=== PATIENT | female | born 1955 | race Caucasian/White ===

== ENCOUNTER 2016-07-21 17:27 | Inpatient (IN) | payer MEDICARE ==
[2016-07-21] MEDS ORDERED: AZITHROMYCIN 500 MG in SODIUM CHLORIDE 0.9% 250 ML IVPB STA (17:38)
[2016-07-21] MEDS ORDERED: SODIUM CHLORIDE 0.9% 1,000 ML IV ONE (17:38)
--- NOTE | 2016-07-21 17:45 | ED ---
SOB HPI - General Chief Complaint: Shortness of Breath Stated Complaint: Diff breathing Time Seen by Provider: 07/21/16 17:28 - History of Present Illness Initial Comments: This is a 60-year-old female presents emergency department for progressively worsening shortness of breath. She states that she was diagnosed with bronchitis ox 94-5 days ago and placed on ampicillin which she has been taking. She states that she's also been taking cough medicine and steroids. She states that over the last few days she has progressively worsened and is now coughing up yellow sputum. She feels very short of breath and is wheezing. She denies any fevers or chills. No abdominal pain. She does admit to a typical feeling in her right neck. Patient has no smoking history. She called EMS because she was so short of breath. They gave her 2 breathing treatments and Solu-Medrol in route. No other complaints. - Related Data Home Medications Medication Instructions Recorded Confirmed Amoxicillin 500 mg PO Q8H 07/21/16 07/21/16 Cholecalciferol [Vitamin D3] 1,000 unit PO DAILY 07/21/16 07/21/16 Ferrous Sulfate [Feosol] 325 mg PO DAILY 07/21/16 07/21/16 Metoprolol Succinate (ER) [Toprol 12.5 mg PO HS 07/21/16 07/21/16 Xl] Multivitamins, Thera [Multivitamin] 1 tab PO DAILY 07/21/16 07/21/16 [place]-3 Fatty Acids/Fish Oil [Fish 1 cap PO DAILY 07/21/16 07/21/16 Oil 1,000 mg Softgel] Vitamin C/Biotin [Hair, Skin and 1 tab PO DAILY 07/21/16 07/21/16 Nails] methylPREDNISolone Dose Pack See Taper PO DAILY 07/21/16 07/21/16 [Medrol Dose Pack] Allergies Allergy/AdvReac Type Severity Reaction Status Date / Time ibuprofen [From Motrin] Allergy Dyspnea Verified 07/21/16 17:57 acetaminophen [From Tylenol] AdvReac Increased Verified 07/21/16 17:57 Liver Enzymes Review of Systems ROS Statement: Those systems with pertinent positive or pertinent negative responses have been documented in the HPI. ROS Other: All systems not noted in ROS Statement are negative. General Exam - General Exam Comments Initial Comments: Constitutional: Awake alert Appears comfortable Head: Normocephalic atraumatic Eyes: no conjunctival injection No scleral icterus EOMI Neck: No JVD Supple Heart: Regular rate rhythm normal S1-S2 no murmurs Lungs: Clear, bilateral inspiratory and expiratory wheezing No rales Abdomen: Soft nondistended nontender Extremities: Non edematous DP pulses intact Radial pulses intact Neuro: A&Ox3 No focal neurologic deficits Psych: Appropriate mood and affect Course Vital Signs 07/21/16 07/21/16 07/21/16 17:40 17:53 17:58 Temperature 98.4 F Pulse Rate 117 H 100 Respiratory 22 22 Rate Blood Pressure 171/77 O2 Sat by Pulse 94 L Oximetry 07/21/16 07/21/16 18:13 19:22 Temperature 98.0 F Pulse Rate 102 H 103 H Respiratory 18 Rate Blood Pressure 141/97 O2 Sat by Pulse 94 L Oximetry - Reevaluation(s) Reevaluation #1: 07/21/16 18:11 EKG showing normal sinus rhythm with a rate of 96. No ST segment changes or T- wave inversions. QTC is 444. Other intervals are normal. No ectopy. Medical Decision Making - Medical Decision Making This is a 60-year-old female presents emergency department for worsening shortness of breath, cough productive of yellow sputum. She was evaluated and appears to have a severe bronchitis. Chest x-ray did not reveal any pneumonia however due to the patient's clinical appearance I did start her on antibiotics. She did improve a little bit on oxygen and breathing treatments. Going to place her in observation overnight for breathing treatments and monitoring. Dr. Wade accepts the admission. - Lab Data Result diagrams: 07/21/16 18:15 07/21/16 18:15 Lab Results 07/21/16 07/21/16 07/21/16 Range/Units 18:15 18:15 18:15 WBC 10.2 (3.8-10.6) k/uL RBC 4.34 (3.80-5.40) m/uL Hgb 14.1 (11.4-16.0) gm/dL Hct 43.0 (34.0-46.0) % MCV 99.1 (80.0-100.0) fL MCH 32.5 (25.0-35.0) pg MCHC 32.8 (31.0-37.0) g/dL RDW 12.6 (11.5-15.5) % Plt Count 230 (150-450) k/uL Neutrophils % 71 % Lymphocytes % 20 % Monocytes % 5 % Eosinophils % 2 % Basophils % 1 % Neutrophils # 7.2 (1.3-7.7) k/uL Lymphocytes # 2.0 (1.0-4.8) k/uL Monocytes # 0.5 (0-1.0) k/uL Eosinophils # 0.2 (0-0.7) k/uL Basophils # 0.1 (0-0.2) k/uL Sodium 145 (137-145) mmol/L Potassium 3.4 L (3.5-5.1) mmol/L Chloride 106 (98-107) mmol/L Carbon Dioxide 28 (22-30) mmol/L Anion Gap 11 mmol/L BUN 22 H (7-17) mg/dL Creatinine 0.68 (0.52-1.04) mg/dL Est GFR (MDRD) Af Amer >60 (>60 ml/min/1.73 sqM) Est GFR (MDRD) Non-Af >60 (>60 ml/min/1.73 sqM) Glucose 122 H (74-99) mg/dL Plasma Lactic Acid Michael 1.5 (0.7-2.0) mmol/L Calcium 9.3 (8.4-10.2) mg/dL Magnesium 1.9 (1.6-2.3) mg/dL Total Bilirubin 0.5 (0.2-1.3) mg/dL AST 25 (14-36) U/L ALT 32 (9-52) U/L Alkaline Phosphatase 95 (38-126) U/L Total Protein 7.1 (6.3-8.2) g/dL Albumin 4.2 (3.5-5.0) g/dL Disposition Clinical Impression: Bronchitis Disposition: ADMITTED IP TO THIS HOSP Condition: Stable
[2016-07-21] MEDS ORDERED: IPRATROPIUM-ALBUTEROL 3 ML NEB INHALATION STA (17:55)
[2016-07-21 18:30] LABS: Basophils # (A) 0.1 k/uL (0-0.2); Basophils % (A) 1 %; CH 33.1; CHCM 33.5; Eosinophils # (A) 0.2 k/uL (0-0.7); Eosinophils % (A) 2 %; HDW 2.32; HGB 14.1 gm/dL (11.4-16.0); Luc # (Auto) 0.23; Luc % (Auto) 2; Lymphocytes % (A) 20 %; MCH 32.5 pg (25.0-35.0); MCHC 32.8 g/dL (31.0-37.0); MCV 99.1 fL (80.0-100.0); Monocytes # (A) 0.5 k/uL (0-1.0); Monocytes % (A) 5 %; Neutrophils # (A) 7.2 k/uL (1.3-7.7); Neutrophils % (A) 71 %; RBC 4.34 m/uL (3.80-5.40); RDW 12.6 % (11.5-15.5); WBC 10.2 k/uL (3.8-10.6); WBC (Perox) 10.93
[2016-07-21 18:40] LABS: ALT 32 U/L (9-52); AST 25 U/L (14-36); Alkaline Phosphatase 95 U/L (38-126); Anion Gap 11 mmol/L; Blood Urea Nitrogen 22 mg/dL (7-17); Calcium 9.3 mg/dL (8.4-10.2); Carbon Dioxide 28 mmol/L (22-30); Chloride 106 mmol/L (98-107); Glucose 122 mg/dL (74-99); Magnesium 1.9 mg/dL (1.6-2.3); Non-African American GFR(MDRD) >60 (>60 ml/min/1.73 sqM); Potassium 3.4 mmol/L (3.5-5.1); Sodium 145 mmol/L (137-145); Total Bilirubin 0.5 mg/dL (0.2-1.3); Total Protein 7.1 g/dL (6.3-8.2)
--- NOTE | 2016-07-21 18:41 | XR ---
EXAMINATION TYPE: XR chest 2V DATE OF EXAM: 07/21/2016 6:35 PM COMPARISON: NONE HISTORY: Dysrhythmia. Chest pain TECHNIQUE: Frontal and lateral views of the chest are obtained. FINDINGS: Heart and mediastinum are normal. Lungs are clear. Costophrenic angles are clear. There ar e no hilar masses. Bony thorax is intact. IMPRESSION: No active cardiopulmonary disease.
[2016-07-21] MEDS ORDERED: PNEUMONIA PROTOCOL UTILIZED 1 EACH MISC PO PRN (19:22)
[2016-07-21] MEDS: METOPROLOL SUCCINATE (ER) 25 MG TAB.ER.24H PO SCH (23:02)
[2016-07-21] MEDS: IPRATROPIUM-ALBUTEROL 3 ML NEB INHALATION PRN (23:09)
[2016-07-21 23:39] VITALS: BMI 31.6
[2016-07-22] MEDS ORDERED: SUMAtriptan SUCCINATE 6 MG/0.5 ML VIAL SQ STA (01:11)
[2016-07-22 01:30] LABS: Appearance,Urine Clear (Clear); Bilirubin,Urine Negative (Negative); Glucose,Urine (UA) Negative (Negative); Ketones,Urine Negative (Negative); Leukocyte Esterase,Urine Negative (Negative); Nitrite,Urine Negative (Negative); Protein,Urine Negative (Negative); Specific Gravity,Urine 1.023 (1.001-1.035); UA Billing (MACRO vs. MICRO) CHEM; Urobilinogen,Urine <2.0 mg/dL (<2.0)
[2016-07-22] MEDS: IPRATROPIUM-ALBUTEROL 3 ML NEB INHALATION PRN (07:20)
[2016-07-22] MEDS: IPRATROPIUM-ALBUTEROL 3 ML NEB INHALATION SCH ×5 (07:42→22:09)
[2016-07-22] MEDS ORDERED: IPRATROPIUM-ALBUTEROL 3 ML NEB INHALATION PRN (07:45)
--- NOTE | 2016-07-22 08:20 | XR ---
EXAMINATION TYPE: XR chest 2V DATE OF EXAM: 07/22/2016 7:15 AM COMPARISON: Prior chest x-ray July HISTORY: Pneumonia TECHNIQUE: Frontal and lateral views of the chest are obtained. FINDINGS: Prominent lung volumes may be indicative of underlying COPD. No pneumothorax or pleural ef fusion. Pulmonary vascularity and noe are stable accounting for differences in technique. Interstiti um is mildly increased. Patient is status post left mastectomy. There are overlying cardiac leads. Th e patient is rotated. Heart size may be accentuated by technique, rotation. IMPRESSION: Borderline cardiac size. Correlate to exclude pulmonary venous hypertension and intersti tial edema, volume overload in a patient with pre-existing COPD. Follow up suggested.
[2016-07-22] MEDS ORDERED: POTASSIUM CHLORIDE ER 20 MEQ TAB.ER PO STA (11:06)
--- NOTE | 2016-07-22 11:41 | HP ---
DATE OF ADMISSION: Patient is a 60-year-old who came in with complaints of shortness of breath, has been going on for about 4 to 5 days. Patient was placed on Medrol Dosepak and ampicillin without any improvement of symptoms. Patient continues to cough, greenish phlegm. Patient now diagnosed with COPD, does not have any history of asthma, patient used to smoke years ago, quit smoking years ago, patient had a secondhand smoke exposure. Patient denied any fever, chills. Patient denied any nausea or vomiting. Patient is using accessory muscles of breathing. Patient denied any significant orthopnea. Patient was complaining of orthopnea most probably because of COPD. Denied any paroxysmal nocturnal dyspnea. Patient is coughing up yellowish phlegm. Patient denied any chest pain at this point of time. Patient is in significant respiratory distress at rest on 3 L of oxygen. Does not use any oxygen at home. Never saw a mail manager and patient has some tingling feeling in the right side of the neck, although there is no pathology that was evidenced. Patient appears to have symptoms appears to have started as sore throat, now led to bronchitis. REVIEW OF SYSTEMS: CONSTITUTIONAL: No fever, no malaise, no fatigue. HEENT: No recent visual problems or hearing problems. Denied any sore throat. CARDIOVASCULAR: No chest pain, orthopnea, PND, no palpitations, no syncope. PULMONARY: As described in HPI. GASTROINTESTINAL: No diarrhea, no nausea, no vomiting, no abdominal pain. Normoactive bowel sounds. NEUROLOGICAL: No headaches, no weakness, no numbness. HEMATOLOGICAL: Denies any bleeding or petechiae. GENITOURINARY: Denies any burning micturition, frequency, or urgency. MUSCULOSKELETAL/RHEUMATOLOGICAL: Denies any joint pain, swelling, or any muscle pain. ENDOCRINE: Denies any polyuria or polydipsia. The rest of the 14 point review of systems is negative. Medications are: 1. Amoxicillin. 2. Cholecalciferol. 3. Ferrous sulfate. 4. Metoprolol. 5. Multivitamin. 6. [place] fatty acids. 7. Biotin. 8. Solu-Medrol. ALLERGIES: Allergic to IBUPROFEN and ACETAMINOPHEN. PAST MEDICAL HISTORY: Significant for DVT in the past. Patient is not on any anticoagulation, uterine cancer in the past, hepatitis C and A, breast surgery, hysterectomy. SOCIAL HISTORY: Smoking history as mentioned above. Denied any alcohol abuse, occasional use of marijuana. FAMILY HISTORY: Significant for cancer. PHYSICAL EXAMINATION: Temperature 99.1, pulse of 103 when she came in, now 99, respiratory rate of 18, blood pressure is 143/73, saturating at 93% on 3 L of O2 by nasal cannula. GENERAL EXAMINATION: Patient is alert and oriented x3. Patient is in moderate respiratory distress at rest. CARDIOVASCULAR EXAMINATION: I do not believe patient has JVD, although because of excessive use of accessory muscles of breathing, I cannot clearly appreciate the JVD. I did not appreciate any S3 or any other murmurs. Patient is tachycardic, it appears to be sinus tachycardia mostly. LUNG EXAMINATION: Diffuse expiratory wheezing bilaterally. No crackles are appreciated. remarkable. HEENT: Pupils are round and equally reacting to light. EOMI. No scleral icterus. No conjunctival pallor. Normocephalic, atraumatic. No pharyngeal erythema. No thyromegaly. ABDOMEN: Soft, nontender, nondistended, normoactive bowel sounds. No palpable organomegaly. MUSCULOSKELETAL: No joint swelling or deformity. EXTREMITIES: No cyanosis, clubbing, or pedal edema. NEUROLOGICAL: Gross neurological examination did not reveal any focal deficits. SKIN: No rashes. LABORATORY DATA: CBC and CMP are abnormal for mildly low potassium of 3.4, which will be supplemented. Chest x-ray was reviewed, it was read as possibility of interstitial lung process of pulmonary edema. I was able to see the lateral x-ray, in spite of multiple attempts, I am unable to open the PA view of the chest x-ray to review by myself. ASSESSMENT AND PLAN: 1. Acute hypercapnic respiratory failure, possibly secondary to possible chronic obstructive pulmonary disease exacerbation. Patient was started on systemic steroids, inhalational treatments for ( ) tracheobronchitis. Failed outpatient therapy with ampicillin, I will start her on levofloxacin. 2. Tachycardia secondary to hypoxemia. 3. Hypokalemia, potassium will be supplemented. 4. History of deep venous thrombosis not on any anticoagulation now. Patient will be restarted on deep venous thrombosis prophylaxis and gastrointestinal prophylaxis here. Gastrointestinal prophylaxis due to systemic steroids. 5. Marijuana use, counseling was provided regarding that. 6. Hypertension for which patient uses metoprolol, which will be continued here. Patient is already tachycardic, may be reflects tachycardia. Patient's primary care physician is Dr. Melendez.
[2016-07-22] MEDS: LEVOFLOXACIN 500 MG TAB PO SCH (12:12)
--- NOTE | 2016-07-22 12:54 | P.CNPUL ---
History of Present Illness Consult date: 07/22/16 Requesting physician: Bassam Connelly Reason for consult: dyspnea, COPD Chief complaint: Shortness of breath, cough, congestion History of present illness: This is a very pleasant 60-year-old female patient who is presently seen Dr. Melendez as her primary care physician. She had previously been seen by Dr. Richard Toscano in the past. She has a history of uterine cancer status post hysterectomy. She also has a history of left breast cancer status post mastectomy, DVT, cardiac arrhythmias, hepatitis A and C infection, congenital hip dysplasia with surgery 3. She states that she has occasionally smokes cigarettes but not on a regular basis. She is exposed to secondhand smoke secondary to her smoking. She also utilizes marijuana. She has not been seen by a senior analyst developer in the past. No previous PFT testing. She is not on home oxygen. She is not on any inhalers in the outpatient setting. She states approximately 4-5 days ago she developed increasing shortness of breath, cough and congestion. She was subsequently started on ampicillin and a Medrol Dosepak without significant improvement. She was seen yesterday in Dr. Melendez's office who eventually called EMS to transfer her here to the emergency room. She was found to be quite bronchospastic and wheezy. Her chest x-ray did not reveal any acute pulmonary process though there is evidence of COPD. She's been afebrile and no leukocytosis. She is maintaining good O2 saturations in the mid 90s on 3 L/m per nasal cannula. Lactic acid was 1.5. Influenza screen was negative. She states she is breathing easier today as compared to yesterday. Her cough is quite tight, nonproductive. No hemoptysis. Review of Systems 14 point review of system was conducted. All negative other than as mentioned in HPI. Past Medical History Past Medical History: Cancer, Deep Vein Thrombosis (DVT) Additional Past Medical History / Comment(s): breast and uterine ca, unknown irregular heart rhythm, hip displasia,. Hep A and C History of Any Multi-Drug Resistant Organisms: None Reported Past Surgical History: Breast Surgery, Hysterectomy Additional Past Surgical History / Comment(s): hip surgery x3 on left Past Anesthesia/Blood Transfusion Reactions: No Reported Reaction Past Psychological History: No Psychological Hx Reported Smoking Status: Never smoker Past Alcohol Use History: None Reported Past Drug Use History: Marijuana - Past Family History Mother Family Medical History: Cancer Medications and Allergies Home Medications Medication Instructions Recorded Confirmed Type Amoxicillin 500 mg PO Q8H 07/21/16 07/21/16 History Cholecalciferol [Vitamin D3] 1,000 unit PO DAILY 07/21/16 07/21/16 History Ferrous Sulfate [Feosol] 325 mg PO DAILY 07/21/16 07/21/16 History Metoprolol Succinate (ER) [Toprol 12.5 mg PO HS 07/21/16 07/21/16 History Xl] Multivitamins, Thera [Multivitamin] 1 tab PO DAILY 07/21/16 07/21/16 History [place]-3 Fatty Acids/Fish Oil [Fish 1 cap PO DAILY 07/21/16 07/21/16 History Oil 1,000 mg Softgel] Vitamin C/Biotin [Hair, Skin and 1 tab PO DAILY 07/21/16 07/21/16 History Nails] methylPREDNISolone Dose Pack See Taper PO DAILY 07/21/16 07/21/16 History [Medrol Dose Pack] Allergies Allergy/AdvReac Type Severity Reaction Status Date / Time ibuprofen [From Motrin] Allergy Dyspnea Verified 07/21/16 17:57 acetaminophen [From Tylenol] AdvReac Increased Verified 07/21/16 17:57 Liver Enzymes Physical Exam Vitals: Vital Signs Temp Pulse Pulse Resp BP Pulse Ox 07/22/16 11:45 92 07/22/16 11:25 90 07/22/16 07:36 88 07/22/16 07:13 90 07/22/16 07:00 98.1 F 99 18 143/73 93 L 07/21/16 23:16 88 07/21/16 23:09 88 07/21/16 23:01 98.0 F 103 H 16 136/85 92 L Intake and Output 07/21/16 07/22/16 07/22/16 22:59 06:59 14:59 Intake Total 750 Balance 750 Intake: Intake, IV Titration 250 Amount Azithromycin 500 mg In 250 Sodium Chloride 0.9% 250 ml @ 125 mls/hr IVPB ONCE STA Rx#:[id number] Oral 500 Other: Voiding Method Toilet Toilet # Voids 2 Weight 81.193 kg GENERAL EXAM: Alert, active, in no apparent distress. HEAD: Normocephalic. EYES: Normal reaction of pupils, equal size. NOSE: Clear with pink turbinates. THROAT: No erythema or exudates. NECK: No masses, no JVD. CHEST: No chest wall deformity. Evidence of left mastectomy. LUNGS: Equal air entry with bilateral wheezing, diminished throughout. CVS: S1 and S2 normal with no audible mumurs, regular rhythm. ABDOMEN: No hepatosplenomegaly, normal bowel sounds, no guarding or rigidity. SPINE: No scoliosis or deformity SKIN: No rashes CENTRAL NERVOUS SYSTEM: No focal deficits, tone is normal in all 4 extremities. Extremities: There is no peripheral edema. No clubbing, no cyanosis. Peripheral pulses are intact. Results - Laboratory Findings CBC and BMP: 07/21/16 18:15 07/21/16 18:15 - Diagnostic Findings Chest x-ray: image reviewed Assessment and Plan Plan: Impression: #1 Acute bronchitis, complicated by an acute exacerbation of suspected chronic obstructive pulmonary disease. Failed outpatient therapy. Influenza screen negative. #2 Breast cancer, status post left mastectomy. #3 History of uterine cancer, status post hysterectomy. #4 Remote history of chronic nicotine addiction with exposure to secondhand smoke. #5 Marijuana use. #6 History of hepatitis A and C infection. #7 History of congenital hip dysplasia, status post hip surgery 3. Plan: The patient was seen and evaluated by Dr. Arroyo. Her chest x-ray and labs were reviewed. We will continue with the present treatment including bronchodilators, IV Solu-Medrol, empiric antibiotics in the form of Levaquin. We'll add Tussionex for her cough. She is on heparin for DVT prophylaxis and Pepcid for GI prophylaxis. We'll continue to follow make further recommendations based on her clinical status.
[2016-07-22] MEDS: CHLORPHEN-HYDROcod 8-10mg/5ml 5 ML ORAL.SYRG PO SCH (15:13)
[2016-07-22] MEDS: traMADol 50 MG TAB PO SCH ×2 (15:13→17:16)
[2016-07-22] MEDS: guaiFENesin 600 MG TABLET.ER PO SCH ×2 (15:52→20:39)
[2016-07-22] MEDS ORDERED: methylPREDNISolone SOD SUCCI 40 MG/ML 1 ML VIAL IV SCH (16:00)
[2016-07-22] MEDS: HEPARIN SODIUM,PORCINE 5,000 UNIT/ML 1 ML VIAL SQ SCH (17:20)
[2016-07-22] MEDS: methylPREDNISolone SOD SUCCI 125 MG/2 ML VIAL IV SCH (17:21)
[2016-07-22] MEDS: BUDESONIDE 1 MG/2 ML NEBU INHALATION SCH (20:09)
[2016-07-22] MEDS: FORMOTEROL FUMARATE 20 MCG/2 ML NEBU INHALATION SCH (20:10)
[2016-07-22] MEDS: FAMOTIDINE 20 MG TAB PO SCH (20:39)
[2016-07-22] MEDS: METOPROLOL SUCCINATE (ER) 25 MG TAB.ER.24H PO SCH (20:39)
[2016-07-22] MEDS: ARTIFICIAL TEARS-HYPROMELLOSE DROPS 15 ML BTL BOTH EYES PRN (21:48)
[2016-07-22 21:50] LABS: Glucose,Whole Blood 147 mg/dL (75-99)
[2016-07-22] MEDS: INSULIN LISPRO (humaLOG) 300 UNIT/3 ML VIAL SQ SCH (21:53)
[2016-07-22 22:09] LABS: Hemoglobin A1C 5.2 % (4.2-6.1)
[2016-07-23] MEDS: CHLORPHEN-HYDROcod 8-10mg/5ml 5 ML ORAL.SYRG PO SCH ×2 (00:30→10:54)
[2016-07-23] MEDS: methylPREDNISolone SOD SUCCI 125 MG/2 ML VIAL IV SCH ×4 (00:30→18:00)
[2016-07-23] MEDS: HEPARIN SODIUM,PORCINE 5,000 UNIT/ML 1 ML VIAL SQ SCH ×3 (00:30→16:11)
[2016-07-23] MEDS: IPRATROPIUM-ALBUTEROL 3 ML NEB INHALATION SCH ×5 (04:00→20:27)
[2016-07-23] MEDS: FAMOTIDINE 20 MG TAB PO SCH ×2 (07:39→20:24)
[2016-07-23] MEDS: traMADol 50 MG TAB PO PRN ×3 (07:39→20:24)
[2016-07-23] MEDS: guaiFENesin 600 MG TABLET.ER PO SCH ×2 (07:39→20:25)
[2016-07-23 07:47] LABS: Glucose,Whole Blood 147 mg/dL (75-99)
[2016-07-23] MEDS: INSULIN LISPRO (humaLOG) 300 UNIT/3 ML VIAL SQ SCH ×5 (08:35→23:03)
[2016-07-23] MEDS: FORMOTEROL FUMARATE 20 MCG/2 ML NEBU INHALATION SCH ×2 (08:59→20:27)
[2016-07-23] MEDS: BUDESONIDE 1 MG/2 ML NEBU INHALATION SCH ×2 (08:59→20:26)
[2016-07-23] MEDS: LEVOFLOXACIN 500 MG TAB PO SCH (10:54)
[2016-07-23 11:52] LABS: Glucose,Whole Blood 198 mg/dL (75-99)
[2016-07-23] MEDS: ARTIFICIAL TEARS-HYPROMELLOSE DROPS 15 ML BTL BOTH EYES PRN (12:17)
--- NOTE | 2016-07-23 13:14 | P.PN ---
Subjective Principal diagnosis: Acute exacerbation of COPD This is a very pleasant 60-year-old female patient who is presently seen Dr. Melendez as her primary care physician. She had previously been seen by Dr. Richard Toscano in the past. She has a history of uterine cancer status post hysterectomy. She also has a history of left breast cancer status post mastectomy, DVT, cardiac arrhythmias, hepatitis A and C infection, congenital hip dysplasia with surgery 3. She states that she has occasionally smokes cigarettes but not on a regular basis. She is exposed to secondhand smoke secondary to her smoking. She also utilizes marijuana. She has not been seen by a field enumerator in the past. No previous PFT testing. She is not on home oxygen. She is not on any inhalers in the outpatient setting. She states approximately 4-5 days ago she developed increasing shortness of breath, cough and congestion. She was subsequently started on ampicillin and a Medrol Dosepak without significant improvement. She was seen yesterday in Dr. Melendez's office who eventually called EMS to transfer her here to the emergency room. She was found to be quite bronchospastic and wheezy. Her chest x-ray did not reveal any acute pulmonary process though there is evidence of COPD. She's been afebrile and no leukocytosis. She is maintaining good O2 saturations in the mid 90s on 3 L/m per nasal cannula. Lactic acid was 1.5. Influenza screen was negative. She states she is breathing easier today as compared to yesterday. Her cough is quite tight, nonproductive. No hemoptysis. Reevaluated today on 07/23/2016, slightly better, but continues to have intermittent episodes of cough and wheezing. Based on my physical examination, there is at least a 70% improvement. Less crackles arrest rhonchi and less wheezes Objective - Vital Signs Vital signs: Vital Signs Temp 97.3 F L 07/23/16 07:00 Pulse 92 07/23/16 12:55 Resp 18 07/23/16 07:00 BP 123/73 07/23/16 07:00 Pulse Ox 94 L 07/23/16 07:00 Intake & Output 07/22/16 07/23/16 07/23/16 18:59 06:59 18:59 Intake Total 600 480 Balance 600 480 Intake: Oral 600 480 Other: Voiding Method Toilet Toilet Toilet # Voids 2 1 - Exam GENERAL EXAM: Alert, active, in no apparent distress. HEAD: Normocephalic. EYES: Normal reaction of pupils, equal size. NOSE: Clear with pink turbinates. THROAT: No erythema or exudates. NECK: No masses, no JVD. CHEST: No chest wall deformity. Evidence of left mastectomy. LUNGS: Diminished breath sound bilaterally, some wheezing on forced expiratory maneuver only.. CVS: S1 and S2 normal with no audible mumurs, regular rhythm. ABDOMEN: No hepatosplenomegaly, normal bowel sounds, no guarding or rigidity. SPINE: No scoliosis or deformity SKIN: No rashes CENTRAL NERVOUS SYSTEM: No focal deficits, tone is normal in all 4 extremities. Extremities: There is no peripheral edema. No clubbing, no cyanosis. Peripheral pulses are intact. - Labs CBC & Chem 7: 07/21/16 18:15 07/21/16 18:15 Labs: Abnormal Lab Results - Last 24 Hours (Table) 07/22/16 07/23/16 07/23/16 Range/Units 21:49 07:31 11:29 POC Glucose (mg/dL) 147 H 147 H 198 H (75-99) mg/dL Assessment and Plan Plan: #1 acute exacerbation of COPD and acute purulent tracheobronchitis. #2 Breast cancer, status post left mastectomy. #3 History of uterine cancer, status post hysterectomy. #4 Remote history of chronic nicotine addiction with exposure to secondhand smoke. #5 Marijuana use. #6 History of hepatitis A and C infection. #7 History of congenital hip dysplasia, status post hip surgery 3. Recommendation: Continue present course of bronchodilators, antibiotics, steroids, continue Tussionex, and consider discharge planning in the next 24 hours. Time with Patient: Less than 30
[2016-07-23 16:22] LABS: Glucose,Whole Blood 95 mg/dL (75-99)
[2016-07-23] MEDS: METOPROLOL SUCCINATE (ER) 25 MG TAB.ER.24H PO SCH (20:24)
[2016-07-23 23:08] LABS: Glucose,Whole Blood 178 mg/dL (75-99)
[2016-07-24] MEDS: methylPREDNISolone SOD SUCCI 125 MG/2 ML VIAL IV SCH ×4 (00:31→17:22)
[2016-07-24] MEDS: CHLORPHEN-HYDROcod 8-10mg/5ml 5 ML ORAL.SYRG PO SCH ×2 (00:31→13:40)
[2016-07-24] MEDS: HEPARIN SODIUM,PORCINE 5,000 UNIT/ML 1 ML VIAL SQ SCH ×3 (00:33→15:59)
[2016-07-24] MEDS: IPRATROPIUM-ALBUTEROL 3 ML NEB INHALATION SCH ×6 (02:22→20:18)
[2016-07-24] MEDS: FORMOTEROL FUMARATE 20 MCG/2 ML NEBU INHALATION SCH ×2 (07:22→20:19)
[2016-07-24] MEDS: BUDESONIDE 1 MG/2 ML NEBU INHALATION SCH ×2 (07:22→20:18)
[2016-07-24 07:37] LABS: Basophils % (A) 0 %; CHCM 33.2; Eosinophils % (A) 0 %; HCT 36.8 % (34.0-46.0); HDW 2.17; Luc # (Auto) 0.24; Luc % (Auto) 2; Lymphocytes # (A) 1.8 k/uL (1.0-4.8); Lymphocytes % (A) 12 %; MCH 32.5 pg (25.0-35.0); MCHC 32.6 g/dL (31.0-37.0); MCV 99.8 fL (80.0-100.0); Mean Platelet Volume 7.1; Monocytes # (A) 0.9 k/uL (0-1.0); Monocytes % (A) 6 %; Neutrophils # (A) 11.3 k/uL (1.3-7.7); Neutrophils % (A) 79 %; RBC 3.69 m/uL (3.80-5.40); WBC 14.2 k/uL (3.8-10.6); WBC (Perox) 14.87
[2016-07-24 07:55] LABS: Anion Gap 9 mmol/L; Blood Urea Nitrogen 28 mg/dL (7-17); Calcium 9.5 mg/dL (8.4-10.2); Carbon Dioxide 25 mmol/L (22-30); Chloride 104 mmol/L (98-107); Glucose 119 mg/dL (74-99); Non-African American GFR(MDRD) >60 (>60 ml/min/1.73 sqM); Potassium 4.7 mmol/L (3.5-5.1); Sodium 138 mmol/L (137-145)
[2016-07-24 08:03] LABS: Glucose,Whole Blood 117 mg/dL (75-99)
[2016-07-24] MEDS: INSULIN LISPRO (humaLOG) 300 UNIT/3 ML VIAL SQ SCH ×5 (08:36→23:35)
[2016-07-24] MEDS: traMADol 50 MG TAB PO PRN (08:38)
[2016-07-24] MEDS: FAMOTIDINE 20 MG TAB PO SCH ×2 (08:42→21:32)
[2016-07-24] MEDS: guaiFENesin 600 MG TABLET.ER PO SCH ×2 (08:43→21:33)
[2016-07-24] MEDS: FERROUS SULFATE 325 MG TAB PO SCH (08:43)
[2016-07-24] MEDS: CHOLECALCIFEROL 1,000 UNIT TAB PO SCH (08:43)
[2016-07-24] MEDS: MULTIVITAMINS, THERA 1 EACH TAB PO SCH (08:43)
[2016-07-24] MEDS ORDERED: FUROSEMIDE 10 MG/ML 4 ML VIAL IV SCH (09:00)
--- NOTE | 2016-07-24 10:53 | PN ---
DATE OF SERVICE: 07/23/2016 This 60-year-old woman who was admitted with significant chronic obstructive pulmonary disease acute exacerbation as well as acute purulent tracheobronchitis has significant shortness. Even the mildest exertion is causing this shortness of breath. The chest x-ray showed evidence of pneumonia. Dr. Arroyo is also following the patient closely. PAST MEDICAL HISTORY: Reviewed. REVIEW OF SYSTEMS: CARDIOVASCULAR: No angina. LUNGS: As mentioned. GI: As mentioned. : As mentioned. NERVOUS SYSTEM: As mentioned. Medications reviewed and include: 1. DuoNeb q.i.d. and p.r.n. 2. Aspirin t.i.d. 3. Pulmicort. 4. Tussinex. 5. Pepcid. 7. Mucinex. 8. Heparin. 9. Humalog. 10. Levaquin. 11. SoluMedrol 60 IV. 12. Toprol-XL. 13. Ultram. PHYSICAL EXAMINATION: GENERAL: Alert, oriented x2. VITAL SIGNS: Pulse is 99, blood pressure 120/63, respirations 20, temperature 98.2, pulse ox 91% on 2 liters. HEENT: Conjunctivae normal. NECK: No JVD. CARDIOVASCULAR: S1 and S2 muffled. RESPIRATORY: Breath sounds are diminished at the bases. Bilateral scattered rhonchi and crackles. Coarse crackles also heard. ABDOMEN: Soft, nontender. No masses palpable. EXTREMITIES: No edema. No swelling. NERVOUS SYSTEM: Higher functions as mentioned. Moves all limbs. LYMPHATICS: No lymph nodes present in the neck or axillae. SKIN: No rashes or ulcers. LABS: At this time show CBC within normal limits. Glucose 147. ASSESSMENT: 1. Chronic obstructive pulmonary disease exacerbation, with acute purulent tracheobronchitis with slow improvement. 2. Hypokalemia. 3. Rule out fluid overload. 4. Increased random blood sugar, possibly secondary to steroids. 5. History of deep venous thrombosis. 6. History of breast cancer. 7. History of uterine cancer. 8. History of hepatitis A and C. 9. Degenerative joint disease. 10. Tachycardia, sinus, probably secondary to hypoxemia, present on admission. 11. History of THC. RECOMMENDATIONS AND DISCUSSION: In this 60-year-old woman who presented with multiple complex medical issues, we will monitor the patient closely, continue the current medications and symptomatic treatment. Otherwise, continue with steroids, continue the bronchodilators, continue with antibiotics. IV steroids. Monitor blood sugars closely. Closely follow with Dr. Arroyo. Also send sputum culture also. Further recommendations to follow. MTDD
[2016-07-24 11:49] LABS: Glucose,Whole Blood 113 mg/dL (75-99)
[2016-07-24] MEDS ORDERED: ASCORBIC ACID 500 MG TAB PO SCH (12:00)
[2016-07-24] MEDS: LEVOFLOXACIN 500 MG TAB PO SCH (13:35)
[2016-07-24] MEDS: ASCORBIC ACID 500 MG TAB PO SCH (13:40)
--- NOTE | 2016-07-24 14:44 | P.PN ---
Subjective This is a very pleasant 60-year-old female patient who is presently seen Dr. Melendez as her primary care physician. She had previously been seen by Dr. Richard Toscano in the past. She has a history of uterine cancer status post hysterectomy. She also has a history of left breast cancer status post mastectomy, DVT, cardiac arrhythmias, hepatitis A and C infection, congenital hip dysplasia with surgery 3. She states that she has occasionally smokes cigarettes but not on a regular basis. She is exposed to secondhand smoke secondary to her smoking. She also utilizes marijuana. She has not been seen by a commercial real estate appraiser in the past. No previous PFT testing. She is not on home oxygen. She is not on any inhalers in the outpatient setting. She states approximately 4-5 days ago she developed increasing shortness of breath, cough and congestion. She was subsequently started on ampicillin and a Medrol Dosepak without significant improvement. She was seen yesterday in Dr. Melendez's office who eventually called EMS to transfer her here to the emergency room. She was found to be quite bronchospastic and wheezy. Her chest x-ray did not reveal any acute pulmonary process though there is evidence of COPD. She is seen again today 07/24/2016 in follow-up. She is doing much better. She denies any worsening shortness of breath. She continues with a loose nonproductive cough. she is dyspneic on minimal exertion. He is maintaining good O2 saturations in the 90s on 2 L/m per nasal cannula. She's been afebrile. The cultures revealed no growth to date. Objective - Vital Signs Vital signs: Vital Signs Temp 97.7 F 07/24/16 07:00 Pulse 92 07/24/16 11:32 Resp 18 07/24/16 08:00 BP 119/61 07/24/16 07:00 Pulse Ox 92 L 07/24/16 07:23 Intake & Output 07/23/16 07/24/16 07/24/16 18:59 06:59 18:59 Intake Total 200 Balance 200 Intake: Oral 200 - Exam GENERAL EXAM: Alert, active, comfortable in no apparent distress. HEAD: Normocephalic. EYES: Normal reaction of pupils, equal size. NOSE: Clear with pink turbinates. THROAT: No erythema or exudates. NECK: No masses, no JVD. CHEST: No chest wall deformity. LUNGS: Equal air entry with bilateral scattered rhonchi, wheeze. Diminishedr CVS: S1 and S2 normal with no audible mumurs, regular rhythm. ABDOMEN: No hepatosplenomegaly, normal bowel sounds, no guarding or rigidity. SPINE: No scoliosis or deformity SKIN: No rashes CENTRAL NERVOUS SYSTEM: No focal deficits, tone is normal in all 4 extremities. Extremities: There is changes of chronic venous stasis. Chronic edema. No clubbing, no cyanosis. Peripheral pulses are intact. - Labs CBC & Chem 7: 07/24/16 07:01 07/24/16 07:01 Labs: Abnormal Lab Results - Last 24 Hours (Table) 07/24/16 Range/Units 11:46 POC Glucose (mg/dL) 113 H (75-99) mg/dL Assessment and Plan Plan: Impression: #1 Acute bronchitis, complicated by an acute exacerbation of suspected chronic obstructive pulmonary disease. Failed outpatient therapy. Influenza screen negative. #2 Breast cancer, status post left mastectomy. #3 History of uterine cancer, status post hysterectomy. #4 Remote history of chronic nicotine addiction with exposure to secondhand smoke. #5 Marijuana use. #6 History of hepatitis A and C infection. #7 History of congenital hip dysplasia, status post hip surgery 3. Plan: The patient was seen and evaluated by Dr. Arroyo. We will continue with the present treatment including bronchodilators, IV Solu-Medrol, empiric antibiotics in the form of Levaquin. Continue Tussionex for her cough. She is on heparin for DVT prophylaxis and Pepcid for GI prophylaxis. Not quite ready for discharge today. We'll continue to follow make further recommendations based on her clinical status.
[2016-07-24 16:45] LABS: Glucose,Whole Blood 131 mg/dL (75-99)
[2016-07-24 20:55] LABS: Glucose,Whole Blood 190 mg/dL (75-99)
[2016-07-24] MEDS: METOPROLOL SUCCINATE (ER) 25 MG TAB.ER.24H PO SCH (21:34)
--- NOTE | 2016-07-24 22:11 | PN ---
DATE OF SERVICE: 07/24/2016 This 60-year-old woman was admitted with significant chronic obstructive pulmonary disease acute exacerbation as well as acute purulent tracheobronchitis, still having significant coarse crackles. The patient also received a dose of diuretics also. Dr. Arroyo is following the patient closely, the patient on broad spectrum IV antibiotics. Past medical history reviewed. REVIEW OF SYSTEMS: CARDIOVASCULAR: As mentioned earlier. RESPIRATORY: As mentioned earlier. GI: No nausea. : No dysuria. Nervous system: No focal deficits. Current medications are reviewed and include: 1. DuoNeb q.i.d. and p.r.n. 3. Vitamin C. 4. Pulmicort. 5. Vitamin D. 6. Lasix 40 daily. 7. Heparin. 8. Levaquin. 9. Solu-Medrol. 10. Toprol XL. 11. Multivitamins. 12. Ultram. PHYSICAL EXAMINATION: The patient is alert and oriented times two. Pulse is 97, blood pressure 117/79, respirations 18, temperature 98.2. Pulse ox 92% on 2 L. HEENT: Conjunctivae normal. Oral mucosa moist. NECK: No jugular venous distention. No carotid bruit. No lymph node enlargement. CARDIOVASCULAR: S1, S2 No S3, no S4. RESPIRATORY: Breath sounds diminished at the bases. Bilateral scattered rhonchi and crackles, coarse crackles heard, slightly better than yesterday. ABDOMEN: Soft. Nontender. No mass palpable. LEGS: No edema. No swelling. CENTRAL NERVOUS SYSTEM: Higher functions as mentioned earlier. Moves all four limbs. No focal motor or sensory deficits. LYMPHATICS: No lymph nodes palpable in the neck, axillae or groin. SKIN: No ulcer, rash or bleeding. LABS: WBC 14.2, hemoglobin is 12. Accu-Cheks are noted. ASSESSMENT: 1. Chronic obstructive pulmonary disease exacerbation with acute purulent tracheobronchitis with slow improvement. 2. Hypokalemia. 3. Increased random blood sugar, possibly secondary to steroids. 4. History of deep venous thrombosis. 5. History of breast cancer. 6. History of history of uterine cancer. 7. History of hepatitis A and C. 8. Degenerative joint disease. 9. History of tachycardia possibly secondary to hypoxemia, present on admission. 10. History of THC. 11. FULL CODE. RECOMMENDATIONS AND DISCUSSION: In this 60-year-old woman who presented with multiple complex medical issues. We will monitor the patient closely. Continue the current medications. Continue symptomatic treatment. We will continue bronchodilators and empiric bronchodilators. I would also recommend continue with antibiotics. Closely follow with Dr. Arroyo. Increase ambulation. Guarded prognosis because of multiple complex medical issues. Further recommendations to follow. MTDD
[2016-07-24 22:58] LABS: Glucose,Whole Blood 129 mg/dL (75-99)
[2016-07-25] MEDS: HEPARIN SODIUM,PORCINE 5,000 UNIT/ML 1 ML VIAL SQ SCH ×3 (00:18→17:44)
[2016-07-25] MEDS: methylPREDNISolone SOD SUCCI 125 MG/2 ML VIAL IV SCH ×2 (00:18→05:48)
[2016-07-25] MEDS: CHLORPHEN-HYDROcod 8-10mg/5ml 5 ML ORAL.SYRG PO SCH ×2 (00:19→11:55)
[2016-07-25] MEDS: CHOLECALCIFEROL 1,000 UNIT TAB PO SCH (07:16)
[2016-07-25] MEDS: traMADol 50 MG TAB PO PRN ×2 (07:16→21:09)
[2016-07-25] MEDS: FAMOTIDINE 20 MG TAB PO SCH ×2 (07:16→21:09)
[2016-07-25] MEDS: guaiFENesin 600 MG TABLET.ER PO SCH ×2 (07:18→21:10)
[2016-07-25] MEDS: FERROUS SULFATE 325 MG TAB PO SCH (07:18)
[2016-07-25] MEDS: MULTIVITAMINS, THERA 1 EACH TAB PO SCH (07:18)
[2016-07-25] MEDS: BUDESONIDE 1 MG/2 ML NEBU INHALATION SCH ×2 (07:22→19:07)
[2016-07-25] MEDS: IPRATROPIUM-ALBUTEROL 3 ML NEB INHALATION SCH ×4 (07:22→19:06)
[2016-07-25] MEDS: FORMOTEROL FUMARATE 20 MCG/2 ML NEBU INHALATION SCH ×2 (07:22→19:07)
[2016-07-25 07:54] LABS: Glucose,Whole Blood 131 mg/dL (75-99)
[2016-07-25 08:01] LABS: Basophils % (A) 0 %; CH 32.9; Eosinophils % (A) 0 %; HCT 36.1 % (34.0-46.0); HDW 2.11; HGB 11.8 gm/dL (11.4-16.0); Luc # (Auto) 0.16; Luc % (Auto) 2; Lymphocytes # (A) 1.4 k/uL (1.0-4.8); Lymphocytes % (A) 16 %; MCH 32.8 pg (25.0-35.0); MCHC 32.8 g/dL (31.0-37.0); Mean Platelet Volume 6.7; Monocytes # (A) 0.4 k/uL (0-1.0); Monocytes % (A) 4 %; Neutrophils # (A) 6.6 k/uL (1.3-7.7); Neutrophils % (A) 77 %; RBC 3.61 m/uL (3.80-5.40); RDW 12.8 % (11.5-15.5); WBC 8.5 k/uL (3.8-10.6); WBC (Perox) 9.32
[2016-07-25] MEDS: INSULIN LISPRO (humaLOG) 300 UNIT/3 ML VIAL SQ SCH ×4 (08:05→21:10)
[2016-07-25 08:16] LABS: Anion Gap 7 mmol/L; Blood Urea Nitrogen 25 mg/dL (7-17); Calcium 8.9 mg/dL (8.4-10.2); Carbon Dioxide 27 mmol/L (22-30); Chloride 106 mmol/L (98-107); Glucose 121 mg/dL (74-99); Non-African American GFR(MDRD) >60 (>60 ml/min/1.73 sqM); Potassium 4.7 mmol/L (3.5-5.1); Sodium 140 mmol/L (137-145)
[2016-07-25] MEDS: LEVOFLOXACIN 500 MG TAB PO SCH (11:51)
[2016-07-25] MEDS: ASCORBIC ACID 500 MG TAB PO SCH (11:51)
[2016-07-25 11:54] LABS: Glucose,Whole Blood 115 mg/dL (75-99)
--- NOTE | 2016-07-25 12:52 | P.PN ---
Subjective This is a very pleasant 60-year-old female patient who is presently seen Dr. Melendez as her primary care physician. She had previously been seen by Dr. Richard Toscano in the past. She has a history of uterine cancer status post hysterectomy. She also has a history of left breast cancer status post mastectomy, DVT, cardiac arrhythmias, hepatitis A and C infection, congenital hip dysplasia with surgery 3. She states that she has occasionally smokes cigarettes but not on a regular basis. She is exposed to secondhand smoke secondary to her smoking. She also utilizes marijuana. She has not been seen by a commercial fisherman in the past. No previous PFT testing. She is not on home oxygen. She is not on any inhalers in the outpatient setting. She states approximately 4-5 days ago she developed increasing shortness of breath, cough and congestion. She was subsequently started on ampicillin and a Medrol Dosepak without significant improvement. She was seen yesterday in Dr. Melendez's office who eventually called EMS to transfer her here to the emergency room. She was found to be quite bronchospastic and wheezy. Her chest x-ray did not reveal any acute pulmonary process though there is evidence of COPD. She is seen again today 07/25/2016 in the regular medical floor. She is awake and alert in no acute distress. She is improving daily. She remains on bronchodilators IV Solu-Medrol and antibiotics in the form of Levaquin. Cultures reveal no growth to date. She is afebrile. She is maintaining good O2 saturations in the low 90s on 3 L/m per nasal cannula. She is increasing her activity as tolerated. No specific complaints. Objective - Vital Signs Vital signs: Vital Signs Temp 97.4 F L 07/25/16 07:00 Pulse 100 07/25/16 11:05 Resp 18 07/25/16 07:00 BP 126/73 07/25/16 07:00 Pulse Ox 97 07/25/16 07:00 Intake & Output 07/24/16 07/25/16 07/25/16 18:59 06:59 18:59 Intake Total 200 650 Balance 200 650 Intake: Oral 200 650 Other: Voiding Method Toilet Toilet Toilet # Voids 1 1 - Exam GENERAL EXAM: Alert, active, comfortable in no apparent distress. HEAD: Normocephalic. EYES: Normal reaction of pupils, equal size. NOSE: Clear with pink turbinates. THROAT: No erythema or exudates. NECK: No masses, no JVD. CHEST: No chest wall deformity. LUNGS: Equal air entry with bilateral scattered rhonchi, wheeze. Diminishedr CVS: S1 and S2 normal with no audible mumurs, regular rhythm. ABDOMEN: No hepatosplenomegaly, normal bowel sounds, no guarding or rigidity. SPINE: No scoliosis or deformity SKIN: No rashes CENTRAL NERVOUS SYSTEM: No focal deficits, tone is normal in all 4 extremities. Extremities: There is changes of chronic venous stasis. Chronic edema. No clubbing, no cyanosis. Peripheral pulses are intact. - Labs CBC & Chem 7: 07/25/16 07:35 07/25/16 07:35 Labs: Abnormal Lab Results - Last 24 Hours (Table) 07/24/16 07/24/16 07/24/16 Range/Units 16:42 20:53 22:56 RBC (3.80-5.40) m/uL BUN (7-17) mg/dL Glucose (74-99) mg/dL POC Glucose (mg/dL) 131 H 190 H 129 H (75-99) mg/dL 07/25/16 07/25/16 07/25/16 Range/Units 07:27 07:35 07:35 RBC 3.61 L (3.80-5.40) m/uL BUN 25 H (7-17) mg/dL Glucose 121 H (74-99) mg/dL POC Glucose (mg/dL) 131 H (75-99) mg/dL 07/25/16 Range/Units 11:51 RBC (3.80-5.40) m/uL BUN (7-17) mg/dL Glucose (74-99) mg/dL POC Glucose (mg/dL) 115 H (75-99) mg/dL Assessment and Plan Plan: Impression: #1 Acute bronchitis, complicated by an acute exacerbation of suspected chronic obstructive pulmonary disease. Failed outpatient therapy. Influenza screen negative. #2 Breast cancer, status post left mastectomy. #3 History of uterine cancer, status post hysterectomy. #4 Remote history of chronic nicotine addiction with exposure to secondhand smoke. #5 Marijuana use. #6 History of hepatitis A and C infection. #7 History of congenital hip dysplasia, status post hip surgery 3. Plan: The patient was seen and evaluated by Dr. Arroyo. We will continue with the present treatment including bronchodilators, IV Solu-Medrol, empiric antibiotics in the form of Levaquin. Continue Tussionex for her cough. She is on heparin for DVT prophylaxis and Pepcid for GI prophylaxis. The plan is for possible discharge in the a.m. We'll continue to follow.
[2016-07-25] MEDS: methylPREDNISolone SOD SUCCI 40 MG/ML 1 ML VIAL IV SCH (17:44)
[2016-07-25 21:16] LABS: Glucose,Whole Blood 118 mg/dL (75-99)
[2016-07-26] MEDS: methylPREDNISolone SOD SUCCI 40 MG/ML 1 ML VIAL IV SCH ×2 (00:06→08:22)
[2016-07-26] MEDS: HEPARIN SODIUM,PORCINE 5,000 UNIT/ML 1 ML VIAL SQ SCH ×3 (00:07→16:05)
[2016-07-26] MEDS: METOPROLOL SUCCINATE (ER) 25 MG TAB.ER.24H PO SCH ×2 (00:07→22:15)
[2016-07-26] MEDS: CHLORPHEN-HYDROcod 8-10mg/5ml 5 ML ORAL.SYRG PO SCH ×2 (00:15→11:46)
[2016-07-26 07:31] LABS: Basophils % (A) 0 %; CHCM 33.3; Eosinophils % (A) 0 %; HCT 34.8 % (34.0-46.0); HGB 11.4 gm/dL (11.4-16.0); Luc # (Auto) 0.14; Luc % (Auto) 2; Lymphocytes # (A) 1.4 k/uL (1.0-4.8); Lymphocytes % (A) 18 %; MCH 32.6 pg (25.0-35.0); MCHC 32.8 g/dL (31.0-37.0); MCV 99.4 fL (80.0-100.0); Mean Platelet Volume 6.8; Monocytes # (A) 0.6 k/uL (0-1.0); Monocytes % (A) 7 %; Neutrophils # (A) 5.9 k/uL (1.3-7.7); Neutrophils % (A) 73 %; RBC 3.51 m/uL (3.80-5.40); WBC 8.1 k/uL (3.8-10.6); WBC (Perox) 8.58
[2016-07-26 07:46] LABS: Anion Gap 5 mmol/L; Blood Urea Nitrogen 23 mg/dL (7-17); Calcium 8.7 mg/dL (8.4-10.2); Carbon Dioxide 28 mmol/L (22-30); Chloride 107 mmol/L (98-107); Glucose 122 mg/dL (74-99); Non-African American GFR(MDRD) >60 (>60 ml/min/1.73 sqM); Potassium 4.8 mmol/L (3.5-5.1); Sodium 140 mmol/L (137-145)
[2016-07-26 08:08] LABS: Glucose,Whole Blood 114 mg/dL (75-99)
[2016-07-26] MEDS: INSULIN LISPRO (humaLOG) 300 UNIT/3 ML VIAL SQ SCH ×4 (08:21→22:15)
[2016-07-26] MEDS: FERROUS SULFATE 325 MG TAB PO SCH (08:23)
[2016-07-26] MEDS: guaiFENesin 600 MG TABLET.ER PO SCH ×2 (08:23→22:14)
[2016-07-26] MEDS: CHOLECALCIFEROL 1,000 UNIT TAB PO SCH (08:23)
[2016-07-26] MEDS: FAMOTIDINE 20 MG TAB PO SCH ×2 (08:23→22:14)
[2016-07-26] MEDS: MULTIVITAMINS, THERA 1 EACH TAB PO SCH (08:24)
[2016-07-26] MEDS: traMADol 50 MG TAB PO PRN ×2 (08:32→22:11)
--- NOTE | 2016-07-26 08:48 | PN ---
DATE OF SERVICE: 07/25/2016 This 60-year-old woman was admitted with COPD exacerbations, acute purulent tracheobronchitis has been closely monitored. No chest pain, no palpitations. The patient is improving slightly. No fever. No cough. On exam, alert and oriented x3. Pulse 88, blood pressure 143/61, respirations 18, temperature 98.4, pulse ox 92% on 1.5 liters. HEENT: Conjunctivae normal. NECK: No jugular venous distention. CARDIOVASCULAR: S1 and S2, muffled. RESPIRATORY: Breath sounds diminished at the bases. Bilateral scattered rhonchi and crackles. Expiratory wheezing. ABDOMEN: Soft, nontender. LEGS: No edema, no swelling. NERVOUS SYSTEM: No focal deficits. LABS: CBC within normal limits. Accu-Cheks 121, 115. ASSESSMENT: 1. Chronic obstructive pulmonary disease acute exacerbation with acute purulent tracheobronchitis, slow improvement. 2. Hypokalemia. 3. Increased random blood sugar, possibly secondary to steroids. 4. History of deep venous thrombosis. 5. History of breast cancer. 6. History of uterine cancer. 7. History of hepatitis A and C. 8. Degenerative joint disease. 9. History of tachycardia possibly secondary to hypoxia present on admission. 10. History of tetrahydrocannabinol. 11. FULL CODE. RECOMMENDATIONS AND DISCUSSION: In this 60-year-old woman who presented with multiple complex medical issues, will monitor the patient closely. Continue with current medications and symptomatic treatment. Otherwise, continue with bronchodilators, continue with tapering steroids, continue with the rest of the medications. Closely monitor with Dr. Arroyo. Increase ambulation. Further recommendations to follow Prognosis guarded.
[2016-07-26] MEDS: IPRATROPIUM-ALBUTEROL 3 ML NEB INHALATION SCH ×4 (09:38→19:13)
[2016-07-26] MEDS: FORMOTEROL FUMARATE 20 MCG/2 ML NEBU INHALATION SCH ×2 (09:39→19:13)
[2016-07-26] MEDS: BUDESONIDE 1 MG/2 ML NEBU INHALATION SCH ×2 (09:39→19:13)
[2016-07-26] MEDS: BENZOCAINE/MENTHOL LOZENG 1 EACH LOZENGE MUCOUS MEM PRN ×2 (11:46→22:13)
[2016-07-26] MEDS: LEVOFLOXACIN 500 MG TAB PO SCH (11:46)
[2016-07-26] MEDS: ASCORBIC ACID 500 MG TAB PO SCH (11:46)
[2016-07-26 12:28] LABS: Glucose,Whole Blood 135 mg/dL (75-99)
--- NOTE | 2016-07-26 15:39 | P.PN ---
Subjective Principal diagnosis: Acute exacerbation of COPD This is a very pleasant 60-year-old female patient who is presently seen Dr. Melendez as her primary care physician. She had previously been seen by Dr. Richard Toscano in the past. She has a history of uterine cancer status post hysterectomy. She also has a history of left breast cancer status post mastectomy, DVT, cardiac arrhythmias, hepatitis A and C infection, congenital hip dysplasia with surgery 3. She states that she has occasionally smokes cigarettes but not on a regular basis. She is exposed to secondhand smoke secondary to her smoking. She also utilizes marijuana. She has not been seen by a key punch operator in the past. No previous PFT testing. She is not on home oxygen. She is not on any inhalers in the outpatient setting. She states approximately 4-5 days ago she developed increasing shortness of breath, cough and congestion. She was subsequently started on ampicillin and a Medrol Dosepak without significant improvement. She was seen yesterday in Dr. Melendez's office who eventually called EMS to transfer her here to the emergency room. She was found to be quite bronchospastic and wheezy. Her chest x-ray did not reveal any acute pulmonary process though there is evidence of COPD. She's been afebrile and no leukocytosis. She is maintaining good O2 saturations in the mid 90s on 3 L/m per nasal cannula. Lactic acid was 1.5. Influenza screen was negative. She states she is breathing easier today as compared to yesterday. Her cough is quite tight, nonproductive. No hemoptysis. Reevaluated today on 07/23/2016, slightly better, but continues to have intermittent episodes of cough and wheezing. Based on my physical examination, there is at least a 70% improvement. Less crackles arrest rhonchi and less wheezes Patient was reevaluated today on 07/26/2016, she is almost 90% improved, less cough and less wheezing less shortness of breath. Patient will likely be ready for discharge tomorrow morning. Objective - Vital Signs Vital signs: Vital Signs Temp 97.8 F 07/26/16 14:54 Pulse 80 07/26/16 14:54 Resp 20 07/26/16 14:54 BP 146/72 07/26/16 14:54 Pulse Ox 93 L 07/26/16 14:54 Intake & Output 07/25/16 07/26/16 07/26/16 18:59 06:59 18:59 Intake Total 400 Balance 400 Intake: Oral 400 Other: Voiding Method Toilet Toilet Toilet # Voids 4 2 2 - Exam GENERAL EXAM: Alert, active, in no apparent distress. HEAD: Normocephalic. EYES: Normal reaction of pupils, equal size. NOSE: Clear with pink turbinates. THROAT: No erythema or exudates. NECK: No masses, no JVD. CHEST: No chest wall deformity. Evidence of left mastectomy. LUNGS: Diminished breath sound bilaterally, minimal wheezing on forced expiratory maneuver only CVS: S1 and S2 normal with no audible mumurs, regular rhythm. ABDOMEN: No hepatosplenomegaly, normal bowel sounds, no guarding or rigidity. SPINE: No scoliosis or deformity SKIN: No rashes CENTRAL NERVOUS SYSTEM: No focal deficits, tone is normal in all 4 extremities. Extremities: There is no peripheral edema. No clubbing, no cyanosis. Peripheral pulses are intact. - Labs CBC & Chem 7: 07/26/16 06:59 07/26/16 06:59 Labs: Abnormal Lab Results - Last 24 Hours (Table) 07/25/16 07/26/16 07/26/16 Range/Units 21:04 06:59 06:59 RBC 3.51 L (3.80-5.40) m/uL BUN 23 H (7-17) mg/dL Glucose 122 H (74-99) mg/dL POC Glucose (mg/dL) 118 H (75-99) mg/dL 07/26/16 07/26/16 Range/Units 08:02 12:25 RBC (3.80-5.40) m/uL BUN (7-17) mg/dL Glucose (74-99) mg/dL POC Glucose (mg/dL) 114 H 135 H (75-99) mg/dL Assessment and Plan Plan: #1 acute exacerbation of COPD and acute purulent tracheobronchitis. Patient is much improved today on 07/26/2016, #2 Breast cancer, status post left mastectomy. #3 History of uterine cancer, status post hysterectomy. #4 Remote history of chronic nicotine addiction with exposure to secondhand smoke. #5 Marijuana use. #6 History of hepatitis A and C infection. #7 History of congenital hip dysplasia, status post hip surgery 3. Recommendation: Continue present course of bronchodilators, antibiotics, steroids, continue Tussionex, discharge patient home in a.m. Time with Patient: Less than 30
[2016-07-26] MEDS: predniSONE 20 MG TAB PO SCH (16:05)
[2016-07-26 17:14] LABS: Glucose,Whole Blood 105 mg/dL (75-99)
[2016-07-26 20:41] LABS: Glucose,Whole Blood 133 mg/dL (75-99)
[2016-07-27] MEDS: HEPARIN SODIUM,PORCINE 5,000 UNIT/ML 1 ML VIAL SQ SCH ×2 (00:21→08:43)
[2016-07-27] MEDS: CHLORPHEN-HYDROcod 8-10mg/5ml 5 ML ORAL.SYRG PO SCH ×2 (01:56→13:33)
[2016-07-27] MEDS: IPRATROPIUM-ALBUTEROL 3 ML NEB INHALATION SCH ×2 (07:24→12:40)
[2016-07-27] MEDS: FORMOTEROL FUMARATE 20 MCG/2 ML NEBU INHALATION SCH (07:24)
[2016-07-27] MEDS: BUDESONIDE 1 MG/2 ML NEBU INHALATION SCH (07:24)
[2016-07-27 08:13] LABS: Glucose,Whole Blood 99 mg/dL (75-99)
[2016-07-27 08:26] LABS: Basophils % (A) 0 %; CH 32.6; CHCM 32.2; Eosinophils % (A) 0 %; HDW 2.05; HGB 11.2 gm/dL (11.4-16.0); Luc # (Auto) 0.19; Luc % (Auto) 2; Lymphocytes # (A) 1.9 k/uL (1.0-4.8); Lymphocytes % (A) 23 %; MCH 30.9 pg (25.0-35.0); MCHC 30.4 g/dL (31.0-37.0); MCV 101.7 fL (80.0-100.0); Macrocytosis Slight; Mean Platelet Volume 6.8; Monocytes # (A) 0.7 k/uL (0-1.0); Monocytes % (A) 8 %; Neutrophils # (A) 5.7 k/uL (1.3-7.7); Neutrophils % (A) 67 %; RBC 3.64 m/uL (3.80-5.40); RDW 12.9 % (11.5-15.5); WBC 8.6 k/uL (3.8-10.6)
[2016-07-27 08:27] LABS: Anion Gap 9 mmol/L; Blood Urea Nitrogen 25 mg/dL (7-17); Calcium 8.6 mg/dL (8.4-10.2); Carbon Dioxide 23 mmol/L (22-30); Chloride 108 mmol/L (98-107); Glucose 115 mg/dL (74-99); Non-African American GFR(MDRD) >60 (>60 ml/min/1.73 sqM); Potassium 4.2 mmol/L (3.5-5.1); Sodium 140 mmol/L (137-145)
[2016-07-27] MEDS: INSULIN LISPRO (humaLOG) 300 UNIT/3 ML VIAL SQ SCH ×2 (08:40→13:33)
[2016-07-27] MEDS: FAMOTIDINE 20 MG TAB PO SCH (08:44)
[2016-07-27] MEDS: FERROUS SULFATE 325 MG TAB PO SCH (08:44)
[2016-07-27] MEDS: guaiFENesin 600 MG TABLET.ER PO SCH (08:44)
[2016-07-27] MEDS: predniSONE 20 MG TAB PO SCH (08:44)
[2016-07-27] MEDS: MULTIVITAMINS, THERA 1 EACH TAB PO SCH (08:44)
[2016-07-27] MEDS: BENZOCAINE/MENTHOL LOZENG 1 EACH LOZENGE MUCOUS MEM PRN (08:45)
[2016-07-27 08:46] VITALS: BP 129/65; RESP 20; TEMP 97.9
[2016-07-27] MEDS: CHOLECALCIFEROL 1,000 UNIT TAB PO SCH (08:48)
--- NOTE | 2016-07-27 09:40 | PN ---
DATE OF SERVICE: 07/26/2016 This 60-year-old woman was admitted with COPD acute exacerbation is being closely monitored. No chest pain or palpitation. Patient has less significant shortness of breath and cough. Dr. Arroyo is following the patient closely. On exam, alert and oriented x3. Pulse 80, blood pressure 146/72, respirations 20, temperature is 97.8, pulse ox 93% on room air. HEENT: Conjunctivae normal. NECK: No jugular venous distension. CARDIOVASCULAR: S1, S2, muffled. RESPIRATORY: Breath sounds diminished at the bases. Bilateral scattered rhonchi and crackles, expiratory wheezing also present. Abdomen is soft, nontender. EXTREMITIES: Legs no edema. NERVOUS SYSTEM: No focal deficits. LABS: WBC 8.1, hemoglobin is 11.4, glucose noted. ASSESSMENT: 1. Chronic obstructive pulmonary disease acute exacerbation, with acute purulent tracheobronchitis, slow improvement. 2. Hypokalemia. 3. Increased random blood sugar, possibly secondary to steroids. 4. History of deep venous thrombosis. 5. History of breast cancer. 6. History of hepatitis A and C. 7. Degenerative joint disease. 8. History of tachycardia possibly secondary to hypoxia, present on admission. 9. History of THC. 10. FULL CODE. RECOMMENDATION: Recommend to continue with current medication. Continue with the monitoring and symptomatic treatment. Otherwise, we will taper the steroids, continue with the rest of the medications. Increase ambulation. Closely follow with Dr. Arroyo. Further recommendations to follow.
[2016-07-27] MEDS: ASCORBIC ACID 500 MG TAB PO SCH (11:56)
[2016-07-27] MEDS: LEVOFLOXACIN 500 MG TAB PO SCH (11:56)
[2016-07-27 12:49] VITALS: PULSE 88
--- NOTE | 2016-07-27 14:59 | P.PN ---
Subjective This is a very pleasant 60-year-old female patient who is presently seen Dr. Melendez as her primary care physician. She had previously been seen by Dr. Richard Toscano in the past. She has a history of uterine cancer status post hysterectomy. She also has a history of left breast cancer status post mastectomy, DVT, cardiac arrhythmias, hepatitis A and C infection, congenital hip dysplasia with surgery 3. She states that she has occasionally smokes cigarettes but not on a regular basis. She is exposed to secondhand smoke secondary to her smoking. She also utilizes marijuana. She has not been seen by a cloth roll winder in the past. No previous PFT testing. She is not on home oxygen. She is not on any inhalers in the outpatient setting. She states approximately 4-5 days ago she developed increasing shortness of breath, cough and congestion. She was subsequently started on ampicillin and a Medrol Dosepak without significant improvement. She was seen yesterday in Dr. Melendez's office who eventually called EMS to transfer her here to the emergency room. She was found to be quite bronchospastic and wheezy. Her chest x-ray did not reveal any acute pulmonary process though there is evidence of COPD. She is seen again today 07/27/2016 in the regular medical floor. She is awake and alert in no acute distress. Her only concern at this time as her continued and ongoing hoarseness. She denies any worsening shortness of breath, cough or congestion. No chills or night sweats. Objective - Vital Signs Vital signs: Vital Signs Temp 97.9 F 07/27/16 07:00 Pulse 88 07/27/16 13:03 Resp 20 07/27/16 07:00 BP 129/65 07/27/16 07:00 Pulse Ox 94 L 07/27/16 07:00 Intake & Output 07/26/16 07/27/16 07/27/16 18:59 06:59 18:59 Intake Total 868 Balance 868 Intake: Oral 868 Other: Voiding Method Toilet Toilet Toilet # Voids 2 1 - Exam GENERAL EXAM: Alert, active, comfortable in no apparent distress. HEAD: Normocephalic. EYES: Normal reaction of pupils, equal size. NOSE: Clear with pink turbinates. THROAT: No erythema or exudates. NECK: No masses, no JVD. CHEST: No chest wall deformity. LUNGS: Equal air entry with bilateral scattered rhonchi, wheeze. Diminishedr CVS: S1 and S2 normal with no audible mumurs, regular rhythm. ABDOMEN: No hepatosplenomegaly, normal bowel sounds, no guarding or rigidity. SPINE: No scoliosis or deformity SKIN: No rashes CENTRAL NERVOUS SYSTEM: No focal deficits, tone is normal in all 4 extremities. Extremities: There is changes of chronic venous stasis. Chronic edema. No clubbing, no cyanosis. Peripheral pulses are intact. - Labs CBC & Chem 7: 07/27/16 07:40 07/27/16 07:40 Labs: Abnormal Lab Results - Last 24 Hours (Table) 07/26/16 07/26/16 07/27/16 Range/Units 17:06 20:39 07:40 RBC 3.64 L (3.80-5.40) m/uL Hgb 11.2 L (11.4-16.0) gm/dL MCV 101.7 H (80.0-100.0) fL MCHC 30.4 L (31.0-37.0) g/dL Chloride (98-107) mmol/L BUN (7-17) mg/dL Glucose (74-99) mg/dL POC Glucose (mg/dL) 105 H 133 H (75-99) mg/dL 07/27/16 Range/Units 07:40 RBC (3.80-5.40) m/uL Hgb (11.4-16.0) gm/dL MCV (80.0-100.0) fL MCHC (31.0-37.0) g/dL Chloride 108 H (98-107) mmol/L BUN 25 H (7-17) mg/dL Glucose 115 H (74-99) mg/dL POC Glucose (mg/dL) (75-99) mg/dL Microbiology - Last 24 Hours (Table) 07/26/16 08:30 Gram Stain - Preliminary Sputum Sputum Culture - Preliminary Yeast species Assessment and Plan Plan: Impression: #1 Acute bronchitis, complicated by an acute exacerbation of suspected chronic obstructive pulmonary disease. Failed outpatient therapy. Influenza screen negative. #2 Breast cancer, status post left mastectomy. #3 History of uterine cancer, status post hysterectomy. #4 Remote history of chronic nicotine addiction with exposure to secondhand smoke. #5 Marijuana use. #6 History of hepatitis A and C infection. #7 History of congenital hip dysplasia, status post hip surgery 3. Plan: The patient was seen and evaluated by Dr. Elizabeth. She is cleared for discharge from the pulmonary standpoint. She'll follow-up with Dr. Arroyo in our office in 1 week we'll repeat a chest x-ray then. She is also referred to ENT regarding her ongoing hoarseness. She'll complete her course of antibiotics and a prednisone taper and continue with bronchodilators. She is encouraged to call sooner if any recurrence of symptoms or other questions or concerns.
--- NOTE | 2016-07-28 10:49 | DS ---
DATE OF ADMISSION: 07/24/2016 DATE OF DISCHARGE: 07/27/2016 FINAL DIAGNOSES: 1. Chronic obstructive pulmonary disease acute exacerbation, with acute purulent tracheobronchitis improved. 2. Hypokalemia, improved. 3. Increased random blood sugar, possible secondary to steroids. 4. History of deep venous thrombosis. 5. History of breast cancer, history of hepatitis A & C. 6. History of degenerative joint disease. 7. History of tachycardia, possibly secondary to hypoxia, present on admission. 8. History of THC. 9. FULL CODE. DISCHARGE DISPOSITION: The patient will be discharged in stable condition with guarded prognosis. Discharge clear by pulmonary. HISTORY OF PRESENT ILLNESS: This 60-year-old woman with a past medical history of multiple medical problems admitted with chronic obstructive pulmonary disease acute exacerbation, and acute purulent tracheobronchitis, treated with bronchodilators, antibiotics, improved significantly. Pulmonary has cleared the patient for discharge. On exam, vital signs are stable. CARDIOVASCULAR: S1, S2 muffled. RESPIRATORY: A few scattered rhonchi. Expiratory wheezing also present. ABDOMEN: Soft. CENTRAL NERVOUS SYSTEM: No focal deficits. DISCHARGE ADVICE AND MEDICATIONS: 1. Diet is cardiac. 2. Activity limited until follow-up. 3. Follow-up with Dr. Melendez in 2 to 3 days. 4. Follow up with Dr. Arroyo in one week. 5. Symbicort 160/4.5, 1 puff b.i.d. 6. hydrocodone 5 b.i.d. p.r.n. 7. Vitamin D3 2000 daily. 8. Iron sulfate 320 mg daily. 9. Atrovent albuterol updrafts q.i.d. and p.r.n. 10. Levaquin 500 mg p.o. daily for 5 days. 11. Toprol XL 12.5 mg q.h.s. 12. Multivitamins one p.o. t.i.d. 13. [place]-3 fatty acids one daily. 14. Vitamin C 1 daily. 15. Mucinex 600 mg p.o. b.i.d. 16. Prednisone taper that is 40 mg p.o. daily for 3 days, 30 for 3 days; 20 for 3 days, 10 for 3 days. 17. Ultram 50 mg p.o. q.i.d. p.r.n. Once again, the patient will be discharged in stable condition with guarded prognosis. PILOD
== END 2016-07-27 14:15 | disposition home or self-care (01) | DRG 190 ==
LOC: EC 17:27 → 5MS5E 19:25 → OBSVTOIN 07-24 08:33
PROVIDERS: ADMIT Hospitalist; ATTEND Hospitalist
DX: J44.0 Chronic obstructive pulmonary disease with (acute) lower respiratory infection (principal); J96.02 Acute respiratory failure with hypercapnia; I10 Essential (primary) hypertension; E87.6 Hypokalemia; J20.9 Acute bronchitis, unspecified; J44.1 Chronic obstructive pulmonary disease with (acute) exacerbation; M19.90 Unspecified osteoarthritis, unspecified site; F17.210 Nicotine dependence, cigarettes, uncomplicated; F12.90 Cannabis use, unspecified, uncomplicated; Z86.718 Personal history of other venous thrombosis and embolism; Z90.12 Acquired absence of left breast and nipple; Z85.3 Personal history of malignant neoplasm of breast; Z77.22 Contact with and (suspected) exposure to environmental tobacco smoke (acute) (chronic); Z90.710 Acquired absence of both cervix and uterus; Z85.42 Personal history of malignant neoplasm of other parts of uterus; Z86.19 Personal history of other infectious and parasitic diseases; Z79.2 Long term (current) use of antibiotics; Z79.52 Long term (current) use of systemic steroids; Z79.899 Other long term (current) drug therapy
CPT/HCPCS: 36415; 71020; 80048; 80053; 81003; 83036; 83605; 83735; 83880; 85025; 87040; 87070; 87205; 87502; 93005; 94640; 94760; 96360; 96361; 96365; 96366; 96372; 96375; 96376; 99285

== ENCOUNTER → 2016-11-03 | Outpatient (CLI) | payer MEDICARE ==
[2016-11-03 15:57] LABS: Basophils % (A) 1 %; CH 33.5; CHCM 34.1; Eosinophils # (A) 0.1 k/uL (0-0.7); Eosinophils % (A) 1 %; HCT 42.1 % (34.0-46.0); HDW 2.42; HGB 14.1 gm/dL (11.4-16.0); Luc # (Auto) 0.15; Luc % (Auto) 2; Lymphocytes # (A) 2.5 k/uL (1.0-4.8); Lymphocytes % (A) 39 %; MCHC 33.5 g/dL (31.0-37.0); MCV 98.6 fL (80.0-100.0); Mean Platelet Volume 6.9; Monocytes # (A) 0.4 k/uL (0-1.0); Monocytes % (A) 6 %; Neutrophils # (A) 3.2 k/uL (1.3-7.7); Neutrophils % (A) 50 %; RBC 4.27 m/uL (3.80-5.40); RDW 12.7 % (11.5-15.5); WBC 6.5 k/uL (3.8-10.6); WBC (Perox) 6.37
[2016-11-03 16:19] LABS: ALT 30 U/L (9-52); AST 25 U/L (14-36); Alkaline Phosphatase 59 U/L (38-126); Anion Gap 6 mmol/L; Blood Urea Nitrogen 20 mg/dL (7-17); Calcium 9.5 mg/dL (8.4-10.2); Carbon Dioxide 30 mmol/L (22-30); Chloride 106 mmol/L (98-107); Glucose 88 mg/dL (74-99); Non-African American GFR(MDRD) >60 (>60 ml/min/1.73 sqM); Potassium 4.3 mmol/L (3.5-5.1); Sodium 142 mmol/L (137-145); Total Bilirubin 0.8 mg/dL (0.2-1.3); Total Protein 6.8 g/dL (6.3-8.2)
[2016-11-03 16:48] LABS: Cancer Anitgen 125 8.5 U/mL (<35.1)
== END | disposition home or self-care (01) ==
LOC: LABWHC1 15:32
PROVIDERS: ATTEND Obstetrics & Gynecology Gynecologic Oncology
DX: C54.1 Malignant neoplasm of endometrium (principal)
CPT/HCPCS: 36415; 80053; 82378; 85025; 86304

== ENCOUNTER → 2018-02-12 | Outpatient (CLI) | payer MEDICARE ==
--- NOTE | 2018-02-12 22:16 | XR ---
EXAMINATION TYPE: XR Hip Complete LT DATE OF EXAM: 02/12/2018 COMPARISON: NONE HISTORY: Pain, chronic TECHNIQUE: 2 view left hip FINDINGS: There are advanced degenerative changes at the left hip. There is expansion of the acetabul um. There is loss of the joint space. Sclerotic margins are present. There is deformity of the femora l head. IMPRESSION: Very advanced degenerative changes at the left hip with deformity of the acetabulum and f emoral head
== END | disposition home or self-care (01) ==
LOC: RADXRMAIN 13:00
PROVIDERS: ATTEND Family Medicine
DX: M16.12 Unilateral primary osteoarthritis, left hip (principal)
CPT/HCPCS: 73502

== ENCOUNTER 2018-04-22 07:44 | Observation (INO) | payer MEDICARE, OTHER ==
--- NOTE | 2018-04-22 08:10 | ED ---
General Adult HPI - General Chief complaint: Chest Pain Stated complaint: Chest Pain Time Seen by Provider: 04/22/18 07:45 Source: patient, RN notes reviewed, old records reviewed Mode of arrival: ambulatory Limitations: no limitations - History of Present Illness Initial comments: 62-year-old female presents for evaluation of left upper chest pain. Patient is currently in long-term for rehabilitation. She is undergoing rehabilitation for fractured left knee. Denies worsening lower extremity swelling. Denies dyspnea. Denies cough. Denies fever. Denies central substernal chest pain. No nausea vomiting. No diaphoresis. Pain has been constant for the past 10 hours. No associated symptoms. No history of CAD. She does have history of atrial fibrillation and is currently on metoprolol. - Related Data Home Medications Medication Instructions Recorded Confirmed Cholecalciferol [Vitamin D3] 1,000 unit PO DAILY 07/21/16 04/22/18 [place]-3 Fatty Acids/Fish Oil [Fish 1 cap PO DAILY 07/21/16 04/22/18 Oil 1,000 mg Softgel] Albuterol Nebulized [Ventolin 2.5 mg INHALATION RT-Q6H PRN 04/22/18 04/22/18 Nebulized] Apixaban [Eliquis] 5 mg PO BID 04/22/18 04/22/18 Ascorbic Acid [Vitamin C] 500 mg PO Q8H 04/22/18 04/22/18 Benzocaine/Menthol Lozeng [Cepacol 1 lozenge MUCOUS MEM Q4HR PRN 04/22/18 lozenge] Cephalexin [Keflex] 250 mg PO Q12HR 04/22/18 04/22/18 Clotrimazole Cream [Lotrimin Cream] 1 applic TOPICAL BID 04/22/18 04/22/18 Docusate [Colace] 100 mg PO BID 04/22/18 04/22/18 Fluticasone Nasal [place] [Flonase 1 spray EA NOSTRIL DAILY 04/22/18 04/22/18 Nasal [place]] Fluticasone/Vilanterol [Breo 1 puff INHALATION RT-DAILY 04/22/18 04/22/18 Ellipta 100-25 Mcg Inhaler] Glycerin/Propylene Glycol 1 drop BOTH EYES BID PRN 04/22/18 04/22/18 [Artificial Tears Drops] L. Rhamnosus GG/Inulin [Culturelle 1 cap PO BID 04/22/18 04/22/18 Probiotics Capsule] Lactulose 20 gm PO Q12H PRN 04/22/18 04/22/18 Metoprolol Tartrate [Lopressor] 25 mg PO BID 04/22/18 04/22/18 Montelukast Sodium [Singulair] 10 mg PO DAILY 04/22/18 04/22/18 diphenhydrAMINE [Benadryl] 25 mg PO TID PRN 04/22/18 04/22/18 traMADol HCl [Ultram] 100 mg PO Q6H 04/22/18 04/22/18 Allergies Allergy/AdvReac Type Severity Reaction Status Date / Time ibuprofen [From Motrin] Allergy Dyspnea Verified 04/22/18 08:00 levofloxacin [From Levaquin] Allergy Unknown Verified 04/22/18 08:00 acetaminophen [From Tylenol] AdvReac Increased Verified 04/22/18 08:00 Liver Enzymes Review of Systems ROS Statement: Those systems with pertinent positive or pertinent negative responses have been documented in the HPI. ROS Other: All systems not noted in ROS Statement are negative. Past Medical History Past Medical History: Cancer, Deep Vein Thrombosis (DVT) Additional Past Medical History / Comment(s): breast and uterine ca, unknown irregular heart rhythm, hip displasia,. Hep A and C History of Any Multi-Drug Resistant Organisms: None Reported Past Surgical History: Breast Surgery, Hysterectomy Additional Past Surgical History / Comment(s): hip surgery x3 on left, bowel obstruction surgery Past Anesthesia/Blood Transfusion Reactions: No Reported Reaction Past Psychological History: No Psychological Hx Reported Smoking Status: Never smoker Past Alcohol Use History: None Reported Past Drug Use History: Marijuana - Past Family History Mother Family Medical History: Cancer General Exam Limitations: no limitations General appearance: alert, in no apparent distress Head exam: Present: atraumatic, normocephalic Eye exam: Present: normal appearance, PERRL ENT exam: Present: normal exam Neck exam: Present: normal inspection. Absent: tenderness, meningismus Respiratory exam: Present: normal lung sounds bilaterally, chest wall tenderness (Point tenderness left anterior chest wall, associated with patient' s pain complaint). Absent: respiratory distress, wheezes Cardiovascular Exam: Present: regular rate, normal rhythm GI/Abdominal exam: Present: soft. Absent: distended, tenderness Extremities exam: Present: pedal edema, other (Edema and lymphedema left lower extremity, patient states this is unchanged from baseline. brace to the left knee) Neurological exam: Present: alert, oriented X3, CN II-XII intact. Absent: motor sensory deficit Psychiatric exam: Present: normal affect, normal mood Skin exam: Present: warm, dry, intact. Absent: cyanosis, diaphoretic Course Vital Signs 04/22/18 04/22/18 04/22/18 07:54 08:04 08:56 Temperature 98.1 F Pulse Rate 65 52 L Pulse Rate [ 50 L Foxpro Developer ] Respiratory 18 18 Rate Blood Pressure 130/98 139/62 O2 Sat by Pulse 100 98 Oximetry EKG Findings - EKG Comments: EKG Findings:: EKG: Sinus bradycardia, rate of 48, TN interval 144, QRS duration 88, QTC 378, no ST segment elevation Medical Decision Making - Medical Decision Making 61-year-old female presenting with left upper chest pain. Pain as described is somewhat atypical. Chest x-ray negative for any acute cardiopulmonary disease. Normal CBC, normal CMP, initial troponin is negative. Case discussed with the patient's primary care physician, were placed in observation for serial cardiac enzymes and cardiology consultation. - Lab Data Result diagrams: 04/22/18 08:06 04/22/18 08:06 Lab Results 04/22/18 04/22/18 04/22/18 Range/Units 08:06 08:06 08:06 WBC 5.7 (3.8-10.6) k/uL RBC 3.95 (3.80-5.40) m/uL Hgb 13.4 (11.4-16.0) gm/dL Hct 39.0 (34.0-46.0) % MCV 98.7 (80.0-100.0) fL MCH 34.0 (25.0-35.0) pg MCHC 34.4 (31.0-37.0) g/dL RDW 12.8 (11.5-15.5) % Plt Count 224 (150-450) k/uL Neutrophils % 46 % Lymphocytes % 39 % Monocytes % 8 % Eosinophils % 3 % Basophils % 1 % Neutrophils # 2.7 (1.3-7.7) k/uL Lymphocytes # 2.2 (1.0-4.8) k/uL Monocytes # 0.5 (0-1.0) k/uL Eosinophils # 0.2 (0-0.7) k/uL Basophils # 0.1 (0-0.2) k/uL PT (9.0-12.0) sec INR (<1.2) APTT (22.0-30.0) sec Sodium 140 (137-145) mmol/L Potassium 4.5 (3.5-5.1) mmol/L Chloride 106 (98-107) mmol/L Carbon Dioxide 28 (22-30) mmol/L Anion Gap 6 mmol/L BUN 21 H (7-17) mg/dL Creatinine 0.60 (0.52-1.04) mg/dL Est GFR (CKD-EPI)AfAm >90 (>60 ml/min/1.73 sqM) Est GFR (CKD-EPI)NonAf >90 (>60 ml/min/1.73 sqM) Glucose 89 (74-99) mg/dL Calcium 10.0 (8.4-10.2) mg/dL Magnesium 1.9 (1.6-2.3) mg/dL Total Bilirubin 0.8 (0.2-1.3) mg/dL AST 23 (14-36) U/L ALT 21 (9-52) U/L Alkaline Phosphatase 54 (38-126) U/L Total Creatine Kinase 21 L (30-135) U/L CK-MB (CK-2) 1.9 (0.0-2.4) ng/mL CK-MB (CK-2) Rel Index 9.0 Troponin I <0.012 (0.000-0.034) ng/mL Total Protein 6.2 L (6.3-8.2) g/dL Albumin 3.4 L (3.5-5.0) g/dL 04/22/18 Range/Units 08:06 WBC (3.8-10.6) k/uL RBC (3.80-5.40) m/uL Hgb (11.4-16.0) gm/dL Hct (34.0-46.0) % MCV (80.0-100.0) fL MCH (25.0-35.0) pg MCHC (31.0-37.0) g/dL RDW (11.5-15.5) % Plt Count (150-450) k/uL Neutrophils % % Lymphocytes % % Monocytes % % Eosinophils % % Basophils % % Neutrophils # (1.3-7.7) k/uL Lymphocytes # (1.0-4.8) k/uL Monocytes # (0-1.0) k/uL Eosinophils # (0-0.7) k/uL Basophils # (0-0.2) k/uL PT 10.3 (9.0-12.0) sec INR 1.1 (<1.2) APTT 20.9 L (22.0-30.0) sec Sodium (137-145) mmol/L Potassium (3.5-5.1) mmol/L Chloride (98-107) mmol/L Carbon Dioxide (22-30) mmol/L Anion Gap mmol/L BUN (7-17) mg/dL Creatinine (0.52-1.04) mg/dL Est GFR (CKD-EPI)AfAm (>60 ml/min/1.73 sqM) Est GFR (CKD-EPI)NonAf (>60 ml/min/1.73 sqM) Glucose (74-99) mg/dL Calcium (8.4-10.2) mg/dL Magnesium (1.6-2.3) mg/dL Total Bilirubin (0.2-1.3) mg/dL AST (14-36) U/L ALT (9-52) U/L Alkaline Phosphatase (38-126) U/L Total Creatine Kinase (30-135) U/L CK-MB (CK-2) (0.0-2.4) ng/mL CK-MB (CK-2) Rel Index Troponin I (0.000-0.034) ng/mL Total Protein (6.3-8.2) g/dL Albumin (3.5-5.0) g/dL Disposition Clinical Impression: Chest pain Disposition: ADMITTED IP TO THIS HOSP Is patient prescribed a controlled substance at d/c from ED?: No Referrals: Josh Ward MD [Primary Care Provider] - 1-2 days Time of Disposition: 10:44
--- NOTE | 2018-04-22 08:31 | XR ---
EXAMINATION TYPE: XR chest 2V DATE OF EXAM: 04/22/2018 COMPARISON: Prior chest x-ray 06/17/2017 HISTORY: Chest pain TECHNIQUE: Frontal and lateral views of the chest are obtained. FINDINGS: Technique is apical lordotic and rotated. Overlying cardiac leads. There is no focal air s pace opacity, pleural effusion, or pneumothorax seen. Prominent lung volume compatible with underlyi ng COPD. The cardiac silhouette size is within normal limits, stable accounting for differences in te chnique. The osseous structures are intact. IMPRESSION: No acute cardiopulmonary process.
[2018-04-22 08:32] LABS: Basophils # (A) 0.1 k/uL (0-0.2); Basophils % (A) 1 %; Eosinophils # (A) 0.2 k/uL (0-0.7); Eosinophils % (A) 3 %; HGB 13.4 gm/dL (11.4-16.0); Lymphocytes # (A) 2.2 k/uL (1.0-4.8); Lymphocytes % (A) 39 %; MCHC 34.4 g/dL (31.0-37.0); MCV 98.7 fL (80.0-100.0); Mean Platelet Volume 6.8; Monocytes # (A) 0.5 k/uL (0-1.0); Monocytes % (A) 8 %; Neutrophils # (A) 2.7 k/uL (1.3-7.7); Neutrophils % (A) 46 %; Platelet Count 224 k/uL (150-450); RBC 3.95 m/uL (3.80-5.40); RDW 12.8 % (11.5-15.5); WBC 5.7 k/uL (3.8-10.6)
[2018-04-22 08:48] LABS: ALT 21 U/L (9-52); AST 23 U/L (14-36); Albumin 3.4 g/dL (3.5-5.0); Alkaline Phosphatase 54 U/L (38-126); Anion Gap 6 mmol/L; Blood Urea Nitrogen 21 mg/dL (7-17); Carbon Dioxide 28 mmol/L (22-30); Chloride 106 mmol/L (98-107); Glucose 89 mg/dL (74-99); Magnesium 1.9 mg/dL (1.6-2.3); Potassium 4.5 mmol/L (3.5-5.1); Sodium 140 mmol/L (137-145); Total Bilirubin 0.8 mg/dL (0.2-1.3); Total Protein 6.2 g/dL (6.3-8.2)
[2018-04-22 08:49] LABS: INR 1.1 (<1.2); Prothrombin Time 10.3 sec (9.0-12.0)
[2018-04-22 08:53] LABS: Partial Thromboplastin Time 20.9 sec (22.0-30.0)
[2018-04-22 09:00] LABS: Creatine Kinase 21 U/L (30-135)
[2018-04-22 09:14] LABS: Creatine Kinase MB 1.9 ng/mL (0.0-2.4); Troponin I <0.012 ng/mL (0.000-0.034)
[2018-04-22] MEDS ORDERED: NALOXONE 0.4 MG/ML 1 ML VIAL IV PRN (10:37)
[2018-04-22] MEDS ORDERED: ALBUTEROL NEBULIZED 2.5 MG/3 ML INHALATION PRN (10:39)
[2018-04-22] MEDS ORDERED: LACTULOSE 20 GM/30 ML CUP PO PRN (13:22)
[2018-04-22] MEDS ORDERED: diphenhydrAMINE 25 MG CAP PO PRN (13:22)
[2018-04-22] MEDS ORDERED: BENZOCAINE/MENTHOL LOZENG 1 EACH LOZENGE MUCOUS MEM PRN (13:22)
[2018-04-22] MEDS ORDERED: ARTIFICIAL TEARS-HYPROMELLOSE DROPS 15 ML BTL BOTH EYES PRN (13:22)
[2018-04-22 15:50] LABS: Creatine Kinase 21 U/L (30-135)
[2018-04-22 16:03] LABS: Troponin I <0.012 ng/mL (0.000-0.034)
--- NOTE | 2018-04-22 16:33 | CT ---
EXAMINATION TYPE: CT angio chest DATE OF EXAM: 04/22/2018 COMPARISON: HISTORY: Elevated d-dimer. CT DLP: 228.8 mGycm CONTRAST: CT chest with contrast and 3D reconstruction with MIP imaging is performed with IV Contrast, patient injected with 100 mL of Isovue 370. Contrast-enhanced CT of the chest was performed through the course of the pulmonary arteries with sunday g and mediastinal window settings submitted. 3D reconstruction with MIP imaging was also performed. PULMONARY ARTERIES: The pulmonary arteries and their major tributaries are patent. I do not see perlita dence for sizable filling defect to suggest pulmonary embolic process. LUNGS: The lungs are clear and free of infiltrate. No evidence for atelectasis. No pulmonary nodule or mass is detected. No pleural effusion. MEDIASTINUM: Incidental right-sided thyroid nodule. Thoracic aorta is of normal caliber,however, william luation is limited given timing of the contrast bolus. If there is concern for thoracic aortic patho logy consider SATISH. Correlate clinically . The heart is not enlarged. No evidence for mediastinal ma ss. No mediastinal lymph nodes greater than 1cm. HILAR STRUCTURES: No evidence for mass. No hilar lymph nodes greater than 1 cm. UPPER ABDOMEN: No significant abnormality is seen. IMPRESSION: 1. No evidence for Pulmonary embolism at this time.
[2018-04-22] MEDS: ASCORBIC ACID 500 MG TAB PO SCH ×2 (17:12→20:47)
[2018-04-22] MEDS: traMADol 50 MG TAB PO SCH ×3 (17:12→23:38)
[2018-04-22 19:40] VITALS: RESP 16
[2018-04-22] MEDS: LACTOBACILLUS ACIDOPH & BULGAR 1 EACH PACKET PO SCH (20:46)
[2018-04-22] MEDS: METOPROLOL TARTRATE 25 MG TAB PO SCH (20:47)
[2018-04-22] MEDS: DOCUSATE 100 MG CAP PO SCH (20:47)
[2018-04-22] MEDS: CEPHALEXIN 250 MG CAP PO SCH (20:47)
[2018-04-22] MEDS: APIXABAN 5 MG TAB PO SCH (20:47)
[2018-04-22] MEDS: CLOTRIMAZOLE 1% CREAM 15 GM TUBE TOPICAL SCH (20:54)
[2018-04-22 21:35] LABS: Creatine Kinase 22 U/L (30-135)
[2018-04-22 21:47] LABS: Creatine Kinase MB 1.6 ng/mL (0.0-2.4); Troponin I <0.012 ng/mL (0.000-0.034)
[2018-04-23] MEDS: ASCORBIC ACID 500 MG TAB PO SCH ×2 (05:50→17:59)
[2018-04-23] MEDS: traMADol 50 MG TAB PO SCH ×2 (05:51→11:53)
[2018-04-23] MEDS ORDERED: SYMBICORT 80-4.5 MCG INHALER INHALATION SCH (08:00)
[2018-04-23 08:22] VITALS: BP 129/82; PULSE 56; TEMP 97.9
--- NOTE | 2018-04-23 08:25 | P.CRDCN ---
History of Present Illness Consult date: 04/23/18 Chief complaint: chest pain History of present illness: This is a pleasant 62-year-old female patient with a past medical history significant for history of recurrent DVT currently she is on oral anticoagulation with Amyqusuraj who currently residing at [facility] for rehabilitation after she fractured her left knee and she is wearing braces. The patient presented to the emergency room complaining of chest discomfort. The discomfort is a sharp kind of discomfort on the left side of the chest, without any radiation, and without any associated symptoms of shortness of breath, dizziness, heart racing or fluttering, or syncope. On physical examination, the chest discomfort is a sort of reducible. The patient is not aware of any history of coronary artery disease but she follows with a dinkey engine firer/fireman on a regular basis out of the town at [facility]. She stated that she underwent a stress test more than a year and that was unremarkable. When the patient presented to the hospital, she underwent a d-dimer which came in to be of normal but subsequently the CTA of the chest did not show any evidence of PE. The EKG showed sinus rhythm without any ischemic ST or T-wave abnormalities. The cardiac enzymes were checked and came in to be unremarkable. The patient does have history of breast cancer and uterine cancer and she underwent multiple abdominal surgery for the cancer. The last surgery was to relieve small bowel obstruction likely because of adhesions. 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 History of Any Multi-Drug Resistant Organisms: None Reported Past Surgical History: Breast Surgery, Heart Catheterization, Hysterectomy Additional Past Surgical History / Comment(s): L hip surgery x3, bowel obstruction with laparotomy, hysterecomy/ovaries/tumor removed per pt, bronchoscopies x2, Past Anesthesia/Blood Transfusion Reactions: No Reported Reaction Additional Past Anesthesia/Blood Transfusion Reaction / Comment(s): Pt has received blood without reaction. Smoking Status: Never smoker - Past Family History Mother Family Medical History: Cancer Additional Family Medical History / Comment(s): Mother at the age of 75yrs from metastatic cancer. Father Family Medical History: Myocardial Infarction (AL) Additional Family Medical History / Comment(s): Father of a AL at the age of 54yrs. Medications and Allergies Home Medications Medication Instructions Recorded Confirmed Type Cholecalciferol [Vitamin D3] 1,000 unit PO DAILY 07/21/16 04/22/18 History [place]-3 Fatty Acids/Fish Oil [Fish 1 cap PO DAILY 07/21/16 04/22/18 History Oil 1,000 mg Softgel] Albuterol Nebulized [Ventolin 2.5 mg INHALATION RT-Q6H PRN 04/22/18 04/22/18 History Nebulized] Apixaban [Eliquis] 5 mg PO BID 04/22/18 04/22/18 History Ascorbic Acid [Vitamin C] 500 mg PO Q8H 04/22/18 04/22/18 History Benzocaine/Menthol Lozeng [Cepacol 1 lozenge MUCOUS MEM Q4HR PRN 04/22/18 History lozenge] Cephalexin [Keflex] 250 mg PO Q12HR 04/22/18 04/22/18 History Clotrimazole Cream [Lotrimin Cream] 1 applic TOPICAL BID 04/22/18 04/22/18 History Docusate [Colace] 100 mg PO BID 04/22/18 04/22/18 History Fluticasone Nasal [place] [Flonase 1 spray EA NOSTRIL DAILY 04/22/18 04/22/18 History Nasal [place]] Fluticasone/Vilanterol [Breo 1 puff INHALATION RT-DAILY 04/22/18 04/22/18 History Ellipta 100-25 Mcg Inhaler] Glycerin/Propylene Glycol 1 drop BOTH EYES BID PRN 04/22/18 04/22/18 History [Artificial Tears Drops] L. Rhamnosus GG/Inulin [Culturelle 1 cap PO BID 04/22/18 04/22/18 History Probiotics Capsule] Lactulose 20 gm PO Q12H PRN 04/22/18 04/22/18 History Metoprolol Tartrate [Lopressor] 25 mg PO BID 04/22/18 04/22/18 History Montelukast Sodium [Singulair] 10 mg PO DAILY 04/22/18 04/22/18 History diphenhydrAMINE [Benadryl] 25 mg PO TID PRN 04/22/18 04/22/18 History traMADol HCl [Ultram] 100 mg PO Q6H 04/22/18 04/22/18 History Allergies Allergy/AdvReac Type Severity Reaction Status Date / Time ibuprofen [From Motrin] Allergy Dyspnea Verified 04/22/18 08:00 levofloxacin [From Levaquin] Allergy Unknown Verified 04/22/18 08:00 acetaminophen [From Tylenol] AdvReac Increased Verified 04/22/18 08:00 Liver Enzymes Physical Exam Vitals: Vital Signs Temp Pulse Pulse Resp BP BP Pulse Ox 04/23/18 03:41 16 04/23/18 03:39 98.0 F 65 16 100/63 96 04/23/18 00:00 98.0 F 64 16 117/71 97 04/22/18 20:00 16 04/22/18 19:39 98.2 F 69 16 124/67 94 L 04/22/18 15:45 97.9 F 62 18 137/74 95 04/22/18 12:00 97.5 F L 67 18 134/78 98 04/22/18 11:18 97.7 F 65 18 143/86 97 04/22/18 08:56 52 L 18 139/62 98 Intake and Output 04/22/18 04/23/18 04/23/18 22:59 06:59 14:59 Intake Total 560 Balance 560 Intake: Oral 360 Other 200 Other: Voiding Method Bedside Commode Bedside Commode # Voids 1 - Constitutional General appearance: no acute distress - Respiratory Respiratory: bilateral: CTA - Cardiovascular Rhythm: regular Heart sounds: normal: S1, S2 Results 04/22/18 08:06 04/22/18 08:06 Cardiac Enzymes 04/22/18 04/22/18 04/22/18 Range/Units 08:06 08:06 14:50 AST 23 (14-36) U/L CK-MB (CK-2) 1.9 2.0 (0.0-2.4) ng/mL Troponin I <0.012 <0.012 (0.000-0.034) ng/mL 04/22/18 Range/Units 20:53 AST (14-36) U/L CK-MB (CK-2) 1.6 (0.0-2.4) ng/mL Troponin I <0.012 (0.000-0.034) ng/mL Coagulation 04/22/18 Range/Units 08:06 PT 10.3 (9.0-12.0) sec APTT 20.9 L (22.0-30.0) sec CBC 04/22/18 Range/Units 08:06 WBC 5.7 (3.8-10.6) k/uL RBC 3.95 (3.80-5.40) m/uL Hgb 13.4 (11.4-16.0) gm/dL Hct 39.0 (34.0-46.0) % Plt Count 224 (150-450) k/uL Comprehensive Metabolic Panel 04/22/18 Range/Units 08:06 Sodium 140 (137-145) mmol/L Potassium 4.5 (3.5-5.1) mmol/L Chloride 106 (98-107) mmol/L Carbon Dioxide 28 (22-30) mmol/L BUN 21 H (7-17) mg/dL Creatinine 0.60 (0.52-1.04) mg/dL Glucose 89 (74-99) mg/dL Calcium 10.0 (8.4-10.2) mg/dL AST 23 (14-36) U/L ALT 21 (9-52) U/L Alkaline Phosphatase 54 (38-126) U/L Total Protein 6.2 L (6.3-8.2) g/dL Albumin 3.4 L (3.5-5.0) g/dL Current Medications Generic Name Dose Route Start Last Admin Trade Name Freq PRN Reason Stop Dose Admin Albuterol Sulfate 2.5 mg 04/22/18 10:39 Ventolin Nebulized INHALATION RT-Q6H PRN Wheezing Apixaban 5 mg 04/22/18 21:00 04/22/18 20:47 Eliquis PO 5 mg BID [facility] Administration Artificial Tears 1 drops 04/22/18 13:22 Artificial Tear Drops BOTH EYES BID PRN Dry Eye(s) Ascorbic Acid 500 mg 04/22/18 14:00 04/23/18 05:50 Vitamin C PO 500 mg Q8H [facility] Administration Benzocaine/Menthol 1 each 04/22/18 13:22 Cepacol Lozenge MUCOUS MEM Q4HR PRN Sore Throat Budesonide/Formoterol Fumarate 2 puff 04/23/18 08:00 Symbicort 80-4.5 Mcg Inhaler INHALATION RT-BID [facility] Cephalexin 250 mg 04/22/18 21:00 04/22/18 20:47 Keflex PO 05/11/18 21:01 250 mg Q12HR [facility] Administration Cholecalciferol 1,000 unit 04/23/18 12:00 Vitamin D3 PO 1200 [facility] Clotrimazole 1 applic 04/22/18 21:00 04/22/18 20:54 Lotrimin Cream TOPICAL Not Given BID [facility] Diphenhydramine HCl 25 mg 04/22/18 13:22 Benadryl PO TID PRN Itching Docusate Sodium 100 mg 04/22/18 21:00 04/22/18 20:47 Colace PO 100 mg BID [facility] Administration Fluticasone Propionate 1 spray 04/23/18 09:00 Flonase Nasal [place] EA NOSTRIL DAILY [facility] Lactobacillus Acidoph/[place] 1 each 04/22/18 21:00 04/22/18 20:46 Lactinex PO 1 each BID [facility] Administration Lactulose 20 gm 04/22/18 13:22 Cephulac PO Q12H PRN Constipation Metoprolol Tartrate 25 mg 04/22/18 21:00 04/22/18 20:47 Lopressor PO 25 mg BID [facility] Administration Montelukast Sodium 10 mg 04/23/18 09:00 Singulair PO DAILY [facility] Naloxone HCl 0.2 mg 04/22/18 10:37 Narcan IV Q2M PRN Opioid Reversal Tramadol HCl 100 mg 04/22/18 12:00 04/23/18 05:51 Ultram PO 100 mg Q6H [facility] Administration Intake and Output 04/22/18 04/23/18 04/23/18 22:59 06:59 14:59 Intake Total 560 Balance 560 Intake: Oral 360 Other 200 Other: Voiding Method Bedside Commode Bedside Commode # Voids 1 04/22/18 08:06 04/22/18 08:06 Assessment and Plan Assessment: Assessment #1 atypical chest discomfort #2 recurrent DVT #3 history of breast cancer and uterine cancer #4 status post abdominal surgery for polyps section Plan #1 the patient was ruled out for acute coronary syndrome #2 from the cardiovascular standpoint of view, the patient can be discharged home. #3 I recommended obtaining a stress test as an outpatient Thank you for allowing us participate in her care and we will continue following up with the patient
[2018-04-23] MEDS ORDERED: NON-FORMULARY DRUG (Omega-3 Fatty Acids/Fish Oil [Fish Oil 1,000 Mg Softgel] 1 CAP) PO SCH (09:00)
[2018-04-23] MEDS ORDERED: MONTELUKAST 10 MG TAB PO SCH (09:00)
[2018-04-23] MEDS ORDERED: FLUTICASONE 50MCG/SPRAY NASAL 16GM EA NOSTRIL SCH (09:00)
[2018-04-23] MEDS: METOPROLOL TARTRATE 25 MG TAB PO SCH (09:38)
[2018-04-23] MEDS: APIXABAN 5 MG TAB PO SCH (09:38)
[2018-04-23] MEDS: DOCUSATE 100 MG CAP PO SCH (09:38)
[2018-04-23] MEDS: CEPHALEXIN 250 MG CAP PO SCH (09:39)
[2018-04-23] MEDS: LACTOBACILLUS ACIDOPH & BULGAR 1 EACH PACKET PO SCH (09:40)
[2018-04-23] MEDS: CLOTRIMAZOLE 1% CREAM 15 GM TUBE TOPICAL SCH (09:40)
--- NOTE | 2018-04-23 10:20 | P.HPIM ---
History of Present Illness H&P Date: 04/23/18 Chief Complaint: Intermittent left chest wall pain 62-year-old female who was seen eval reexamined in observation area this patient seen eval reexamined while covering for Dr. Josh Ward, this patient has been admitted into the hospital left-sided chest wall pain intermittent in nature and going on for extended period time at extended care facility, patient has been evaluated by cardiovascular services they feel patient chest pain is intermittent and atypical, recommended a stress test to be performed outpatient basis, currently at the time of examination patient is pain-free, patient at the time of presentation into emergency department and underwent a spiral CT scan of the chest is negative for pulmonary embolism patient already has been anticoagulation for prior DVT, patient also has history of prior chronic atrial fibrillation, she isn't extended care facility for rehabilitation related to left knee injury also has chronic lymphedema with prior history of bowel obstruction surgery Review of Systems All systems: negative Past Medical History Past Medical History: Atrial Fibrillation, Cancer, Deep Vein Thrombosis (DVT), Eye Disorder, Liver Disease, Vascular Disorder Additional Past Medical History / Comment(s): Recent L knee fracture-wearing lower leg brace, bilateral lymphedema, hepatitis A and C but later told hepatitis C was gone, L breast cancer with surgery, uterine cancer with surgery- pt states cancer had spread outside uterus and has had 3 different abdominal surgeries for this, 6 months ago-bowel obstruction/"twist" with surgery, DVTs L leg, tracheobronchitis, past respiratory failure, 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 History of Any Multi-Drug Resistant Organisms: None Reported Past Surgical History: Breast Surgery, Heart Catheterization, Hysterectomy Additional Past Surgical History / Comment(s): L hip surgery x3, bowel obstruction with laparotomy, hysterecomy/ovaries/tumor removed per pt, bronchoscopies x2, Past Anesthesia/Blood Transfusion Reactions: No Reported Reaction Additional Past Anesthesia/Blood Transfusion Reaction / Comment(s): Pt has received blood without reaction. Smoking Status: Never smoker - Past Family History Mother Family Medical History: Cancer Additional Family Medical History / Comment(s): Mother at the age of 75yrs from metastatic cancer. Father Family Medical History: Myocardial Infarction (NH) Additional Family Medical History / Comment(s): Father of a NH at the age of 54yrs. Medications and Allergies Home Medications Medication Instructions Recorded Confirmed Type Cholecalciferol [Vitamin D3] 1,000 unit PO DAILY 07/21/16 04/22/18 History [place]-3 Fatty Acids/Fish Oil [Fish 1 cap PO DAILY 07/21/16 04/22/18 History Oil 1,000 mg Softgel] Albuterol Nebulized [Ventolin 2.5 mg INHALATION RT-Q6H PRN 04/22/18 04/22/18 History Nebulized] Apixaban [Eliquis] 5 mg PO BID 04/22/18 04/22/18 History Ascorbic Acid [Vitamin C] 500 mg PO Q8H 04/22/18 04/22/18 History Benzocaine/Menthol Lozeng [Cepacol 1 lozenge MUCOUS MEM Q4HR PRN 04/22/18 History lozenge] Cephalexin [Keflex] 250 mg PO Q12HR 04/22/18 04/22/18 History Clotrimazole Cream [Lotrimin Cream] 1 applic TOPICAL BID 04/22/18 04/22/18 History Docusate [Colace] 100 mg PO BID 04/22/18 04/22/18 History Fluticasone Nasal [place] [Flonase 1 spray EA NOSTRIL DAILY 04/22/18 04/22/18 History Nasal [place]] Fluticasone/Vilanterol [Breo 1 puff INHALATION RT-DAILY 04/22/18 04/22/18 History Ellipta 100-25 Mcg Inhaler] Glycerin/Propylene Glycol 1 drop BOTH EYES BID PRN 04/22/18 04/22/18 History [Artificial Tears Drops] L. Rhamnosus GG/Inulin [Culturelle 1 cap PO BID 04/22/18 04/22/18 History Probiotics Capsule] Lactulose 20 gm PO Q12H PRN 04/22/18 04/22/18 History Metoprolol Tartrate [Lopressor] 25 mg PO BID 04/22/18 04/22/18 History Montelukast Sodium [Singulair] 10 mg PO DAILY 04/22/18 04/22/18 History diphenhydrAMINE [Benadryl] 25 mg PO TID PRN 04/22/18 04/22/18 History traMADol HCl [Ultram] 100 mg PO Q6H 04/22/18 04/22/18 History Allergies Allergy/AdvReac Type Severity Reaction Status Date / Time ibuprofen [From Motrin] Allergy Dyspnea Verified 04/22/18 08:00 levofloxacin [From Levaquin] Allergy Unknown Verified 04/22/18 08:00 acetaminophen [From Tylenol] AdvReac Increased Verified 04/22/18 08:00 Liver Enzymes Physical Exam Vitals: Vital Signs Temp Pulse Pulse Resp BP BP Pulse Ox 04/23/18 08:17 97.9 F 56 L 16 129/82 100 04/23/18 03:41 16 04/23/18 03:39 98.0 F 65 16 100/63 96 04/23/18 00:00 98.0 F 64 16 117/71 97 04/22/18 20:00 16 04/22/18 19:39 98.2 F 69 16 124/67 94 L 04/22/18 15:45 97.9 F 62 18 137/74 95 04/22/18 12:00 97.5 F L 67 18 134/78 98 04/22/18 11:18 97.7 F 65 18 143/86 97 Intake and Output 04/22/18 04/23/18 04/23/18 22:59 06:59 14:59 Intake Total 560 Balance 560 Intake: Oral 360 Other 200 Other: Voiding Method Bedside Commode Bedside Commode # Voids 1 - Constitutional General appearance: average body habitus, cooperative, no acute distress - EENT Eyes: EOMI, PERRLA, normal appearance ENT: normal oropharynx Ears: bilateral: normal - Neck Neck: normal ROM Carotids: bilateral: upstroke normal, bruit absent Thyroid: bilateral: normal size - Respiratory Respiratory: bilateral: CTA - Cardiovascular Rhythm: regular Heart sounds: normal: S1, S2 - Gastrointestinal General gastrointestinal: normal bowel sounds, soft - Neurologic Neurologic: CNII-XII intact - Musculoskeletal Left leg in brace with chronic swelling Musculoskeletal: gait normal, generalized weakness, strength equal bilaterally - Psychiatric Psychiatric: A&O x's 3, appropriate affect, intact judgment & insight Results CBC & Chem 7: 04/22/18 08:06 04/22/18 08:06 Labs: Abnormal Lab Results - Last 24 Hours (Table) 04/22/18 04/22/18 04/22/18 Range/Units 14:50 14:50 20:53 D-Dimer 0.96 H (<0.60) mg/L FEU Total Creatine Kinase 21 L 22 L (30-135) U/L Chest x-ray: report reviewed, image reviewed CT scan - chest: report reviewed, image reviewed Thrombosis Risk Factor Assmnt - Choose All That Apply Any of the Below Risk Factors Present?: Yes Each Factor Represents 1 point: Obesity (BMI >25), Swollen legs (current) Other Risk Factors: Yes Each Risk Factor Represents 2 Points: Age 61-74 years, Malignancy Each Risk Factor Represents 3 Points: History of DVT/PE Other congenital or acquired thrombophilia - If yes, enter type in comment: No Thrombosis Risk Factor Assessment Total Risk Factor Score: 9 Thrombosis Risk Factor Assessment Level: High Risk Assessment and Plan Assessment: Atypical chest pain, likely musculoskeletal in region Paroxysmal atrial fibrillation History of prior left lower extremity DVT on anticoagulation Generalized anxiety disorder History of breast and uterine cancer History of hepatitis ANC in the past History of bowel obstruction History of multiple hip surgeries with secondary complications Plan: Labs reviewed medications reviewed care plan discussed with the staff and patient at length will defer stress test to expertise of cardiovascular services if they clear her patient can be discharged with follow-up with Dr. Josh Ward on same medications Time with Patient: Greater than 30
--- NOTE | 2018-04-23 10:23 | P.DS ---
Providers Date of admission: 04/22/18 10:38 Expected date of discharge: 04/23/18 Attending physician: Josh Ward Consults: 04/22/18 10:38 Consult Physician Routine Consulting Provider: Jian Rodrigues Consult Reason/Comments: Chest pain Do you want consulting provider notified?: Yes [facility] Course: 62-year-old female who was seen eval reexamined in observation area this patient seen eval reexamined while covering for Dr. Josh Ward, this patient has been admitted into the hospital left-sided chest wall pain intermittent in nature and going on for extended period time at [facility] facility, patient has been evaluated by cardiovascular services they feel patient chest pain is intermittent and atypical, recommended a stress test to be performed outpatient basis, currently at the time of examination patient is pain-free, patient at the time of presentation into emergency department and underwent a spiral CT scan of the chest is negative for pulmonary embolism patient already has been anticoagulation for prior DVT, patient also has history of prior chronic atrial fibrillation, she isn't extended care facility for rehabilitation related to left knee injury also has chronic lymphedema with prior history of bowel obstruction surgery Labs reviewed medications reviewed care plan discussed with the staff and patient at length will defer stress test to expertise of cardiovascular services if they clear her patient can be discharged with follow-up with Dr. Josh Ward on same medications Pertinent Studies: Chest x-ray on 1018 unremarkable, EKG revealed sinus bradycardia, computed tomography scan of the chest negative for pulmonary embolism no acute pulmonary processes noted, cardiovascular services consultation reviewed, labs reviewed including cardiac enzyme Patient Condition at Discharge: Stable Plan - Discharge Summary Discharge Rx Participant: No New Discharge Prescriptions: No Action Cholecalciferol [Vitamin D3] 1,000 unit PO DAILY [place]-3 Fatty Acids/Fish Oil [Fish Oil 1,000 mg Softgel] 1 cap PO DAILY Montelukast Sodium [Singulair] 10 mg PO DAILY Metoprolol Tartrate [Lopressor] 25 mg PO BID Clotrimazole Cream [Lotrimin Cream] 1 applic TOPICAL BID Cephalexin [Keflex] 250 mg PO Q12HR Lactulose 20 gm PO Q12H PRN PRN Reason: Constipation Fluticasone Nasal [place] [Flonase Nasal [place]] 1 spray EA NOSTRIL DAILY Apixaban [Eliquis] 5 mg PO BID Docusate [Colace] 100 mg PO BID L. Rhamnosus GG/Inulin [Culturelle Probiotics Capsule] 1 cap PO BID Benzocaine/Menthol Lozeng [Cepacol lozenge] 1 lozenge MUCOUS MEM Q4HR PRN PRN Reason: Sore Throat Fluticasone/Vilanterol [Breo Ellipta 100-25 Mcg Inhaler] 1 puff INHALATION RT -DAILY diphenhydrAMINE [Benadryl] 25 mg PO TID PRN PRN Reason: Itching Ascorbic Acid [Vitamin C] 500 mg PO Q8H Albuterol Nebulized [Ventolin Nebulized] 2.5 mg INHALATION RT-Q6H PRN PRN Reason: Wheezing Glycerin/Propylene Glycol [Artificial Tears Drops] 1 drop BOTH EYES BID PRN PRN Reason: Dry Eye(S) traMADol HCl [Ultram] 100 mg PO Q6H Discharge Medication List Cholecalciferol [Vitamin D3] 1,000 unit PO DAILY 07/21/16 [History] [place]-3 Fatty Acids/Fish Oil [Fish Oil 1,000 mg Softgel] 1 cap PO DAILY [History] Albuterol Nebulized [Ventolin Nebulized] 2.5 mg INHALATION RT-Q6H PRN 04/22/18 [ History] Apixaban [Eliquis] 5 mg PO BID 04/22/18 [History] Ascorbic Acid [Vitamin C] 500 mg PO Q8H 04/22/18 [History] Benzocaine/Menthol Lozeng [Cepacol lozenge] 1 lozenge MUCOUS MEM Q4HR PRN [History] Cephalexin [Keflex] 250 mg PO Q12HR 04/22/18 [History] Clotrimazole Cream [Lotrimin Cream] 1 applic TOPICAL BID 04/22/18 [History] Docusate [Colace] 100 mg PO BID 04/22/18 [History] Fluticasone Nasal [place] [Flonase Nasal [place]] 1 spray EA NOSTRIL DAILY 04/22/18 [History] Fluticasone/Vilanterol [Breo Ellipta 100-25 Mcg Inhaler] 1 puff INHALATION RT- DAILY 04/22/18 [History] Glycerin/Propylene Glycol [Artificial Tears Drops] 1 drop BOTH EYES BID PRN 10/ 19/18 [History] L. Rhamnosus GG/Inulin [Culturelle Probiotics Capsule] 1 cap PO BID 04/22/18 [ History] Lactulose 20 gm PO Q12H PRN 04/22/18 [History] Metoprolol Tartrate [Lopressor] 25 mg PO BID 04/22/18 [History] Montelukast Sodium [Singulair] 10 mg PO DAILY 04/22/18 [History] diphenhydrAMINE [Benadryl] 25 mg PO TID PRN 04/22/18 [History] traMADol HCl [Ultram] 100 mg PO Q6H 04/22/18 [History] Follow up Appointment(s)/Referral(s): Aris Nick MD [STAFF PHYSICIAN] - 3 Weeks Josh Ward MD [Primary Care Provider] - 1-2 days Patient Instructions/Handouts: Chest Pain (DC)
[2018-04-23] MEDS ORDERED: CHOLECALCIFEROL 1,000 UNIT TAB PO SCH (12:00)
--- NOTE | 2018-05-04 11:45 | CDI ---
Outpatient Documentation Clarification Form Date: 05-04-18 CDS/Skilled Nursing Professional Name: DAVID SCHULTZ Phone: If any questions, call Ramona Pruett Activities Aide at [phone] Patient Name: QUENTIN REILLY Admit Date: 04-22-18 Discharge Date: 04-23-18 - Observation ATTENTION: The [facility] Coding Staff appreciate your assistance in clarifying documentation. Please respond to the clarification below the line at the bottom and electronically sign. The [facility] Coding staff will review the response and follow-up if needed. Please note: Queries are made part of the Legal Health Record. If you have any questions, please contact the Activities Aide. Dear Dr. VALDEZ, Patient's lab value for d-dimer was .96, pt had CTA of the chest. If patient had a diagnosis of "elevated d-dimer" and this was pertinent to this episode of care, please add diagnosis below the line. MTDD
== END 2018-04-23 18:00 | disposition home or self-care (01) ==
LOC: EC 07:44 → 1SOBS 10:38
PROVIDERS: ADMIT Family Medicine; ATTEND Family Medicine
DX: R07.89 Other chest pain (principal); I48.2 Chronic atrial fibrillation; F41.1 Generalized anxiety disorder; I89.0 Lymphedema, not elsewhere classified; J30.9 Allergic rhinitis, unspecified; H04.123 Dry eye syndrome of bilateral lacrimal glands; M19.90 Unspecified osteoarthritis, unspecified site; M54.9 Dorsalgia, unspecified; R79.89 Other specified abnormal findings of blood chemistry; Z79.899 Other long term (current) drug therapy; Z79.01 Long term (current) use of anticoagulants; Z79.891 Long term (current) use of opiate analgesic; Z86.718 Personal history of other venous thrombosis and embolism; Z86.19 Personal history of other infectious and parasitic diseases; Z85.3 Personal history of malignant neoplasm of breast; Z85.42 Personal history of malignant neoplasm of other parts of uterus; Z87.09 Personal history of other diseases of the respiratory system; Z88.8 Allergy status to other drugs, medicaments and biological substances; Z88.6 Allergy status to analgesic agent; Z88.1 Allergy status to other antibiotic agents; Z80.9 Family history of malignant neoplasm, unspecified; Z82.49 Family history of ischemic heart disease and other diseases of the circulatory system; E66.9 Obesity, unspecified; Z68.32 Body mass index [BMI] 32.0-32.9, adult; Z98.890 Other specified postprocedural states
CPT/HCPCS: 99285; 36415; 93005; 85379; 80053; 82550; 82553; 83735; 84484; 85025; 85610; 85730; 71046; 71275; G0378 ×2; Q9967

== ENCOUNTER → 2018-05-05 | Outpatient (CLI) | payer MEDICARE, OTHER ==
--- NOTE | 2018-05-06 08:38 | CT ---
EXAMINATION TYPE: CT abdomen pelvis wo con DATE OF EXAM: 05/05/2018 COMPARISON: None HISTORY: Incisional hernia CT DLP: 684 mGycm Automated exposure control for dose reduction was used. TECHNIQUE: Helical acquisition of images was performed from the lung bases through the pelvis. FINDINGS: Lack of intravenous contrast limits evaluation of the solid viscera. LUNG BASES: Lingular pleural parenchymal scarring is noted. LIVER/GB: No significant abnormality is appreciated. PANCREAS: No significant abnormality is seen. SPLEEN: No significant abnormality is seen. ADRENALS: No significant abnormality is seen. KIDNEYS: Right extrarenal pelvis is incidentally seen. No nephrolithiasis or hydronephrosis. Kidneys are slightly lobulated in contour, which may relate to prior injury. There is a suspected subcentimet er right mid to upper pole renal cyst. FREE AIR: No free air is visualized ADENOPATHY: Evaluation for adenopathy is limited without intravenous contrast, however no greater th an 1 cm short axis lymph nodes are appreciated within the abdomen or pelvis. REPRODUCTIVE ORGANS: Uterus appears surgically absent however numerous varices are seen within the pe lvis particularly left paracentral. URINARY BLADDER: No significant abnormality is seen. OSSEOUS STRUCTURES: Extensive destructive changes and remodeling is seen of the left femoral acetabu lar joint and hemipelvis. Numerous lucent regions are seen with [id number] articulation of the left femoral acetabular joint and heterotopic ossification. There is a dextroscoliotic curvature of the l umbar spine. There is grade 1 anterolisthesis of L4 on L5 without pars interarticularis defects.. BOWEL/HERNIA: There is a small bowel containing periumbilical hernia with a 3.0 cm wide neck, incisi onal hernia per patient history. No dilated large or small bowel are seen proximal to this, however s mall bowel feces sign is seen throughout indicative of increased transit time. There are loops of mil dly dilated left mid abdominal small bowel measuring up to 3.3 cm. Contrast extends into the mid: An no bowel obstruction is seen. Moderate amount of retained colonic fecal material is present. Addition ally there is a right inguinal hernia containing loops of small bowel on series 3 image 64 through 66 . Scattered colonic diverticula are seen without pericolonic fat stranding. There is incomplete distention of the rectum and distal sigmoid colon limiting evaluation. IMPRESSION: 1. SMALL BOWEL CONTAINING PERIUMBILICAL/INCISIONAL HERNIA WITHOUT CURRENT EVIDENCE OF BOWEL OBSTRUCTI ON. SMALL BOWEL CONTAINING RIGHT INGUINAL HERNIA IS ALSO SEEN WITHOUT CT EVIDENCE OF INCARCERATION AT THIS TIME. SEQUELA OF SMALL BOWEL ILEUS IS SEEN. 2. ENGORGED PELVIC VENOUS VASCULATURE CAN RELATE TO PELVIC CONGESTION SYNDROME CLINICALLY. 3. OSSEOUS DEFORMITY AND REMODELING OF THE LEFT HEMIPELVIS, PARTICULARLY OF THE LEFT FEMORAL ACETABUL AR JOINT. THIS COULD RELATE TO POSTTRAUMATIC SEQUELA OR ADVANCED ARTHROPATHY.
== END | disposition home or self-care (01) ==
LOC: RADCTMAIN 15:15
PROVIDERS: ATTEND Surgery Plastic and Reconstructive Surgery
DX: K42.9 Umbilical hernia without obstruction or gangrene (principal); K43.2 Incisional hernia without obstruction or gangrene; Z88.6 Allergy status to analgesic agent; Z88.1 Allergy status to other antibiotic agents
CPT/HCPCS: 74176

== ENCOUNTER → 2018-07-13 | Outpatient (CLI) | payer MEDICARE, OTHER ==
[2018-07-13 16:51] LABS: Basophils % (A) 1 %; Eosinophils # (A) 0.3 k/uL (0-0.7); Eosinophils % (A) 4 %; HCT 41.7 % (34.0-46.0); HGB 13.4 gm/dL (11.4-16.0); Lymphocytes # (A) 3.1 k/uL (1.0-4.8); Lymphocytes % (A) 38 %; MCHC 32.1 g/dL (31.0-37.0); MCV 99.4 fL (80.0-100.0); Mean Platelet Volume 6.5; Monocytes # (A) 0.5 k/uL (0-1.0); Monocytes % (A) 6 %; Neutrophils # (A) 3.9 k/uL (1.3-7.7); Neutrophils % (A) 48 %; Platelet Count 265 k/uL (150-450); RBC 4.19 m/uL (3.80-5.40); RDW 12.7 % (11.5-15.5)
[2018-07-14 05:46] LABS: Albumin 4.1 g/dL (3.80-4.90); Albumin/Globulin Ratio 1.95 (1.20-2.10); Anion Gap 7.4 mmol/L (4.00-12.00); Calcium 9.3 mg/dL (8.7-10.3); Carbon Dioxide 28.6 mmol/L (21.6-31.8); Globulin 2.1 g/dL (1.6-3.3); Potassium 4.3 mmol/L (3.5-5.5); Total Bilirubin 0.8 mg/dL (0.2-1.2); Total Protein 6.2 g/dL (6.2-8.2)
== END ==
LOC: LABWHC1 16:16
PROVIDERS: ATTEND Obstetrics & Gynecology Gynecologic Oncology
DX: Z08 Encounter for follow-up examination after completed treatment for malignant neoplasm (principal); C54.1 Malignant neoplasm of endometrium
CPT/HCPCS: 36415; 80053; 82378; 85025; 86304

== ENCOUNTER → 2018-07-13 | Outpatient (CLI) | payer MEDICARE, OTHER ==
--- NOTE | 2018-07-14 11:54 | XR ---
EXAMINATION TYPE: XR chest 2V DATE OF EXAM: 07/13/2018 COMPARISON: Prior chest x-ray and chest CT 04/22/2018 HISTORY: Endometrial carcinoma TECHNIQUE: Frontal and lateral views of the chest are obtained. FINDINGS: Prominent lung volumes may be indicative of underlying COPD, there is flattening of the he midiaphragms. No evident airspace disease, pneumothorax, or pleural effusion. Cardiomediastinal silho uette, pulmonary vascularity and noe are within normal limits. There is a mild spinal curvature. IMPRESSION: No acute cardiopulmonary process. 4 mm lung nodule present on prior chest CT in the righ t lower lobe is not seen on today's exam.
== END ==
LOC: RADXRMAIN 16:42
PROVIDERS: ATTEND Obstetrics & Gynecology Gynecologic Oncology
DX: C54.1 Malignant neoplasm of endometrium (principal); R91.1 Solitary pulmonary nodule
CPT/HCPCS: 71046

== ENCOUNTER → 2018-07-22 | Outpatient (CLI) | payer MEDICARE, OTHER ==
--- NOTE | 2018-07-26 07:31 | MM ---
Reason for exam: history of breast cancer, mastectomy. Last mammogram was performed 2 years and 4 months ago. History: Patient is postmenopausal, has history of endometrial cancer at age 58, has history of breast cancer at age 47, and is nulliparous. Mastectomy of the left breast, 1999. Physical Findings: Nurse did not find any significant physical abnormalities on exam. MG 3D Diag Mammo W/Cad RT CC and MLO view(s) were taken of the right breast. Prior study comparison: March 25, 2016, right breast MG 3d diag mammo w/cad RT. August 17, 2012, right diagnostic mammogram w/CAD. There are scattered fibroglandular densities. No significant new finding when compared with prior studies. These results were verbally communicated with the patient and result sheet given to the patient on 07/22/18. ASSESSMENT: Benign, BI-RAD 2 RECOMMENDATION: Routine screening mammogram of the right breast in 1 year.
== END | disposition home or self-care (01) ==
LOC: RADMAMWWP 14:48
PROVIDERS: ATTEND Obstetrics & Gynecology Gynecologic Oncology
DX: R92.8 Other abnormal and inconclusive findings on diagnostic imaging of breast (principal)
CPT/HCPCS: 77065; G0279; 77061

== ENCOUNTER 2018-07-27 17:25 | Inpatient (IN) | payer MEDICARE, OTHER ==
[2018-07-27] MEDS ORDERED: methylPREDNISolone SOD SUCCI 125 MG/2 ML VIAL IV STA (17:53)
[2018-07-27] MEDS ORDERED: IPRATROPIUM-ALBUTEROL 3 ML NEB INHALATION STA ×2 (17:53→18:22)
--- NOTE | 2018-07-27 17:55 | ED ---
General Adult HPI - General Chief complaint: Shortness of Breath Stated complaint: RANDALL, RAPID HEARTBEAT, COUGH, COPD Time Seen by Provider: 07/27/18 17:42 Source: patient, family, RN notes reviewed Mode of arrival: ambulatory Limitations: no limitations - History of Present Illness Initial comments: Patient is a pleasant 62-year-old female presenting to the emergency Department with complaints of difficulty breathing. Symptoms started several days ago. Patient has cough with green sputum. Patient has had some fevers. Patient does have history of similar symptoms previously associated with COPD. - Related Data Home Medications Medication Instructions Recorded Confirmed Cholecalciferol [Vitamin D3] 1,000 unit PO DAILY 07/21/16 07/27/18 Albuterol Nebulized [Ventolin 2.5 mg INHALATION RT-Q6H PRN 04/22/18 07/27/18 Nebulized] Apixaban [Eliquis] 5 mg PO BID 04/22/18 07/27/18 Ascorbic Acid [Vitamin C] 500 mg PO Q8H 04/22/18 07/27/18 Fluticasone Nasal [place] [Flonase 1 spray EA NOSTRIL DAILY 04/22/18 07/27/18 Nasal [place]] Metoprolol Tartrate [Lopressor] 25 mg PO BID 04/22/18 07/27/18 Montelukast Sodium [Singulair] 10 mg PO DAILY 04/22/18 07/27/18 Albuterol Nebulized (Conc) 2.5 mg INHALATION RT-Q4H 07/27/18 07/27/18 [Ventolin Nebulized (Conc)] Budesonide [Pulmicort] 0.5 mg INHALATION RT-DAILY 07/27/18 07/27/18 Multivitamins, Thera [Multivitamin 1 tab PO DAILY 07/27/18 07/27/18 (formulary)] Allergies Allergy/AdvReac Type Severity Reaction Status Date / Time ibuprofen [From Motrin] Allergy Dyspnea Verified 07/27/18 20:09 levofloxacin [From Levaquin] Allergy Unknown Verified 07/27/18 20:09 acetaminophen [From Tylenol] AdvReac Increased Verified 07/27/18 20:09 Liver Enzymes Review of Systems ROS Statement: Those systems with pertinent positive or pertinent negative responses have been documented in the HPI. ROS Other: All systems not noted in ROS Statement are negative. 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 History of Any Multi-Drug Resistant Organisms: None Reported Past Surgical History: Breast Surgery, Heart Catheterization, Hysterectomy Additional Past Surgical History / Comment(s): L hip surgery x3, bowel obstruction with laparotomy, hysterecomy/ovaries/tumor removed per pt, bronchoscopies x2, Past Anesthesia/Blood Transfusion Reactions: No Reported Reaction Additional Past Anesthesia/Blood Transfusion Reaction / Comment(s): Pt has received blood without reaction. Past Psychological History: No Psychological Hx Reported Smoking Status: Never smoker - Past Family History Mother Family Medical History: Cancer Additional Family Medical History / Comment(s): Mother at the age of 75yrs from metastatic cancer. Father Family Medical History: Myocardial Infarction ([place]) Additional Family Medical History / Comment(s): Father of a [place] at the age of 54yrs. General Exam Limitations: no limitations Course Vital Signs 07/27/18 07/27/18 07/27/18 17:26 17:54 17:57 Temperature 98.7 F Pulse Rate 120 H 101 H Respiratory 24 20 18 Rate Blood Pressure 145/92 O2 Sat by Pulse 90 L Oximetry 07/27/18 07/27/18 07/27/18 18:06 18:21 18:23 Temperature Pulse Rate 110 H 105 H 102 H Respiratory 18 20 18 Rate Blood Pressure 151/103 O2 Sat by Pulse 93 L Oximetry 07/27/18 18:37 Temperature Pulse Rate 104 H Respiratory Rate Blood Pressure O2 Sat by Pulse Oximetry EKG Findings - EKG Comments: EKG Findings:: Sinus tachycardia 105. AR 128. QRS 82. QT 326. QTc 4:30. Normal axis. Right atrial enlargement. No acute ST change. Medical Decision Making - Medical Decision Making Patient reevaluated and somewhat improved. Heart rate remains somewhat high. Patient family updated on results and plan. Case was discussed in detail with Dr. Gilbert, covering for hospital call, who will admit. - Lab Data Result diagrams: 07/27/18 12:56 07/27/18 12:56 Lab Results 07/27/18 07/27/18 07/27/18 Range/Units 12:56 12:56 12:56 WBC 7.9 (3.8-10.6) k/uL RBC 3.86 (3.80-5.40) m/uL Hgb 12.8 (11.4-16.0) gm/dL Hct 37.8 (34.0-46.0) % MCV 98.0 (80.0-100.0) fL MCH 33.1 (25.0-35.0) pg MCHC 33.8 (31.0-37.0) g/dL RDW 13.0 (11.5-15.5) % Plt Count 211 (150-450) k/uL Neutrophils % 82 % Lymphocytes % 11 % Monocytes % 4 % Eosinophils % 1 % Basophils % 0 % Neutrophils # 6.5 (1.3-7.7) k/uL Lymphocytes # 0.9 L (1.0-4.8) k/uL Monocytes # 0.3 (0-1.0) k/uL Eosinophils # 0.0 (0-0.7) k/uL Basophils # 0.0 (0-0.2) k/uL PT (9.0-12.0) sec INR (<1.2) APTT (22.0-30.0) sec Sodium 138 (137-145) mmol/L Potassium 4.1 (3.5-5.1) mmol/L Chloride 106 (98-107) mmol/L Carbon Dioxide 25 (22-30) mmol/L Anion Gap 7 mmol/L BUN 16 (7-17) mg/dL Creatinine 0.64 (0.52-1.04) mg/dL Est GFR (CKD-EPI)AfAm >90 (>60 ml/min/1.73 sqM) Est GFR (CKD-EPI)NonAf >90 (>60 ml/min/1.73 sqM) Glucose 119 H (74-99) mg/dL Plasma Lactic Acid Michael (0.7-2.0) mmol/L Calcium 8.4 (8.4-10.2) mg/dL Total Bilirubin 0.7 (0.2-1.3) mg/dL AST 35 (14-36) U/L ALT 31 (9-52) U/L Alkaline Phosphatase 66 (38-126) U/L Total Creatine Kinase 43 (30-135) U/L CK-MB (CK-2) 0.9 (0.0-2.4) ng/mL CK-MB (CK-2) Rel Index 2.1 Troponin I <0.012 (0.000-0.034) ng/mL NT-Pro-B Natriuret Pep pg/mL Total Protein 6.6 (6.3-8.2) g/dL Albumin 3.7 (3.5-5.0) g/dL 07/27/18 07/27/18 07/27/18 Range/Units 12:56 12:56 12:56 WBC (3.8-10.6) k/uL RBC (3.80-5.40) m/uL Hgb (11.4-16.0) gm/dL Hct (34.0-46.0) % MCV (80.0-100.0) fL MCH (25.0-35.0) pg MCHC (31.0-37.0) g/dL RDW (11.5-15.5) % Plt Count (150-450) k/uL Neutrophils % % Lymphocytes % % Monocytes % % Eosinophils % % Basophils % % Neutrophils # (1.3-7.7) k/uL Lymphocytes # (1.0-4.8) k/uL Monocytes # (0-1.0) k/uL Eosinophils # (0-0.7) k/uL Basophils # (0-0.2) k/uL PT 10.8 (9.0-12.0) sec INR 1.0 (<1.2) APTT 23.4 (22.0-30.0) sec Sodium (137-145) mmol/L Potassium (3.5-5.1) mmol/L Chloride (98-107) mmol/L Carbon Dioxide (22-30) mmol/L Anion Gap mmol/L BUN (7-17) mg/dL Creatinine (0.52-1.04) mg/dL Est GFR (CKD-EPI)AfAm (>60 ml/min/1.73 sqM) Est GFR (CKD-EPI)NonAf (>60 ml/min/1.73 sqM) Glucose (74-99) mg/dL Plasma Lactic Acid Michael 1.1 (0.7-2.0) mmol/L Calcium (8.4-10.2) mg/dL Total Bilirubin (0.2-1.3) mg/dL AST (14-36) U/L ALT (9-52) U/L Alkaline Phosphatase (38-126) U/L Total Creatine Kinase (30-135) U/L CK-MB (CK-2) (0.0-2.4) ng/mL CK-MB (CK-2) Rel Index Troponin I (0.000-0.034) ng/mL NT-Pro-B Natriuret Pep 254 pg/mL Total Protein (6.3-8.2) g/dL Albumin (3.5-5.0) g/dL - Radiology Data Radiology results: image reviewed (Chest x-ray shows no acute process) Disposition Clinical Impression: COPD (chronic obstructive pulmonary disease) Disposition: ADMITTED IP TO THIS HOSP Is patient prescribed a controlled substance at d/c from ED?: No Referrals: Nonstaff,Physician [REFERRING] - 1-2 days Decision Time: 20:34
[2018-07-27 18:13] LABS: Basophils % (A) 0 %; Eosinophils % (A) 1 %; HCT 37.8 % (34.0-46.0); HGB 12.8 gm/dL (11.4-16.0); Lymphocytes # (A) 0.9 k/uL (1.0-4.8); Lymphocytes % (A) 11 %; MCH 33.1 pg (25.0-35.0); MCHC 33.8 g/dL (31.0-37.0); Mean Platelet Volume 7.1; Monocytes # (A) 0.3 k/uL (0-1.0); Monocytes % (A) 4 %; Neutrophils # (A) 6.5 k/uL (1.3-7.7); Neutrophils % (A) 82 %; Platelet Count 211 k/uL (150-450); RBC 3.86 m/uL (3.80-5.40); WBC 7.9 k/uL (3.8-10.6)
[2018-07-27 18:21] LABS: ALT 31 U/L (9-52); AST 35 U/L (14-36); Albumin 3.7 g/dL (3.5-5.0); Alkaline Phosphatase 66 U/L (38-126); Anion Gap 7 mmol/L; Blood Urea Nitrogen 16 mg/dL (7-17); Calcium 8.4 mg/dL (8.4-10.2); Carbon Dioxide 25 mmol/L (22-30); Chloride 106 mmol/L (98-107); Glucose 119 mg/dL (74-99); Potassium 4.1 mmol/L (3.5-5.1); Sodium 138 mmol/L (137-145); Total Bilirubin 0.7 mg/dL (0.2-1.3); Total Protein 6.6 g/dL (6.3-8.2)
[2018-07-27 18:34] LABS: Creatine Kinase 43 U/L (30-135)
[2018-07-27 18:45] LABS: Partial Thromboplastin Time 23.4 sec (22.0-30.0); Prothrombin Time 10.8 sec (9.0-12.0)
[2018-07-27 18:48] LABS: Creatine Kinase MB 0.9 ng/mL (0.0-2.4); Troponin I <0.012 ng/mL (0.000-0.034)
--- NOTE | 2018-07-27 19:09 | XR ---
EXAMINATION: XR chest 2V DATE AND TIME: 07/27/2018 7:00 PM CLINICAL INDICATION: PHH; difficulty breathing TECHNIQUE: Departmental protocol COMPARISON: 07/13/2018 FINDINGS: The lungs are clear. The pleural spaces are negative. The cardiac silhouette is not enlarged. The remainder of the mediastinal silhouette is unremarkable. The skeletal structures are negative for acute findings. Soft tissues notable for left mastectomy. IMPRESSION: NO ACUTE PROCESS.
[2018-07-27] MEDS ORDERED: IPRATROPIUM-ALBUTEROL 3 ML NEB INHALATION PRN (20:34)
[2018-07-28] MEDS: CEFDINIR 300 MG CAP PO SCH ×2 (01:11→09:08)
[2018-07-28] MEDS: methylPREDNISolone SOD SUCCI 125 MG/2 ML VIAL IV SCH ×3 (01:11→12:26)
[2018-07-28] MEDS: SODIUM CHLORIDE 0.9% 1,000 ML IV SCH ×4 (06:37→23:44)
[2018-07-28 07:54] LABS: Glucose,Whole Blood 144 mg/dL (75-99)
[2018-07-28] MEDS: IPRATROPIUM-ALBUTEROL 3 ML NEB INHALATION SCH ×4 (08:50→20:30)
[2018-07-28] MEDS: METOPROLOL TARTRATE 25 MG TAB PO SCH ×2 (11:19→21:23)
--- NOTE | 2018-07-28 11:47 | P.CNPUL ---
History of Present Illness Consult date: 07/28/18 Requesting physician: Bassam Connelly Reason for consult: dyspnea, COPD Chief complaint: Shortness of breath History of present illness: This is a very pleasant 62-year-old female patient who follows with Dr. Izquierdo as her primary care physician. 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 She presented here yesterday with complaints of increasing shortness of breath, cough and congestion. Chest x-ray shows no acute pulmonary process. She was quite bronchospastic and wheezing. She was admitted for COPD exacerbation. She is seen today on the regular medical floor. She is awake and alert in no acute distress. She does have a loose nonproductive cough. No chills or night sweats. Maintaining good O2 saturations in the 90s on 2 L/m per nasal cannula. Afebrile. Hemodynamically stable. White count 7.9. Hemoglobin 12.8. Creatinine 0.64. She has been initiated on bronchodilators, Singulair, IV Solu-Medrol. She is on empiric antibiotics in the form of Omnicef. Review of Systems Constitutional: Reports fatigue Eyes: denies blurred vision, denies decreased vision Ears: deny: decreased hearing Ears, nose, mouth and throat: Denies headache, Denies sore throat Cardiovascular: Reports dyspnea on exertion, Reports shortness of breath Respiratory: Reports cough, Reports dyspnea, Reports wheezing Gastrointestinal: Denies abdominal pain, Denies diarrhea, Denies nausea, Denies vomiting Genitourinary: Denies dysuria, Denies hematuria Musculoskeletal: Denies myalgias Integumentary: Denies pruritus, Denies rash Neurological: Denies numbness, Denies weakness Psychiatric: Reports anxiety Endocrine: Denies fatigue, Denies weight change Hematologic/Lymphatic: Reports as per HPI Allergic/Immunologic: Reports as per HPI Past Medical History Past Medical History: Atrial Fibrillation, Cancer, Deep Vein Thrombosis (DVT), Eye Disorder, Liver Disease, Vascular Disorder Additional Past Medical History / Comment(s): Recent L knee fracture-wearing lower leg brace, bilateral lymphedema, hepatitis A and C but later told hepatitis C was gone, L breast cancer with surgery, uterine cancer with surgery- pt states cancer had spread outside uterus and has had 3 different abdominal surgeries for this, 6 months ago-bowel obstruction/"twist" with surgery, DVTs L leg, tracheobronchitis, past respiratory failure, 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 History of Any Multi-Drug Resistant Organisms: None Reported Past Surgical History: Breast Surgery, Heart Catheterization, Hysterectomy Additional Past Surgical History / Comment(s): L hip surgery x3, bowel obstruction with laparotomy, hysterecomy/ovaries/tumor removed per pt, bronchoscopies x2, Past Anesthesia/Blood Transfusion Reactions: No Reported Reaction Additional Past Anesthesia/Blood Transfusion Reaction / Comment(s): Pt has received blood without reaction. Past Psychological History: No Psychological Hx Reported Additional Psychological History / Comment(s): Pt currently at [facility] for rehab and is to be discharged soon. She is getting around by wheelchair. Smoking Status: Never smoker Past Alcohol Use History: None Reported Past Drug Use History: Marijuana Additional Drug Use History / Comment(s): Pt takes CBD pills for her cancer. - Past Family History Mother Family Medical History: Cancer Additional Family Medical History / Comment(s): Mother at the age of 75yrs from metastatic cancer. Father Family Medical History: Myocardial Infarction ([place]) Additional Family Medical History / Comment(s): Father of a [place] at the age of 54yrs. Medications and Allergies Home Medications Medication Instructions Recorded Confirmed Type Cholecalciferol [Vitamin D3] 1,000 unit PO DAILY 07/21/16 07/27/18 History Albuterol Nebulized [Ventolin 2.5 mg INHALATION RT-Q6H PRN 04/22/18 07/27/18 History Nebulized] Apixaban [Eliquis] 5 mg PO BID 04/22/18 07/27/18 History Ascorbic Acid [Vitamin C] 500 mg PO Q8H 04/22/18 07/27/18 History Fluticasone Nasal [place] [Flonase 1 spray EA NOSTRIL DAILY 04/22/18 07/27/18 History Nasal [place]] Metoprolol Tartrate [Lopressor] 25 mg PO BID 04/22/18 07/27/18 History Montelukast Sodium [Singulair] 10 mg PO DAILY 04/22/18 07/27/18 History Albuterol Nebulized (Conc) 2.5 mg INHALATION RT-Q4H 07/27/18 07/27/18 History [Ventolin Nebulized (Conc)] Budesonide [Pulmicort] 0.5 mg INHALATION RT-DAILY 07/27/18 07/27/18 History Multivitamins, Thera [Multivitamin 1 tab PO DAILY 07/27/18 07/27/18 History (formulary)] Allergies Allergy/AdvReac Type Severity Reaction Status Date / Time ibuprofen [From Motrin] Allergy Dyspnea Verified 07/27/18 20:09 levofloxacin [From Levaquin] Allergy Unknown Verified 07/27/18 20:09 acetaminophen [From Tylenol] AdvReac Increased Verified 07/27/18 20:09 Liver Enzymes Physical Exam Vitals: Vital Signs Temp Pulse Pulse Resp BP BP Pulse Ox 07/28/18 09:11 96 07/28/18 08:52 88 07/28/18 07:03 98.2 F 63 16 149/78 94 L 07/28/18 00:00 97.7 F 80 24 110/75 91 L 07/27/18 20:50 100 18 108/62 92 L 07/27/18 18:37 104 H 07/27/18 18:23 102 H 18 07/27/18 18:21 105 H 20 151/103 93 L 07/27/18 18:06 110 H 18 07/27/18 17:57 101 H 18 07/27/18 17:54 20 07/27/18 17:26 98.7 F 120 H 24 145/92 90 L Intake and Output 07/27/18 07/28/18 07/28/18 22:59 06:59 14:59 Other: # Voids 2 Weight 77.111 kg - Constitutional General appearance: average body habitus, disheveled, no acute distress - EENT Eyes: EOMI, PERRLA ENT: hearing grossly normal Ears: bilateral: normal - Neck Neck: normal ROM Carotids: bilateral: upstroke normal Thyroid: bilateral: normal size - Respiratory Respiratory: bilateral: diminished, wheezing, prolonged expiration - Cardiovascular Rhythm: regular Heart sounds: normal: S1, S2 - Gastrointestinal General gastrointestinal: normal bowel sounds, umbilical hernia - Integumentary Integumentary: normal turgor - Neurologic Neurologic: CNII-XII intact - Musculoskeletal Musculoskeletal: gait normal - Psychiatric Psychiatric: A&O x's 3, appropriate affect, intact judgment & insight Results - Laboratory Findings CBC and BMP: 07/27/18 12:56 07/27/18 12:56 PT/INR, D-dimer PT 10.8 sec (9.0-12.0) 07/27/18 12:56 INR 1.0 (<1.2) 07/27/18 12:56 Abnormal lab findings: Abnormal Labs 07/27/18 07/27/18 07/28/18 12:56 12:56 07:47 Lymphocytes # 0.9 L Glucose 119 H POC Glucose (mg/dL) 144 H - Diagnostic Findings Chest x-ray: image reviewed Assessment and Plan Assessment: Impression: #1 Acute hypoxic respiratory failure secondary to an acute exacerbation of chronic obstructive pulmonary disease. #2 Remote history of chronic tobacco dependence. #3 History of breast cancer, status post left mastectomy. #4 History of uterine cancer status post hysterectomy. #5 History of marijuana use. #6 Hepatitis. 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 Plan: The patient was seen and evaluated by Dr. Arroyo. Chest x-ray and labs were reviewed. No clear evidence of pneumonia. She is on empiric antibiotics. We' ll continue IV Solu-Medrol and bronchodilators along with Singulair. We'll increase her activity as tolerated. We'll continue to follow. I, the cosigning physician, performed a history & physical examination of the patient. Lungs sounds with bilateral end expiratory wheeze. Maintaining good O2 saturations in the 90s on 2 L/m per nasal cannula. I discussed the assessment and plan of care with my nurse practitioner, Love Jara. I attest to the above note as dictated by her. Time with Patient: Greater than 30
[2018-07-28 11:57] LABS: Glucose,Whole Blood 127 mg/dL (75-99)
--- NOTE | 2018-07-28 13:11 | P.HPIM ---
History of Present Illness 62-year-old pleasant female came in with complains of shadows of breath and wheezing patient has rhonchus breath sounds. Patient does have diagnosis of COPD but doesn't admit to smoking much but was exposed to secondhand smoke. Patient had the breast cancer with left mastectomy trying cancer status post hysterectomy. Chest x-ray did not show any pneumonic process patient doesn't use any oxygen at home. Patient was started on systemic steroids inhalational treatments patient will be started on doxycycline and cephalosporins will be discontinued. Patient denied any history of asthma. Patient denied any fever chills flulike symptoms. Review of Systems REVIEW OF SYSTEMS: CONSTITUTIONAL: No fever, no malaise, no fatigue. HEENT: No recent visual problems or hearing problems. Denied any sore throat. CARDIOVASCULAR: No chest pain, orthopnea, PND, no palpitations, no syncope. PULMONARY: no hemoptysis. GASTROINTESTINAL: No diarrhea, no nausea, no vomiting, no abdominal pain. NEUROLOGICAL: No headaches, no weakness, no numbness. HEMATOLOGICAL: Denies any bleeding or petechiae. GENITOURINARY: Denies any burning micturition, frequency, or urgency. MUSCULOSKELETAL/RHEUMATOLOGICAL: Denies any joint pain, swelling, or any muscle pain. ENDOCRINE: Denies any polyuria or polydipsia. The rest of the 14-point review of systems is negative. 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 History of Any Multi-Drug Resistant Organisms: None Reported Past Surgical History: Breast Surgery, Heart Catheterization, Hysterectomy Additional Past Surgical History / Comment(s): L hip surgery x3, bowel obstruction with laparotomy, hysterecomy/ovaries/tumor removed per pt, bronchoscopies x2, Past Anesthesia/Blood Transfusion Reactions: No Reported Reaction Additional Past Anesthesia/Blood Transfusion Reaction / Comment(s): Pt has received blood without reaction. Past Psychological History: No Psychological Hx Reported Additional Psychological History / Comment(s): Pt currently at [facility] for rehab and is to be discharged soon. She is getting around by wheelchair. Smoking Status: Never smoker Past Alcohol Use History: None Reported Past Drug Use History: Marijuana Additional Drug Use History / Comment(s): Pt takes CBD pills for her cancer. - Past Family History Mother Family Medical History: Cancer Additional Family Medical History / Comment(s): Mother at the age of 75yrs from metastatic cancer. Father Family Medical History: Myocardial Infarction ([place]) Additional Family Medical History / Comment(s): Father of a [place] at the age of 54yrs. Medications and Allergies Home Medications Medication Instructions Recorded Confirmed Type Cholecalciferol [Vitamin D3] 1,000 unit PO DAILY 07/21/16 07/27/18 History Albuterol Nebulized [Ventolin 2.5 mg INHALATION RT-Q6H PRN 04/22/18 07/27/18 History Nebulized] Apixaban [Eliquis] 5 mg PO BID 04/22/18 07/27/18 History Ascorbic Acid [Vitamin C] 500 mg PO Q8H 04/22/18 07/27/18 History Fluticasone Nasal [place] [Flonase 1 spray EA NOSTRIL DAILY 04/22/18 07/27/18 History Nasal [place]] Metoprolol Tartrate [Lopressor] 25 mg PO BID 04/22/18 07/27/18 History Montelukast Sodium [Singulair] 10 mg PO DAILY 04/22/18 07/27/18 History Albuterol Nebulized (Conc) 2.5 mg INHALATION RT-Q4H 07/27/18 07/27/18 History [Ventolin Nebulized (Conc)] Budesonide [Pulmicort] 0.5 mg INHALATION RT-DAILY 07/27/18 07/27/18 History Multivitamins, Thera [Multivitamin 1 tab PO DAILY 07/27/18 07/27/18 History (formulary)] Allergies Allergy/AdvReac Type Severity Reaction Status Date / Time ibuprofen [From Motrin] Allergy Dyspnea Verified 07/27/18 20:09 levofloxacin [From Levaquin] Allergy Unknown Verified 07/27/18 20:09 acetaminophen [From Tylenol] AdvReac Increased Verified 07/27/18 20:09 Liver Enzymes Physical Exam Vitals: Vital Signs Temp Pulse Pulse Resp BP BP Pulse Ox 07/28/18 12:37 73 22 07/28/18 12:21 96 07/28/18 12:10 100 07/28/18 10:35 97.9 F 73 22 138/81 92 L 07/28/18 09:11 96 07/28/18 08:52 88 07/28/18 07:03 98.2 F 63 16 149/78 94 L 07/28/18 00:00 97.7 F 80 24 110/75 91 L 07/27/18 20:50 100 18 108/62 92 L 07/27/18 18:37 104 H 07/27/18 18:23 102 H 18 07/27/18 18:21 105 H 20 151/103 93 L 07/27/18 18:06 110 H 18 07/27/18 17:57 101 H 18 07/27/18 17:54 20 07/27/18 17:26 98.7 F 120 H 24 145/92 90 L Intake and Output 07/27/18 07/28/18 07/28/18 22:59 06:59 14:59 Other: # Voids 2 Weight 77.111 kg PHYSICAL EXAMINATION: GENERAL: The patient is alert and oriented x3, not in any acute distress. Well developed, well nourished. HEENT: Pupils are round and equally reacting to light. EOMI. No scleral icterus. No conjunctival pallor. Normocephalic, atraumatic. No pharyngeal erythema. No thyromegaly. CARDIOVASCULAR: S1 and S2 present. No murmurs, rubs, or gallops. PULMONARY: Rhonchus breath sounds expiratory wheezing on exam ABDOMEN: Soft, nontender, nondistended, normoactive bowel sounds. No palpable organomegaly. MUSCULOSKELETAL: No joint swelling or deformity. EXTREMITIES: No cyanosis, clubbing, or pedal edema. NEUROLOGICAL: Gross neurological examination did not reveal any focal deficits. SKIN: No rashes. Results CBC & Chem 7: 07/27/18 12:56 07/27/18 12:56 Labs: Abnormal Lab Results - Last 24 Hours (Table) 07/27/18 07/27/18 07/28/18 Range/Units 12:56 12:56 07:47 Lymphocytes # 0.9 L (1.0-4.8) k/uL Glucose 119 H (74-99) mg/dL POC Glucose (mg/dL) 144 H (75-99) mg/dL 07/28/18 Range/Units 11:56 Lymphocytes # (1.0-4.8) k/uL Glucose (74-99) mg/dL POC Glucose (mg/dL) 127 H (75-99) mg/dL Thrombosis Risk Factor Assmnt - Choose All That Apply Any of the Below Risk Factors Present?: Yes Each Factor Represents 1 point: Obesity (BMI >25) Other Risk Factors: Yes Each Risk Factor Represents 2 Points: Age 61-74 years Other congenital or acquired thrombophilia - If yes, enter type in comment: No Thrombosis Risk Factor Assessment Total Risk Factor Score: 3 Thrombosis Risk Factor Assessment Level: Moderate Risk Assessment and Plan Plan: -Acute hypercapnic respiratory failure secondary to COPD exacerbation: Patient will be continued on systemic steroids inhalational treatments -Tracheobronchitis -History of DVT for which patient is on Eliquis she denied any history of atrial fibrillation but it was documented in the her chart and patient also takes metoprolol which will be continued -History of breast cancer and uterine cancer in remission presently
[2018-07-28] MEDS: methylPREDNISolone SOD SUCCI 40 MG/ML 1 ML VIAL IV SCH ×2 (16:27→23:43)
[2018-07-28 17:05] LABS: Glucose,Whole Blood 156 mg/dL (75-99)
[2018-07-28 20:35] LABS: Glucose,Whole Blood 154 mg/dL (75-99)
[2018-07-28] MEDS: APIXABAN 5 MG TAB PO SCH (21:23)
[2018-07-28] MEDS: DOXYCYCLINE 100 MG CAP PO SCH (21:23)
[2018-07-28] MEDS: ASCORBIC ACID 500 MG TAB PO SCH (22:19)
[2018-07-28] MEDS: LACTULOSE 20 GM/30 ML CUP PO SCH (22:19)
[2018-07-28] MEDS: SENNOSIDES-DOCUSATE SODIUM 1 EACH TAB PO SCH (22:19)
[2018-07-29] MEDS: ASCORBIC ACID 500 MG TAB PO SCH ×3 (05:40→20:59)
[2018-07-29 07:39] LABS: Glucose,Whole Blood 122 mg/dL (75-99)
[2018-07-29] MEDS: BUDESONIDE 0.5 MG/2 ML NEBU INHALATION SCH (08:15)
[2018-07-29] MEDS: IPRATROPIUM-ALBUTEROL 3 ML NEB INHALATION SCH ×4 (08:15→21:46)
[2018-07-29] MEDS ORDERED: MONTELUKAST 10 MG TAB PO SCH (09:00)
[2018-07-29] MEDS: DOXYCYCLINE 100 MG CAP PO SCH ×2 (10:26→21:14)
[2018-07-29] MEDS: APIXABAN 5 MG TAB PO SCH ×2 (10:26→21:14)
[2018-07-29] MEDS: CHOLECALCIFEROL 1,000 UNIT TAB PO SCH (10:26)
[2018-07-29] MEDS: METOPROLOL TARTRATE 25 MG TAB PO SCH ×2 (10:26→21:13)
[2018-07-29] MEDS: FLUTICASONE 50MCG/SPRAY NASAL 16GM EA NOSTRIL SCH (10:29)
[2018-07-29] MEDS: methylPREDNISolone SOD SUCCI 40 MG/ML 1 ML VIAL IV SCH (11:14)
[2018-07-29] MEDS: LACTULOSE 20 GM/30 ML CUP PO SCH ×3 (11:15→20:27)
[2018-07-29] MEDS: SENNOSIDES-DOCUSATE SODIUM 1 EACH TAB PO SCH ×2 (11:15→21:53)
[2018-07-29 12:09] LABS: Glucose,Whole Blood 102 mg/dL (75-99)
[2018-07-29] MEDS: predniSONE 20 MG TAB PO SCH (12:32)
[2018-07-29] MEDS: MULTIVITAMINS, THERA 1 EACH TAB PO SCH (12:32)
[2018-07-29] MEDS: SODIUM CHLORIDE 0.9% 1,000 ML IV SCH ×2 (12:34→22:04)
--- NOTE | 2018-07-29 12:49 | P.PN ---
Subjective Progress Note Date: 07/29/18 Principal diagnosis: Acute exacerbation of chronic obstructive pulmonary disease. This is a very pleasant 62-year-old female patient who follows with Dr. Izquierdo as her primary care physician. 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 She presented here yesterday with complaints of increasing shortness of breath, cough and congestion. Chest x-ray shows no acute pulmonary process. She was quite bronchospastic and wheezing. She was admitted for COPD exacerbation. She is seen today on the regular medical floor. She is awake and alert in no acute distress. She does have a loose nonproductive cough. No chills or night sweats. Maintaining good O2 saturations in the 90s on 2 L/m per nasal cannula. Afebrile. Hemodynamically stable. White count 7.9. Hemoglobin 12.8. Creatinine 0.64. She has been initiated on bronchodilators, Singulair, IV Solu-Medrol. She is on empiric antibiotics in the form of Omnicef. The patient is seen today 12/27/2017 in follow-up on the regular medical floor. She is awake and alert in no acute distress. She has been refusing her IV Solu-Medrol due to increased anxiety, palpitations, restlessness. She is still somewhat bronchospastic and wheezy. She'll be converted to oral prednisone. She is still on DuoNeb inhalations, Pulmicort and Perforomist inhalations, antibiotics in the form of doxycycline. He is maintaining O2 saturations in the 90s on room air. She's been afebrile. Hemodynamically stable. Objective - Vital Signs Vital signs: Vital Signs Temp 97.1 F L 07/29/18 08:00 Pulse 80 07/29/18 12:18 Resp 20 07/29/18 08:00 BP 136/92 07/29/18 08:00 Pulse Ox 93 L 07/29/18 06:37 Intake & Output 07/28/18 07/29/18 07/29/18 18:59 06:59 18:59 Intake Total 1200 Balance 1200 Intake: Oral 1200 Other: Voiding Method Toilet Toilet # Voids 1 2 - Exam GENERAL EXAM: Alert, active, comfortable in no apparent distress. HEAD: Normocephalic. EYES: Normal reaction of pupils, equal size. NOSE: Clear with pink turbinates. THROAT: No erythema or exudates. NECK: No masses, no JVD. CHEST: No chest wall deformity. LUNGS: Equal air entry with bilateral end expiratory wheeze, diminished. CVS: S1 and S2 normal with no audible murmur, regular rhythm. ABDOMEN: No hepatosplenomegaly, normal bowel sounds, no guarding or rigidity. SPINE: No scoliosis or deformity SKIN: No rashes CENTRAL NERVOUS SYSTEM: No focal deficits, tone is normal in all 4 extremities. EXTREMITIES: There is no peripheral edema. No clubbing, no cyanosis. Peripheral pulses are intact. - Labs CBC & Chem 7: 07/27/18 12:56 07/27/18 12:56 Labs: Abnormal Lab Results - Last 24 Hours (Table) 07/28/18 07/28/18 07/29/18 Range/Units 17:01 20:34 07:33 POC Glucose (mg/dL) 156 H 154 H 122 H (75-99) mg/dL 07/29/18 Range/Units 11:49 POC Glucose (mg/dL) 102 H (75-99) mg/dL Microbiology - Last 24 Hours (Table) 07/27/18 12:56 Blood Culture - Preliminary Blood No Growth after 24 hours Assessment and Plan Assessment: Impression: #1 Acute hypoxic respiratory failure secondary to an acute exacerbation of chronic obstructive pulmonary disease. #2 Remote history of chronic tobacco dependence. #3 History of breast cancer, status post left mastectomy. #4 History of uterine cancer status post hysterectomy. #5 History of marijuana use. #6 Hepatitis. 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 Plan: The patient was seen and evaluated by Dr. Arroyo. The patient is refusing IV Solu-Medrol. She is still somewhat bronchospastic and wheezy. We'll continue with the prednisone burst and taper. Continue bronchodilators. On discharge she is offered an appointment in our office work perform full pulmonary function testing to evaluate the severity of her COPD and make recommendations regarding maintenance medications. I, the cosigning physician, performed a history & physical examination of the patient. Lungs sounds with bilateral end expiratory wheeze. Maintaining good O2 saturations in the 90s on room air. I discussed the assessment and plan of care with my nurse practitioner, Love Jara. I attest to the above note as dictated by her.
--- NOTE | 2018-07-29 16:34 | XR ---
Right RIBS with chest x-ray HISTORY: Recent trauma, pain Frontal view of the chest and 4 views of the right ribs submitted and correlated to prior chest x-ray 07/27/2017 Cardiomediastinal silhouette, pulmonary vascularity and noe are stable. No evident airspace disease, pneumothorax, or pleural effusion. No displaced rib fracture. The aorta is dense. IMPRESSION: If occult fracture is suspected clinically then bone scan may be of benefit.
[2018-07-29 17:08] LABS: Glucose,Whole Blood 102 mg/dL (75-99)
[2018-07-29 20:18] LABS: Glucose,Whole Blood 126 mg/dL (75-99)
[2018-07-29] MEDS: MELATONIN 3 MG TABLET PO SCH (22:04)
--- NOTE | 2018-07-30 00:54 | P.PN ---
Subjective Progress Note Date: 07/29/18 Interval history:62-year-old pleasant female came in with complains of shadows of breath and wheezing patient has rhonchus breath sounds. Patient does have diagnosis of COPD but doesn't admit to smoking much but was exposed to secondhand smoke. Patient had the breast cancer with left mastectomy trying cancer status post hysterectomy. Chest x-ray did not show any pneumonic process patient doesn't use any oxygen at home. Patient was started on systemic steroids inhalational treatments patient will be started on doxycycline and cephalosporins will be discontinued. Patient denied any history of asthma. Patient denied any fever chills flulike symptoms. 07/29/2018. Reports recent trauma with pain to her right rib cage. Chest x- ray ordered reporting no displaced rib fracture, no pneumothorax, or pleural effusion. Declining IV steroids, causes her insomnia. Continues on nebulized bronchodilators, doxycycline. Remains wheezy. Maintaining O2 sats in the 90s on room air. Afebrile. Objective - Vital Signs Vital signs: Vital Signs Temp 97.1 F L 07/29/18 08:00 Pulse 80 07/29/18 12:18 Resp 20 07/29/18 08:00 BP 136/92 07/29/18 08:00 Pulse Ox 93 L 07/29/18 06:37 Intake & Output 07/28/18 07/29/18 07/29/18 18:59 06:59 18:59 Intake Total 1200 Balance 1200 Intake: Oral 1200 Other: Voiding Method Toilet Toilet # Voids 1 2 - Exam GENERAL: The patient is alert and oriented x3, not in any acute distress. Well developed, well nourished. HEENT: Pupils are round and equally reacting to light. EOMI. No scleral icterus. No conjunctival pallor. Normocephalic, atraumatic. CARDIOVASCULAR: S1 and S2 present. No murmurs, rubs, or gallops. PULMONARY: Rhonchus breath sounds with bilateral expiratory wheezing ABDOMEN: Soft, nontender, nondistended, normoactive bowel sounds. No palpable organomegaly. EXTREMITIES: No cyanosis, clubbing, or pedal edema. NEUROLOGICAL: Gross neurological examination did not reveal any focal deficits. SKIN: No rashes. - Labs CBC & Chem 7: 07/27/18 12:56 01/23/19 12:56 Labs: Abnormal Lab Results - Last 24 Hours (Table) 07/28/18 07/28/18 07/29/18 Range/Units 17:01 20:34 07:33 POC Glucose (mg/dL) 156 H 154 H 122 H (75-99) mg/dL 07/29/18 Range/Units 11:49 POC Glucose (mg/dL) 102 H (75-99) mg/dL Microbiology - Last 24 Hours (Table) 07/27/18 12:56 Blood Culture - Preliminary Blood No Growth after 24 hours Assessment and Plan Assessment: -Acute hypercapnic respiratory failure secondary to COPD exacerbation -Tracheobronchitis -History of DVT Plan: Continue on current medication regime , Eliquis, monitoring and symptomatic treatment. Maintain supportive care with nebulized bronchodilators , antibiotics, steroids. Steroids converted to oral. Increase ambulation as tolerated. Discharge planning in progress for tomorrow pending improvement, as patient remains bronchospastic and wheezy today. The impression and plan of care has been dictated as directed. : I performed a history and examination of this patient, discussed the same with the dictator. I agree with the dictator's note ,documented as a scribe. Any additional findings or plans will be noted.
[2018-07-30] MEDS: ASCORBIC ACID 500 MG TAB PO SCH ×3 (05:19→22:17)
[2018-07-30 07:06] LABS: Glucose,Whole Blood 92 mg/dL (75-99)
[2018-07-30] MEDS: IPRATROPIUM-ALBUTEROL 3 ML NEB INHALATION SCH ×3 (07:58→21:38)
[2018-07-30] MEDS: BUDESONIDE 0.5 MG/2 ML NEBU INHALATION SCH (07:58)
[2018-07-30] MEDS ORDERED: predniSONE 20 MG TAB PO SCH (09:00)
[2018-07-30] MEDS: SODIUM CHLORIDE 0.9% 1,000 ML IV SCH ×2 (09:57→22:17)
[2018-07-30] MEDS: CHOLECALCIFEROL 1,000 UNIT TAB PO SCH (09:57)
[2018-07-30] MEDS: APIXABAN 5 MG TAB PO SCH ×2 (09:57→21:19)
[2018-07-30] MEDS: METOPROLOL TARTRATE 25 MG TAB PO SCH ×2 (09:58→21:19)
[2018-07-30] MEDS: predniSONE 20 MG TAB PO SCH (09:58)
[2018-07-30] MEDS: LACTULOSE 20 GM/30 ML CUP PO SCH ×4 (09:58→21:26)
[2018-07-30] MEDS: SENNOSIDES-DOCUSATE SODIUM 1 EACH TAB PO SCH ×2 (09:58→21:19)
[2018-07-30] MEDS: DOXYCYCLINE 100 MG CAP PO SCH ×2 (10:05→21:19)
[2018-07-30] MEDS: FLUTICASONE 50MCG/SPRAY NASAL 16GM EA NOSTRIL SCH (10:05)
[2018-07-30 11:58] LABS: Glucose,Whole Blood 111 mg/dL (75-99)
[2018-07-30] MEDS ORDERED: DEXAMETHASONE SOD PHOSPHATE 10 MG/ML 1 ML VIAL IV STA (12:12)
--- NOTE | 2018-07-30 13:44 | PN ---
PROGRESS NOTE This is a 62-year-old female whom I have been seeing on consultation for the last few days. The patient presented with acute exacerbation of COPD. She had relatively unremarkable chest x-ray. The patient was treated with multiple bronchodilators, she is also on Pulmicort, DuoNeb updrafts, she is also maintained on prednisone and she is also on the doxycycline. The patient continues to cough and wheeze. She is clearly not noticing much improvement. Her symptoms go back to the . The patient has been a smoker and continues to smoke until the day she came in. Chest x-ray again showed no evidence of pneumonia. The patient continues to cough and wheeze, no fever, no chills. No hemoptysis. Cough is productive with yellow phlegm. PHYSICAL EXAMINATION: Physical examination revealed a 62-year-old female in mild respiratory distress. HEENT: PERRLA, EOMI, no icterus, no neck masses, no JVD, no stridor. Neck is supple, no carotid bruits. CHEST: Diffuse rhonchi and wheezes noted bilaterally. CARDIAC EXAM: Normal S1, S2, no gallops. ABDOMEN: Soft, nontender. No megaly. No rebound. EXTREMITIES: No clubbing, edema, or cyanosis. NEUROLOGIC EXAM: No gross focal neurologic deficit. The patient is a bit anxious. PSYCHIATRIC: Normal mood, affect, and mental status examination. IMPRESSION: 1. Acute exacerbation of chronic obstructive pulmonary disease. 2. Acute tracheobronchitis. 3. Tobacco dependence syndrome. RECOMMENDATION: Continue present medications as listed, I gave her a dose of Decadron 10 mg IV push x1, I will keep her on prednisone. The patient apparently had some difficulty with the Solu-Medrol and she preferred to go to prednisone. She will remain on prednisone at 40 mg daily, 1 dose of Decadron 10 mg IV push was given, she will remain on doxycycline. The patient is clearly not ready for any discharge planning. We will continue to follow. MMODL / IJN: [id number] /
[2018-07-30] MEDS: MELATONIN 3 MG TABLET PO SCH (21:18)
[2018-07-30] MEDS: MULTIVITAMINS, THERA 1 EACH TAB PO SCH (22:17)
[2018-07-30] MEDS: PANTOPRAZOLE 40 MG TABLET PO SCH (22:17)
[2018-07-30] MEDS: LACTOBACILLUS ACIDOPH & BULGAR 1 EACH PACKET PO SCH (23:24)
[2018-07-31 02:45] LABS: Basophils % (A) 0 %; Eosinophils % (A) 0 %; HCT 35.9 % (34.0-46.0); HGB 11.3 gm/dL (11.4-16.0); Lymphocytes # (A) 1.2 k/uL (1.0-4.8); Lymphocytes % (A) 16 %; MCH 32.2 pg (25.0-35.0); MCHC 31.4 g/dL (31.0-37.0); MCV 102.7 fL (80.0-100.0); Macrocytosis Slight; Mean Platelet Volume 7.5; Monocytes # (A) 0.4 k/uL (0-1.0); Monocytes % (A) 5 %; Neutrophils # (A) 5.5 k/uL (1.3-7.7); Neutrophils % (A) 77 %; Platelet Count 205 k/uL (150-450); WBC 7.2 k/uL (3.8-10.6)
[2018-07-31 05:46] LABS: Anion Gap 4 mmol/L; Blood Urea Nitrogen 14 mg/dL (7-17); Calcium 8.4 mg/dL (8.4-10.2); Carbon Dioxide 27 mmol/L (22-30); Chloride 110 mmol/L (98-107); Glucose 113 mg/dL (74-99); Potassium 4.4 mmol/L (3.5-5.1); Sodium 141 mmol/L (137-145)
[2018-07-31] MEDS: ASCORBIC ACID 500 MG TAB PO SCH ×3 (05:54→21:56)
[2018-07-31] MEDS: SODIUM CHLORIDE 0.9% 1,000 ML IV SCH ×2 (05:54→16:35)
[2018-07-31] MEDS: IPRATROPIUM-ALBUTEROL 3 ML NEB INHALATION SCH ×4 (07:07→20:05)
[2018-07-31] MEDS: BUDESONIDE 0.5 MG/2 ML NEBU INHALATION SCH (07:07)
[2018-07-31 07:53] LABS: Glucose,Whole Blood 104 mg/dL (75-99)
[2018-07-31] MEDS: LACTOBACILLUS ACIDOPH & BULGAR 1 EACH PACKET PO SCH ×3 (08:27→21:56)
[2018-07-31] MEDS: FLUTICASONE 50MCG/SPRAY NASAL 16GM EA NOSTRIL SCH (08:27)
[2018-07-31] MEDS: DOXYCYCLINE 100 MG CAP PO SCH ×2 (08:27→21:56)
[2018-07-31] MEDS: METOPROLOL TARTRATE 25 MG TAB PO SCH ×2 (08:27→21:55)
[2018-07-31] MEDS: PANTOPRAZOLE 40 MG TABLET PO SCH ×2 (08:27→17:20)
[2018-07-31] MEDS: APIXABAN 5 MG TAB PO SCH ×2 (08:27→21:56)
[2018-07-31] MEDS: LACTULOSE 20 GM/30 ML CUP PO SCH ×4 (08:27→23:22)
[2018-07-31] MEDS: CHOLECALCIFEROL 1,000 UNIT TAB PO SCH (08:27)
[2018-07-31] MEDS: predniSONE 20 MG TAB PO SCH (08:28)
[2018-07-31] MEDS: SENNOSIDES-DOCUSATE SODIUM 1 EACH TAB PO SCH ×2 (08:28→21:56)
[2018-07-31] MEDS ORDERED: DEXAMETHASONE SOD PHOSPHATE 10 MG/ML 1 ML VIAL IV STA (09:08)
--- NOTE | 2018-07-31 11:16 | P.PN ---
Subjective 62-year-old pleasant female came in with complains of shadows of breath and wheezing patient has rhonchus breath sounds. Patient does have diagnosis of COPD but doesn't admit to smoking much but was exposed to secondhand smoke. Patient had the breast cancer with left mastectomy trying cancer status post hysterectomy. Chest x-ray did not show any pneumonic process patient doesn't use any oxygen at home. Patient was started on systemic steroids inhalational treatments patient will be started on doxycycline and cephalosporins will be discontinued. Patient denied any history of asthma. Patient denied any fever chills flulike symptoms. 07/29/2018. Reports recent trauma with pain to her right rib cage. Chest x- ray ordered reporting no displaced rib fracture, no pneumothorax, or pleural effusion. Declining IV steroids, causes her insomnia. Continues on nebulized bronchodilators, doxycycline. Remains wheezy. Maintaining O2 sats in the 90s on room air. Afebrile. 07/30/2018 She is still wheezing quite a bit rhonchus breath sounds Constitutional: Denied any fatigue denied any fever. Cardio vascular: denied any chest pain, palpitations Gastrointestinal denied any nausea vomiting Pulmonary: Still quite a bit short of breath Neurologic denied any new focal deficits All inpatient medications were reviewed and appropriate changes in these medications as dictated in the interval history and assessment and plan. Objective - Vital Signs Vital signs: Vital Signs Temp 98.4 F 07/31/18 07:00 Pulse 76 07/31/18 11:04 Resp 20 07/31/18 07:00 BP 138/90 07/31/18 07:00 Pulse Ox 96 07/31/18 07:00 Intake & Output 07/30/18 07/31/18 07/31/18 18:59 06:59 18:59 Intake Total 500 Balance 500 Intake: Oral 500 Other: Voiding Method Toilet # Voids 1 - Exam GENERAL: The patient is alert and oriented x3, not in any acute distress. Well developed, well nourished. HEENT: Pupils are round and equally reacting to light. EOMI. No scleral icterus. No conjunctival pallor. Normocephalic, atraumatic. CARDIOVASCULAR: S1 and S2 present. No murmurs, rubs, or gallops. PULMONARY: Rhonchus breath sounds with bilateral expiratory wheezing ABDOMEN: Soft, nontender, nondistended, normoactive bowel sounds. No palpable organomegaly. EXTREMITIES: No cyanosis, clubbing, or pedal edema. NEUROLOGICAL: Gross neurological examination did not reveal any focal deficits. SKIN: No rashes. - Labs CBC & Chem 7: 07/30/18 13:10 07/30/18 13:10 Labs: Abnormal Lab Results - Last 24 Hours (Table) 07/30/18 07/30/18 07/30/18 Range/Units 11:50 13:10 13:10 RBC 3.50 L (3.80-5.40) m/uL Hgb 11.3 L (11.4-16.0) gm/dL MCV 102.7 H (80.0-100.0) fL Chloride 110 H (98-107) mmol/L Glucose 113 H (74-99) mg/dL POC Glucose (mg/dL) 111 H (75-99) mg/dL 07/31/18 Range/Units 07:52 RBC (3.80-5.40) m/uL Hgb (11.4-16.0) gm/dL MCV (80.0-100.0) fL Chloride (98-107) mmol/L Glucose (74-99) mg/dL POC Glucose (mg/dL) 104 H (75-99) mg/dL Microbiology - Last 24 Hours (Table) 07/27/18 12:56 Blood Culture - Preliminary Blood No Growth after 72 hours Assessment and Plan Plan: -Acute hypercapnic respiratory failure secondary to COPD exacerbation: Patient will be continued on systemic steroids inhalational treatments -Tracheobronchitis -History of DVT for which patient is on Eliquis she denied any history of atrial fibrillation but it was documented in the her chart and patient also takes metoprolol which will be continued -History of breast cancer and uterine cancer in remission presently
--- NOTE | 2018-07-31 11:35 | P.PN ---
Subjective Progress Note Date: 07/31/18 Principal diagnosis: Acute exacerbation of COPD This is a very pleasant 62-year-old female patient who follows with Dr. Izquierdo as her primary care physician. 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 She presented here yesterday with complaints of increasing shortness of breath, cough and congestion. Chest x-ray shows no acute pulmonary process. She was quite bronchospastic and wheezing. She was admitted for COPD exacerbation. She is seen today on the regular medical floor. She is awake and alert in no acute distress. She does have a loose nonproductive cough. No chills or night sweats. Maintaining good O2 saturations in the 90s on 2 L/m per nasal cannula. Afebrile. Hemodynamically stable. White count 7.9. Hemoglobin 12.8. Creatinine 0.64. She has been initiated on bronchodilators, Singulair, IV Solu-Medrol. She is on empiric antibiotics in the form of Omnicef. Patient was reevaluated today on 07/31/2018, feeling a bit better compared to how she felt yesterday. She was given a dose of Decadron yesterday, she remains on prednisone at 40 mg daily, remains on multiple bronchodilators, however the patient continues to have coughing and wheezing and shortness of breath. Slight improvement noted in the last 24 hours. No labs noted today, but she had a relatively normal labs yesterday. Patient remains on multiple bronchodilators as listed Objective - Vital Signs Vital signs: Vital Signs Temp 98.4 F 07/31/18 07:00 Pulse 76 07/31/18 11:04 Resp 20 07/31/18 07:00 BP 138/90 07/31/18 07:00 Pulse Ox 96 07/31/18 07:00 Intake & Output 07/30/18 07/31/18 07/31/18 18:59 06:59 18:59 Intake Total 500 Balance 500 Intake: Oral 500 Other: Voiding Method Toilet # Voids 1 - Exam Physical Exam revealed 62-year-old female in no distress. Head: Atraumatic, normocephalic. HEENT:[Neck is supple.] [No neck masses.] [No thyromegaly.] [No JVD.] Chest: [Diffuse expiratory rhonchi and wheezes bilaterally, symmetrical chest expansion. No chest wall tenderness. Cardiac Exam: [Normal S1 and S2, no S3 gallop, no murmur.] Abdomen: [Soft, nontender, no megaly, no rebound, no guarding, normal bowel sounds.] Extremities: [No clubbing, no edema, no cyanosis.] Neurological Exam: [No focal neurologic deficit. Skin: No rashes. Psychiatric: Normal mood affect and mental status examination.] - Labs CBC & Chem 7: 07/30/18 13:10 07/30/18 13:10 Labs: Abnormal Lab Results - Last 24 Hours (Table) 07/30/18 07/30/18 07/30/18 Range/Units 11:50 13:10 13:10 RBC 3.50 L (3.80-5.40) m/uL Hgb 11.3 L (11.4-16.0) gm/dL MCV 102.7 H (80.0-100.0) fL Chloride 110 H (98-107) mmol/L Glucose 113 H (74-99) mg/dL POC Glucose (mg/dL) 111 H (75-99) mg/dL 07/31/18 Range/Units 07:52 RBC (3.80-5.40) m/uL Hgb (11.4-16.0) gm/dL MCV (80.0-100.0) fL Chloride (98-107) mmol/L Glucose (74-99) mg/dL POC Glucose (mg/dL) 104 H (75-99) mg/dL Microbiology - Last 24 Hours (Table) 07/27/18 12:56 Blood Culture - Preliminary Blood No Growth after 72 hours Assessment and Plan Assessment: #1 Acute hypoxic respiratory failure secondary to an acute exacerbation of chronic obstructive pulmonary disease. #2 Remote history of chronic tobacco dependence. #3 History of breast cancer, status post left mastectomy. #4 History of uterine cancer status post hysterectomy. #5 History of marijuana use. #6 Hepatitis. 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 Plan: Continue present treatment plan, patient is on proper antibiotics and steroids, I will recommend another dose of Decadron today, may even consider switching the prednisone to maintenance dose of Decadron depending on how she feels in the next 24 hours. Clearly the patient is not ready for any discharge planning, she continues to have significant amount of bronchospasm based on my physical examination today. We'll continue to follow. All meds were reviewed and discussed with the patient. Chest x-ray was reviewed again, no evidence of infiltrate. Time with Patient: Less than 30
[2018-07-31 12:00] LABS: Glucose,Whole Blood 99 mg/dL (75-99)
[2018-07-31] MEDS: MULTIVITAMINS, THERA 1 EACH TAB PO SCH (12:12)
--- NOTE | 2018-07-31 17:12 | P.PN ---
Subjective 62-year-old pleasant female came in with complains of shadows of breath and wheezing patient has rhonchus breath sounds. Patient does have diagnosis of COPD but doesn't admit to smoking much but was exposed to secondhand smoke. Patient had the breast cancer with left mastectomy trying cancer status post hysterectomy. Chest x-ray did not show any pneumonic process patient doesn't use any oxygen at home. Patient was started on systemic steroids inhalational treatments patient will be started on doxycycline and cephalosporins will be discontinued. Patient denied any history of asthma. Patient denied any fever chills flulike symptoms. 07/29/2018. Reports recent trauma with pain to her right rib cage. Chest x- ray ordered reporting no displaced rib fracture, no pneumothorax, or pleural effusion. Declining IV steroids, causes her insomnia. Continues on nebulized bronchodilators, doxycycline. Remains wheezy. Maintaining O2 sats in the 90s on room air. Afebrile. 07/30/2018 She is still wheezing quite a bit rhonchus breath sounds 07/31/2018 Patient feels bit better compared to yesterday. Still has significant shortness of breath lungs still sound bad rhonchus breath sounds diffusely Constitutional: Denied any fatigue denied any fever. Cardio vascular: denied any chest pain, palpitations Gastrointestinal denied any nausea vomiting Pulmonary: Still quite a bit short of breath Neurologic denied any new focal deficits All inpatient medications were reviewed and appropriate changes in these medications as dictated in the interval history and assessment and plan. Objective - Vital Signs Vital signs: Vital Signs Temp 98.2 F 07/31/18 14:45 Pulse 88 07/31/18 15:51 Resp 16 07/31/18 14:45 BP 134/87 07/31/18 14:45 Pulse Ox 96 07/31/18 07:00 Intake & Output 07/30/18 07/31/18 07/31/18 18:59 06:59 18:59 Intake Total 500 1000 Balance 500 1000 Intake: Oral 500 1000 Other: Voiding Method Toilet # Voids 1 2 - Exam GENERAL: The patient is alert and oriented x3, not in any acute distress. Well developed, well nourished. HEENT: Pupils are round and equally reacting to light. EOMI. No scleral icterus. No conjunctival pallor. Normocephalic, atraumatic. CARDIOVASCULAR: S1 and S2 present. No murmurs, rubs, or gallops. PULMONARY: Rhonchus breath sounds with bilateral expiratory wheezing ABDOMEN: Soft, nontender, nondistended, normoactive bowel sounds. No palpable organomegaly. EXTREMITIES: No cyanosis, clubbing, or pedal edema. NEUROLOGICAL: Gross neurological examination did not reveal any focal deficits. SKIN: No rashes. - Labs CBC & Chem 7: 07/30/18 13:10 07/30/18 13:10 Labs: Abnormal Lab Results - Last 24 Hours (Table) 07/30/18 07/30/18 07/31/18 Range/Units 13:10 13:10 07:52 RBC 3.50 L (3.80-5.40) m/uL Hgb 11.3 L (11.4-16.0) gm/dL MCV 102.7 H (80.0-100.0) fL Chloride 110 H (98-107) mmol/L Glucose 113 H (74-99) mg/dL POC Glucose (mg/dL) 104 H (75-99) mg/dL Microbiology - Last 24 Hours (Table) 07/27/18 12:56 Blood Culture - Preliminary Blood No Growth after 72 hours Assessment and Plan Plan: -Acute hypercapnic respiratory failure secondary to COPD exacerbation: Patient will be continued on systemic steroids inhalational treatments -Tracheobronchitis: patient is on doxycycline which will be continued -History of DVT for which patient is on Eliquis she denied any history of atrial fibrillation but it was documented in the her chart and patient also takes metoprolol which will be continued -History of breast cancer and uterine cancer in remission presently
[2018-07-31 17:25] LABS: Glucose,Whole Blood 180 mg/dL (75-99)
[2018-07-31 20:50] LABS: Glucose,Whole Blood 173 mg/dL (75-99)
[2018-07-31] MEDS: MELATONIN 3 MG TABLET PO SCH (21:56)
[2018-08-01] MEDS: SODIUM CHLORIDE 0.9% 1,000 ML IV SCH ×3 (00:45→21:49)
[2018-08-01 07:03] LABS: Glucose,Whole Blood 92 mg/dL (75-99)
[2018-08-01] MEDS: predniSONE 20 MG TAB PO SCH (07:46)
[2018-08-01] MEDS: ASCORBIC ACID 500 MG TAB PO SCH ×3 (07:46→21:49)
[2018-08-01] MEDS: LACTOBACILLUS ACIDOPH & BULGAR 1 EACH PACKET PO SCH ×3 (07:46→21:50)
[2018-08-01] MEDS: APIXABAN 5 MG TAB PO SCH ×2 (07:46→21:50)
[2018-08-01] MEDS: METOPROLOL TARTRATE 25 MG TAB PO SCH (07:46)
[2018-08-01] MEDS: CHOLECALCIFEROL 1,000 UNIT TAB PO SCH (07:46)
[2018-08-01] MEDS: MULTIVITAMINS, THERA 1 EACH TAB PO SCH (07:46)
[2018-08-01] MEDS: PANTOPRAZOLE 40 MG TABLET PO SCH ×2 (07:46→16:22)
[2018-08-01] MEDS: DOXYCYCLINE 100 MG CAP PO SCH ×2 (07:46→21:50)
[2018-08-01] MEDS: SENNOSIDES-DOCUSATE SODIUM 1 EACH TAB PO SCH ×2 (07:46→21:52)
[2018-08-01] MEDS: LACTULOSE 20 GM/30 ML CUP PO SCH ×3 (07:47→21:51)
[2018-08-01] MEDS: FLUTICASONE 50MCG/SPRAY NASAL 16GM EA NOSTRIL SCH (07:48)
[2018-08-01] MEDS: IPRATROPIUM-ALBUTEROL 3 ML NEB INHALATION SCH ×4 (07:51→20:43)
[2018-08-01] MEDS: BUDESONIDE 0.5 MG/2 ML NEBU INHALATION SCH (07:51)
[2018-08-01 12:21] LABS: Glucose,Whole Blood 108 mg/dL (75-99)
--- NOTE | 2018-08-01 14:35 | P.PN ---
Subjective Progress Note Date: 08/01/18 Principal diagnosis: Acute exacerbation of COPD This is a very pleasant 62-year-old female patient who follows with Dr. Izquierdo as her primary care physician. 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 She presented here yesterday with complaints of increasing shortness of breath, cough and congestion. Chest x-ray shows no acute pulmonary process. She was quite bronchospastic and wheezing. She was admitted for COPD exacerbation. She is seen today on the regular medical floor. She is awake and alert in no acute distress. She does have a loose nonproductive cough. No chills or night sweats. Maintaining good O2 saturations in the 90s on 2 L/m per nasal cannula. Afebrile. Hemodynamically stable. White count 7.9. Hemoglobin 12.8. Creatinine 0.64. She has been initiated on bronchodilators, Singulair, IV Solu-Medrol. She is on empiric antibiotics in the form of Omnicef. Patient was reevaluated today on 07/31/2018, feeling a bit better compared to how she felt yesterday. She was given a dose of Decadron yesterday, she remains on prednisone at 40 mg daily, remains on multiple bronchodilators, however the patient continues to have coughing and wheezing and shortness of breath. Slight improvement noted in the last 24 hours. No labs noted today, but she had a relatively normal labs yesterday. Patient remains on multiple bronchodilators as listed On 07/24/2018 patient seen in follow-up on medical surgical floor. Room air pulse ox today is 91-92%, patient is afebrile, hemodynamically stable, respirations are nonlabored, patient still sounds quite congested on today's exam, but apparently this is an improvement compared to yesterday's exam according to the attending physician. Patient is on oral doxycycline, nebulized bronchodilators, oral prednisone, and she was given a dose of IV Decadron yesterday. Blood culture showed no growth at the 96 hour kwasi, sputum culture was not sent. Patient still not able to clear up a lot of phlegm. When we spoke to the patient about the bronchoscopy with BAL, patient became quite agitated, and she was accusing us of trying to cause her harm, but offering her the bronchoscopy. She brought up an event from the past, states was a year ago when she allegedly was discharged prematurely hospitalized here on Levaquin even though she made it clear that she could not take Levaquin, and patient allegedly developed a severe reaction, became quite short of breath, and had to be taken by an ambulance to another hospital. As she went on she became more and more angry and agitated, and accusing us of trying to cause her harm. She also is bringing up multiple occasions at different hospitals when she was bringing up to the attention of the caregivers that Levaquin was causing her ALLERGIC reaction, and apparently she was still given Levaquin causes her to have ALLERGIC reaction, difficulty breathing. Objective - Vital Signs Vital signs: Vital Signs Temp 98.0 F 08/01/18 06:26 Pulse 88 08/01/18 11:44 Resp 22 08/01/18 06:26 BP 162/87 08/01/18 06:26 Pulse Ox 91 L 08/01/18 06:26 Intake & Output 07/31/18 08/01/18 08/01/18 18:59 06:59 18:59 Intake Total 1000 Balance 1000 Intake: Oral 1000 Other: # Voids 2 2 - Exam GENERAL EXAM: Alert, 62-year-old white female patient in 2 L per nasal cannula , with a sat of 92% comfortable in no apparent distress. HEAD: Normocephalic/atraumatic. EYES: Normal reaction of pupils, equal size. Conjunctiva pink, sclera white. NOSE: Clear with pink turbinates. THROAT: No erythema or exudates. NECK: No masses, no JVD, no thyroid enlargement, no adenopathy. CHEST: No chest wall deformity. Symmetrical expansion. LUNGS: Equal air entry with diffuse rhonchi CVS: Regular rate and rhythm, normal S1 and S2, no gallops, no murmurs, no rubs ABDOMEN: Soft, nontender. No hepatosplenomegaly, normal bowel sounds, no guarding or rigidity. EXTREMITIES: No clubbing, no edema, no cyanosis, 2+ pulses and upper and lower extremities. MUSCULOSKELETAL: Muscle strength and tone normal. SPINE: No scoliosis or deformity SKIN: No rashes CENTRAL NERVOUS SYSTEM: Alert and oriented -3. No focal deficits, tone is normal in all 4 extremities. PSYCHIATRIC: Alert and oriented -3. Appropriate affect. Intact judgment and insight. - Labs CBC & Chem 7: 07/30/18 13:10 07/30/18 13:10 Labs: Abnormal Lab Results - Last 24 Hours (Table) 07/31/18 07/31/18 08/01/18 Range/Units 17:22 20:49 12:18 POC Glucose (mg/dL) 180 H 173 H 108 H (75-99) mg/dL Microbiology - Last 24 Hours (Table) 07/27/18 12:56 Blood Culture - Preliminary Blood No Growth after 96 hours Assessment and Plan Plan: #1 Acute hypoxic respiratory failure secondary to an acute exacerbation of chronic obstructive pulmonary disease. #2 Remote history of chronic tobacco dependence. #3 History of breast cancer, status post left mastectomy. #4 History of uterine cancer status post hysterectomy. #5 History of marijuana use. #6 Hepatitis. 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 Plan We offered the patient option of bronchoscopy with BAL patient still sound quite congested on today's exam, but the patient actually became quite agitated , and upset, and was accusing us of trying to cause her harm. Patient became more and more agitated, was starting to bring up events in the past that were allegedly caused by healthcare professionals not listening to her and given her antibiotics that she is ALLERGIC to. We spoke to the attending physician, we recommend continue with current medical treatment, pending physician feels that the patient does sound better today compared to yesterday. Continue nebulized bronchodilators, antibiotics, and steroids. We will see on as-needed basis. I performed a history & physical examination of the patient and discussed their management with my nurse practitioner, Luba Hamm. I reviewed the nurse practitioner's note and agree with the documented findings and plan of care. Lung sounds are positive for diffuse rhonchi. The findings and the impression was discussed with the patient. I attest to the documentation by the nurse practitioner. Time with Patient: Less than 30
--- NOTE | 2018-08-01 16:20 | P.PN ---
Subjective Progress Note Date: 08/01/18 Interval history:62-year-old pleasant female came in with complains of shadows of breath and wheezing patient has rhonchus breath sounds. Patient does have diagnosis of COPD but doesn't admit to smoking much but was exposed to secondhand smoke. Patient had the breast cancer with left mastectomy trying cancer status post hysterectomy. Chest x-ray did not show any pneumonic process patient doesn't use any oxygen at home. Patient was started on systemic steroids inhalational treatments patient will be started on doxycycline and cephalosporins will be discontinued. Patient denied any history of asthma. Patient denied any fever chills flulike symptoms. 07/29/2018. Reports recent trauma with pain to her right rib cage. Chest x- ray ordered reporting no displaced rib fracture, no pneumothorax, or pleural effusion. Declining IV steroids, causes her insomnia. Continues on nebulized bronchodilators, doxycycline. Remains wheezy. Maintaining O2 sats in the 90s on room air. Afebrile. 07/30/2018 She is still wheezing quite a bit rhonchus breath sounds 07/31/2018 Patient feels bit better compared to yesterday. Still has significant shortness of breath lungs still sound bad rhonchus breath sounds diffusely 08/01/2018 breathing continues to improve, less wheezing, productive cough with yellow green secretions. Initially patient became agitated over mentioned bronchoscopy per pulmonary today. Continue to monitor. Patient is open to potential bronchoscopy in 48 hours if no improvement. Afebrile. Constitutional: Denied any fatigue denied any fever. Cardio vascular: denied any chest pain, palpitations Gastrointestinal denied any nausea vomiting Pulmonary: Still quite a bit short of breath Neurologic denied any new focal deficits Active Medications Albuterol/Ipratropium (Duoneb 0.5 Mg-3 Mg/3 Ml Soln) 3 ml INHALATION RT-QID [facility] Last Admin: 08/01/18 11:25 Dose: 3 ml Albuterol/Ipratropium (Duoneb 0.5 Mg-3 Mg/3 Ml Soln) 3 ml INHALATION RT-Q4H PRN PRN Reason: Shortness Of Breath Or Wheezing Apixaban (Eliquis) 5 mg PO BID [facility] Last Admin: 08/01/18 07:46 Dose: 5 mg Ascorbic Acid (Vitamin C) 500 mg PO Q8H [facility] Last Admin: 08/01/18 12:49 Dose: 500 mg Budesonide (Pulmicort) 0.5 mg INHALATION RT-DAILY [facility] Last Admin: 08/01/18 07:51 Dose: 0.5 mg Cholecalciferol (Vitamin D3) 1,000 unit PO DAILY [facility] Last Admin: 08/01/18 07:46 Dose: 1,000 unit Doxycycline Monohydrate (Vibramycin) 100 mg PO BID [facility] Last Admin: 08/01/18 07:46 Dose: 100 mg Fluticasone Propionate (Flonase Nasal [place]) 1 spray EA NOSTRIL DAILY [facility] Last Admin: 08/01/18 07:48 Dose: 1 spray Sodium Chloride (Saline 0.9%) 1,000 mls @ 100 mls/hr IV .Q10H [facility] Last Admin: 08/01/18 12:49 Dose: 100 mls/hr Lactobacillus Acidoph/Bulgaricus (Lactinex) 1 each PO TID [facility] Last Admin: 08/01/18 07:46 Dose: 1 each Lactulose (Cephulac) 20 gm PO TID [facility] Last Admin: 08/01/18 07:47 Dose: Not Given Melatonin (Melatonin) 3 mg PO HS [facility] Last Admin: 07/31/18 21:56 Dose: 3 mg Metoprolol Succinate (Toprol Xl) 25 mg PO BID [facility] Multivitamins (Theragran) 1 each PO DAILY@1200 [facility] Last Admin: 08/01/18 07:46 Dose: 1 each Pantoprazole Sodium (Protonix) 40 mg PO AC-BID [facility] Last Admin: 08/01/18 07:46 Dose: 40 mg Prednisone () 40 mg PO DAILY [facility] Last Admin: 08/01/18 07:46 Dose: 40 mg Senna/Docusate Sodium (Senokot-S) 2 each PO BID [facility] Last Admin: 08/01/18 07:46 Dose: 2 each Objective - Vital Signs Vital signs: Vital Signs Temp 98.2 F 08/01/18 14:05 Pulse 80 08/01/18 14:05 Resp 16 08/01/18 14:05 BP 120/62 08/01/18 14:05 Pulse Ox 92 L 08/01/18 14:05 Intake & Output 07/31/18 08/01/18 08/01/18 18:59 06:59 18:59 Intake Total 1000 Balance 1000 Intake: Oral 1000 Other: # Voids 2 2 3 # Bowel Movements 1 - Exam GENERAL: The patient is sitting up in bed, alert and oriented x3, no acute distress. HEENT: Pupils are round and equally reacting to light. EOMI. No scleral icterus. No conjunctival pallor. Normocephalic, atraumatic. CARDIOVASCULAR: S1 and S2 present. Regular, No murmurs, rubs, or gallops. PULMONARY: Rhonchus breath sounds with minimal bilateral expiratory wheezing ABDOMEN: Soft, nontender, nondistended, normoactive bowel sounds. No palpable organomegaly. EXTREMITIES: No cyanosis, clubbing, or pedal edema. NEUROLOGICAL: Gross neurological examination did not reveal any focal deficits. SKIN: No rashes. - Labs CBC & Chem 7: 07/30/18 13:10 07/30/18 13:10 Labs: Abnormal Lab Results - Last 24 Hours (Table) 07/31/18 07/31/18 08/01/18 Range/Units 17:22 20:49 12:18 POC Glucose (mg/dL) 180 H 173 H 108 H (75-99) mg/dL Microbiology - Last 24 Hours (Table) 07/27/18 12:56 Blood Culture - Preliminary Blood No Growth after 96 hours Assessment and Plan Assessment: -Acute hypercapnic respiratory failure secondary to COPD exacerbation -Tracheobronchitis -History of DVT Plan: Continue on current medication regime , Eliquis, monitoring and symptomatic treatment. Maintain supportive care with nebulized bronchodilators , antibiotics, steroids. Monitor overnight. Reevaluate tomorrow for potential bronchoscopy in 48 hours if no improvement. Plan a care discussed with patient who is in agreement with. The impression and plan of care has been dictated as directed. : I performed a history and examination of this patient, discussed the same with the dictator. I agree with the dictator's note ,documented as a scribe. Any additional findings or plans will be noted.
[2018-08-01 17:12] LABS: Glucose,Whole Blood 145 mg/dL (75-99)
[2018-08-01 20:50] LABS: Glucose,Whole Blood 140 mg/dL (75-99)
[2018-08-01] MEDS: MELATONIN 3 MG TABLET PO SCH (21:49)
[2018-08-01] MEDS: METOPROLOL SUCCINATE (ER) 25 MG TAB.ER.24H PO SCH (21:50)
[2018-08-02] MEDS: ASCORBIC ACID 500 MG TAB PO SCH ×3 (05:39→21:50)
[2018-08-02] MEDS: SODIUM CHLORIDE 0.9% 1,000 ML IV SCH ×2 (05:40→15:25)
[2018-08-02] MEDS: LACTOBACILLUS ACIDOPH & BULGAR 1 EACH PACKET PO SCH ×3 (07:28→21:50)
[2018-08-02] MEDS: DOXYCYCLINE 100 MG CAP PO SCH ×2 (07:28→21:50)
[2018-08-02] MEDS: SENNOSIDES-DOCUSATE SODIUM 1 EACH TAB PO SCH ×2 (07:28→21:55)
[2018-08-02] MEDS: METOPROLOL SUCCINATE (ER) 25 MG TAB.ER.24H PO SCH ×2 (07:28→21:50)
[2018-08-02] MEDS: PANTOPRAZOLE 40 MG TABLET PO SCH ×2 (07:28→17:08)
[2018-08-02] MEDS: APIXABAN 5 MG TAB PO SCH ×2 (07:29→21:50)
[2018-08-02] MEDS: predniSONE 20 MG TAB PO SCH (07:29)
[2018-08-02] MEDS: MULTIVITAMINS, THERA 1 EACH TAB PO SCH (07:29)
[2018-08-02] MEDS: FLUTICASONE 50MCG/SPRAY NASAL 16GM EA NOSTRIL SCH (07:30)
[2018-08-02] MEDS: CHOLECALCIFEROL 1,000 UNIT TAB PO SCH (07:30)
[2018-08-02] MEDS: LACTULOSE 20 GM/30 ML CUP PO SCH ×3 (07:30→21:50)
[2018-08-02 07:33] LABS: Glucose,Whole Blood 90 mg/dL (75-99)
[2018-08-02] MEDS: BUDESONIDE 0.5 MG/2 ML NEBU INHALATION SCH (08:08)
[2018-08-02] MEDS: IPRATROPIUM-ALBUTEROL 3 ML NEB INHALATION SCH ×4 (08:08→21:06)
[2018-08-02 08:45] LABS: Basophils % (A) 0 %; Eosinophils # (A) 0.1 k/uL (0-0.7); Eosinophils % (A) 1 %; HCT 35.9 % (34.0-46.0); HGB 11.9 gm/dL (11.4-16.0); Lymphocytes % (A) 41 %; MCH 33.1 pg (25.0-35.0); MCHC 33.2 g/dL (31.0-37.0); MCV 99.8 fL (80.0-100.0); Mean Platelet Volume 6.9; Monocytes # (A) 0.7 k/uL (0-1.0); Monocytes % (A) 7 %; Neutrophils # (A) 4.7 k/uL (1.3-7.7); Neutrophils % (A) 48 %; Platelet Count 272 k/uL (150-450); RDW 12.8 % (11.5-15.5); WBC 9.7 k/uL (3.8-10.6)
[2018-08-02 09:09] LABS: Calcium 8.4 mg/dL (8.4-10.2); Potassium 4.2 mmol/L (3.5-5.1)
[2018-08-02 10:07] VITALS: BMI 31.1
[2018-08-02 12:13] LABS: Glucose,Whole Blood 114 mg/dL (75-99)
--- NOTE | 2018-08-02 16:09 | P.CNPUL ---
History of Present Illness Consult date: 08/02/18 Reason for consult: dyspnea, cough Chief complaint: cough, congestion History of present illness: Patient seen and examined in consultation for cough and shortness of breath. The patient was admitted on 07/27/2018.The patient states that she is doing somewhat better during her hospital course. She was being seen by a different pulmonary group but requested transition of care. The patient was offered a bronchoscopy and felt with her history that it was too risky. The patient states that she has had issues with anesthesia in the past. She states she feels like her breathing is improving. She is able to cough up green phlegm. She denies fevers and chills. She has been hemodynamically stable. She is currently on room air. The patient is a lifelong never smoker. Although she does note that she has been exposed to secondhand smoke her entire life. She does have a history of breast cancer and ovarian cancer. The patient states on admission she did have shortness of breath with exertion and conversation. She states this is improving. The patient did have a bronchoscopy in October 2017. She did have bilateral mucus plugging. Cultures showed no growth. Review of Systems All systems: negative Past Medical History Past Medical History: Atrial Fibrillation, Cancer, Deep Vein Thrombosis (DVT), Eye Disorder, Liver Disease, Vascular Disorder Additional Past Medical History / Comment(s): Recent L knee fracture-wearing lower leg brace, bilateral lymphedema, hepatitis A and C but later told hepatitis C was gone, L breast cancer with surgery, uterine cancer with surgery- pt states cancer had spread outside uterus and has had 3 different abdominal surgeries for this, 6 months ago-bowel obstruction/"twist" with surgery, DVTs L leg, tracheobronchitis, past respiratory failure, 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 History of Any Multi-Drug Resistant Organisms: None Reported Past Surgical History: Breast Surgery, Heart Catheterization, Hysterectomy Additional Past Surgical History / Comment(s): L hip surgery x3, bowel obstruction with laparotomy, hysterecomy/ovaries/tumor removed per pt, bronchoscopies x2, Past Anesthesia/Blood Transfusion Reactions: No Reported Reaction Additional Past Anesthesia/Blood Transfusion Reaction / Comment(s): Pt has received blood without reaction. Past Psychological History: No Psychological Hx Reported Additional Psychological History / Comment(s): Pt currently at [facility] for rehab and is to be discharged soon. She is getting around by wheelchair. Smoking Status: Never smoker Past Alcohol Use History: None Reported Past Drug Use History: Marijuana Additional Drug Use History / Comment(s): Pt takes CBD pills for her cancer. - Past Family History Mother Family Medical History: Cancer Additional Family Medical History / Comment(s): Mother at the age of 75yrs from metastatic cancer. Father Family Medical History: Myocardial Infarction ([place]) Additional Family Medical History / Comment(s): Father of a [place] at the age of 54yrs. Medications and Allergies Home Medications Medication Instructions Recorded Confirmed Type Cholecalciferol [Vitamin D3] 1,000 unit PO DAILY 07/21/16 07/27/18 History Albuterol Nebulized [Ventolin 2.5 mg INHALATION RT-Q6H PRN 04/22/18 07/27/18 History Nebulized] Apixaban [Eliquis] 5 mg PO BID 04/22/18 07/27/18 History Ascorbic Acid [Vitamin C] 500 mg PO Q8H 04/22/18 07/27/18 History Fluticasone Nasal [place] [Flonase 1 spray EA NOSTRIL DAILY 04/22/18 07/27/18 History Nasal [place]] Montelukast Sodium [Singulair] 10 mg PO DAILY 04/22/18 07/27/18 History Albuterol Nebulized (Conc) 2.5 mg INHALATION RT-Q4H 07/27/18 07/27/18 History [Ventolin Nebulized (Conc)] Budesonide [Pulmicort] 0.5 mg INHALATION RT-DAILY 07/27/18 07/27/18 History Multivitamins, Thera [Multivitamin 1 tab PO DAILY 07/27/18 07/27/18 History (formulary)] Metoprolol Succinate [Toprol XL] 25 mg PO BID 08/01/18 08/01/18 History Allergies Allergy/AdvReac Type Severity Reaction Status Date / Time ibuprofen [From Motrin] Allergy Dyspnea Verified 07/27/18 20:09 levofloxacin [From Levaquin] Allergy Unknown Verified 07/27/18 20:09 acetaminophen [From Tylenol] AdvReac Increased Verified 07/27/18 20:09 Liver Enzymes Physical Exam Osteopathic Statement: *. No significant issues noted on an osteopathic structural exam other than those noted in the History and Physical/Consult. Vitals: Vital Signs Temp Pulse Pulse Resp BP Pulse Ox 08/02/18 15:05 99.0 F 97 20 121/67 92 L 08/02/18 12:30 84 08/02/18 12:15 88 08/02/18 08:08 88 08/02/18 07:25 98.5 F 59 L 16 127/73 92 L 08/01/18 23:21 98.1 F 99 18 129/77 96 08/01/18 20:55 84 08/01/18 20:45 84 08/01/18 16:35 88 08/01/18 16:25 88 Intake and Output 08/02/18 08/02/18 08/02/18 06:59 14:59 22:59 Other: # Voids 2 Weight 77.111 kg General: Patient is alert and oriented 3, no acute distress, room-air Cardiovascular: Regular rate and rhythm, S1/S2 Lungs: Coarse breath sounds bilaterally with bilateral expiratory wheezing Abdomen: soft, NT/ND, +BS Ext: trace edema Results - Laboratory Findings CBC and BMP: 08/02/18 07:56 08/02/18 07:56 PT/INR, D-dimer PT 10.8 sec (9.0-12.0) 07/27/18 12:56 INR 1.0 (<1.2) 07/27/18 12:56 Abnormal lab findings: Abnormal Labs 07/27/18 07/27/18 07/28/18 12:56 12:56 07:47 RBC Hgb MCV Lymphocytes # 0.9 L Chloride Carbon Dioxide BUN Glucose 119 H POC Glucose (mg/dL) 144 H 07/28/18 07/28/18 07/28/18 11:56 17:01 20:34 RBC Hgb MCV Lymphocytes # Chloride Carbon Dioxide BUN Glucose POC Glucose (mg/dL) 127 H 156 H 154 H 07/29/18 07/29/18 07/29/18 07:33 11:49 17:03 RBC Hgb MCV Lymphocytes # Chloride Carbon Dioxide BUN Glucose POC Glucose (mg/dL) 122 H 102 H 102 H 07/29/18 07/30/18 07/30/18 20:14 11:50 13:10 RBC Hgb MCV Lymphocytes # Chloride 110 H Carbon Dioxide BUN Glucose 113 H POC Glucose (mg/dL) 126 H 111 H 07/30/18 07/31/18 07/31/18 13:10 07:52 17:22 RBC 3.50 L Hgb 11.3 L MCV 102.7 H Lymphocytes # Chloride Carbon Dioxide BUN Glucose POC Glucose (mg/dL) 104 H 180 H 07/31/18 08/01/18 08/01/18 20:49 12:18 17:08 RBC Hgb MCV Lymphocytes # Chloride Carbon Dioxide BUN Glucose POC Glucose (mg/dL) 173 H 108 H 145 H 08/01/18 08/02/18 08/02/18 20:49 07:56 07:56 RBC 3.60 L Hgb MCV Lymphocytes # Chloride Carbon Dioxide 31 H BUN 20 H Glucose POC Glucose (mg/dL) 140 H 08/02/18 12:11 RBC Hgb MCV Lymphocytes # Chloride Carbon Dioxide BUN Glucose POC Glucose (mg/dL) 114 H - Diagnostic Findings Chest x-ray: report reviewed, image reviewed Assessment and Plan Assessment: Acute hypoxic respiratory failure secondary Acute exacerbation of chronic obstructive pulmonary disease Acute exacerbation of eosinophilic asthma, at outside hospital eos ranged from 300-500 History of bilateral mucous plugging s/p bronchoscopy 10/2017 History of chronic tobacco dependence History of breast cancer, uterine cancer status post hysterectomy Marijuana use Hypertension Hepatitis Plan O2 to maintain saturation greater than or equal to 90%, patient currently on room air Steroid taper Pulmicort and DuoNeb's - increase Pulmicort to 1mg BID Perforomist Mucomyst Antibiotics Patient may benefit from biologic for eosinophilic asthma Incentive spirometry and pulmonary hygiene Singulair Patient previously had total IgE and HP/allergy panel which were normal Repeat CXR in AM Thank you for this consultation. We will continue to follow along.
[2018-08-02 17:18] LABS: Glucose,Whole Blood 152 mg/dL (75-99)
[2018-08-02 20:52] LABS: Glucose,Whole Blood 128 mg/dL (75-99)
[2018-08-02] MEDS: ACETYLCYSTEINE 800 MG/4 ML VIAL INHALATION SCH (21:04)
[2018-08-02] MEDS: FORMOTEROL FUMARATE 20 MCG/2 ML NEBU INHALATION SCH (21:06)
--- NOTE | 2018-08-02 21:08 | P.PN ---
Subjective Progress Note Date: 08/02/18 Interval history:62-year-old pleasant female came in with complains of shadows of breath and wheezing patient has rhonchus breath sounds. Patient does have diagnosis of COPD but doesn't admit to smoking much but was exposed to secondhand smoke. Patient had the breast cancer with left mastectomy trying cancer status post hysterectomy. Chest x-ray did not show any pneumonic process patient doesn't use any oxygen at home. Patient was started on systemic steroids inhalational treatments patient will be started on doxycycline and cephalosporins will be discontinued. Patient denied any history of asthma. Patient denied any fever chills flulike symptoms. 07/29/2018. Reports recent trauma with pain to her right rib cage. Chest x- ray ordered reporting no displaced rib fracture, no pneumothorax, or pleural effusion. Declining IV steroids, causes her insomnia. Continues on nebulized bronchodilators, doxycycline. Remains wheezy. Maintaining O2 sats in the 90s on room air. Afebrile. 07/30/2018 She is still wheezing quite a bit rhonchus breath sounds 07/31/2018 Patient feels bit better compared to yesterday. Still has significant shortness of breath lungs still sound bad rhonchus breath sounds diffusely 08/01/2018 breathing continues to improve, less wheezing, productive cough with yellow green secretions. Initially patient became agitated over mentioned bronchoscopy per pulmonary today. Continue to monitor. Patient is open to potential bronchoscopy in 48 hours if no improvement. Afebrile. 08/02/2018 breathing continues to improve. Reports productive of thick green sputum. Sputum trap at bedside. Patient Declining any further treatment/ bronchoscopy from Dr. Elizabeth. Requesting new pulmonary group. Pulmonary -Dr. Cisse consulted, evaluated patient with recommendations noted and appreciated. Afebrile, maintaining O2 sats in the low 90s on room air. Ambulating with in room, tolerating exertion well. Denies chest pain, palpitations. Constitutional: Denied any fatigue denied any fever. Cardio vascular: denied any chest pain, palpitations Gastrointestinal denied any nausea vomiting Pulmonary: Slowly Improving. Neurologic denied any new focal deficits Active Medications Albuterol/Ipratropium (Duoneb 0.5 Mg-3 Mg/3 Ml Soln) 3 ml INHALATION RT-QID [facility] Last Admin: 08/01/18 11:25 Dose: 3 ml Albuterol/Ipratropium (Duoneb 0.5 Mg-3 Mg/3 Ml Soln) 3 ml INHALATION RT-Q4H PRN PRN Reason: Shortness Of Breath Or Wheezing Apixaban (Eliquis) 5 mg PO BID [facility] Last Admin: 08/01/18 07:46 Dose: 5 mg Ascorbic Acid (Vitamin C) 500 mg PO Q8H [facility] Last Admin: 08/01/18 12:49 Dose: 500 mg Budesonide (Pulmicort) 0.5 mg INHALATION RT-DAILY [facility] Last Admin: 08/01/18 07:51 Dose: 0.5 mg Cholecalciferol (Vitamin D3) 1,000 unit PO DAILY [facility] Last Admin: 08/01/18 07:46 Dose: 1,000 unit Doxycycline Monohydrate (Vibramycin) 100 mg PO BID [facility] Last Admin: 08/01/18 07:46 Dose: 100 mg Fluticasone Propionate (Flonase Nasal [place]) 1 spray EA NOSTRIL DAILY [facility] Last Admin: 08/01/18 07:48 Dose: 1 spray Sodium Chloride (Saline 0.9%) 1,000 mls @ 100 mls/hr IV .Q10H [facility] Last Admin: 08/01/18 12:49 Dose: 100 mls/hr Lactobacillus Acidoph/Bulgaricus (Lactinex) 1 each PO TID [facility] Last Admin: 08/01/18 07:46 Dose: 1 each Lactulose (Cephulac) 20 gm PO TID [facility] Last Admin: 08/01/18 07:47 Dose: Not Given Melatonin (Melatonin) 3 mg PO HS [facility] Last Admin: 07/31/18 21:56 Dose: 3 mg Metoprolol Succinate (Toprol Xl) 25 mg PO BID [facility] Multivitamins (Theragran) 1 each PO DAILY@1200 [facility] Last Admin: 08/01/18 07:46 Dose: 1 each Pantoprazole Sodium (Protonix) 40 mg PO AC-BID [facility] Last Admin: 08/01/18 07:46 Dose: 40 mg Prednisone () 40 mg PO DAILY [facility] Last Admin: 08/01/18 07:46 Dose: 40 mg Senna/Docusate Sodium (Senokot-S) 2 each PO BID [facility] Last Admin: 08/01/18 07:46 Dose: 2 each Objective - Vital Signs Vital signs: Vital Signs Temp 99.0 F 08/02/18 15:05 Pulse 86 08/02/18 17:15 Resp 20 08/02/18 15:05 BP 121/67 08/02/18 15:05 Pulse Ox 92 L 08/02/18 15:05 Intake & Output 08/02/18 08/02/18 08/03/18 06:59 18:59 06:59 Weight 77.111 kg Other: # Voids 2 3 - Exam GENERAL: The patient is walking from bathroom back to bed, alert and oriented x3 , no acute distress. HEENT: Pupils are round and equally reacting to light. EOMI. No scleral icterus. No conjunctival pallor. Normocephalic, atraumatic. Oral mucosa moist. CARDIOVASCULAR: S1 and S2 present. Regular, No murmurs, rubs, or gallops. PULMONARY: Coarse Rhonchorus breath sounds with minimal bilateral expiratory wheezing ABDOMEN: Soft, nontender, nondistended, normoactive bowel sounds. No palpable organomegaly. EXTREMITIES: No cyanosis, clubbing, trace pedal edema. NEUROLOGICAL: Gross neurological examination did not reveal any focal deficits. SKIN: No rashes. - Labs CBC & Chem 7: 08/02/18 07:56 08/02/18 07:56 Labs: Abnormal Lab Results - Last 24 Hours (Table) 08/02/18 08/02/18 08/02/18 Range/Units 07:56 07:56 12:11 RBC 3.60 L (3.80-5.40) m/uL Carbon Dioxide 31 H (22-30) mmol/L BUN 20 H (7-17) mg/dL POC Glucose (mg/dL) 114 H (75-99) mg/dL 08/02/18 08/02/18 Range/Units 17:05 20:19 RBC (3.80-5.40) m/uL Carbon Dioxide (22-30) mmol/L BUN (7-17) mg/dL POC Glucose (mg/dL) 152 H 128 H (75-99) mg/dL Microbiology - Last 24 Hours (Table) 07/27/18 12:56 Blood Culture - Final Blood No Growth after 144 hours Assessment and Plan Assessment: -Acute hypoxic ,hypercapnic respiratory failure secondary to COPD exacerbation -Tracheobronchitis -History of DVT -Appetite Plan: Continue on current medication regime , Eliquis, monitoring and symptomatic treatment. Nebulized bronchodilators, antibiotics, steroids. Evaluated by Dr. Cisse, pulmonary, recommendations appreciated. Follow-up chest x-ray in a.m. increase ambulation as tolerated. Sputum culture ordered. The impression and plan of care has been dictated as directed. : I performed a history and examination of this patient, discussed the same with the dictator. I agree with the dictator's note ,documented as a scribe. Any additional findings or plans will be noted.
[2018-08-02] MEDS: MONTELUKAST 10 MG TAB PO SCH (21:50)
[2018-08-02] MEDS: MELATONIN 3 MG TABLET PO SCH (21:50)
[2018-08-03] MEDS: SODIUM CHLORIDE 0.9% 1,000 ML IV SCH ×3 (00:11→21:45)
[2018-08-03] MEDS: ASCORBIC ACID 500 MG TAB PO SCH ×3 (06:20→21:39)
[2018-08-03] MEDS: ACETYLCYSTEINE 800 MG/4 ML VIAL INHALATION SCH ×3 (07:27→19:14)
[2018-08-03] MEDS: BUDESONIDE 1 MG/2 ML NEBU INHALATION SCH ×2 (07:27→19:13)
[2018-08-03] MEDS: IPRATROPIUM-ALBUTEROL 3 ML NEB INHALATION SCH ×4 (07:27→19:14)
[2018-08-03] MEDS: FORMOTEROL FUMARATE 20 MCG/2 ML NEBU INHALATION SCH ×2 (07:27→19:13)
[2018-08-03 07:35] LABS: Glucose,Whole Blood 87 mg/dL (75-99)
[2018-08-03] MEDS: CHOLECALCIFEROL 1,000 UNIT TAB PO SCH (07:43)
[2018-08-03] MEDS: predniSONE 20 MG TAB PO SCH (07:43)
[2018-08-03] MEDS: LACTOBACILLUS ACIDOPH & BULGAR 1 EACH PACKET PO SCH ×3 (07:43→21:40)
[2018-08-03] MEDS: DOXYCYCLINE 100 MG CAP PO SCH ×2 (07:43→21:39)
[2018-08-03] MEDS: SENNOSIDES-DOCUSATE SODIUM 1 EACH TAB PO SCH ×2 (07:43→21:43)
[2018-08-03] MEDS: METOPROLOL SUCCINATE (ER) 25 MG TAB.ER.24H PO SCH ×2 (07:43→21:38)
[2018-08-03] MEDS: FLUTICASONE 50MCG/SPRAY NASAL 16GM EA NOSTRIL SCH (07:44)
[2018-08-03] MEDS: APIXABAN 5 MG TAB PO SCH ×2 (07:44→21:39)
[2018-08-03] MEDS: MULTIVITAMINS, THERA 1 EACH TAB PO SCH (07:44)
[2018-08-03] MEDS: LACTULOSE 20 GM/30 ML CUP PO SCH ×3 (07:44→21:40)
[2018-08-03] MEDS: PANTOPRAZOLE 40 MG TABLET PO SCH ×2 (07:44→16:48)
--- NOTE | 2018-08-03 07:48 | XR ---
EXAMINATION TYPE: XR chest 2V DATE OF EXAM: 08/03/2018 COMPARISON: Prior chest x-ray 07/29/2018 HISTORY: Hypoxia, asthma TECHNIQUE: Frontal and lateral views of the chest are obtained. FINDINGS: There are prominent lung volumes which may be indicative of COPD. There is no focal air sp shanta opacity, pleural effusion, or pneumothorax seen. The cardiac silhouette size is within normal li mits. The osseous structures are intact. IMPRESSION: No acute cardiopulmonary process.
[2018-08-03 12:50] LABS: Glucose,Whole Blood 98 mg/dL (75-99)
--- NOTE | 2018-08-03 15:15 | CT ---
EXAMINATION TYPE: CT chest wo con DATE OF EXAM: 08/03/2018 COMPARISON: 04/22/2018 HISTORY: SOB, history of breast and uterine CA CT DLP: 244 mGycm, Automated exposure control for dose reduction was used. CONTRAST: Performed injected with 0 mL of Isovue 300. TECHNIQUE: Axial images were obtained at 5 mm thick sections. Reconstructed images are reviewed on [employer] Access computer in the coronal plane. FINDINGS: Thyroid is not identified. There is been a left mastectomy. No suspicious lung nodules or focal infiltrates are present. No enlarged mediastinal or hilar adenopathy is evident. There are scattered small shotty lymph node s present. The ascending aorta diameter at the level of the main pulmonary artery is 3.3 cm. The demetria n pulmonary artery diameter at the bifurcation is 2.[address] sections are obtained through the upper abdomen. Abdomen is essentially unremarkable. IMPRESSIONS: 1. No suspicious changes to suggest metastatic disease
--- NOTE | 2018-08-03 15:31 | PN ---
PROGRESS NOTE DATE OF SERVICE: 08/03/2018 She is significantly better, has been bringing up what seems to be like mucus plugs. She did have a CT scan of the chest which was personally reviewed by me which showed no evidence of any endobronchial lesions. There is irregularity of the tracheobronchial mucosa consistent with airway inflammation. She is sitting in bed. She is not in any distress. On physical examination, her respiratory rate is 20, pulse rate is 60, temperature 97.8, blood pressure 113/71, O2 saturations on room air is 96%. HEENT is unremarkable. Chest reveals expiratory wheeze. Cardiovascular system reveals an S1, S2. Abdomen is soft. There is no pedal edema. CT scan images were reviewed and are part of the initial part of my note. Labs were reviewed. IMPRESSION: 1. 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 2. Chronic obstructive pulmonary disease with exacerbation. 3. Acute hypoxic respiratory failure. 4. Mucus plugging. 5. History of breast cancer, uterine cancer, status post hysterectomy. Agree with possible discharge planning with systemic steroids at a slow taper along with antibiotics. Continue bronchodilators, aerosolized steroids. Her prognosis at this time is fair. I did discuss my thoughts with the patient's nurse practitioner from the primary care team. MMODL / IJN: [id number] /
[2018-08-03 17:38] LABS: Glucose,Whole Blood 122 mg/dL (75-99)
--- NOTE | 2018-08-03 17:46 | P.PN ---
Subjective Progress Note Date: 08/03/18 Interval history:62-year-old pleasant female came in with complains of shadows of breath and wheezing patient has rhonchus breath sounds. Patient does have diagnosis of COPD but doesn't admit to smoking much but was exposed to secondhand smoke. Patient had the breast cancer with left mastectomy trying cancer status post hysterectomy. Chest x-ray did not show any pneumonic process patient doesn't use any oxygen at home. Patient was started on systemic steroids inhalational treatments patient will be started on doxycycline and cephalosporins will be discontinued. Patient denied any history of asthma. Patient denied any fever chills flulike symptoms. 07/29/2018. Reports recent trauma with pain to her right rib cage. Chest x- ray ordered reporting no displaced rib fracture, no pneumothorax, or pleural effusion. Declining IV steroids, causes her insomnia. Continues on nebulized bronchodilators, doxycycline. Remains wheezy. Maintaining O2 sats in the 90s on room air. Afebrile. 07/30/2018 She is still wheezing quite a bit rhonchus breath sounds 07/31/2018 Patient feels bit better compared to yesterday. Still has significant shortness of breath lungs still sound bad rhonchus breath sounds diffusely 08/01/2018 breathing continues to improve, less wheezing, productive cough with yellow green secretions. Initially patient became agitated over mentioned bronchoscopy per pulmonary today. Continue to monitor. Patient is open to potential bronchoscopy in 48 hours if no improvement. Afebrile. 08/02/2018 breathing continues to improve. Reports productive of thick green sputum. Sputum trap at bedside. Patient Declining any further treatment/ bronchoscopy from Dr. Elizabeth. Requesting new pulmonary group. Pulmonary -Dr. Cisse consulted, evaluated patient with recommendations noted and appreciated. Afebrile, maintaining O2 sats in the low 90s on room air. Ambulating with in room, tolerating exertion well. Denies chest pain, palpitations. 08/03/2018 breathing significantly improved today , slept well .chest x-ray reporting possible COPD with no acute cardiopulmonary process .Evaluated today by Dr. Valdivia/Moises Rodrigues from pulmonary. Chest CT/ Virtual Bronchoscopy performed with a verbal report of no lesions. Inflammation visualized with prednisone taper recommended for discharge. No need for bronchoscopy. CT reports no suspicious lung nodules or focal infiltrates, no enlarged mediastinal or hilar adenopathy, scattered shotty lymph nodes present, ascending aorta at the level of the main pulmonary artery 3.3 cm main pulmonary artery diameter at the bifurcation 2.8. cm. maintaining O2 sats in low 90s on 2 L nasal cannula. Constitutional: Denied any fatigue denied any fever. Cardio vascular: denied any chest pain, palpitations Gastrointestinal denied any nausea vomiting Pulmonary: Improving. Less exertional shortness of breath. Neurologic denied any new focal deficits Active Medications Acetylcysteine (Mucomyst) 200 mg INHALATION RT-TID [facility] Last Admin: 08/03/18 11:36 Dose: 200 mg Albuterol/Ipratropium (Duoneb 0.5 Mg-3 Mg/3 Ml Soln) 3 ml INHALATION RT-QID [facility] Last Admin: 08/03/18 15:16 Dose: 3 ml Albuterol/Ipratropium (Duoneb 0.5 Mg-3 Mg/3 Ml Soln) 3 ml INHALATION RT-Q4H PRN PRN Reason: Shortness Of Breath Or Wheezing Apixaban (Eliquis) 5 mg PO BID [facility] Last Admin: 08/03/18 07:44 Dose: 5 mg Ascorbic Acid (Vitamin C) 500 mg PO Q8H [facility] Last Admin: 08/03/18 12:27 Dose: 500 mg Budesonide (Pulmicort) 1 mg INHALATION RT-DAILY [facility] Last Admin: 08/03/18 07:27 Dose: 1 mg Cholecalciferol (Vitamin D3) 1,000 unit PO DAILY [facility] Last Admin: 08/03/18 07:43 Dose: 1,000 unit Doxycycline Monohydrate (Vibramycin) 100 mg PO BID [facility] Last Admin: 08/03/18 07:43 Dose: 100 mg Fluticasone Propionate (Flonase Nasal [place]) 1 spray EA NOSTRIL DAILY [facility] Last Admin: 08/03/18 07:44 Dose: 1 spray Formoterol Fumarate (Perforomist) 20 mcg INHALATION RT-BID [facility] Last Admin: 08/03/18 07:27 Dose: 20 mcg Sodium Chloride (Saline 0.9%) 1,000 mls @ 100 mls/hr IV .Q10H [facility] Last Admin: 08/03/18 12:27 Dose: 100 mls/hr Lactobacillus Acidoph/Bulgaricus (Lactinex) 1 each PO TID [facility] Last Admin: 08/03/18 15:57 Dose: 1 each Lactulose (Cephulac) 20 gm PO TID [facility] Last Admin: 08/03/18 15:57 Dose: 20 gm Melatonin (Melatonin) 3 mg PO [facility] Last Admin: 08/02/18 21:50 Dose: 3 mg Metoprolol Succinate (Toprol Xl) 25 mg PO BID [facility] Last Admin: 08/03/18 07:43 Dose: 25 mg Montelukast Sodium (Singulair) 10 mg PO [facility] Last Admin: 08/02/18 21:50 Dose: 10 mg Multivitamins (Theragran) 1 each PO DAILY@1200 [facility] Last Admin: 08/03/18 07:44 Dose: 1 each Pantoprazole Sodium (Protonix) 40 mg PO AC-BID [facility] Last Admin: 08/03/18 16:48 Dose: 40 mg Prednisone () 40 mg PO DAILY [facility] Last Admin: 08/03/18 07:43 Dose: 40 mg Senna/Docusate Sodium (Senokot-S) 2 each PO BID [facility] Last Admin: 08/03/18 07:43 Dose: 2 each Objective - Vital Signs Vital signs: Vital Signs Temp 98.5 F 08/03/18 14:49 Pulse 91 08/03/18 15:27 Resp 24 08/03/18 14:49 BP 118/72 08/03/18 14:49 Pulse Ox 90 L 08/03/18 15:16 Intake & Output 08/02/18 08/03/18 08/03/18 18:59 06:59 18:59 Intake Total 300 Balance 300 Weight 77.111 kg Intake: Oral 300 Other: # Voids 3 1 4 - Labs CBC & Chem 7: 08/02/18 07:56 08/02/18 07:56 Labs: Abnormal Lab Results - Last 24 Hours (Table) 08/02/18 Range/Units 20:19 POC Glucose (mg/dL) 128 H (75-99) mg/dL Microbiology - Last 24 Hours (Table) 08/02/18 17:15 Gram Stain - Preliminary Sputum Sputum Culture - Preliminary 07/27/18 12:56 Blood Culture - Final Blood No Growth after 144 hours Assessment and Plan Assessment: -Acute hypoxic ,hypercapnic respiratory failure secondary to COPD exacerbation -Tracheobronchitis -History of DVT Plan: Continue on current medication regime , Eliquis, monitoring and symptomatic treatment. Continue on Nebulized bronchodilators, antibiotics, steroids. Evaluated by pulmonary, recommendations noted. increase ambulation as tolerated. Sputum culture in progress. Discharge planning in progress for tomorrow. The impression and plan of care has been dictated as directed. : I performed a history and examination of this patient, discussed the same with the dictator. I agree with the dictator's note ,documented as a scribe. Any additional findings or plans will be noted.
[2018-08-03] MEDS: MONTELUKAST 10 MG TAB PO SCH (21:39)
[2018-08-03] MEDS: MELATONIN 3 MG TABLET PO SCH (21:40)
[2018-08-03 22:02] LABS: Glucose,Whole Blood 157 mg/dL (75-99)
[2018-08-04] MEDS: ASCORBIC ACID 500 MG TAB PO SCH ×2 (05:42→11:19)
[2018-08-04 07:06] LABS: Glucose,Whole Blood 98 mg/dL (75-99)
[2018-08-04] MEDS: ACETYLCYSTEINE 800 MG/4 ML VIAL INHALATION SCH ×2 (07:54→16:12)
[2018-08-04] MEDS: BUDESONIDE 1 MG/2 ML NEBU INHALATION SCH (07:54)
[2018-08-04] MEDS: IPRATROPIUM-ALBUTEROL 3 ML NEB INHALATION SCH ×3 (07:54→16:13)
[2018-08-04] MEDS: FORMOTEROL FUMARATE 20 MCG/2 ML NEBU INHALATION SCH (07:54)
[2018-08-04] MEDS: APIXABAN 5 MG TAB PO SCH (08:14)
[2018-08-04] MEDS: predniSONE 20 MG TAB PO SCH (08:14)
[2018-08-04] MEDS: FLUTICASONE 50MCG/SPRAY NASAL 16GM EA NOSTRIL SCH (08:15)
[2018-08-04] MEDS: METOPROLOL SUCCINATE (ER) 25 MG TAB.ER.24H PO SCH (08:15)
[2018-08-04] MEDS: SENNOSIDES-DOCUSATE SODIUM 1 EACH TAB PO SCH (08:15)
[2018-08-04] MEDS: LACTULOSE 20 GM/30 ML CUP PO SCH ×3 (08:15→17:24)
[2018-08-04] MEDS: PANTOPRAZOLE 40 MG TABLET PO SCH ×2 (08:15→17:24)
[2018-08-04] MEDS: CHOLECALCIFEROL 1,000 UNIT TAB PO SCH (08:15)
[2018-08-04] MEDS: DOXYCYCLINE 100 MG CAP PO SCH (08:15)
[2018-08-04] MEDS: LACTOBACILLUS ACIDOPH & BULGAR 1 EACH PACKET PO SCH ×2 (08:15→17:24)
[2018-08-04] MEDS: SODIUM CHLORIDE 0.9% 1,000 ML IV SCH (08:19)
--- NOTE | 2018-08-04 10:29 | P.PN ---
Subjective Progress Note Date: 08/04/18 History of present illness: Patient seen and examined in consultation for cough and shortness of breath. The patient was admitted on 07/27/2018.The patient states that she is doing somewhat better during her hospital course. She was being seen by a different pulmonary group but requested transition of care. The patient was offered a bronchoscopy and felt with her history that it was too risky. The patient states that she has had issues with anesthesia in the past. She states she feels like her breathing is improving. She is able to cough up green phlegm. She denies fevers and chills. She has been hemodynamically stable. She is currently on room air. The patient is a lifelong never smoker. Although she does note that she has been exposed to secondhand smoke her entire life. She does have a history of breast cancer and ovarian cancer. The patient states on admission she did have shortness of breath with exertion and conversation. She states this is improving. The patient did have a bronchoscopy in October 2017. She did have bilateral mucus plugging. Cultures showed no growth. Interval History: 08/04/18- patient is being seen examined and evaluated today on rounds. She is resting up in bed on room air. She is feeling better today. She is bringing up sputum more readily than before. All labs and reports have been reviewed. She is being prepared for discharge. Objective - Vital Signs Vital signs: Vital Signs Temp 97.9 F 08/04/18 06:18 Pulse 104 H 08/04/18 08:28 Resp 18 08/04/18 06:18 BP 137/87 08/04/18 06:18 Pulse Ox 95 08/04/18 06:18 Intake & Output 08/03/18 08/04/18 08/04/18 18:59 06:59 18:59 Intake Total 800 480 Balance 800 480 Intake: Oral 800 480 Other: Voiding Method Toilet # Voids 4 1 # Bowel Movements 0 - Exam General: Patient is alert and oriented 3, no acute distress, room-air Cardiovascular: Regular rate and rhythm, S1/S2 Lungs: Coarse breath sounds bilaterally with bilateral expiratory wheezing Abdomen: soft, NT/ND, +BS Ext: trace edema - Labs CBC & Chem 7: 08/02/18 07:56 08/02/18 07:56 Labs: Abnormal Lab Results - Last 24 Hours (Table) 08/03/18 08/03/18 Range/Units 17:27 21:45 POC Glucose (mg/dL) 122 H 157 H (75-99) mg/dL Assessment and Plan Assessment: Assessment: Acute hypoxic respiratory failure secondary Acute exacerbation of chronic obstructive pulmonary disease Acute exacerbation of eosinophilic asthma, at outside hospital eos ranged from 300-500 History of bilateral mucous plugging s/p bronchoscopy 10/2017 History of chronic tobacco dependence History of breast cancer, uterine cancer status post hysterectomy Marijuana use Hypertension Hepatitis Plan Patient is cleared for discharge from pulmonary standpoint O2 to maintain saturation greater than or equal to 90%, patient currently on room air Steroid taper Pulmicort and DuoNeb's - increase Pulmicort to 1mg BID Perforomist Mucomyst Antibiotics Patient may benefit from biologic for eosinophilic asthma Incentive spirometry and pulmonary hygiene Singulair Patient previously had total IgE and HP/allergy panel which were normal I, the signing physician performed an examination of the patient, discussed and directed their management with the nurse practitioner. I have reviewed the nurse practitioner's note and agree with the documented findings, orders and plan of care. Nurse practitioner acting as a prescription for the signing physician.
[2018-08-04] MEDS: MULTIVITAMINS, THERA 1 EACH TAB PO SCH (11:19)
[2018-08-04 12:18] LABS: Glucose,Whole Blood 115 mg/dL (75-99)
[2018-08-04 15:44] VITALS: BP 118/65; RESP 22; TEMP 97.8
--- NOTE | 2018-08-04 16:16 | P.DS ---
Providers Date of admission: 07/27/18 20:35 Expected date of discharge: 08/04/18 Attending physician: Angelia Connelly Consults: 08/02/18 12:06 Consult Physician Routine Consulting Provider: Kim Cisse Consult Reason/Comments: copd Do you want consulting provider notified?: Yes Primary care physician: Cooper zIquierdo Hospital Course: Final Diagnoses: -Acute hypoxic ,hypercapnic respiratory failure secondary to COPD exacerbation -Tracheobronchitis -History of DVT Hospital course:Interval history:62-year-old pleasant female came in with complains of shadows of breath and wheezing patient has rhonchus breath sounds. Patient does have diagnosis of COPD but doesn't admit to smoking much but was exposed to secondhand smoke. Patient had the breast cancer with left mastectomy trying cancer status post hysterectomy. Chest x-ray did not show any pneumonic process patient doesn't use any oxygen at home. Patient was started on systemic steroids inhalational treatments patient will be started on doxycycline and cephalosporins will be discontinued. Patient denied any history of asthma. Patient denied any fever chills flulike symptoms. 07/29/18Reports recent trauma with pain to her right rib cage. Chest x-ray ordered reporting no displaced rib fracture, no pneumothorax, or pleural effusion. Declining IV steroids, causes her insomnia. Continues on nebulized bronchodilators, doxycycline. Remains wheezy. Maintaining O2 sats in the 90s on room air. Afebrile. 07/30/2018 She is still wheezing quite a bit rhonchus breath sounds 07/31/2018 Patient feels bit better compared to yesterday. Still has significant shortness of breath lungs still sound bad rhonchus breath sounds diffusely 08/01/2018 breathing continues to improve, less wheezing, productive cough with yellow green secretions. Initially patient became agitated over mentioned bronchoscopy per pulmonary today. Continue to monitor. Patient is open to potential bronchoscopy in 48 hours if no improvement. Afebrile. 08/02/2018 breathing continues to improve. Reports productive of thick green sputum. Sputum trap at bedside. Patient Declining any further treatment/ bronchoscopy from Dr. Elizabeth. Requesting new pulmonary group. Pulmonary -Dr. Cisse consulted, evaluated patient with recommendations noted and appreciated. Afebrile, maintaining O2 sats in the low 90s on room air. Ambulating with in room, tolerating exertion well. Denies chest pain, palpitations. 08/03/2018 breathing significantly improved today , slept well .chest x-ray reporting possible COPD with no acute cardiopulmonary process .Evaluated today by Dr. Valdivia/Moises Rodrigues from pulmonary. Chest CT/ Virtual Bronchoscopy performed with a verbal report of no lesions. Inflammation visualized with prednisone taper recommended for discharge. No need for bronchoscopy. CT reports no suspicious lung nodules or focal infiltrates, no enlarged mediastinal or hilar adenopathy, scattered shotty lymph nodes present, ascending aorta at the level of the main pulmonary artery 3.3 cm main pulmonary artery diameter at the bifurcation 2.8. cm. maintaining O2 sats in low 90s on 2 L nasal cannula. (08/04 2018 significant clinical improvement. Cleared by pulmonary for discharge. Patient is being discharged home in a stable condition with guarded prognosis. Patient given prescriptions for both nebulizer and inhalers; patient is in the process of exchanging her nebulizer machine. Case management assisted her with the address of the [facility]. Exam GENERAL: alert and oriented x3, no acute distress. CARDIOVASCULAR: S1 and S2 present. Regular, No murmurs, rubs, or gallops. PULMONARY: Coarse Rhonchorus breath sounds with no wheezing ABDOMEN: Soft, nontender, nondistended, normoactive bowel sounds. No palpable organomegaly. NEUROLOGICAL: Gross neurological examination did not reveal any focal deficits. The impression and plan of care has been dictated as directed. : I performed a history and examination of this patient, discussed the same with the dictator. I agree with the dictator's note ,documented as a scribe. Any additional findings or plans will be noted. Time taken: 35 minutes Patient Condition at Discharge: Stable Plan - Discharge Summary Discharge Rx Participant: No New Discharge Prescriptions: New Doxycycline [Vibramycin] 100 mg PO BID #10 cap Pantoprazole [Protonix] 40 mg PO AC-BID #60 tablet. predniSONE 10 mg PO DIRECTED #30 tab Sennosides-Docusate Sodium [Senokot-S] 2 each PO BID tab Ipratropium-Albuterol Nebulize [Duoneb 0.5 mg-3 mg/3 ml Soln] 3 ml INHALATION RT-QID #120 ampul.neb Albuterol Inhaler [Ventolin Hfa Inhaler] 2 puff INHALATION QID #1 inhaler Tiotropium [place] [Spiriva] 1 cap INHALATION DAILY #1 device Budesonide [Pulmicort] 1 mg INHALATION RT-DAILY #30 nebu Metoprolol Succinate [Toprol XL] 50 mg PO DAILY #30 tab.er.24h Lactulose [Cephulac] 20 gm PO TID #500 ml Continue Cholecalciferol [Vitamin D3] 1,000 unit PO DAILY Montelukast Sodium [Singulair] 10 mg PO DAILY Fluticasone Nasal [place] [Flonase Nasal [place]] 1 spray EA NOSTRIL DAILY Apixaban [Eliquis] 5 mg PO BID Ascorbic Acid [Vitamin C] 500 mg PO Q8H Multivitamins, Thera [Multivitamin (formulary)] 1 tab PO DAILY Discontinued Albuterol Nebulized [Ventolin Nebulized] 2.5 mg INHALATION RT-Q6H PRN PRN Reason: Wheezing Budesonide [Pulmicort] 0.5 mg INHALATION RT-DAILY Albuterol Nebulized (Conc) [Ventolin Nebulized (Conc)] 2.5 mg INHALATION RT- Q4H Metoprolol Succinate [Toprol XL] 25 mg PO BID Discharge Medication List Cholecalciferol [Vitamin D3] 1,000 unit PO DAILY 07/21/16 [History] Apixaban [Eliquis] 5 mg PO BID 04/22/18 [History] Ascorbic Acid [Vitamin C] 500 mg PO Q8H 04/22/18 [History] Fluticasone Nasal [place] [Flonase Nasal [place]] 1 spray EA NOSTRIL DAILY 04/22/18 [History] Montelukast Sodium [Singulair] 10 mg PO DAILY 04/22/18 [History] Multivitamins, Thera [Multivitamin (formulary)] 1 tab PO DAILY 07/27/18 [History ] Doxycycline [Vibramycin] 100 mg PO BID #10 cap 08/03/18 [Rx] Albuterol Inhaler [Ventolin Hfa Inhaler] 2 puff INHALATION QID #1 inhaler [Rx] Budesonide [Pulmicort] 1 mg INHALATION RT-DAILY #30 nebu 08/04/18 [Rx] Ipratropium-Albuterol Nebulize [Duoneb 0.5 mg-3 mg/3 ml Soln] 3 ml INHALATION RT -QID #120 ampul.neb 08/04/18 [Rx] Lactulose [Cephulac] 20 gm PO TID #500 ml 08/04/18 [Rx] Metoprolol Succinate [Toprol XL] 50 mg PO DAILY #30 tab.er.24h 08/04/18 [Rx] Pantoprazole [Protonix] 40 mg PO AC-BID #60 tablet. 08/04/18 [Rx] Sennosides-Docusate Sodium [Senokot-S] 2 each PO BID tab 08/04/18 [Rx] Tiotropium [place] [Spiriva] 1 cap INHALATION DAILY #1 device 08/04/18 [Rx] predniSONE 10 mg PO DIRECTED #30 tab 08/04/18 [Rx] Follow up Appointment(s)/Referral(s): Klaus Sin,Equipment [NON-STAFF] - Kim Cisse DO [Doctor of Osteopathic Medicine] - 1 Week (Office is closed. Please call the office to set up a appt.) Nonstaff,Physician [REFERRING] - 08/09/18 11:00 am Ambulatory/Diagnostic Orders: Complete Blood Count w/diff [LAB.AMB] Time Frame: 3 Days, Location: None Selected Patient Instructions/Handouts: COPD (Chronic Obstructive Pulmonary Disease) (DC ) Activity/Diet/Wound Care/Special Instructions: Spacer for Inhaler Use.RX given [facility] on [address] is open Wednesday-Wednesday until 5:00PM. [address] [place] [address], . Please bring in your nebulizer to exchange there.
[2018-08-04 16:38] VITALS: PULSE 96
== END 2018-08-04 19:36 | disposition home or self-care (01) | DRG 190 ==
LOC: EC 17:25 → 4MS4W 20:35
PROVIDERS: ADMIT Internal Medicine; ATTEND Internal Medicine
DX: J44.1 Chronic obstructive pulmonary disease with (acute) exacerbation (principal); J96.01 Acute respiratory failure with hypoxia; J96.02 Acute respiratory failure with hypercapnia; J82 Pulmonary eosinophilia, not elsewhere classified; J44.0 Chronic obstructive pulmonary disease with (acute) lower respiratory infection; I48.91 Unspecified atrial fibrillation; T17.990A Other foreign object in respiratory tract, part unspecified in causing asphyxiation, initial encounter; F41.9 Anxiety disorder, unspecified; I10 Essential (primary) hypertension; J20.9 Acute bronchitis, unspecified; I89.0 Lymphedema, not elsewhere classified; Q65.89 Other specified congenital deformities of hip; M15.9 Polyosteoarthritis, unspecified; K42.9 Umbilical hernia without obstruction or gangrene; Z77.22 Contact with and (suspected) exposure to environmental tobacco smoke (acute) (chronic); Z79.01 Long term (current) use of anticoagulants; Z79.899 Other long term (current) drug therapy; Z85.3 Personal history of malignant neoplasm of breast; Z85.42 Personal history of malignant neoplasm of other parts of uterus; Z85.43 Personal history of malignant neoplasm of ovary; Z86.718 Personal history of other venous thrombosis and embolism; Z90.12 Acquired absence of left breast and nipple; Z90.710 Acquired absence of both cervix and uterus; Z90.722 Acquired absence of ovaries, bilateral; Z88.6 Allergy status to analgesic agent; Z88.1 Allergy status to other antibiotic agents; Z82.49 Family history of ischemic heart disease and other diseases of the circulatory system; Z80.9 Family history of malignant neoplasm, unspecified
CPT/HCPCS: 36415; 71046; 71250; 80048; 80053; 82550; 82553; 83605; 83880; 84484; 85025; 85610; 85730; 87040; 87070; 87205; 93005; 94640; 96374; 99285

== ENCOUNTER → 2018-12-26 | Outpatient (CLI) | payer MEDICARE ==
--- NOTE | 2018-12-27 10:15 | MR ---
EXAMINATION TYPE: MR tspine/lspine wo/w con DATE OF EXAM: 12/26/2018 COMPARISON: Prior lumbar MRI 09/02/2009, chest CT 08/03/2018 HISTORY: COLLAPSED VERTEBRA, PAIN TECHNIQUE: Multiplanar, multisequence images of the lumbar and thoracic spine is performed without and with IV c ontrast, utilizing 7.5 mL intravenous Gadavist FINDINGS: Thoracic spine MRI: There is abnormal signal within the sixth thoracic vertebral body with loss of he ight at the inferior margin, intermediate signal seen on T1, some increased signal on T2-weighted seq uences with enhancement following contrast administration, loss of height of 25-50%. Similarly, super ior endplate depression is noted at the midthoracic vertebral body with loss of height of approximate ly 25%. Kyphosis is centered at T6. Superior endplate of T7 shows a focus of increased signal in T1 a nd T2-weighted sequences possibly representing hemangioma, hemangioma present within the T2 vertebral body. There is a spinal curvature present. Multilevel spondylosis is present. Multilevel endplate di scogenic marrow signal changes are present. T6-7 shows only mild retropulsion of the inferior endplate. No significant spinal stenosis. No significant foraminal encroachment or sizable disc herniation. Thoracic cord signal is maintained. IMPRESSION: Probable osteoporotic compression fractures as described, interval finding. Lumbar spine MRI: There is extensive motion present. The anterolisthesis grade 1 L4-5 is stable. Ther e is a spinal curvature. Lumbar vertebral bodies show preserved height. There is loss of disc height and signal at intervertebral levels especially L3-4, L4-5 and L5-S1, there is endplate discogenic mar row signal change as on prior. Multilevel facet arthropathy changes are present. No significant spina l stenosis. Listhesis contributes cause foraminal encroachment at L4-5. Circumferential posterior bro ad-based disc bulges causes only slight anterior mass effect on the thecal sac. The conus is unremark able. No abnormal enhancement following contrast administration. IMPRESSION: Findings are similar to prior lumbar MRI. Degenerative disc disease, spondylolisthesis, f acet arthropathy. No significant spinal stenosis. IMPRESSION: Negative MRI of the lumbar spine.
== END | disposition home or self-care (01) ==
LOC: RADMRIMAIN 18:59
PROVIDERS: ATTEND Orthopaedic Surgery Orthopaedic Surgery of the Spine
DX: M43.16 Spondylolisthesis, lumbar region (principal); M51.36 Other intervertebral disc degeneration, lumbar region; M46.96 Unspecified inflammatory spondylopathy, lumbar region; M48.54XA Collapsed vertebra, not elsewhere classified, thoracic region, initial encounter for fracture
CPT/HCPCS: 72157; 72158; A9585

== ENCOUNTER → 2019-03-08 | Outpatient (CLI) | payer MEDICARE ==
--- NOTE | 2019-03-08 09:14 | BD ---
EXAMINATION TYPE: Axial Bone Density DATE OF EXAM: 03/08/2019 COMPARISON: NONE CLINICAL HISTORY: M 82.0 Height: 5 FT 3 1/2 IN Weight: 198 FRAX RISK QUESTIONS: Glucocorticoids (More than 3mos): YES (Ex: prednisone, prednisolone, methylprednisolone, dexamethasone, and hydrocortisone). History of Fracture in Adulthood: YES Secondary Osteoporosis: Rheumatoid Arthritis: YES RISK FACTORS HISTORY OF: Hip Fracture (Right/Left): BORN WITH HIP DISPLACED Spine Fracture: T SPINE SPONTANEOUS When: 2019 Surgery to Spine/Hip(right/left)/Wrist (right/left): LEFT HIP When: FIRST SURG 1958 LAST SURG 1966 Postmenopausal woman: AGE 46 MEDICATIONS: Prednisone or other steroids: YES How Long: SEVERAL YEARS Additional Medications: METOPROLOL, NEBULIZER, ELOQUIS, PRDISONE, Additional History: BREAST CANCER 2001 EXAM MEASUREMENTS: Bone mineral densitometry was performed using the [employer] System. Bone mineral density as measured about the Lumbar spine is: ----- L1-L4(G/cm2): 0.827 T Score Values are as follows: ----- L2: -3.4 ----- L3: -3.0 ----- L4: -2.6 ----- L1-L4: -2.9 BASELINE Bone mineral density about the R hip (g/cm2): 0.733 T Score values are as follows: -----R Neck: -2.2 -----R Total: -2.4 BASELINE IMPRESSION: Osteoporosis (T Score less than -2.5). There is increased fracture risk and therapy is usually indicated based on age. Re-Screen 1-2 years. NOTE: T-SCORE=SD OF THE YOUNG ADULT MEAN.
== END | disposition home or self-care (01) ==
LOC: RADBDWWP 07:41
PROVIDERS: ATTEND Internal Medicine Cardiovascular Disease
DX: M81.0 Age-related osteoporosis without current pathological fracture (principal)
CPT/HCPCS: 77080

== ENCOUNTER → 2019-03-31 | Outpatient (CLI) | payer MEDICARE ==
[2019-03-31 17:44] LABS: Basophils # (A) 0.1 k/uL (0-0.2); Basophils % (A) 1 %; Eosinophils # (A) 0.5 k/uL (0-0.7); Eosinophils % (A) 5 %; HCT 42.1 % (34.0-46.0); HGB 14.4 gm/dL (11.4-16.0); Lymphocytes # (A) 2.7 k/uL (1.0-4.8); Lymphocytes % (A) 27 %; MCH 33.2 pg (25.0-35.0); MCHC 34.2 g/dL (31.0-37.0); MCV 97.2 fL (80.0-100.0); Mean Platelet Volume 6.3; Monocytes # (A) 0.6 k/uL (0-1.0); Monocytes % (A) 6 %; Neutrophils # (A) 5.9 k/uL (1.3-7.7); Neutrophils % (A) 60 %; Platelet Count 266 k/uL (150-450); RBC 4.33 m/uL (3.80-5.40); RDW 12.6 % (11.5-15.5)
[2019-03-31 23:23] LABS: African American GFR (CKD) 62.3 (60.0-200.0); Albumin/Globulin Ratio 2.11 (1.60-3.17); Anion Gap 8.4 mmol/L (4.00-12.00); BUN/Creat Ratio 20.91 Ratio (12.00-20.00); Calcium 9.2 mg/dL (8.7-10.3); Carbon Dioxide 29.6 mmol/L (21.6-31.8); Globulin 1.9 g/dL (1.6-3.3); Potassium 4.4 mmol/L (3.5-5.5); Total Bilirubin 0.7 mg/dL (0.3-1.2); Total Protein 5.9 g/dL (6.2-8.2)
[2019-03-31 23:28] LABS: Carcinoembryonic Antigen 2.2 ng/mL (0.0-4.9)
[2019-03-31 23:57] LABS: Cancer Antigen 125 9.4 U/mL (0.0-30.1)
== END | disposition home or self-care (01) ==
LOC: LABWHC1 16:54
PROVIDERS: ATTEND Obstetrics & Gynecology Gynecologic Oncology
DX: C54.1 Malignant neoplasm of endometrium (principal)
CPT/HCPCS: 36415; 80053; 82378; 85025; 86304

== ENCOUNTER 2019-11-03 15:42 | Inpatient (IN) | payer MEDICARE ==
--- NOTE | 2019-11-03 16:24 | ED ---
General Adult HPI - General Chief complaint: Shortness of Breath Stated complaint: Heart failure Time Seen by Provider: 11/03/19 15:45 Source: patient, RN notes reviewed, old records reviewed Mode of arrival: wheelchair Limitations: no limitations - History of Present Illness Initial comments: This is a 64-year-old female who presents emergency Department with past medical history significant for congestive heart failure and COPD as well as lymphedema. Patient states for the last 2-1/2 months she's had a hard time breathing or swelling in her legs been considerably worse. Patient states she wants a Dr. Ledbetter today he wanted to come to the emergency room to be worked up and then admitted to the hospital for congestive heart failure. Patient denies any recent fever chills or cough. Patient states the swelling in her legs is gotten progressively worse over the last 2 months. Patient denies any chest pain or palpitations. Patient denies any abdominal pain patient denies nausea vomiting diarrhea. Patient denies being lightheaded or dizzy. Patient denies any numbness or weakness. - Related Data Home Medications Medication Instructions Recorded Confirmed Cholecalciferol [Vitamin D3 (25 1,000 unit PO DAILY 07/21/16 07/27/18 Mcg = 1000 Iu)] Apixaban [Eliquis] 5 mg PO BID 04/22/18 07/27/18 Ascorbic Acid [Vitamin C] 500 mg PO Q8H 04/22/18 07/27/18 Fluticasone Nasal [place] [Flonase 1 spray EA NOSTRIL DAILY 04/22/18 07/27/18 Nasal [place]] Montelukast Sodium [Singulair] 10 mg PO DAILY 04/22/18 07/27/18 Multivitamins, Thera [Multivitamin 1 tab PO DAILY 07/27/18 07/27/18 (formulary)] Previous Rx's Medication Instructions Recorded Doxycycline [Vibramycin] 100 mg PO BID #10 cap 08/03/18 Albuterol Inhaler (Mhu) [Ventolin 2 puff INHALATION QID #1 inhaler 08/04/18 Hfa Inhaler (Mhu)] Budesonide [Pulmicort] 1 mg INHALATION RT-DAILY #30 nebu 08/04/18 Ipratropium-Albuterol Nebulize 3 ml INHALATION RT-QID #120 08/04/18 [Duoneb 0.5 mg-3 mg/3 ml Soln] ampul.neb Lactulose [Cephulac] 20 gm PO TID #500 ml 08/04/18 Metoprolol Succinate [Toprol XL] 50 mg PO DAILY #30 tab.er.24h 08/04/18 Pantoprazole [Protonix] 40 mg PO AC-BID #60 tablet. 08/04/18 Sennosides-Docusate Sodium 2 each PO BID tab 08/04/18 [Senokot-S] Tiotropium [place] [Spiriva] 1 cap INHALATION DAILY #1 device 08/04/18 predniSONE 10 mg PO DIRECTED #30 tab 08/04/18 Allergies Allergy/AdvReac Type Severity Reaction Status Date / Time ibuprofen [From Motrin] Allergy Dyspnea Verified 11/03/19 15:50 levofloxacin [From Levaquin] Allergy Unknown Verified 11/03/19 15:50 acetaminophen [From Tylenol] AdvReac Increased Verified 11/03/19 15:50 Liver Enzymes Review of Systems ROS Statement: Those systems with pertinent positive or pertinent negative responses have been documented in the HPI. ROS Other: All systems not noted in ROS Statement are negative. 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 History of Any Multi-Drug Resistant Organisms: None Reported Past Surgical History: Breast Surgery, Heart Catheterization, Hysterectomy Additional Past Surgical History / Comment(s): L hip surgery x3, bowel obstruction with laparotomy, hysterecomy/ovaries/tumor removed per pt, bronchoscopies x2, Past Anesthesia/Blood Transfusion Reactions: No Reported Reaction Additional Past Anesthesia/Blood Transfusion Reaction / Comment(s): Pt has received blood without reaction. Past Psychological History: No Psychological Hx Reported Smoking Status: Never smoker Past Alcohol Use History: None Reported Past Drug Use History: Marijuana - Past Family History Mother Family Medical History: Cancer Additional Family Medical History / Comment(s): Mother at the age of 75yrs from metastatic cancer. Father Family Medical History: Myocardial Infarction (RI) Additional Family Medical History / Comment(s): Father of a RI at the age o f 54yrs. General Exam - General Exam Comments Initial Comments: GENERAL: Patient is well-developed and well-nourished. Patient is nontoxic and well- hydrated and is in no acute distress. ENT: Neck is soft and supple. No significant lymphadenopathy is noted. Oropharynx is clear. Moist mucous membranes. Neck has full range of motion without eliciting any pain. EYES: The sclera were anicteric and conjunctiva were pink and moist. Extraocular movements were intact and pupils were equal round and reactive to light. Eyelids were unremarkable. PULMONARY: Patient has expiratory wheezing. CARDIOVASCULAR: There is a regular rate and rhythm without any murmurs gallops or rubs. ABDOMEN: Soft and nontender with normal bowel sounds. No palpable organomegaly was noted. There is no palpable pulsatile mass. SKIN: Skin is clear with no lesions or rashes and otherwise unremarkable. NEUROLOGIC: Patient is alert and oriented x3. Cranial nerves II through XII are grossly intact. Motor and sensory are also intact. Normal speech, volume and content. Symmetrical smile. MUSCULOSKELETAL: Normal extremities with adequate strength and full range of motion. Bilateral edema 2+ LYMPHATICS: No significant lymphadenopathy is noted PSYCHIATRIC: Normal psychiatric evaluation. Limitations: no limitations Course Vital Signs 11/03/19 11/03/19 11/03/19 15:44 15:50 16:36 Temperature 98.4 F Pulse Rate 116 H 116 H Respiratory 24 20 Rate Blood Pressure 104/67 O2 Sat by Pulse 91 L Oximetry 11/03/19 11/03/19 16:50 16:51 Temperature Pulse Rate 72 110 H Respiratory 20 Rate Blood Pressure 136/97 O2 Sat by Pulse 94 L Oximetry Medical Decision Making - Medical Decision Making EKG shows a sinus rhythm at 96 bpm NC interval 208 QRSs 84 QT interval 360 QTC is 454. Patient's EKG shows no ST segment elevation or depression. Chest x-ray shows no acute abnormality. I did give the patient a breathing treatment and it did help her symptoms. I spoke with Dr. Hernandez she agreed to admit the patient admitted the patient wrote admitting orders - Lab Data Result diagrams: 11/03/19 17:05 11/03/19 17:05 Lab Results 11/03/19 11/03/19 11/03/19 Range/Units 17:05 17:05 17:05 WBC 8.9 (3.8-10.6) k/uL RBC 4.17 (3.80-5.40) m/uL Hgb 14.3 (11.4-16.0) gm/dL Hct 43.2 (34.0-46.0) % MCV 103.4 H (80.0-100.0) fL MCH 34.3 (25.0-35.0) pg MCHC 33.2 (31.0-37.0) g/dL RDW 13.0 (11.5-15.5) % Plt Count 235 (150-450) k/uL Neutrophils % 55 % Lymphocytes % 23 % Monocytes % 5 % Eosinophils % 14 % Basophils % 1 % Neutrophils # 4.9 (1.3-7.7) k/uL Lymphocytes # 2.0 (1.0-4.8) k/uL Monocytes # 0.5 (0-1.0) k/uL Eosinophils # 1.2 H (0-0.7) k/uL Basophils # 0.1 (0-0.2) k/uL Macrocytosis Slight Sodium 141 (137-145) mmol/L Potassium 3.7 (3.5-5.1) mmol/L Chloride 103 (98-107) mmol/L Carbon Dioxide 31 H (22-30) mmol/L Anion Gap 7 mmol/L BUN 16 (7-17) mg/dL Creatinine 0.81 (0.52-1.04) mg/dL Est GFR (CKD-EPI)AfAm >90 (>60 ml/min/1.73 sqM) Est GFR (CKD-EPI)NonAf 78 (>60 ml/min/1.73 sqM) Glucose 99 (74-99) mg/dL Plasma Lactic Acid Michael 1.5 (0.7-2.0) mmol/L Calcium 8.9 (8.4-10.2) mg/dL Magnesium 2.0 (1.6-2.3) mg/dL Total Bilirubin 1.0 (0.2-1.3) mg/dL AST 24 (14-36) U/L ALT 12 (4-34) U/L Alkaline Phosphatase 87 (38-126) U/L Troponin I (0.000-0.034) ng/mL NT-Pro-B Natriuret Pep pg/mL Total Protein 6.4 (6.3-8.2) g/dL Albumin 3.7 (3.5-5.0) g/dL 11/03/19 11/03/19 Range/Units 17:05 17:05 WBC (3.8-10.6) k/uL RBC (3.80-5.40) m/uL Hgb (11.4-16.0) gm/dL Hct (34.0-46.0) % MCV (80.0-100.0) fL MCH (25.0-35.0) pg MCHC (31.0-37.0) g/dL RDW (11.5-15.5) % Plt Count (150-450) k/uL Neutrophils % % Lymphocytes % % Monocytes % % Eosinophils % % Basophils % % Neutrophils # (1.3-7.7) k/uL Lymphocytes # (1.0-4.8) k/uL Monocytes # (0-1.0) k/uL Eosinophils # (0-0.7) k/uL Basophils # (0-0.2) k/uL Macrocytosis Sodium (137-145) mmol/L Potassium (3.5-5.1) mmol/L Chloride (98-107) mmol/L Carbon Dioxide (22-30) mmol/L Anion Gap mmol/L BUN (7-17) mg/dL Creatinine (0.52-1.04) mg/dL Est GFR (CKD-EPI)AfAm (>60 ml/min/1.73 sqM) Est GFR (CKD-EPI)NonAf (>60 ml/min/1.73 sqM) Glucose (74-99) mg/dL Plasma Lactic Acid Michael (0.7-2.0) mmol/L Calcium (8.4-10.2) mg/dL Magnesium (1.6-2.3) mg/dL Total Bilirubin (0.2-1.3) mg/dL AST (14-36) U/L ALT (4-34) U/L Alkaline Phosphatase (38-126) U/L Troponin I <0.012 (0.000-0.034) ng/mL NT-Pro-B Natriuret Pep 102 pg/mL Total Protein (6.3-8.2) g/dL Albumin (3.5-5.0) g/dL Disposition Clinical Impression: Acute exacerbation of chronic obstructive pulmonary disease Disposition: ADMITTED IP TO THIS HOSP Is patient prescribed a controlled substance at d/c from ED?: No Referrals: Josh Ledbetter MD [Primary Care Provider] - 1-2 days Time of Disposition: 18:25
[2019-11-03] MEDS ORDERED: IPRATROPIUM-ALBUTEROL 3 ML NEB INHALATION STA (16:27)
[2019-11-03 17:16] LABS: Basophils # (A) 0.1 k/uL (0-0.2); Basophils % (A) 1 %; Eosinophils # (A) 1.2 k/uL (0-0.7); Eosinophils % (A) 14 %; HCT 43.2 % (34.0-46.0); HGB 14.3 gm/dL (11.4-16.0); Lymphocytes % (A) 23 %; MCH 34.3 pg (25.0-35.0); MCHC 33.2 g/dL (31.0-37.0); MCV 103.4 fL (80.0-100.0); Macrocytosis Slight; Mean Platelet Volume 7.4; Monocytes # (A) 0.5 k/uL (0-1.0); Monocytes % (A) 5 %; Neutrophils # (A) 4.9 k/uL (1.3-7.7); Neutrophils % (A) 55 %; Platelet Count 235 k/uL (150-450); RBC 4.17 m/uL (3.80-5.40); WBC 8.9 k/uL (3.8-10.6)
[2019-11-03 17:27] LABS: ALT 12 U/L (4-34); AST 24 U/L (14-36); African American GFR (CKD) >90 (>60 ml/min/1.73 sqM); Albumin 3.7 g/dL (3.5-5.0); Alkaline Phosphatase 87 U/L (38-126); Anion Gap 7 mmol/L; Blood Urea Nitrogen 16 mg/dL (7-17); Calcium 8.9 mg/dL (8.4-10.2); Carbon Dioxide 31 mmol/L (22-30); Chloride 103 mmol/L (98-107); Glucose 99 mg/dL (74-99); Non-African American GFR(CKD) 78 (>60 ml/min/1.73 sqM); Potassium 3.7 mmol/L (3.5-5.1); Sodium 141 mmol/L (137-145); Total Protein 6.4 g/dL (6.3-8.2)
--- NOTE | 2019-11-03 17:41 | XR ---
EXAMINATION TYPE: XR chest 2V DATE OF EXAM: 11/03/2019 COMPARISON: 08/03/2018 HISTORY: 64-year-old female difficulty breathing, dyspnea TECHNIQUE: AP and lateral views FINDINGS: Heart normal size. Aorta and pulmonary vasculature within normal limits. Mild interstitial prominence . Mild hyperinflation. No consolidation or pleural effusion. IMPRESSION: Possible underlying COPD. Clinically correlate. No acute cardiopulmonary process.
[2019-11-03 17:51] LABS: INR 1.1 (<1.2); Partial Thromboplastin Time 21.2 sec (22.0-30.0); Prothrombin Time 10.9 sec (9.0-12.0)
[2019-11-03] MEDS ORDERED: methylPREDNISolone SOD SUCCI 125 MG/2 ML VIAL IV STA (17:53)
[2019-11-03] MEDS ORDERED: IPRATROPIUM-ALBUTEROL 3 ML NEB INHALATION PRN (18:25)
[2019-11-03] MEDS ORDERED: ALBUTEROL HFA INHALER INHALATION PRN (19:39)
[2019-11-03] MEDS: TIOTROPIUM 18 MCG/PUFF INHALER INHALATION SCH (20:34)
[2019-11-03] MEDS: IPRATROPIUM-ALBUTEROL 3 ML NEB ONE ×2 (20:35→20:36)
[2019-11-03 20:51] LABS: Glucose,Whole Blood 100 mg/dL (75-99)
--- NOTE | 2019-11-03 21:23 | P.HPIM ---
History of Present Illness H&P Date: 11/03/19 Chief Complaint: Severe dyspnea and shortness of breath, diastolic congestive heart failure, 64-year-old female one of my office patient with multiple medical problem known to have history of anasarca, COPD, CHF, A. fib with RVR, with recurrent history of edema who has not felt good for the last few weeks with worsening dyspnea and shortness of breath with worsening fluid retention she has gain over 15 pounds of water retention in the lower extremity in the last few weeks. Was seen in the office today with above complaint was very dyspneic was marginal hypoxic running in the mid 80. Patient was having significant tachycardia with pulse rate running over 120 bpm and tachypnea with respiratory rate running over 30 time per minutes patient has not been feeling well had quite bit of congestion over both lung cohen with significant wheezes on her exam. [facility] was seen and evaluated initially found to have pulse ox in the high 80 with 3 L of O2 corrected to the mid 90 pulse rate remain quite bit elevated the chest x- ray showed mild COPD with slight consultation and mild symptom of congestive heart failure and fluid overload. Patient was started on IV diuretics Covid 19 was negative patient will be admitted to the hospital will be seen cardiology and pulmonary was started on antibiotics for gram-negative pneumonia and patient will be on mild dose of steroid for COPD exacerbation along with MDI Ventolin and Pulmicort. I stopped by and seen patient in the emergency department shortly before her admission after been subtle on oxygen and one dose of diuretic she started to feel slightly but better Review of Systems CONSTITUTIONAL: Morbid obesity, in mild respiratory distress with significant dyspnea and wheezes. EYES: No icterus sclerae, no conjunctivitis. EARS, NOSE, MOUTH, THROAT, and FACE: No sore throat, lymphadenopathy, carotid bruits or deformity. RESPIRATORY: Positive shortness of breath cough wheezes. CARDIOVASCULAR: Positive PND orthopnea palpitations no angina. GASTROINTESTINAL: No Abd pain, Nausea or vomiting, no Diarrhea or constipation, No GI Bleed, no distention or masses. GENITOURINARY: Negative for Hematuria or UTI, no kidney stones. Decrease in urine output. INTEGUMENT/BREAST: Negative for any muscular injury with mild osteoarthritis.. Significant arthralgia and myalgia. Significant edema and anasarca in the lower extremity. HEMATOLOGIC/LYMPHATIC: Negative for bleed or purpura. Mild bruise from coagulopathy. MUSCULOSKELTAL: Negative for Myalgia or arthralgia. NEURLOGICAL: No LOC, Sz or syncope, blurred vision dizziness or abnormality.. BEHAVIORAL/PSYCH: Negative. ENDOCRINE: Negative. 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 History of Any Multi-Drug Resistant Organisms: None Reported Past Surgical History: Breast Surgery, Heart Catheterization, Hysterectomy Additional Past Surgical History / Comment(s): L hip surgery x3, bowel obstruction with laparotomy, hysterecomy/ovaries/tumor removed per pt, bronchoscopies x2, Past Anesthesia/Blood Transfusion Reactions: No Reported Reaction Additional Past Anesthesia/Blood Transfusion Reaction / Comment(s): Pt has r eceived blood without reaction. Past Psychological History: No Psychological Hx Reported Smoking Status: Never smoker Past Alcohol Use History: None Reported Past Drug Use History: Marijuana Additional Drug Use History / Comment(s): Pt takes CBD pills for her cancer. - Past Family History Mother Family Medical History: Cancer Additional Family Medical History / Comment(s): Mother at the age of 75yrs from metastatic cancer. Father Family Medical History: Myocardial Infarction (UT) Additional Family Medical History / Comment(s): Father of a UT at the age of 54yrs. Medications and Allergies Home Medications Medication Instructions Recorded Confirmed Type Apixaban [Eliquis] 5 mg PO BID 04/22/18 11/03/19 History Multivitamins, Thera [Multivitamin 1 tab PO DAILY 07/27/18 11/03/19 History (formulary)] Albuterol Nebulized [Ventolin 2.5 mg INHALATION Q4H PRN 11/03/19 11/03/19 History Nebulized] Aspirin EC [Ecotrin Low Dose] 81 mg PO DAILY 11/03/19 11/03/19 History Budesonide [Pulmicort] 0.5 mg INHALATION RT-BID 11/03/19 11/03/19 History Furosemide [Lasix] 40 mg PO DAILY 11/03/19 11/03/19 History L.acidoph,Paracasei, B.lactis 1 cap PO DAILY 11/03/19 11/03/19 History [Probiotic] Lactulose 10 gm PO HS 11/03/19 11/03/19 History Metoprolol Succinate (ER) [Toprol 25 mg PO BID 11/03/19 11/03/19 History Xl] [place]-3 Fatty Acids/Fish Oil [Fish 1 cap PO DAILY 11/03/19 11/03/19 History Oil 1,000 mg Softgel] Potassium Chloride [Klor-Con 20] 20 meq PO DAILY 11/03/19 11/03/19 History Sennosides [Senna] 17.2 mg PO BID PRN 11/03/19 11/03/19 History Allergies Allergy/AdvReac Type Severity Reaction Status Date / Time ibuprofen [From Motrin] Allergy Dyspnea Verified 11/03/19 19:11 levofloxacin [From Levaquin] Allergy Unknown Verified 11/03/19 19:11 acetaminophen [From Tylenol] AdvReac Increased Verified 11/03/19 19:11 Liver Enzymes Physical Exam Vitals: Vital Signs Temp Pulse Resp BP Pulse Ox 11/03/19 20:45 118 H 11/03/19 20:37 115 H 11/03/19 19:30 98.8 F 11/03/19 19:14 70 20 126/78 95 11/03/19 18:50 70 20 126/78 95 11/03/19 16:51 110 H 11/03/19 16:50 72 20 136/97 94 L 11/03/19 16:36 116 H 11/03/19 15:50 20 11/03/19 15:44 98.4 F 116 H 24 104/67 91 L Intake and Output 11/03/19 11/03/19 11/03/19 06:59 14:59 22:59 Other: Weight 110.223 kg General Appearance: Alert, cooperative, morbidly obese and mild respiratory distress. Neck HEENT: Supple, no lymphadenopathy, no thyroid enlargement, no carotid bruits. Lungs: Decreased expansion bilaterally with fine rhonchi positive mild inspiratory express wheezes with crackles mostly in the right base and slight in the left base as well. Chest Wall: Decrease expansion with deep inspiration no tenderness and no deformity was found on exam, no costochondral pain or discomfort. Heart: Irregular rate and rhythm, S1, S2 positive is 3 positive JVD with systolic murmur. Back: Symmetric, no curvature, ROM normal, no CVA tenderness. Abdomen: Soft, non-tender, bowel sounds active all four quadrants, no masses, no organomegaly. Extremities: Significant anasarca and 2+ edema from the thigh all the way to the toes significant swelling in the foot area with slight band between the leg and the foot. Pulses: 2+ and symmetric. Skin: Skin color, texture, tugor normal, no rashes or lesions. Neurologic: Alert oriented x3 cranial nerves II through XII intact, no motor deficit, no abnormal balance or gait. Results CBC & Chem 7: 11/03/19 17:05 11/03/19 17:05 Labs: Abnormal Lab Results - Last 24 Hours (Table) 11/03/19 11/03/19 11/03/19 Range/Units 17:05 17:05 17:05 MCV 103.4 H (80.0-100.0) fL Eosinophils # 1.2 H (0-0.7) k/uL APTT 21.2 L (22.0-30.0) sec Carbon Dioxide 31 H (22-30) mmol/L POC Glucose (mg/dL) (75-99) mg/dL 11/03/19 Range/Units 20:50 MCV (80.0-100.0) fL Eosinophils # (0-0.7) k/uL APTT (22.0-30.0) sec Carbon Dioxide (22-30) mmol/L POC Glucose (mg/dL) 100 H (75-99) mg/dL Thrombosis Risk Factor Assmnt - DVT/VTE Prophylaxis DVT/VTE Prophylaxis: Pharmacologic Prophylaxis ordered, Mechanical Prophylaxis ordered - Choose All That Apply Any of the Below Risk Factors Present?: No Each Factor Represents 1 point: Abnormal pulmonary function (COPD) Other Risk Factors: Yes Each Risk Factor Represents 2 Points: Age 61-74 years, Malignancy Other congenital or acquired thrombophilia - If yes, enter type in comment: No Thrombosis Risk Factor Assessment Total Risk Factor Score: 5 Thrombosis Risk Factor Assessment Level: High Risk Assessment and Plan Assessment: 1 severe dyspnea and shortness of breath: Combination of COPD exacerbation and diastolic congestive heart failure mostly subacute with acute component. 2 COPD excessive patient: Patient will be started on Solu-Medrol 60 mg IV every 8 along with Ventolin MDI we'll consult pulmonary and watch symptoms closely. 3 excessive patient of congestive heart failure mostly diastolic subacute with acute component this point with significant fluid retention and continue IV diuretics watch for any fluid retention watch urine output daily weight. 4 gram-negative pneumonitis, Covid 19 was ruled out. Continue patient on Rocephin and azithromycin. 5 A. fib with RVR: Patient remain on Eliquis continue metoprolol 25 g twice a day and titrate to a higher dose if needed to keep pulse below 90 bpm. 6 anasarca and severe edema: Patient will be on furosemide 40 mg IV twice a day. 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 8 hypertension: Remain on metoprolol 50 mg daily. 9 severe GERD: Patient remain on pantoprazole 40 mg twice a day. 10 history of DVT and is thrombosis: Patient remain on anticoagulation. 11 history of left-sided breast cancer post mastectomy has been in remission. 12 DVT prophylaxis: Remain on anticoagulation. 13 GI prophylaxis: Patient will be on pantoprazole. CODE STATUS: Full code. Admit patient to inpatient status for more than 2 nights.
[2019-11-03] MEDS: APIXABAN 5 MG TAB PO SCH (22:41)
[2019-11-03] MEDS: AZITHROMYCIN 500 MG in SODIUM CHLORIDE 0.9% 250 ML IVPB SCH (22:59)
[2019-11-04] MEDS: ALBUTEROL NEBULIZED 2.5 MG/3 ML INHALATION PRN ×6 (00:09→19:08)
[2019-11-04] MEDS: methylPREDNISolone SOD SUCCI 125 MG/2 ML VIAL IV SCH ×4 (00:28→17:49)
[2019-11-04 07:20] LABS: Glucose,Whole Blood 145 mg/dL (75-99)
[2019-11-04] MEDS: TIOTROPIUM 18 MCG/PUFF INHALER INHALATION SCH (08:06)
[2019-11-04] MEDS: BUDESONIDE 0.5 MG/2 ML NEBU INHALATION SCH ×2 (08:06→19:08)
[2019-11-04] MEDS: METOPROLOL SUCCINATE (ER) 25 MG TAB.ER.24H PO SCH ×2 (08:07→21:27)
[2019-11-04] MEDS: ASPIRIN 81 MG PO SCH (08:07)
[2019-11-04] MEDS: PANTOPRAZOLE 40 MG TABLET PO SCH (08:07)
[2019-11-04] MEDS: POTASSIUM CHLORIDE ER 20 MEQ TAB.ER PO SCH (08:07)
[2019-11-04] MEDS: MULTIVITAMINS, THERA 1 EACH TAB PO SCH (08:07)
[2019-11-04] MEDS: LACTOBACILLUS ACIDOPH & BULGAR 1 EACH PACKET PO SCH (08:08)
[2019-11-04] MEDS: APIXABAN 5 MG TAB PO SCH ×2 (08:08→21:26)
[2019-11-04 08:21] LABS: Basophils % (A) 0 %; Eosinophils % (A) 0 %; HCT 43.3 % (34.0-46.0); HGB 13.7 gm/dL (11.4-16.0); Lymphocytes # (A) 0.9 k/uL (1.0-4.8); Lymphocytes % (A) 13 %; MCH 33.7 pg (25.0-35.0); MCHC 31.6 g/dL (31.0-37.0); MCV 106.6 fL (80.0-100.0); Macrocytosis Moderate; Mean Platelet Volume 7.7; Monocytes # (A) 0.1 k/uL (0-1.0); Monocytes % (A) 2 %; Neutrophils # (A) 5.5 k/uL (1.3-7.7); Neutrophils % (A) 84 %; Platelet Count 224 k/uL (150-450); RBC 4.06 m/uL (3.80-5.40); RDW 12.9 % (11.5-15.5); WBC 6.5 k/uL (3.8-10.6)
[2019-11-04 08:32] LABS: ALT 13 U/L (4-34); AST 24 U/L (14-36); African American GFR (CKD) >90 (>60 ml/min/1.73 sqM); Albumin 3.6 g/dL (3.5-5.0); Alkaline Phosphatase 96 U/L (38-126); Anion Gap 7 mmol/L; Blood Urea Nitrogen 21 mg/dL (7-17); Carbon Dioxide 30 mmol/L (22-30); Chloride 103 mmol/L (98-107); Glucose 144 mg/dL (74-99); Non-African American GFR(CKD) >90 (>60 ml/min/1.73 sqM); Potassium 4.5 mmol/L (3.5-5.1); Sodium 140 mmol/L (137-145); Total Bilirubin 0.6 mg/dL (0.2-1.3); Total Protein 6.4 g/dL (6.3-8.2)
[2019-11-04] MEDS ORDERED: NON FORMULARY DRUG (Omega-3 Fatty Acids/Fish Oil [Fish Oil 1,000 Mg Softgel] 1 CAP) PO SCH (09:00)
[2019-11-04] MEDS: FUROSEMIDE 10 MG/ML 4 ML VIAL IV SCH ×2 (10:07→21:26)
[2019-11-04] MEDS: ASCORBIC ACID 500 MG TAB PO SCH (10:08)
--- NOTE | 2019-11-04 10:42 | CT ---
EXAMINATION TYPE: CT chest wo con DATE OF EXAM: 11/04/2019 COMPARISON: Previous study dated 08/03/2018. HISTORY: SOB, ILD CT DLP: 72 mGycm. Automated Exposure Control for Dose Reduction was Utilized. TECHNIQUE: CT scan of the thorax is performed without IV contrast. FINDINGS: There is breathing motion artifact throughout the study limiting the quality of the study. There is some coarse scarring in the left lingula and left lower lobe. There is no interlobular septa l thickening or centrilobular thickening. No focal mass lesion is seen. There is no significant axillary, internal mammary, mediastinal or hilar adenopathy. There are some s hotty subcarinal lymph nodes. There is no pleural or pericardial fluid. Heart size upper limits of normal. There is been a previous left mastectomy. There is hypertrophic spondylosis within the spine. IMPRESSION: MARKEDLY SUBOPTIMAL EXAMINATION DUE TO BREATHING ARTIFACT DEMONSTRATING SOME COARSE SCARRING BUT NO D EFINITE INTERSTITIAL LUNG DISEASE.
[2019-11-04 11:25] LABS: Glucose,Whole Blood 132 mg/dL (75-99)
--- NOTE | 2019-11-04 12:15 | P.PN ---
Subjective Progress Note Date: 11/04/19 64-year-old female one of my office patient with multiple medical problem known to have history of anasarca, COPD, CHF, A. fib with RVR, with recurrent history of edema who has not felt good for the last few weeks with worsening dyspnea and shortness of breath with worsening fluid retention she has gain over 15 pounds of water retention in the lower extremity in the last few weeks. Was seen in the office today with above complaint was very dyspneic was marginal hypoxic running in the mid 80. Patient was having significant tachycardia with pulse rate running over 120 bpm and tachypnea with respiratory rate running over 30 time per minutes patient has not been feeling well had quite bit of congestion over both lung cohen with significant wheezes on her exam. [facility] was seen and evaluated initially found to have pulse ox in the high 80 with 3 L of O2 corrected to the mid 90 pulse rate remain quite bit elevated the chest x- ray showed mild COPD with slight consultation and mild symptom of congestive heart failure and fluid overload. Patient was started on IV diuretics Covid 19 was negative patient will be admitted to the hospital will be seen cardiology and pulmonary was started on antibiotics for gram-negative pneumonia and patient will be on mild dose of steroid for COPD exacerbation along with MDI Ventolin and Pulmicort. I stopped by and seen patient in the emergency department shortly before her admission after been subtle on oxygen and one dose of diuretic she started to feel slightly but better 5/2: Patient continues to have cough with yellow-green sputum production, hoarse voice and wheezing. Sputum culture ordered. She states she has decreased edema from yesterday. She continues to have dyspnea with minimal exertion. Cardiology appointment medicine on her case. She is requesting vitamin C be resumed which she was on at home. CAT scan of the chest high resolution, immune deficiency panel ordered. Patient has been afebrile, heart rate 100, blood pressure 131/85, pulse ox 91% on 40 of liters nasal cannula. Repeat CBC is unremarkable. BUN 21, creatinine 0.64. Blood sugars are elevated secondary to steroids and NovoLog scale added. CT of the chest markedly suboptimal demonstrating some coarse scarring but no definite interstitial lung disease. Objective - Vital Signs Vital signs: Vital Signs Temp 97.6 F 11/04/19 05:35 Pulse 100 11/04/19 08:22 Resp 16 11/04/19 05:35 BP 131/85 11/04/19 05:35 Pulse Ox 91 L 11/04/19 05:35 Intake & Output 11/03/19 11/04/19 11/04/19 18:59 06:59 18:59 Intake Total 300 Balance 300 Weight 110.223 kg 110.223 kg Intake: Intake, IV Titration 300 Amount Azithromycin 500 mg In 250 Sodium Chloride 0.9% 250 ml @ 250 mls/hr IVPB Q24H [facility] Rx#:[id number] cefTRIAXone 1 gm In 50 Sodium Chloride 0.9% 50 ml @ 100 mls/hr IVPB Q24H [facility] Rx#:[id number] Other: Voiding Method Bedside Commode # Voids 1 - Exam Review of Systems CONSTITUTIONAL: Morbid obesity, in no respiratory distress with wheezes and coughing. EYES: No icterus sclerae, no conjunctivitis. EARS, NOSE, MOUTH, THROAT, and FACE: No sore throat, lymphadenopathy, carotid bruits or deformity. RESPIRATORY: Positive shortness of breath cough wheezes. CARDIOVASCULAR: Positive PND orthopnea palpitations no angina. GASTROINTESTINAL: No Abd pain, Nausea or vomiting, no Diarrhea or constipation, No GI Bleed, no distention or masses. GENITOURINARY: Negative for Hematuria or UTI, no kidney stones. Decrease in urine output. INTEGUMENT/BREAST: Negative for any muscular injury with mild osteoarthritis.. Significant arthralgia and myalgia. Significant edema and anasarca in the lower extremity. HEMATOLOGIC/LYMPHATIC: Negative for bleed or purpura. Mild bruise from coagulopathy. MUSCULOSKELTAL: Negative for Myalgia or arthralgia. NEURLOGICAL: No LOC, Sz or syncope, blurred vision dizziness or abnormality.. BEHAVIORAL/PSYCH: Negative. ENDOCRINE: Negative. Physical examination General Appearance: Alert, cooperative, morbidly obese and no respiratory distress. Neck HEENT: Supple, no lymphadenopathy, no thyroid enlargement, no carotid bruits. Lungs: Decreased expansion bilaterally with fine rhonchi positive mild inspiratory express wheezes with crackles mostly in the right base and slight in the left base as well. Chest Wall: Decrease expansion with deep inspiration no tenderness and no deformity was found on exam, no costochondral pain or discomfort. Heart: Irregular rate and rhythm, S1, S2 positive is 3 positive JVD with systolic murmur. Back: Symmetric, no curvature, ROM normal, no CVA tenderness. Abdomen: Soft, non-tender, bowel sounds active all four quadrants, no masses, no organomegaly. Extremities: Significant anasarca and 1+ edema from the thigh all the way to the toes significant swelling in the foot area with slight band between the leg and the foot. Pulses: 2+ and symmetric. Skin: Skin color, texture, tugor normal, no rashes or lesions. Neurologic: Alert oriented x3 cranial nerves II through XII intact, no motor deficit, no abnormal balance or gait. - Labs CBC & Chem 7: 11/04/19 07:25 11/04/19 07:25 Labs: Abnormal Lab Results - Last 24 Hours (Table) 11/03/19 11/03/19 11/03/19 Range/Units 17:05 17:05 17:05 MCV 103.4 H (80.0-100.0) fL Lymphocytes # (1.0-4.8) k/uL Eosinophils # 1.2 H (0-0.7) k/uL APTT 21.2 L (22.0-30.0) sec Carbon Dioxide 31 H (22-30) mmol/L BUN (7-17) mg/dL Glucose (74-99) mg/dL POC Glucose (mg/dL) (75-99) mg/dL 11/03/19 11/04/19 11/04/19 Range/Units 20:50 07:19 07:25 MCV 106.6 H (80.0-100.0) fL Lymphocytes # 0.9 L (1.0-4.8) k/uL Eosinophils # (0-0.7) k/uL APTT (22.0-30.0) sec Carbon Dioxide (22-30) mmol/L BUN (7-17) mg/dL Glucose (74-99) mg/dL POC Glucose (mg/dL) 100 H 145 H (75-99) mg/dL 11/04/19 Range/Units 07:25 MCV (80.0-100.0) fL Lymphocytes # (1.0-4.8) k/uL Eosinophils # (0-0.7) k/uL APTT (22.0-30.0) sec Carbon Dioxide (22-30) mmol/L BUN 21 H (7-17) mg/dL Glucose 144 H (74-99) mg/dL POC Glucose (mg/dL) (75-99) mg/dL Assessment and Plan Plan: 1. Acute on chronic hypoxic respiratory failure secondary to combination of COPD exacerbation and acute on chronic diastolic heart failure. Consult with cardiology and pulmonary medicine. Continue albuterol nebulizer and inhaler, Pulmicort twice daily, ceftriaxone and azithromycin, Solu-Medrol 60 mg IV every 6 hours. 2. COPD exacerbation. Continue Solu-Medrol 60 mg IV every 8 along with Ventolin MDI, Pulmicort twice daily. 3. Acute on chronic diastolic heart failure. Consult with cardiology. Continue Lasix 40 mg IV every 12 hours, Toprol-XL 25 mg twice daily, echocardiogram. Monitor I&O and daily weights, electrolytes and renal function. 4. Possible gram-negative pneumonitis, Covid 19 was ruled out. Continue patient on Rocephin and azithromycin. 5. Hyperglycemia secondary to steroids. NovoLog scale. Check hemoglobin A1c. 6. Anasarca and severe edema: Patient will be on furosemide 40 mg IV twice a day. 7. 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 8. Hypertension: Remain on metoprolol 50 mg daily. 9. GERD: Patient remain on pantoprazole 40 mg twice a day. 10. history of DVT. Continue eliquis. 11. History of left-sided breast cancer post mastectomy has been in remission. 12. Chronic hypoxic respiratory failure on home O2. 13. DVT prophylaxis. Eliquis. 14. GI prophylaxis: Patient will be on pantoprazole. 15. COVID-19 infection not present. CODE STATUS: Full code. Discharge plan: home Impression and plan of care have been directed as dictated by the signing physician. Mindi James nurse practitioner acting as scribe for signing physician.
[2019-11-04] MEDS: INSULIN ASPART (NovoLOG) 100 UNIT/ML VIAL SQ SCH ×3 (12:33→21:26)
[2019-11-04] MEDS: KETOROLAC 30 MG/ML 1 ML VIAL IVP PRN (12:45)
--- NOTE | 2019-11-04 13:03 | P.CRDCN ---
History of Present Illness Consult date: 11/04/19 History of present illness: This is a 61-year-old female with history of lymphedema, COPD, CSF from the atrial fibrillation with RVR who was admitted to the hospital with increasing her swelling of the feet and shortness of breath. Patient apparently gained several pounds over the last several days. Denied any chest pain. No palpitation, dizziness or syncope. Patient is also complaining of cough and some yellow sputum production. Her chest x-ray did not reveal any evidence of CHF. Her proBNP is within normal limits. It appears that her symptoms are mostly related to her COPD. Patient has significant expiratory wheezes. Edema could be related to cor pulmonale. We'll continue to diuretic therapy. Pulmonary consultation will be requested Review of Systems As per the chart Past Medical History Past Medical History: Atrial Fibrillation, Cancer, Deep Vein Thrombosis (DVT), Eye Disorder, Liver Disease, Vascular Disorder Additional Past Medical History / Comment(s): Recent L knee fracture- bilateral lymphedema, hepatitis A and C but later told hepatitis C was gone, L breast cancer with surgery, uterine cancer with surgery-pt states cancer had spread outside uterus and has had 3 different abdominal surgeries for this, 6 months ago-bowel obstruction/"twist" with surgery, DVTs L leg, tracheobronchitis, past respiratory failure, 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 History of Any Multi-Drug Resistant Organisms: None Reported Past Surgical History: Breast Surgery, Heart Catheterization, Hysterectomy Additional Past Surgical History / Comment(s): L hip surgery x3, bowel obstruct ion with laparotomy, hysterecomy/ovaries/tumor removed per pt, bronchoscopies x2, Past Anesthesia/Blood Transfusion Reactions: No Reported Reaction Additional Past Anesthesia/Blood Transfusion Reaction / Comment(s): Pt has received blood without reaction. Past Psychological History: No Psychological Hx Reported Smoking Status: Never smoker Past Alcohol Use History: None Reported Past Drug Use History: Marijuana Additional Drug Use History / Comment(s): Pt takes CBD pills for her cancer. - Past Family History Mother Family Medical History: Cancer Additional Family Medical History / Comment(s): Mother at the age of 75yrs from metastatic cancer. Father Family Medical History: Myocardial Infarction ([place]) Additional Family Medical History / Comment(s): Father of a [place] at the age of 54yrs. Medications and Allergies Home Medications Medication Instructions Recorded Confirmed Type Apixaban [Eliquis] 5 mg PO BID 04/22/18 11/03/19 History Multivitamins, Thera [Multivitamin 1 tab PO DAILY 07/27/18 11/03/19 History (formulary)] Albuterol Nebulized [Ventolin 2.5 mg INHALATION Q4H PRN 11/03/19 11/03/19 History Nebulized] Aspirin EC [Ecotrin Low Dose] 81 mg PO DAILY 11/03/19 11/03/19 History Budesonide [Pulmicort] 0.5 mg INHALATION RT-BID 11/03/19 11/03/19 History Furosemide [Lasix] 40 mg PO DAILY 11/03/19 11/03/19 History L.acidoph,Paracasei, B.lactis 1 cap PO DAILY 11/03/19 11/03/19 History [Probiotic] Lactulose 10 gm PO HS 11/03/19 11/03/19 History Metoprolol Succinate (ER) [Toprol 25 mg PO BID 11/03/19 11/03/19 History Xl] [place]-3 Fatty Acids/Fish Oil [Fish 1 cap PO DAILY 11/03/19 11/03/19 History Oil 1,000 mg Softgel] Potassium Chloride [Klor-Con 20] 20 meq PO DAILY 11/03/19 11/03/19 History Sennosides [Senna] 17.2 mg PO BID PRN 11/03/19 11/03/19 History Allergies Allergy/AdvReac Type Severity Reaction Status Date / Time ibuprofen [From Motrin] Allergy Dyspnea Verified 11/03/19 19:11 levofloxacin [From Levaquin] Allergy Unknown Verified 11/03/19 19:11 acetaminophen [From Tylenol] AdvReac Increased Verified 11/03/19 19:11 Liver Enzymes Physical Exam Vitals: Vital Signs Temp Pulse Pulse Resp BP BP Pulse Ox 11/04/19 12:02 97.7 F 93 22 142/93 95 11/04/19 11:41 100 11/04/19 08:22 100 11/04/19 08:07 100 11/04/19 05:45 120 H 11/04/19 05:35 97.6 F 94 16 131/85 91 L 11/04/19 05:27 120 H 11/04/19 00:20 120 H 11/04/19 00:11 116 H 11/03/19 23:00 97.5 F L 84 18 143/89 92 L 11/03/19 20:45 118 H 11/03/19 20:37 115 H 11/03/19 19:30 98.8 F 11/03/19 19:14 70 20 126/78 95 11/03/19 18:50 70 20 126/78 95 11/03/19 16:51 110 H 11/03/19 16:50 72 20 136/97 94 L 11/03/19 16:36 116 H 11/03/19 15:50 20 11/03/19 15:44 98.4 F 116 H 24 104/67 91 L Intake and Output 11/03/19 11/04/19 11/04/19 22:59 06:59 14:59 Intake Total 300 Balance 300 Intake: Intake, IV Titration 300 Amount Azithromycin 500 mg In 250 Sodium Chloride 0.9% 250 ml @ 250 mls/hr IVPB Q24H [facility] Rx#:[id number] cefTRIAXone 1 gm In 50 Sodium Chloride 0.9% 50 ml @ 100 mls/hr IVPB Q24H [facility] Rx#:[id number] Other: Voiding Method Bedside Commode Bedside Commode # Voids 2 1 Weight 110.223 kg GENERAL EXAM: Patient is alert and oriented and doesn't appear to be in any acute distress HEENT: Normocephalic. Normal reaction of pupils, equal size, normal range of extraocular motion. No erythema or exudates in the throat. NECK: No masses, no nuchal rigidity. CHEST: No chest wall deformity. LUNGS: Expiratory wheezes and rhonchi HEART: S1 and S2 normal with no audible mumurs or gallops. Regular rhythm, femorals equal on both sides.. ABDOMEN: No hepatosplenomegaly, normal bowel sounds, no guarding or rigidity. SKIN: No rashes CENTRAL NERVOUS SYSTEM: No focal deficits. EXTREMITIES: No cyanosis, clubbing or edema. Results 11/04/19 07:25 11/04/19 07:25 Cardiac Enzymes 11/03/19 11/03/19 11/04/19 Range/Units 17:05 17:05 07:25 AST 24 24 (14-36) U/L Troponin I <0.012 (0.000-0.034) ng/mL Coagulation 11/03/19 Range/Units 17:05 PT 10.9 (9.0-12.0) sec APTT 21.2 L (22.0-30.0) sec CBC 11/03/19 11/04/19 Range/Units 17:05 07:25 WBC 8.9 6.5 (3.8-10.6) k/uL RBC 4.17 4.06 (3.80-5.40) m/uL Hgb 14.3 13.7 (11.4-16.0) gm/dL Hct 43.2 43.3 (34.0-46.0) % Plt Count 235 224 (150-450) k/uL Comprehensive Metabolic Panel 11/03/19 11/04/19 Range/Units 17:05 07:25 Sodium 141 140 (137-145) mmol/L Potassium 3.7 4.5 (3.5-5.1) mmol/L Chloride 103 103 (98-107) mmol/L Carbon Dioxide 31 H 30 (22-30) mmol/L BUN 16 21 H (7-17) mg/dL Creatinine 0.81 0.64 (0.52-1.04) mg/dL Glucose 99 144 H (74-99) mg/dL Calcium 8.9 9.0 (8.4-10.2) mg/dL AST 24 24 (14-36) U/L ALT 12 13 (4-34) U/L Alkaline Phosphatase 87 96 (38-126) U/L Total Protein 6.4 6.4 (6.3-8.2) g/dL Albumin 3.7 3.6 (3.5-5.0) g/dL Current Medications Generic Name Dose Route Start Last Admin Trade Name Freq PRN Reason Stop Dose Admin Albuterol Sulfate 2 puff 11/03/19 19:39 Ventolin Hfa Inhaler INHALATION RT-Q4H PRN Shortness Of Breath Or Wheezing Albuterol Sulfate 2.5 mg 11/03/19 21:15 11/04/19 11:41 Ventolin Nebulized INHALATION 2.5 mg Q4H PRN Administration Shortness Of Breath Apixaban 5 mg 05/01/20 21:15 11/04/19 08:08 Eliquis PO 5 mg BID [facility] Administration Ascorbic Acid 1,500 mg 11/04/19 09:15 11/04/19 10:08 Vitamin C PO 1,500 mg DAILY [facility] Administration Aspirin 81 mg 11/04/19 09:00 11/04/19 08:07 Aspirin PO 81 mg DAILY [facility] Administration Budesonide 0.5 mg 11/04/19 08:00 11/04/19 08:06 Pulmicort INHALATION 0.5 mg RT-BID [facility] Administration Furosemide 40 mg 11/04/19 09:00 11/04/19 10:07 Lasix IV 40 mg Q12HR [facility] Administration Ceftriaxone Sodium 1 gm/ 50 mls @ 100 mls/hr 11/03/19 21:30 11/03/19 22:42 Sodium Chloride IVPB 100 mls/hr Q24H [facility] Administration Azithromycin 500 mg/ Sodium 250 mls @ 250 mls/hr 11/03/19 22:30 11/03/19 22:59 Chloride IVPB 250 mls/hr Q24H [facility] Administration Insulin Aspart 0 unit 11/04/19 12:30 11/04/19 12:33 Novolog SQ Not Given ACHS [facility] Protocol Ketorolac Tromethamine 15 mg 11/04/19 09:09 11/04/19 12:45 Toradol IVP 11/08/19 09:10 15 mg Q6HR PRN Administration Headache Lactobacillus Acidoph/[place] 1 each 11/04/19 09:00 11/04/19 08:08 Lactinex PO 1 each DAILY [facility] Administration Lactulose 10 gm 11/04/19 21:00 Cephulac PO HS [facility] Methylprednisolone Sodium Succinate 60 mg 11/04/19 00:00 11/04/19 12:38 Solu-Medrol IV 60 mg Q6HR [facility] Administration Metoprolol Succinate 25 mg 11/04/19 09:00 11/04/19 08:07 Toprol Xl PO 25 mg BID [facility] Administration Multivitamins 1 each 11/04/19 09:00 11/04/19 08:07 Theragran PO 1 each DAILY [facility] Administration Pantoprazole Sodium 40 mg 11/04/19 07:30 11/04/19 08:07 Protonix PO 40 mg AC-BRKFST [facility] Administration Potassium Chloride 20 meq 11/04/19 09:00 11/04/19 08:07 K-Dur 20 PO 20 meq DAILY [facility] Administration Tiotropium [place] 1 puff 11/03/19 20:00 11/04/19 08:06 Spiriva INHALATION Not Given RT-DAILY [facility] Intake and Output 11/03/19 11/04/19 11/04/19 22:59 06:59 14:59 Intake Total 300 Balance 300 Intake: Intake, IV Titration 300 Amount Azithromycin 500 mg In 250 Sodium Chloride 0.9% 250 ml @ 250 mls/hr IVPB Q24H [facility] Rx#:[id number] cefTRIAXone 1 gm In 50 Sodium Chloride 0.9% 50 ml @ 100 mls/hr IVPB Q24H [facility] Rx#:[id number] Other: Voiding Method Bedside Commode Bedside Commode # Voids 2 1 Weight 110.223 kg 11/04/19 07:25 11/04/19 07:25 EKG Interpretations (text) Sinus rhythm Assessment and Plan (1) Cor pulmonale Current Visit: Yes Status: Acute Code(s): I27.81 - COR PULMONALE (CHRONIC) SNOMED Code(s): 21839889 (2) Acute exacerbation of chronic obstructive pulmonary disease Current Visit: Yes Status: Acute Code(s): J44.1 - CHRONIC OBSTRUCTIVE PULMONARY DISEASE W (ACUTE) EXACERBATION SNOMED Code(s): 518619153 (3) Tracheobronchitis Current Visit: No Status: Acute Code(s): J40 - BRONCHITIS, NOT SPECIFIED ACUTE OR CHRONIC SNOMED Code(s): 20511375 Plan: I'll continue current medical therapy. I will add Aldactone to the current regimen.
--- NOTE | 2019-11-04 14:19 | P.CNPUL ---
History of Present Illness Consult date: 11/04/19 Reason for consult: dyspnea, cough, COPD, hypoxemia Chief complaint: Shortness of breath and cough progressive History of present illness: Patient is a 64-year-old female who came into the hospital with progressive increased shortness of breath which in fact has been going on for a long period time started and got worse about 2 months ago, she is a nonsmoker has history of asthma as well which is considered to be persistent and severe, patient is on nocturnal home oxygen as well as nebulizer treatment, she has active medical problems associated with anasarca and congestive heart failure chronic atrial fibrillation and recurrent history of edema she has gained over 15 pounds in the last few weeks, was seen in the office of primary care due to hypoxia sats were in mid 80s, patient has not been feeling well had quite bit of congestion over both lung cohen with significant wheezes on her exam. chest x-ray showed mild COPD with slight consultation and mild symptom of congestive heart failure and fluid overload. Patient was started on IV diuretics Covid 19 was negative patient is seen by cardiovascular services Fa[facility]o patient is on supplemental oxygen, has been placed on IV steroids breathing treatment and broad-spectrum antibiotics Review of Systems All systems: negative Past Medical History Past Medical History: Atrial Fibrillation, Cancer, Deep Vein Thrombosis (DVT), Eye Disorder, Liver Disease, Vascular Disorder Additional Past Medical History / Comment(s): Recent L knee fracture- bilateral lymphedema, hepatitis A and C but later told hepatitis C was gone, L breast cancer with surgery, uterine cancer with surgery-pt states cancer had spread outside uterus and has had 3 different abdominal surgeries for this, 6 months ago-bowel obstruction/"twist" with surgery, DVTs L leg, tracheobronchitis, past respiratory failure, 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 History of Any Multi-Drug Resistant Organisms: None Reported Past Surgical History: Breast Surgery, Heart Catheterization, Hysterectomy Additional Past Surgical History / Comment(s): L hip surgery x3, bowel obstruction with laparotomy, hysterecomy/ovaries/tumor removed per pt, bronchoscopies x2, Past Anesthesia/Blood Transfusion Reactions: No Reported Reaction Additional Past Anesthesia/Blood Transfusion Reaction / Comment(s): Pt has received blood without reaction. Past Psychological History: No Psychological Hx Reported Smoking Status: Never smoker Past Alcohol Use History: None Reported Past Drug Use History: Marijuana Additional Drug Use History / Comment(s): Pt takes CBD pills for her cancer. - Past Family History Mother Family Medical History: Cancer Additional Family Medical History / Comment(s): Mother at the age of 75yrs from metastatic cancer. Father Family Medical History: Myocardial Infarction ([place]) Additional Family Medical History / Comment(s): Father of a [place] at the age of 54yrs. Medications and Allergies Home Medications Medication Instructions Recorded Confirmed Type Apixaban [Eliquis] 5 mg PO BID 04/22/18 11/03/19 History Multivitamins, Thera [Multivitamin 1 tab PO DAILY 07/27/18 11/03/19 History (formulary)] Albuterol Nebulized [Ventolin 2.5 mg INHALATION Q4H PRN 11/03/19 11/03/19 History Nebulized] Aspirin EC [Ecotrin Low Dose] 81 mg PO DAILY 11/03/19 11/03/19 History Budesonide [Pulmicort] 0.5 mg INHALATION RT-BID 11/03/19 11/03/19 History Furosemide [Lasix] 40 mg PO DAILY 11/03/19 11/03/19 History L.acidoph,Paracasei, B.lactis 1 cap PO DAILY 11/03/19 11/03/19 History [Probiotic] Lactulose 10 gm PO HS 11/03/19 11/03/19 History Metoprolol Succinate (ER) [Toprol 25 mg PO BID 11/03/19 11/03/19 History Xl] [place]-3 Fatty Acids/Fish Oil [Fish 1 cap PO DAILY 11/03/19 11/03/19 History Oil 1,000 mg Softgel] Potassium Chloride [Klor-Con 20] 20 meq PO DAILY 11/03/19 11/03/19 History Sennosides [Senna] 17.2 mg PO BID PRN 11/03/19 11/03/19 History Allergies Allergy/AdvReac Type Severity Reaction Status Date / Time ibuprofen [From Motrin] Allergy Dyspnea Verified 11/03/19 19:11 levofloxacin [From Levaquin] Allergy Unknown Verified 11/03/19 19:11 acetaminophen [From Tylenol] AdvReac Increased Verified 11/03/19 19:11 Liver Enzymes Physical Exam Vitals: Vital Signs Temp Pulse Pulse Resp BP BP Pulse Ox 11/04/19 12:02 97.7 F 93 22 142/93 95 11/04/19 11:41 100 11/04/19 08:22 100 11/04/19 08:07 100 11/04/19 05:45 120 H 11/04/19 05:35 97.6 F 94 16 131/85 91 L 11/04/19 05:27 120 H 11/04/19 00:20 120 H 11/04/19 00:11 116 H 11/03/19 23:00 97.5 F L 84 18 143/89 92 L 11/03/19 20:45 118 H 11/03/19 20:37 115 H 11/03/19 19:30 98.8 F 11/03/19 19:14 70 20 126/78 95 11/03/19 18:50 70 20 126/78 95 11/03/19 16:51 110 H 11/03/19 16:50 72 20 136/97 94 L 11/03/19 16:36 116 H 11/03/19 15:50 20 11/03/19 15:44 98.4 F 116 H 24 104/67 91 L Intake and Output 11/03/19 11/04/19 11/04/19 22:59 06:59 14:59 Intake Total 300 1180 Balance 300 1180 Intake: Intake, IV Titration 300 Amount Azithromycin 500 mg In 250 Sodium Chloride 0.9% 250 ml @ 250 mls/hr IVPB Q24H [facility] Rx#:[id number] cefTRIAXone 1 gm In 50 Sodium Chloride 0.9% 50 ml @ 100 mls/hr IVPB Q24H [facility] Rx#:[id number] Oral 1180 Other: Voiding Method Bedside Commode Bedside Commode # Voids 2 1 4 Weight 110.223 kg - Constitutional General appearance: average body habitus, cooperative, disheveled - EENT Eyes: PERRLA Ears: bilateral: normal - Neck Neck: normal ROM Carotids: bilateral: upstroke normal - Respiratory Respiratory: bilateral: diminished, wheezing - Cardiovascular Rhythm: regular Heart sounds: normal: S1, S2 - Gastrointestinal General gastrointestinal: decreased bowel sounds, soft - Neurologic Neurologic: CNII-XII intact - Musculoskeletal Musculoskeletal: gait normal, generalized weakness, strength equal bilaterally - Psychiatric Psychiatric: A&O x's 3, appropriate affect, intact judgment & insight Results - Laboratory Findings CBC and BMP: 11/04/19 07:25 11/04/19 07:25 PT/INR, D-dimer PT 10.9 sec (9.0-12.0) 11/03/19 17:05 INR 1.1 (<1.2) 11/03/19 17:05 Abnormal lab findings: Abnormal Labs 11/03/19 11/03/19 11/03/19 17:05 17:05 17:05 MCV 103.4 H Lymphocytes # Eosinophils # 1.2 H APTT 21.2 L Carbon Dioxide 31 H BUN Glucose POC Glucose (mg/dL) 11/03/19 11/04/19 11/04/19 20:50 07:19 07:25 MCV 106.6 H Lymphocytes # 0.9 L Eosinophils # APTT Carbon Dioxide BUN Glucose POC Glucose (mg/dL) 100 H 145 H 11/04/19 11/04/19 07:25 11:24 MCV Lymphocytes # Eosinophils # APTT Carbon Dioxide BUN 21 H Glucose 144 H POC Glucose (mg/dL) 132 H - Diagnostic Findings Chest x-ray: report reviewed, image reviewed (Finding as noted above) CT scan - chest: report reviewed, image reviewed (Computed tomography scan of th e chest noted to have some scarring in the left lower lobe and lingular lobe area otherwise no acute infiltrate abnormality identified) Assessment and Plan Assessment: Acute COPD exacerbation Purulent tracheobronchitis Developing left lower lobe pneumonia History of chronic persistent severe asthma with acute exacerbation Morbid obesity and likely obstructive sleep apnea Plan: Agree with broad-spectrum antibiotics breathing treatment and steroids, optimize therapy for heart failure as well as A. fib, patient will likely need a sleep study on outpatient basis Time with Patient: Greater than 30
[2019-11-04] MEDS: SPIRONOLACTONE 25 MG TAB PO SCH (14:27)
[2019-11-04] MEDS ORDERED: ARTIFICIAL TEARS-HYPROMELLOSE DROPS 15 ML BTL BOTH EYES PRN (16:46)
[2019-11-04 16:57] LABS: Glucose,Whole Blood 143 mg/dL (75-99)
[2019-11-04 20:01] LABS: Glucose,Whole Blood 166 mg/dL (75-99)
[2019-11-04] MEDS: LACTULOSE 20 GM/30 ML CUP PO SCH (21:26)
[2019-11-04] MEDS: AZITHROMYCIN 500 MG in SODIUM CHLORIDE 0.9% 250 ML IVPB SCH (22:22)
[2019-11-05] MEDS: methylPREDNISolone SOD SUCCI 125 MG/2 ML VIAL IV SCH ×4 (00:05→17:41)
[2019-11-05] MEDS: ALBUTEROL NEBULIZED 2.5 MG/3 ML INHALATION PRN ×7 (00:16→23:49)
[2019-11-05] MEDS: TIOTROPIUM 18 MCG/PUFF INHALER INHALATION SCH (07:09)
[2019-11-05] MEDS: BUDESONIDE 0.5 MG/2 ML NEBU INHALATION SCH ×2 (07:09→19:44)
[2019-11-05 07:11] LABS: Glucose,Whole Blood 141 mg/dL (75-99)
[2019-11-05] MEDS: POTASSIUM CHLORIDE ER 20 MEQ TAB.ER PO SCH (07:56)
[2019-11-05] MEDS: APIXABAN 5 MG TAB PO SCH ×2 (07:56→21:17)
[2019-11-05] MEDS: LACTOBACILLUS ACIDOPH & BULGAR 1 EACH PACKET PO SCH (07:56)
[2019-11-05] MEDS: PANTOPRAZOLE 40 MG TABLET PO SCH (07:57)
[2019-11-05] MEDS: ASCORBIC ACID 500 MG TAB PO SCH (07:57)
[2019-11-05] MEDS: FUROSEMIDE 10 MG/ML 4 ML VIAL IV SCH ×2 (07:57→21:17)
[2019-11-05] MEDS: METOPROLOL SUCCINATE (ER) 25 MG TAB.ER.24H PO SCH ×2 (07:57→21:18)
[2019-11-05] MEDS: ASPIRIN 81 MG PO SCH (07:57)
[2019-11-05] MEDS: MULTIVITAMINS, THERA 1 EACH TAB PO SCH (07:57)
[2019-11-05] MEDS: SPIRONOLACTONE 25 MG TAB PO SCH (07:57)
[2019-11-05] MEDS: INSULIN ASPART (NovoLOG) 100 UNIT/ML VIAL SQ SCH ×4 (07:58→21:17)
--- NOTE | 2019-11-05 09:19 | P.PN ---
Subjective Progress Note Date: 11/05/19 64-year-old female one of my office patient with multiple medical problem known to have history of anasarca, COPD, CHF, A. fib with RVR, with recurrent history of edema who has not felt good for the last few weeks with worsening dyspnea and shortness of breath with worsening fluid retention she has gain over 15 pounds of water retention in the lower extremity in the last few weeks. Was seen in the office today with above complaint was very dyspneic was marginal hypoxic running in the mid 80. Patient was having significant tachycardia with pulse rate running over 120 bpm and tachypnea with respiratory rate running over 30 time per minutes patient has not been feeling well had quite bit of congestion over both lung cohen with significant wheezes on her exam. [facility] where was seen and evaluated initially found to have pulse ox in the high 80 with 3 L of O2 corrected to the mid 90 pulse rate remain quite bit elevated the chest x- ray showed mild COPD with slight consultation and mild symptom of congestive heart failure and fluid overload. Patient was started on IV diuretics Covid 19 was negative patient will be admitted to the hospital will be seen cardiology and pulmonary was started on antibiotics for gram-negative pneumonia and patient will be on mild dose of steroid for COPD exacerbation along with MDI Ventolin and Pulmicort. I stopped by and seen patient in the emergency department shortly before her admission after been subtle on oxygen and one dose of diuretic she started to feel slightly but better 5/2: Patient continues to have cough with yellow-green sputum production, hoarse voice and wheezing. Sputum culture ordered. She states she has decreased edema from yesterday. She continues to have dyspnea with minimal exertion. Cardiology appointment medicine on her case. She is requesting vitamin C be resumed which she was on at home. CAT scan of the chest high resolution, immune deficiency panel ordered. Patient has been afebrile, heart rate 100, blood pressure 131/85, pulse ox 91% on 40 of liters nasal cannula. Repeat CBC is unremarkable. BUN 21, creatinine 0.64. Blood sugars are elevated secondary to steroids and NovoLog scale added. CT of the chest markedly suboptimal demonstrating some coarse scarring but no definite interstitial lung disease. 5/2: Patient is afebrile, heart rate 90, blood pressure 118/67, pulse ox 95% on 3 L. Capillary blood glucose running between 140 163. Sputum cultures in progress. Patient has been evaluated by Dr. Chisholm with continuation of same medications and medical conditions for outpatient sleep study. Patient has been seen by Dr. Concepcion and Aldactone has been added. Patient has been continued on IV Lasix 40 mg every 12 hours and Solu-Medrol is currently at 60 mg IV every 6 hours. Patient states that she was able to ambulate to the bathroom 3 times. She does have significant shortness of breath with that activity. She has increased incentive spirometry up to 750 ML's. She also continues to have sputum production. Patient will be started on Singulair and Mucinex. She is complaining of some generalized weakness and may need neurology consult as an outpatient. Vitamin B12 level to be checked. Objective - Vital Signs Vital signs: Vital Signs Temp 97.8 F 11/05/19 04:10 Pulse 92 11/05/19 07:29 Resp 24 11/05/19 04:10 BP 118/67 11/05/19 04:10 Pulse Ox 95 11/05/19 04:10 Intake & Output 11/04/19 11/05/19 11/05/19 18:59 06:59 18:59 Intake Total 1180 Balance 1180 Intake: Oral 1180 Other: Voiding Method Bedside Commode Bedside Commode # Voids 4 2 - Exam Review of Systems CONSTITUTIONAL: Morbid obesity, in no respiratory distress with wheezes and coughing. EYES: No icterus sclerae, no conjunctivitis. EARS, NOSE, MOUTH, THROAT, and FACE: No sore throat, lymphadenopathy, carotid bruits or deformity. RESPIRATORY: Positive shortness of breath cough wheezes. CARDIOVASCULAR: Positive PND orthopnea palpitations no angina. GASTROINTESTINAL: No Abd pain, Nausea or vomiting, no Diarrhea or constipation, No GI Bleed, no distention or masses. GENITOURINARY: Negative for Hematuria or UTI, no kidney stones. Decrease in uri ne output. INTEGUMENT/BREAST: Negative for any muscular injury with mild osteoarthritis.. Significant arthralgia and myalgia. Significant edema and anasarca in the lower extremity. HEMATOLOGIC/LYMPHATIC: Negative for bleed or purpura. Mild bruise from coagulopathy. MUSCULOSKELTAL: Reports general Myalgia or arthralgia. NEURLOGICAL: No LOC, Sz or syncope, blurred vision dizziness or abnormality.. BEHAVIORAL/PSYCH: Negative. ENDOCRINE: Negative. Physical examination General Appearance: Alert, cooperative, morbidly obese and no respiratory distress. Patient is talking in full sentences without dyspnea. Neck HEENT: Supple, no lymphadenopathy, no thyroid enlargement, no carotid bruits. Lungs: Decreased expansion bilaterally with fine rhonchi positive mild inspiratory express wheezes with crackles mostly in the right base and slight in the left base as well. Chest Wall: Decrease expansion with deep inspiration no tenderness and no deformity was found on exam, no costochondral pain or discomfort. Heart: Irregular rate and rhythm, S1, S2 positive is 3 positive JVD with systolic murmur. Back: Symmetric, no curvature, ROM normal, no CVA tenderness. Abdomen: Soft, non-tender, bowel sounds active all four quadrants, no masses, no organomegaly. Extremities: Significant anasarca and 1+ edema from the thigh all the way to the toes significant swelling in the foot area with slight band between the leg and the foot. Pulses: 2+ and symmetric. Skin: Skin color, texture, tugor normal, no rashes or lesions. Neurologic: Alert oriented x3 cranial nerves II through XII intact, no motor deficit, no abnormal balance or gait. - Labs CBC & Chem 7: 11/04/19 07:25 11/04/19 07:25 Labs: Abnormal Lab Results - Last 24 Hours (Table) 11/04/19 11/04/19 11/04/19 Range/Units 07:25 11:24 16:56 BUN 21 H (7-17) mg/dL Glucose 144 H (74-99) mg/dL POC Glucose (mg/dL) 132 H 143 H (75-99) mg/dL 11/04/19 11/05/19 Range/Units 20:00 07:10 BUN (7-17) mg/dL Glucose (74-99) mg/dL POC Glucose (mg/dL) 166 H 141 H (75-99) mg/dL Microbiology - Last 24 Hours (Table) 11/04/19 19:30 Gram Stain - Preliminary Sputum Sputum Culture - Preliminary Assessment and Plan Plan: 1. Acute on chronic hypoxic respiratory failure secondary to combination of COPD exacerbation and acute on chronic diastolic heart failure. Consult with cardiology and pulmonary medicine appreciated. Continue albuterol nebulizer and inhaler, Pulmicort twice daily, ceftriaxone and azithromycin, continue Solu- Medrol 60 mg IV every 6 hours. No change in steroids. Singulair and Mucinex an d it. Await sputum culture report. ALLERGY testing in process. 2. COPD exacerbation. Continue Solu-Medrol 60 mg IV every 8 along with Ventolin MDI, Pulmicort twice daily. 3. Acute on chronic diastolic heart failure. Consult with cardiology appreciated. Continue Lasix 40 mg IV every 12 hours, Toprol-XL 25 mg twice daily, echocardiogram. Monitor I&O and daily weights, electrolytes and renal function. Aldactone 25 mg daily added. 4. Possible gram-negative pneumonitis, Covid 19 was ruled out. Continue patient on Rocephin and azithromycin. 5. Hyperglycemia secondary to steroids. NovoLog scale. Check hemoglobin A1c. 6. Anasarca and severe edema: Patient will be on furosemide 40 mg IV twice a day. 7. 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 8. A. fib with RVRPatient remain on Eliquis continue metoprolol 25 g twice a day and titrate to a higher dose if needed to keep pulse below 90 bpm. 9. Hypertension: Remain on metoprolol 50 mg daily. 10. GERD: Patient remain on pantoprazole 40 mg twice a day. 11. history of DVT. Continue eliquis. 12. History of left-sided breast cancer post mastectomy has been in remission. 13. Chronic hypoxic respiratory failure on home O2. 14. DVT prophylaxis. Eliquis. 15. GI prophylaxis: Patient will be on pantoprazole. 16. COVID-19 infection not present. 17. Possible obstructive sleep apnea. Patient may benefit from outpatient sleep study. 18. Generalized weakness. Vitamin B12 level. Patient may require follow-up with neurology as an outpatient. CODE STATUS: Full code. Discharge plan: home Impression and plan of care have been directed as dictated by the signing physician. Mindi James nurse practitioner acting as scribe for signing physician.
--- NOTE | 2019-11-05 09:45 | P.PN ---
Subjective Progress Note Date: 11/05/19 Principal diagnosis: COPD exacerbation This is a pleasant 64-year-old female patient with a history of lymphedema, COPD, paroxysmal atrial fibrillation with rapid ventricular response. Was admitted hospital with increasing swelling of her feet and shortness of breath. She apparently gained several pounds over the last several days. Denies any chest discomfort. She said no palpitations dizziness or syncope. Complaining of a cough with yellow sputum. Also complaining of worsening shortness of breath. Chest x-ray did not reveal any evidence of CHF and her BNP was normal. Patient was initiated on spironolactone yesterday. Overall patient is feeling quite a bit better today. She is breathing easier. Edema is somewhat improved. Objective - Vital Signs Vital signs: Vital Signs Temp 97.8 F 11/05/19 04:10 Pulse 92 11/05/19 07:29 Resp 24 11/05/19 04:10 BP 118/67 11/05/19 04:10 Pulse Ox 95 11/05/19 04:10 Intake & Output 11/04/19 11/05/19 11/05/19 18:59 06:59 18:59 Intake Total 1180 Balance 1180 Intake: Oral 1180 Other: Voiding Method Bedside Commode Bedside Commode # Voids 4 2 - Exam PHYSICAL EXAMINATION: HEENT: Head is atraumatic, normocephalic. Pupils equal, round. Neck is supple. There is no elevated jugular venous pressure. HEART EXAMINATION: Heart sounds regular, S1 and S2 normal. No murmur or gallop heard. CHEST EXAMINATION: Lungs continue to reveal significant wheezing throughout but improved air exchange overall. No chest wall tenderness is noted on palpation or with deep breathing. ABDOMEN: Soft, nontender. Bowel sounds are heard. No organomegaly noted. EXTREMITIES: 2+ peripheral pulses with evidence of peripheral edema that appears to be improving and no calf tenderness noted. NEUROLOGIC patient is awake, alert and oriented x3. . - Labs CBC & Chem 7: 11/04/19 07:25 11/04/19 07:25 Labs: Abnormal Lab Results - Last 24 Hours (Table) 11/04/19 11/04/19 11/04/19 Range/Units 11:24 16:56 20:00 POC Glucose (mg/dL) 132 H 143 H 166 H (75-99) mg/dL 05/03/20 Range/Units 07:10 POC Glucose (mg/dL) 141 H (75-99) mg/dL Microbiology - Last 24 Hours (Table) 11/04/19 19:30 Gram Stain - Preliminary Sputum Sputum Culture - Preliminary Assessment and Plan Assessment: #1 cor pulmonale #2 acute exacerbation COPD #3 tracheobronchitis #4 edema and weight gain likely secondary to cor pulmonale Plan: From dental internship perspective medications reviewed and will continue the same. Check lites BUN and creatinine in the morning. Further recommendations to follow.
[2019-11-05] MEDS: guaiFENesin 600 MG TABLET.ER PO SCH ×2 (10:42→21:17)
[2019-11-05 11:24] LABS: Glucose,Whole Blood 118 mg/dL (75-99)
[2019-11-05] MEDS: KETOROLAC 30 MG/ML 1 ML VIAL IVP PRN (12:46)
--- NOTE | 2019-11-05 13:09 | P.PN ---
Subjective Progress Note Date: 11/05/19 Principal diagnosis: Acute COPD exacerbation Purulent tracheobronchitis Developing left lower lobe pneumonia History of chronic persistent severe asthma with acute exacerbation Morbid obesity and likely obstructive sleep apnea 11/05/2019, patient seen eval examined during the rounds labs reviewed medications reviewed care plan discussed, still have shortness of breath but severity has improved cuff congestion is improved she has intermittent episodes of dizziness likely related to her baseline COPD and multifactorial process she attributes it to back pain and degenerative joint disease, appears to multifactorial as nonspecific condition appears to be related, patient Neurology evaluation Patient is a 64-year-old female who came into the hospital with progressive i ncreased shortness of breath which in fact has been going on for a long period time started and got worse about 2 months ago, she is a nonsmoker has history of asthma as well which is considered to be persistent and severe, patient is on nocturnal home oxygen as well as nebulizer treatment, she has active medical problems associated with anasarca and congestive heart failure chronic atrial fibrillation and recurrent history of edema she has gained over 15 pounds in the last few weeks, was seen in the office of primary care due to hypoxia sats were in mid 80s, patient has not been feeling well had quite bit of congestion over both lung cohen with significant wheezes on her exam. chest x-ray showed mild COPD with slight consultation and mild symptom of congestive heart failure and fluid overload. Patient was started on IV diuretics Covid 19 was negative patient is seen by cardiovascular services Fausto patient is on supplemental oxygen, has been placed on IV steroids breathing treatment and broad-spectrum antibiotics Objective - Vital Signs Vital signs: Vital Signs Temp 97.4 F L 11/05/19 11:23 Pulse 94 11/05/19 11:28 Resp 21 11/05/19 11:23 BP 120/70 11/05/19 11:23 Pulse Ox 97 11/05/19 11:23 Intake & Output 11/04/19 11/05/19 11/05/19 18:59 06:59 18:59 Intake Total 1180 2620 Balance 1180 2620 Intake: Intake, IV Titration 300 Amount Azithromycin 500 mg In 250 Sodium Chloride 0.9% 250 ml @ 250 mls/hr IVPB Q24H [facility] Rx#:[id number] cefTRIAXone 1 gm In 50 Sodium Chloride 0.9% 50 ml @ 100 mls/hr IVPB Q24H [facility] Rx#:[id number] Oral [id number] Other: Voiding Method Bedside Commode Bedside Commode Bedside Commode # Voids 4 2 5 # Bowel Movements 1 - Exam - Constitutional General appearance: average body habitus, cooperative, disheveled - EENT Eyes: PERRLA Ears: bilateral: normal - Neck Neck: normal ROM Carotids: bilateral: upstroke normal - Respiratory Respiratory: bilateral: diminished, wheezing - Cardiovascular Rhythm: regular Heart sounds: normal: S1, S2 - Gastrointestinal General gastrointestinal: decreased bowel sounds, soft - Neurologic Neurologic: CNII-XII intact - Musculoskeletal Musculoskeletal: gait normal, generalized weakness, strength equal bilaterally - Psychiatric Psychiatric: A&O x's 3, appropriate affect, intact judgment & insight - Labs CBC & Chem 7: 11/04/19 07:25 11/04/19 07:25 Labs: Abnormal Lab Results - Last 24 Hours (Table) 11/04/19 11/04/19 11/05/19 Range/Units 16:56 20:00 07:10 POC Glucose (mg/dL) 143 H 166 H 141 H (75-99) mg/dL 11/05/19 Range/Units 11:22 POC Glucose (mg/dL) 118 H (75-99) mg/dL Microbiology - Last 24 Hours (Table) 11/04/19 19:30 Gram Stain - Preliminary Sputum Sputum Culture - Preliminary Assessment and Plan Assessment: Acute COPD exacerbation Purulent tracheobronchitis Developing left lower lobe pneumonia History of chronic persistent severe asthma with acute exacerbation Morbid obesity and likely obstructive sleep apnea Nonspecific dizziness no clear Correlation we'll continue to observe Plan: Agree with broad-spectrum antibiotics breathing treatment and steroids, optimize therapy for heart failure as well as A. fib, patient will likely need a sleep study on outpatient basis Time with Patient: Greater than 30
[2019-11-05 17:25] LABS: Glucose,Whole Blood 132 mg/dL (75-99)
[2019-11-05 19:56] LABS: Glucose,Whole Blood 176 mg/dL (75-99)
[2019-11-05] MEDS: MONTELUKAST 10 MG TAB PO SCH (21:18)
[2019-11-05] MEDS: LACTULOSE 20 GM/30 ML CUP PO SCH (21:18)
[2019-11-05] MEDS: AZITHROMYCIN 500 MG in SODIUM CHLORIDE 0.9% 250 ML IVPB SCH (22:33)
[2019-11-06] MEDS: methylPREDNISolone SOD SUCCI 125 MG/2 ML VIAL IV SCH ×4 (00:23→18:32)
[2019-11-06] MEDS: ALBUTEROL NEBULIZED 2.5 MG/3 ML INHALATION PRN ×5 (03:45→23:51)
[2019-11-06 06:54] LABS: HCT 41.7 % (34.0-46.0); HGB 12.9 gm/dL (11.4-16.0); MCH 32.8 pg (25.0-35.0); MCV 105.8 fL (80.0-100.0); Macrocytosis Moderate; Mean Platelet Volume 8.3; Platelet Count 225 k/uL (150-450); RBC 3.94 m/uL (3.80-5.40); RDW 12.9 % (11.5-15.5)
[2019-11-06 07:18] LABS: Glucose,Whole Blood 140 mg/dL (75-99)
[2019-11-06 07:21] LABS: Calcium 8.5 mg/dL (8.4-10.2); Potassium 4.2 mmol/L (3.5-5.1)
[2019-11-06] MEDS: TIOTROPIUM 18 MCG/PUFF INHALER INHALATION SCH (07:44)
[2019-11-06] MEDS: BUDESONIDE 0.5 MG/2 ML NEBU INHALATION SCH ×2 (07:45→19:40)
[2019-11-06] MEDS: ASCORBIC ACID 500 MG TAB PO SCH (08:41)
[2019-11-06] MEDS: PANTOPRAZOLE 40 MG TABLET PO SCH (08:41)
[2019-11-06] MEDS: APIXABAN 5 MG TAB PO SCH ×2 (08:42→20:20)
[2019-11-06] MEDS: MULTIVITAMINS, THERA 1 EACH TAB PO SCH (08:42)
[2019-11-06] MEDS: ASPIRIN 81 MG PO SCH (08:42)
[2019-11-06] MEDS: SPIRONOLACTONE 25 MG TAB PO SCH (08:43)
[2019-11-06] MEDS: guaiFENesin 600 MG TABLET.ER PO SCH ×2 (08:43→20:19)
[2019-11-06] MEDS: METOPROLOL SUCCINATE (ER) 25 MG TAB.ER.24H PO SCH ×2 (08:43→20:20)
[2019-11-06] MEDS: FUROSEMIDE 10 MG/ML 4 ML VIAL IV SCH (08:44)
[2019-11-06] MEDS: INSULIN ASPART (NovoLOG) 100 UNIT/ML VIAL SQ SCH ×4 (08:45→20:20)
[2019-11-06] MEDS: LACTOBACILLUS ACIDOPH & BULGAR 1 EACH PACKET PO SCH (08:50)
--- NOTE | 2019-11-06 10:02 | P.PN ---
Subjective Progress Note Date: 11/06/19 Principal diagnosis: Acute COPD exacerbation Purulent tracheobronchitis Developing left lower lobe pneumonia History of chronic persistent severe asthma with acute exacerbation Morbid obesity and likely obstructive sleep apnea 11/06/2019, patient seen maggi examined during the rounds labs reviewed medications reviewed, continue do well still size mild shortness of breath the severity has improved oxygen is being tapered down now denies any cough or sputum production no more episodes of dizziness have been noted 11/05/2019, patient seen maggi examined during the rounds labs reviewed medications reviewed care plan discussed, still have shortness of breath but severity has improved cuff congestion is improved she has intermittent episodes of dizziness likely related to her baseline COPD and multifactorial process she attributes it to back pain and degenerative joint disease, appears to multifactorial as nonspecific condition appears to be related, patient Neurology evaluation Patient is a 64-year-old female who came into the hospital with progressive increased shortness of breath which in fact has been going on for a long period time started and got worse about 2 months ago, she is a nonsmoker has history of asthma as well which is considered to be persistent and severe, patient is on nocturnal home oxygen as well as nebulizer treatment, she has active medical problems associated with anasarca and congestive heart failure chronic atrial fibrillation and recurrent history of edema she has gained over 15 pounds in the last few weeks, was seen in the office of primary care due to hypoxia sats were in mid 80s, patient has not been feeling well had quite bit of congestion over both lung cohen with significant wheezes on her exam. chest x-ray showed mild COPD with slight consultation and mild symptom of congestive heart failure and fluid overload. Patient was started on IV diuretics Covid 19 was negative patient is seen by cardiovascular services Fausto patient is on supplemental oxygen, has been placed on IV steroids breathing treatment and broad-spectrum antibiotics Objective - Vital Signs Vital signs: Vital Signs Temp 97.6 F 11/06/19 05:00 Pulse 88 11/06/19 08:02 Resp 20 11/06/19 05:00 BP 142/89 11/06/19 05:00 Pulse Ox 92 L 11/06/19 05:00 Intake & Output 11/05/19 11/06/19 11/06/19 18:59 06:59 18:59 Intake Total 2620 Balance 2620 Intake: Intake, IV Titration 300 Amount Azithromycin 500 mg In 250 Sodium Chloride 0.9% 250 ml @ 250 mls/hr IVPB Q24H [facility] Rx#:[id number] cefTRIAXone 1 gm In 50 Sodium Chloride 0.9% 50 ml @ 100 mls/hr IVPB Q24H [facility] Rx#:[id number] Oral 2320 Other: Voiding Method Bedside Commode Bedside Commode # Voids 2 2 # Bowel Movements 1 - Exam - Constitutional General appearance: average body habitus, cooperative, disheveled - EENT Eyes: PERRLA Ears: bilateral: normal - Neck Neck: normal ROM Carotids: bilateral: upstroke normal - Respiratory Respiratory: bilateral: diminished, wheezing - Cardiovascular Rhythm: regular Heart sounds: normal: S1, S2 - Gastrointestinal General gastrointestinal: decreased bowel sounds, soft - Neurologic Neurologic: CNII-XII intact - Musculoskeletal Musculoskeletal: gait normal, generalized weakness, strength equal bilaterally - Psychiatric Psychiatric: A&O x's 3, appropriate affect, intact judgment & insight - Labs CBC & Chem 7: 11/06/19 05:57 11/06/19 05:57 Labs: Abnormal Lab Results - Last 24 Hours (Table) 11/05/19 11/05/19 11/05/19 Range/Units 11:22 17:22 19:55 WBC (3.8-10.6) k/uL MCV (80.0-100.0) fL BUN (7-17) mg/dL Glucose (74-99) mg/dL POC Glucose (mg/dL) 118 H 132 H 176 H (75-99) mg/dL 11/06/19 11/06/19 11/06/19 Range/Units 05:57 05:57 07:12 WBC 12.0 H (3.8-10.6) k/uL MCV 105.8 H (80.0-100.0) fL BUN 41 H (7-17) mg/dL Glucose 146 H (74-99) mg/dL POC Glucose (mg/dL) 140 H (75-99) mg/dL Microbiology - Last 24 Hours (Table) 11/04/19 19:30 Gram Stain - Final Sputum Sputum Culture - Final Assessment and Plan Assessment: Acute COPD exacerbation Purulent tracheobronchitis Developing left lower lobe pneumonia History of chronic persistent severe asthma with acute exacerbation Morbid obesity and likely obstructive sleep apnea Nonspecific dizziness no clear Correlation we'll continue to observe Plan: Agree with broad-spectrum antibiotics breathing treatment and steroids, optimize therapy for heart failure as well as A. fib, patient will likely need a sleep study on outpatient basis Time with Patient: Greater than 30
[2019-11-06 10:37] LABS: T4/T8 Ratio (CD4:CD8) 1.8 (1.0-3.7)
[2019-11-06 11:15] LABS: Hemoglobin A1C 5.5 % (4.0-6.0)
--- NOTE | 2019-11-06 11:28 | P.PN ---
Subjective This is a pleasant 64-year-old female past medical history significant for paroxysmal atrial fibrillation, lymphedema, COPD and asthma. She is seen and examined sitting up eating breakfast in no acute distress. She states she is able to clear her cough better today than yesterday. She denies worsening shortness of breath. However states she does not feel back to baseline. Edema is improved. Blood pressure 142/89 heart rate 88 afebrile maintaining oxygen saturation on nasal cannula. Laboratory data reviewed, WBC 12, hemoglobin 12.9, platelets 225, sodium 138, potassium 4.2, creatinine 0.97. Currently maintained on Lasix IV 40 mg twice a day, Aldactone 25 mg daily, Eliquis 5 mg twice a day, aspirin 81 mg daily and Toprol 25 mg twice a day. Echocardiogram has been obtained and will be reviewed. GENERAL: Well-appearing, well-nourished and in no acute distress. Morbidly obese. NECK: Supple without JVD or thyromegaly. LUNGS: Scattered rhonchi and diffuse wheezes. No rales. Respiration equal and unlabored. HEART: Regular rate and rhythm without murmurs, rubs or gallops. S1 and S2 heard. EXTREMITIES: Normal range of motion, peripheral circumferential nonpitting edema. No clubbing or cyanosis. Peripheral pulses intact. ASSESSMENT Cor pulmonale Acute exacerbation of COPD Tracheobronchitis Lymphedema Paroxysmal atrial fibrillation on long-term anticoagulation currently maintaining sinus mechanism PLAN Transition to oral diuretics starting tomorrow. Continue Aldactone as previously ordered. Nurse Practitioner note has been reviewed, I agree with a documented findings and plan of care. Patient was seen and examined. Objective - Vital Signs Vital signs: Vital Signs Temp 97.6 F 11/06/19 05:00 Pulse 88 11/06/19 08:02 Resp 20 11/06/19 05:00 BP 142/89 11/06/19 05:00 Pulse Ox 92 L 11/06/19 05:00 Intake & Output 11/05/19 11/06/19 11/06/19 18:59 06:59 18:59 Intake Total 2620 Balance 2620 Intake: Intake, IV Titration 300 Amount Azithromycin 500 mg In 250 Sodium Chloride 0.9% 250 ml @ 250 mls/hr IVPB Q24H [facility] Rx#:[id number] cefTRIAXone 1 gm In 50 Sodium Chloride 0.9% 50 ml @ 100 mls/hr IVPB Q24H [facility] Rx#:[id number] Oral 2320 Other: Voiding Method Bedside Commode Bedside Commode # Voids 2 2 # Bowel Movements 1 - Labs CBC & Chem 7: 11/06/19 05:57 11/06/19 05:57 Labs: Abnormal Lab Results - Last 24 Hours (Table) 11/04/19 11/05/19 11/05/19 Range/Units 07:25 11:22 17:22 WBC (3.8-10.6) k/uL MCV (80.0-100.0) fL BUN (7-17) mg/dL Glucose (74-99) mg/dL POC Glucose (mg/dL) 118 H 132 H (75-99) mg/dL T-Suppressor Cells 184 L (190-832) cell/ul Total T Cells 503 L (704-2138) cell/ul % CD3 Cells 52 L (55-86) % % CD4 [place] 33 L (35-66) % Absolute CD4 [place] 322 L (443-1471) cell/ul % CD16/CD56 Cells 39 H (3-24) % Total CD19+ B Cells 80 L (100-524) cell/ul 11/05/19 11/06/19 11/06/19 Range/Units 19:55 05:57 05:57 WBC 12.0 H (3.8-10.6) k/uL MCV 105.8 H (80.0-100.0) fL BUN 41 H (7-17) mg/dL Glucose 146 H (74-99) mg/dL POC Glucose (mg/dL) 176 H (75-99) mg/dL T-Suppressor Cells (190-832) cell/ul Total T Cells (704-2138) cell/ul % CD3 Cells (55-86) % % CD4 [place] (35-66) % Absolute CD4 [place] (443-1471) cell/ul % CD16/CD56 Cells (3-24) % Total CD19+ B Cells (100-524) cell/ul 11/06/19 Range/Units 07:12 WBC (3.8-10.6) k/uL MCV (80.0-100.0) fL BUN (7-17) mg/dL Glucose (74-99) mg/dL POC Glucose (mg/dL) 140 H (75-99) mg/dL T-Suppressor Cells (190-832) cell/ul Total T Cells (704-2138) cell/ul % CD3 Cells (55-86) % % CD4 [place] (35-66) % Absolute CD4 [place] (443-1471) cell/ul % CD16/CD56 Cells (3-24) % Total CD19+ B Cells (100-524) cell/ul Microbiology - Last 24 Hours (Table) 11/04/19 19:30 Gram Stain - Final Sputum Sputum Culture - Final
--- NOTE | 2019-11-06 11:32 | P.PN ---
Subjective Progress Note Date: 11/06/19 64-year-old female one of my office patient with multiple medical problem known to have history of anasarca, COPD, CHF, A. fib with RVR, with recurrent history of edema who has not felt good for the last few weeks with worsening dyspnea and shortness of breath with worsening fluid retention she has gain over 15 pounds of water retention in the lower extremity in the last few weeks. Was seen in the office today with above complaint was very dyspneic was marginal hypoxic running in the mid 80. Patient was having significant tachycardia with pulse rate running over 120 bpm and tachypnea with respiratory rate running over 30 time per minutes patient has not been feeling well had quite bit of congestion over both lung cohen with significant wheezes on her exam. Patient [facility] for the above problem where was seen and evaluated initially found to have pulse ox in the high 80 with 3 L of O2 corrected to the mid 90 pulse rate remain quite bit elevated the chest x- ray showed mild COPD with slight consultation and mild symptom of congestive heart failure and fluid overload. Patient was started on IV diuretics Covid 19 was negative patient will be admitted to the hospital will be seen cardiology and pulmonary was started on antibiotics for gram-negative pneumonia and patient will be on mild dose of steroid for COPD exacerbation along with MDI Ventolin and Pulmicort. I stopped by and seen patient in the emergency department shortly before her admission after been subtle on oxygen and one dose of diuretic she started to feel slightly but better 5/2: Patient continues to have cough with yellow-green sputum production, hoarse voice and wheezing. Sputum culture ordered. She states she has decreased edema from yesterday. She continues to have dyspnea with minimal exertion. Cardiology appointment medicine on her case. She is requesting vitamin C be resumed which she was on at home. CAT scan of the chest high resolution, immune deficiency panel ordered. Patient has been afebrile, heart rate 100, blood pressure 131/85, pulse ox 91% on 40 of liters nasal cannula. Repeat CBC is unremarkable. BUN 21, creatinine 0.64. Blood sugars are elevated secondary to steroids and NovoLog scale added. CT of the chest markedly suboptimal demonstrating some coarse scarring but no definite interstitial lung disease. 5/3: Patient is afebrile, heart rate 90, blood pressure 118/67, pulse ox 95% on 3 L. Capillary blood glucose running between 140 163. Sputum cultures in progress. Patient has been evaluated by Dr. Chisholm with continuation of same medications and medical conditions for outpatient sleep study. Patient has been seen by Dr. Concepcion and Aldactone has been added. Patient has been continued on IV Lasix 40 mg every 12 hours and Solu-Medrol is currently at 60 mg IV every 6 hours. Patient states that she was able to ambulate to the bathroom 3 times. She does have significant shortness of breath with that activity. She has increased incentive spirometry up to 750 ML's. She also continues to have sputum production. Patient will be started on Singulair and Mucinex. She is complaining of some generalized weakness and may need neurology consult as an outpatient. Vitamin B12 level to be checked. 11/05: Patient's breathing status is slowly improving. She is using incentive spirometry at 1000 ML's now. She is currently on Lasix 40 mg IV every 12 hours will be transitioned to oral by cardiology. She is currently on Solu-Medrol 60 mg every 6 hours which will be continued at current dose. She hasn't decreased lower extremity edema. Patient is asking his about lymphedema and discussed lymphedema pump for home. Patient will bring this up with Dr. Ledbetter at her next visit. Patient continues to have wheezing and Pulmicort will be increased 1 mg twice daily. Patient is afebrile, heart rate 83, blood pressure 142/89, pulse ox 92% on 3 L nasal cannula. Objective - Vital Signs Vital signs: Vital Signs Temp 97.6 F 11/06/19 05:00 Pulse 88 11/06/19 08:02 Resp 20 11/06/19 05:00 BP 142/89 11/06/19 05:00 Pulse Ox 92 L 11/06/19 05:00 Intake & Output 11/05/19 11/06/19 11/06/19 18:59 06:59 18:59 Intake Total 2620 Balance 2620 Intake: Intake, IV Titration 300 Amount Azithromycin 500 mg In 250 Sodium Chloride 0.9% 250 ml @ 250 mls/hr IVPB Q24H [facility] Rx#:[id number] cefTRIAXone 1 gm In 50 Sodium Chloride 0.9% 50 ml @ 100 mls/hr IVPB Q24H [facility] Rx#:[id number] Oral 2320 Other: Voiding Method Bedside Commode Bedside Commode # Voids 2 2 # Bowel Movements 1 - Exam Review of Systems CONSTITUTIONAL: Morbid obesity, in no respiratory distress with wheezes and coughing. EYES: No icterus sclerae, no conjunctivitis. EARS, NOSE, MOUTH, THROAT, and FACE: No sore throat, lymphadenopathy, carotid bruits or deformity. RESPIRATORY: Positive shortness of breath cough wheezes. CARDIOVASCULAR: Positive PND orthopnea palpitations no angina. GASTROINTESTINAL: No Abd pain, Nausea or vomiting, no Diarrhea or constipation, No GI Bleed, no distention or masses. GENITOURINARY: Negative for Hematuria or UTI, no kidney stones. Decrease in urine output. INTEGUMENT/BREAST: Negative for any muscular injury with mild osteoarthritis.. Significant arthralgia and myalgia. Significant edema and anasarca in the lower extremity. HEMATOLOGIC/LYMPHATIC: Negative for bleed or purpura. Mild bruise from coagulopathy. MUSCULOSKELTAL: Reports general Myalgia or arthralgia. NEURLOGICAL: No LOC, Sz or syncope, blurred vision dizziness or abnormality. BEHAVIORAL/PSYCH: Negative. ENDOCRINE: Negative. Physical examination General Appearance: Alert, cooperative, morbidly obese and no respiratory distress. Patient is talking in full sentences without dyspnea. Neck HEENT: Supple, no lymphadenopathy, no thyroid enlargement, no carotid bruits. Lungs: Decreased expansion bilaterally with fine rhonchi positive mild inspiratory express wheezes with crackles mostly in the right base and slight in the left base as well. Chest Wall: Decrease expansion with deep inspiration no tenderness and no deformity was found on exam, no costochondral pain or discomfort. Heart: Irregular rate and rhythm, S1, S2 positive is 3 positive JVD with systolic murmur. Back: Symmetric, no curvature, ROM normal, no CVA tenderness. Abdomen: Soft, non-tender, bowel sounds active all four quadrants, no masses, no organomegaly. Extremities: Significant anasarca and 1+ pedal edema bilaterally. Pulses: 2+ and symmetric. Skin: Skin color, texture, tugor normal, no rashes or lesions. Neurologic: Alert oriented x3 cranial nerves II through XII intact, no motor deficit, no abnormal balance or gait. - Labs CBC & Chem 7: 11/06/19 05:57 11/06/19 05:57 Labs: Abnormal Lab Results - Last 24 Hours (Table) 0511/05/19 11/05/19 Range/Units 11:22 17:22 19:55 WBC (3.8-10.6) k/uL MCV (80.0-100.0) fL BUN (7-17) mg/dL Glucose (74-99) mg/dL POC Glucose (mg/dL) 118 H 132 H 176 H (75-99) mg/dL 11/06/19 11/06/19 11/06/19 Range/Units 05:57 05:57 07:12 WBC 12.0 H (3.8-10.6) k/uL MCV 105.8 H (80.0-100.0) fL BUN 41 H (7-17) mg/dL Glucose 146 H (74-99) mg/dL POC Glucose (mg/dL) 140 H (75-99) mg/dL Assessment and Plan Plan: 1. Acute on chronic hypoxic respiratory failure secondary to combination of COPD exacerbation and acute on chronic diastolic heart failure. Consult with cardiology and pulmonary medicine appreciated. Continue albuterol nebulizer and inhaler, Pulmicort increased to 1 mg twice daily, ceftriaxone and azithromycin, continue Solu-Medrol 60 mg IV every 6 hours. No change in steroids. Singulair and Mucinex and it. Await sputum culture report. ALLERGY testing in process. 2. COPD exacerbation. Continue Solu-Medrol 60 mg IV every 8 along with Ventolin MDI, Pulmicort twice daily. 3. Acute on chronic diastolic heart failure. Consult with cardiology appreciated. Continue Lasix 40 mg IV every 12 hours transitioned to oral, Toprol-XL 25 mg twice daily, echocardiogram. Monitor I&O and daily weights, electrolytes and renal function. Aldactone 25 mg daily added. 4. Possible gram-negative pneumonitis, Covid 19 was ruled out. Continue patient on Rocephin and azithromycin. 5. Hyperglycemia secondary to steroids. NovoLog scale. Check hemoglobin A1c. 6. Anasarca and severe edema: Patient will be on furosemide 40 mg IV twice a day. 7. 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 8. A. fib with RVRPatient remain on Eliquis continue metoprolol 25 g twice a day and titrate to a higher dose if needed to keep pulse below 90 bpm. 9. Hypertension: Remain on metoprolol 50 mg daily. 10. GERD: Patient remain on pantoprazole 40 mg twice a day. 11. history of DVT. Continue eliquis. 12. History of left-sided breast cancer post mastectomy has been in remission. 13. Chronic hypoxic respiratory failure on home O2. 14. DVT prophylaxis. Eliquis. 15. GI prophylaxis: Patient will be on pantoprazole. 16. COVID-19 infection not present. 17. Possible obstructive sleep apnea. Patient may benefit from outpatient sleep study. 18. Generalized weakness. Vitamin B12 level. Patient may require follow-up with neurology as an outpatient. 19. Chronic lymphedema. Patient to discuss lymphedema pump for home with Dr. Ledbetter at next office visit. CODE STATUS: Full code. Discharge plan: home Impression and plan of care have been directed as dictated by the signing physician. Mindi James nurse practitioner acting as scribe for signing physician.
[2019-11-06 12:01] LABS: Glucose,Whole Blood 134 mg/dL (75-99)
[2019-11-06 17:18] LABS: Glucose,Whole Blood 136 mg/dL (75-99)
[2019-11-06 20:02] LABS: Glucose,Whole Blood 149 mg/dL (75-99)
[2019-11-06] MEDS: LACTULOSE 20 GM/30 ML CUP PO SCH (20:19)
[2019-11-06] MEDS: MELATONIN 3 MG TABLET PO SCH (20:20)
[2019-11-06] MEDS: AZITHROMYCIN 500 MG TAB PO SCH (20:20)
[2019-11-06] MEDS: MONTELUKAST 10 MG TAB PO SCH (20:34)
[2019-11-07] MEDS: methylPREDNISolone SOD SUCCI 125 MG/2 ML VIAL IV SCH ×5 (00:09→23:49)
[2019-11-07] MEDS: ALBUTEROL NEBULIZED 2.5 MG/3 ML INHALATION PRN ×5 (03:31→21:09)
[2019-11-07 06:54] LABS: African American GFR (CKD) >90 (>60 ml/min/1.73 sqM); Anion Gap 8 mmol/L; Blood Urea Nitrogen 35 mg/dL (7-17); Calcium 8.7 mg/dL (8.4-10.2); Carbon Dioxide 28 mmol/L (22-30); Chloride 102 mmol/L (98-107); Glucose 127 mg/dL (74-99); Non-African American GFR(CKD) 85 (>60 ml/min/1.73 sqM); Potassium 4.3 mmol/L (3.5-5.1); Sodium 138 mmol/L (137-145)
[2019-11-07] MEDS: TIOTROPIUM 18 MCG/PUFF INHALER INHALATION SCH (06:55)
[2019-11-07] MEDS: BUDESONIDE 0.5 MG/2 ML NEBU INHALATION SCH ×2 (06:55→21:08)
[2019-11-07 07:01] LABS: Glucose,Whole Blood 124 mg/dL (75-99)
[2019-11-07] MEDS: INSULIN ASPART (NovoLOG) 100 UNIT/ML VIAL SQ SCH ×4 (07:06→21:03)
[2019-11-07] MEDS: MULTIVITAMINS, THERA 1 EACH TAB PO SCH (07:54)
[2019-11-07] MEDS: FUROSEMIDE 40 MG TAB PO SCH (07:54)
[2019-11-07] MEDS: PANTOPRAZOLE 40 MG TABLET PO SCH (07:54)
[2019-11-07] MEDS: SPIRONOLACTONE 25 MG TAB PO SCH (07:54)
[2019-11-07] MEDS: APIXABAN 5 MG TAB PO SCH ×2 (07:54→21:03)
[2019-11-07] MEDS: ASCORBIC ACID 500 MG TAB PO SCH (07:54)
[2019-11-07] MEDS: ASPIRIN 81 MG PO SCH (07:54)
[2019-11-07] MEDS: guaiFENesin 600 MG TABLET.ER PO SCH ×2 (07:55→21:03)
[2019-11-07] MEDS: LACTOBACILLUS ACIDOPH & BULGAR 1 EACH PACKET PO SCH (07:55)
[2019-11-07] MEDS: METOPROLOL SUCCINATE (ER) 25 MG TAB.ER.24H PO SCH ×2 (07:55→21:03)
--- NOTE | 2019-11-07 09:34 | ECHOF ---
Referral Reason:LV Function MEASUREMENTS -------- HEIGHT: 160.0 cm WEIGHT: 110.2 kg BP: 131/85 RVIDd: 4.5 cm (< 3.3) IVSd: 1.1 cm (0.6 - 1.1) LVIDd: 3.9 cm (3.9 - 5.3) LVPWd: 1.2 cm (0.6 - 1.1) IVSs: 1.6 cm LVIDs: 2.5 cm LVPWs: 1.5 cm LAESV Index (A-L): 30.38 ml/m Ao Diam: 3.4 cm (2.0 - 3.7) AV Cusp: 1.9 cm (1.5 - 2.6) MV EXCURSION: 19.027 mm (> 18.000) MV EF SLOPE: 94 mm/s (70 - 150) EPSS: 1.1 cm MV E Sourav: 1.17 m/s MV DecT: 238 ms MV A Sourav: 0.83 m/s MV E/A Ratio: 1.42 RAP: 5.00 mmHg RVSP: 33.13 mmHg FINDINGS -------- Sinus rhythm. This was a technically adequate study. The left ventricular size is normal. There is mild concentric left ventricular hypertrophy. Overa ll left ventricular systolic function is normal with, an EF between 55 - 60 %. The diastolic fillin g pattern is normal for the age of the patient 13.38. The right ventricle is moderately enlarged. LA is midly dilated 29-33ml/m2. The right atrium is mildly enlarged. Interatrial and interventricular septum intact. There is mild aortic valve sclerosis. There is no evidence of aortic regurgitation. There is no e vidence of aortic stenosis. Mild mitral regurgitation is present. Mild tricuspid regurgitation present. There is mild pulmonary hypertension. The right ventricular systolic pressure, as measured by Doppler, is 33.13mmHg. There is no pulmonic regurgitation present. The aortic root size is normal. IVC Not well visulized. There is no pericardial effusion. CONCLUSIONS -------- 1. Sinus rhythm. 2. This was a technically adequate study. 3. The left ventricular size is normal. 4. There is mild concentric left ventricular hypertrophy. 5. Overall left ventricular systolic function is normal with, an EF between 55 - 60 %. 6. The diastolic filling pattern is normal for the age of the patient 13.38 7. The right ventricle is moderately enlarged. 8. LA is midly dilated 29-33ml/m2. 9. The right atrium is mildly enlarged. 10. Interatrial and interventricular septum intact. 11. There is mild aortic valve sclerosis. 12. There is no evidence of aortic regurgitation. 13. There is no evidence of aortic stenosis. 14. Mild mitral regurgitation is present. 15. Mild tricuspid regurgitation present. 16. There is mild pulmonary hypertension. 17. The right ventricular systolic pressure, as measured by Doppler, is 33.13mmHg. 18. There is no pulmonic regurgitation present. 19. The aortic root size is normal. 20. IVC Not well visulized. 21. There is no pericardial effusion. SKIN GRADER: Ivy Hackett RDCS
--- NOTE | 2019-11-07 10:00 | P.PN ---
Subjective Progress Note Date: 11/07/19 64-year-old female one of my office patient with multiple medical problem known to have history of anasarca, COPD, CHF, A. fib with RVR, with recurrent history of edema who has not felt good for the last few weeks with worsening dyspnea and shortness of breath with worsening fluid retention she has gain over 15 pounds of water retention in the lower extremity in the last few weeks. Was seen in the office today with above complaint was very dyspneic was marginal hypoxic running in the mid 80. Patient was having significant tachycardia with pulse rate running over 120 bpm and tachypnea with respiratory rate running over 30 time per minutes patient has not been feeling well had quite bit of congestion over both lung cohen with significant wheezes on her exam. Patient ended up coming to [facility] department for the above problem where was seen and evaluated initially found to have pulse ox in the high 80 with 3 L of O2 corrected to the mid 90 pulse rate remain quite bit elevated the chest x- ray showed mild COPD with slight consultation and mild symptom of congestive heart failure and fluid overload. Patient was started on IV diuretics Covid 19 was negative patient will be admitted to the hospital will be seen cardiology and pulmonary was started on antibiotics for gram-negative pneumonia and patient will be on mild dose of steroid for COPD exacerbation along with MDI Ventolin and Pulmicort. I stopped by and seen patient in the emergency department shortly before her admission after been subtle on oxygen and one dose of diuretic she started to feel slightly but better 5/2: Patient continues to have cough with yellow-green sputum production, hoarse voice and wheezing. Sputum culture ordered. She states she has decreased edema from yesterday. She continues to have dyspnea with minimal exertion. Cardiology appointment medicine on her case. She is requesting vitamin C be resumed which she was on at home. CAT scan of the chest high resolution, immune deficiency panel ordered. Patient has been afebrile, heart rate 100, blood pressure 131/85, pulse ox 91% on 40 of liters nasal cannula. Repeat CBC is unremarkable. BUN 21, creatinine 0.64. Blood sugars are elevated secondary to steroids and NovoLog scale added. CT of the chest markedly suboptimal demonstrating some coarse scarring but no definite interstitial lung disease. 5/3: Patient is afebrile, heart rate 90, blood pressure 118/67, pulse ox 95% on 3 L. Capillary blood glucose running between 140 163. Sputum cultures in progress. Patient has been evaluated by Dr. Chisholm with continuation of same medications and medical conditions for outpatient sleep study. Patient has been seen by Dr. Concepcion and Aldactone has been added. Patient has been continued on IV Lasix 40 mg every 12 hours and Solu-Medrol is currently at 60 mg IV every 6 hours. Patient states that she was able to ambulate to the bathroom 3 times. She does have significant shortness of breath with that activity. She has increased incentive spirometry up to 750 ML's. She also continues to have sputum production. Patient will be started on Singulair and Mucinex. She is complaining of some generalized weakness and may need neurology consult as an outpatient. Vitamin B12 level to be checked. 11/05: Patient's breathing status is slowly improving. She is using incentive spirometry at 1000 ML's now. She is currently on Lasix 40 mg IV every 12 hours will be transitioned to oral by cardiology. She is currently on Solu-Medrol 60 mg every 6 hours which will be continued at current dose. She hasn't decreased lower extremity edema. Patient is asking his about lymphedema and discussed lymphedema pump for home. Patient will bring this up with Dr. Ledbetter at her next visit. Patient continues to have wheezing and Pulmicort will be increased 1 mg twice daily. Patient is afebrile, heart rate 83, blood pressure 142/89, pulse ox 92% on 3 L nasal cannula. 55: Found today lying in bed flat with head at the foot of the bed and feet up 45 at the head of the bed. Patient's breathing status is improving. She co ntinues to have wheezing and scattered rhonchi. Flutter valve added. Patient has been afebrile, heart rate 84, blood pressure 162/82, pulse ox 96% on 3 L nasal cannula. Vitamin B12 level 446. T suppressor cells, total T cells are low as well as percentage of CD3 cells and percentage of CD4 helper, absolute CD4 helper. CD4/CD8 ratio 1.8. CD8 suppressor percentage 19, CD16/CD 56 percentage 49, CD 19 percentage 8, total CD 19+ B cells 80. Sputum culture finalized with normal growth. Patient has been transitioned to oral Lasix 40 mg daily. She is still on IV site Medrol at 60 mg every 6 hours. Objective - Vital Signs Vital signs: Vital Signs Temp 98.7 F 11/07/19 05:00 Pulse 80 11/07/19 07:10 Resp 20 11/07/19 05:00 BP 162/82 11/07/19 05:00 Pulse Ox 96 11/07/19 05:00 Intake & Output 11/06/19 11/07/19 11/07/19 18:59 06:59 18:59 Intake Total 500 590 Balance 500 590 Intake: Oral 500 590 Other: Voiding Method Bedside Commode Toilet # Voids 3 2 # Bowel Movements 1 - Exam Review of Systems CONSTITUTIONAL: Morbid obesity, in no respiratory distress with wheezes and coughing. EYES: No icterus sclerae, no conjunctivitis. EARS, NOSE, MOUTH, THROAT, and FACE: No sore throat, lymphadenopathy, carotid bruits or deformity. RESPIRATORY: Denies shortness of breath reports cough reports wheezes. Reports shortness of breath with activity improving. CARDIOVASCULAR: Denies PND denies orthopnea palpitations no angina. GASTROINTESTINAL: No Abd pain, Nausea or vomiting, no Diarrhea or constipation, No GI Bleed, no distention or masses. GENITOURINARY: Negative for Hematuria or UTI, no kidney stones. Decrease in urine output. INTEGUMENT/BREAST: Negative for any muscular injury with mild osteoarthritis.. Significant arthralgia and myalgia. Significant edema and anasarca in the lower extremity. HEMATOLOGIC/LYMPHATIC: Negative for bleed or purpura. Mild bruise from coagulopathy. MUSCULOSKELTAL: Reports general Myalgia or arthralgia. NEURLOGICAL: No LOC, Sz or syncope, blurred vision dizziness or abnormality. BEHAVIORAL/PSYCH: Negative. ENDOCRINE: Negative. Physical examination General Appearance: Alert, cooperative, morbidly obese and no respiratory distress. Patient is talking in full sentences without dyspnea. Neck HEENT: Supple, no lymphadenopathy, no thyroid enlargement, no carotid bruits. Lungs: Decreased expansion bilaterally with scattered rhonchi and expiratory wheeze. Chest Wall: Decrease expansion with deep inspiration no tenderness and no deformity was found on exam, no costochondral pain or discomfort. Heart: Irregular rate and rhythm, S1, S2 positive is 3 positive JVD with systolic murmur. Back: Symmetric, no curvature, ROM normal, no CVA tenderness. Abdomen: Soft, non-tender, bowel sounds active all four quadrants, no masses, no organomegaly. Extremities: Significant anasarca and 1+ pedal edema bilaterally. Pulses: 2+ and symmetric. Skin: Skin color, texture, tugor normal, no rashes or lesions. Neurologic: Alert oriented x3 cranial nerves II through XII intact, no motor deficit, no abnormal balance or gait. - Labs CBC & Chem 7: 11/06/19 05:57 11/07/19 06:12 Labs: Abnormal Lab Results - Last 24 Hours (Table) 11/04/19 11/06/19 11/06/19 Range/Units 07:25 11:19 16:59 BUN (7-17) mg/dL Glucose (74-99) mg/dL POC Glucose (mg/dL) 134 H 136 H (75-99) mg/dL T-Suppressor Cells 184 L (190-832) cell/ul Total T Cells 503 L (704-2138) cell/ul % CD3 Cells 52 L (55-86) % % CD4 Kennedy 33 L (35-66) % Absolute CD4 Kennedy 322 L (443-1471) cell/ul % CD16/CD56 Cells 39 H (3-24) % Total CD19+ B Cells 80 L (100-524) cell/ul 11/06/19 11/07/19 11/07/19 Range/Units 20:00 06:12 07:00 BUN 35 H (7-17) mg/dL Glucose 127 H (74-99) mg/dL POC Glucose (mg/dL) 149 H 124 H (75-99) mg/dL T-Suppressor Cells (190-832) cell/ul Total T Cells (704-2138) cell/ul % CD3 Cells (55-86) % % CD4 Kennedy (35-66) % Absolute CD4 Kennedy (443-1471) cell/ul % CD16/CD56 Cells (3-24) % Total CD19+ B Cells (100-524) cell/ul Microbiology - Last 24 Hours (Table) 11/04/19 19:30 Gram Stain - Final Sputum Sputum Culture - Final Assessment and Plan Plan: 1. Acute on chronic hypoxic respiratory failure secondary to combination of COPD exacerbation and acute on chronic diastolic heart failure. Consult with cardiology and pulmonary medicine appreciated. Continue albuterol nebulizer and inhaler, Pulmicort increased to 1 mg twice daily, ceftriaxone and azithromycin, continue Solu-Medrol 60 mg IV every 6 hours. No change in steroids. Singulair and Mucinex and it. Await sputum culture report. ALLERGY testing in process. 2. COPD exacerbation. Continue Solu-Medrol 60 mg IV every 8 along with Ventolin MDI, Pulmicort twice daily. Flutter valve ordered. 3. Acute on chronic diastolic heart failure. Consult with cardiology ap preciated. Continue Lasix transitioned to 40 mg oral daily, continue Toprol-XL 25 mg twice daily, echocardiogram. Monitor I&O and daily weights, electrolytes and renal function. Aldactone 25 mg daily. 4. Possible gram-negative pneumonitis, Covid 19 was ruled out. Continue patient on Rocephin and azithromycin. 5. Hyperglycemia secondary to steroids. NovoLog scale. Check hemoglobin A1c. 6. Anasarca and severe edema: Patient will be on furosemide 40 mg IV twice a day. 7. 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 8. A. fib with RVRPatient remain on Eliquis continue metoprolol 25 g twice a day and titrate to a higher dose if needed to keep pulse below 90 bpm. 9. Hypertension: Remain on metoprolol 50 mg daily. 10. GERD: Patient remain on pantoprazole 40 mg twice a day. 11. history of DVT. Continue eliquis. 12. History of left-sided breast cancer post mastectomy has been in remission. 13. Chronic hypoxic respiratory failure on home O2. 14. DVT prophylaxis. Eliquis. 15. GI prophylaxis: Patient will be on pantoprazole. 16. COVID-19 infection not present. 17. Possible obstructive sleep apnea. Patient may benefit from outpatient sleep study. 18. Generalized weakness. Vitamin B12 level. Patient may require follow-up with neurology as an outpatient. 19. Chronic lymphedema. Patient to discuss lymphedema pump for home with Dr. Ledbetter at next office visit. CODE STATUS: Full code. Discharge plan: home Impression and plan of care have been directed as dictated by the signing physician. Mindi James nurse practitioner acting as scribe for signing physician.
--- NOTE | 2019-11-07 11:10 | P.PN ---
Subjective This is a pleasant 64-year-old female past medical history significant for paroxysmal atrial fibrillation, lymphedema, COPD and asthma. She is seen and examined up walking back from the bathroom. She is mildly dyspneic with exertion and states this to be her baseline. She denies worsening shortness of breath, no chest pain, dizziness or palpitations. Her swelling is still present but improved. Blood pressure 162/82 heart rate 72 afebrile and maintaining oxygen saturation on nasal cannula. Laboratory data reviewed, sodium 138, potas sium 4.3, creatinine 0.75. Currently maintained on Lasix IV 40 mg twice a day, Aldactone 25 mg daily, Eliquis 5 mg twice a day, aspirin 81 mg daily and Toprol 25 mg twice a day. Echocardiogram obtained revealed preserved LV systolic function with EF 55-60%, mild MR and mild TR. GENERAL: Well-appearing, well-nourished and in no acute distress. Morbidly obese. NECK: Supple without JVD or thyromegaly. LUNGS: Scattered rhonchi and diffuse wheezes. No rales. Respiration equal and unlabored. HEART: Regular rate and rhythm without murmurs, rubs or gallops. S1 and S2 heard. EXTREMITIES: Normal range of motion, peripheral circumferential nonpitting edema. No clubbing or cyanosis. Peripheral pulses intact. ASSESSMENT Cor pulmonale Acute exacerbation of COPD Tracheobronchitis Lymphedema Paroxysmal atrial fibrillation on long-term anticoagulation currently maintaining sinus mechanism PLAN Continue current medical regimen. Stable for discharge from a cardiac perspective. Follow up with her primary chemists at [facility] upon discharge. We will follow along as needed. Nurse Practitioner note has been reviewed, I agree with a documented findings and plan of care. Patient was seen and examined. Objective - Vital Signs Vital signs: Vital Signs Temp 98.7 F 11/07/19 05:00 Pulse 88 11/07/19 10:52 Resp 20 11/07/19 05:00 BP 162/82 11/07/19 05:00 Pulse Ox 96 11/07/19 05:00 Intake & Output 11/06/19 11/07/19 11/07/19 18:59 06:59 18:59 Intake Total 500 590 Balance 500 590 Intake: Oral 500 590 Other: Voiding Method Bedside Commode Toilet # Voids 3 2 # Bowel Movements 1 - Labs CBC & Chem 7: 11/06/19:57 11/07/19 06:12 Labs: Abnormal Lab Results - Last 24 Hours (Table) 11/06/19 11/06/19 11/06/19 Range/Units 11:19 16:59 20:00 BUN (7-17) mg/dL Glucose (74-99) mg/dL POC Glucose (mg/dL) 134 H 136 H 149 H (75-99) mg/dL 11/07/19 11/07/19 Range/Units 06:12 07:00 BUN 35 H (7-17) mg/dL Glucose 127 H (74-99) mg/dL POC Glucose (mg/dL) 124 H (75-99) mg/dL Microbiology - Last 24 Hours (Table) 11/04/19 19:30 Gram Stain - Final Sputum Sputum Culture - Final
[2019-11-07 11:21] LABS: Glucose,Whole Blood 138 mg/dL (75-99)
[2019-11-07] MEDS: KETOROLAC 30 MG/ML 1 ML VIAL IVP PRN (12:27)
--- NOTE | 2019-11-07 13:59 | P.PN ---
Subjective Progress Note Date: 11/07/19 Principal diagnosis: Acute COPD exacerbation Purulent tracheobronchitis Developing left lower lobe pneumonia History of chronic persistent severe asthma with acute exacerbation Morbid obesity and likely obstructive sleep apnea 11/07/2019, patient seen eval examined during the rounds labs reviewed medications reviewed, patient remains on 3 L oxygen, IV steroids can be switched to oral agree with discharge planning in next 24 hours to 48 hours depending upon clinical condition 11/06/2019, patient seen eval examined during the rounds labs reviewed medications reviewed, continue do well still size mild shortness of breath the severity has improved oxygen is being tapered down now denies any cough or sputum production no more episodes of dizziness have been noted 11/05/2019, patient seen eval examined during the rounds labs reviewed medications reviewed care plan discussed, still have shortness of breath but severity has improved cuff congestion is improved she has intermittent episodes of dizziness likely related to her baseline COPD and multifactorial process she attributes it to back pain and degenerative joint disease, appears to multifactorial as nonspecific condition appears to be related, patient Neurology evaluation Patient is a 64-year-old female who came into the hospital with progressive increased shortness of breath which in fact has been going on for a long period time started and got worse about 2 months ago, she is a nonsmoker has history of asthma as well which is considered to be persistent and severe, patient is on nocturnal home oxygen as well as nebulizer treatment, she has active medical problems associated with anasarca and congestive heart failure chronic atrial fibrillation and recurrent history of edema she has gained over 15 pounds in the last few weeks, was seen in the office of primary care due to hypoxia sats were in mid 80s, patient has not been feeling well had quite bit of congestion over both lung cohen with significant wheezes on her exam. chest x-ray showed mild COPD with slight consultation and mild symptom of congestive heart failure and fluid overload. Patient was started on IV diuretics Covid 19 was negative patient is seen by cardiovascular services Fausto patient is on supplemental oxygen, has been placed on IV steroids breathing treatment and broad-spectrum antibiotics Objective - Vital Signs Vital signs: Vital Signs Temp 97.9 F 11/07/19 11:46 Pulse 77 11/07/19 11:46 Resp 17 11/07/19 11:46 BP 122/80 11/07/19 12:24 Pulse Ox 93 L 11/07/19 11:46 Intake & Output 11/06/19 11/07/19 11/07/19 18:59 06:59 18:59 Intake Total 500 590 Balance 500 590 Intake: Oral 500 590 Other: Voiding Method Bedside Commode Toilet # Voids 3 2 3 # Bowel Movements 1 - Exam - Constitutional General appearance: average body habitus, cooperative, disheveled - EENT Eyes: PERRLA Ears: bilateral: normal - Neck Neck: normal ROM Carotids: bilateral: upstroke normal - Respiratory Respiratory: bilateral: diminished, wheezing - Cardiovascular Rhythm: regular Heart sounds: normal: S1, S2 - Gastrointestinal General gastrointestinal: decreased bowel sounds, soft - Neurologic Neurologic: CNII-XII intact - Musculoskeletal Musculoskeletal: gait normal, generalized weakness, strength equal bilaterally - Psychiatric Psychiatric: A&O x's 3, appropriate affect, intact judgment & insight - Labs CBC & Chem 7: 11/06/19 05:57 11/07/19 06:12 Labs: Abnormal Lab Results - Last 24 Hours (Table) 11/06/19 11/06/19 11/07/19 Range/Units 16:59 20:00 06:12 BUN 35 H (7-17) mg/dL Glucose 127 H (74-99) mg/dL POC Glucose (mg/dL) 136 H 149 H (75-99) mg/dL 11/07/19 11/07/19 Range/Units 07:00 11:20 BUN (7-17) mg/dL Glucose (74-99) mg/dL POC Glucose (mg/dL) 124 H 138 H (75-99) mg/dL Assessment and Plan Assessment: Acute COPD exacerbation Purulent tracheobronchitis Developing left lower lobe pneumonia History of chronic persistent severe asthma with acute exacerbation Morbid obesity and likely obstructive sleep apnea Nonspecific dizziness no clear Correlation we'll continue to observe Plan: Agree with broad-spectrum antibiotics breathing treatment and steroids, optimize therapy for heart failure as well as A. fib, patient will likely need a sleep study on outpatient basis Time with Patient: Greater than 30
[2019-11-07 17:28] LABS: Glucose,Whole Blood 137 mg/dL (75-99)
[2019-11-07 20:34] LABS: Glucose,Whole Blood 142 mg/dL (75-99)
[2019-11-07] MEDS: AZITHROMYCIN 500 MG TAB PO SCH (21:03)
[2019-11-07] MEDS: MELATONIN 3 MG TABLET PO SCH (21:03)
[2019-11-07] MEDS: MONTELUKAST 10 MG TAB PO SCH ×2 (21:03→21:46)
[2019-11-07] MEDS: LACTULOSE 20 GM/30 ML CUP PO SCH (21:03)
[2019-11-08] MEDS: ALBUTEROL NEBULIZED 2.5 MG/3 ML INHALATION PRN ×6 (00:25→18:58)
[2019-11-08] MEDS: methylPREDNISolone SOD SUCCI 125 MG/2 ML VIAL IV SCH ×2 (05:11→16:31)
[2019-11-08] MEDS: KETOROLAC 30 MG/ML 1 ML VIAL IVP PRN (05:15)
[2019-11-08 07:09] LABS: Glucose,Whole Blood 135 mg/dL (75-99)
[2019-11-08] MEDS: BUDESONIDE 0.5 MG/2 ML NEBU INHALATION SCH ×2 (07:20→18:59)
[2019-11-08] MEDS: TIOTROPIUM 18 MCG/PUFF INHALER INHALATION SCH (07:20)
[2019-11-08] MEDS: MULTIVITAMINS, THERA 1 EACH TAB PO SCH (08:23)
[2019-11-08] MEDS: METOPROLOL SUCCINATE (ER) 25 MG TAB.ER.24H PO SCH ×2 (08:23→20:33)
[2019-11-08] MEDS: INSULIN ASPART (NovoLOG) 100 UNIT/ML VIAL SQ SCH ×4 (08:23→20:37)
[2019-11-08] MEDS: PANTOPRAZOLE 40 MG TABLET PO SCH (08:23)
[2019-11-08] MEDS: guaiFENesin 600 MG TABLET.ER PO SCH ×2 (08:23→20:33)
[2019-11-08] MEDS: SPIRONOLACTONE 25 MG TAB PO SCH (08:23)
[2019-11-08] MEDS: LACTOBACILLUS ACIDOPH & BULGAR 1 EACH PACKET PO SCH (08:23)
[2019-11-08] MEDS: ASPIRIN 81 MG PO SCH (08:23)
[2019-11-08] MEDS: APIXABAN 5 MG TAB PO SCH ×2 (08:23→20:33)
[2019-11-08] MEDS: FUROSEMIDE 40 MG TAB PO SCH (08:23)
[2019-11-08] MEDS: ASCORBIC ACID 500 MG TAB PO SCH (08:23)
--- NOTE | 2019-11-08 10:33 | P.PN ---
Subjective Progress Note Date: 11/08/19 64-year-old female one of my office patient with multiple medical problem known to have history of anasarca, COPD, CHF, A. fib with RVR, with recurrent history of edema who has not felt good for the last few weeks with worsening dyspnea and shortness of breath with worsening fluid retention she has gain over 15 pounds of water retention in the lower extremity in the last few weeks. Was seen in the office today with above complaint was very dyspneic was marginal hypoxic running in the mid 80. Patient was having significant tachycardia with pulse rate running over 120 bpm and tachypnea with respiratory rate running over 30 time per minutes patient has not been feeling well had quite bit of congestion over both lung cohen with significant wheezes on her exam. [facility] where was seen and evaluated initially found to have pulse ox in the high 80 with 3 L of O2 corrected to the mid 90 pulse rate remain quite bit elevated the chest x- ray showed mild COPD with slight consultation and mild symptom of congestive heart failure and fluid overload. Patient was started on IV diuretics Covid 19 was negative patient will be admitted to the hospital will be seen cardiology and pulmonary was started on antibiotics for gram-negative pneumonia and patient will be on mild dose of steroid for COPD exacerbation along with MDI Ventolin and Pulmicort. I stopped by and seen patient in the emergency department shortly before her admission after been subtle on oxygen and one dose of diuretic she started to feel slightly but better 5/2: Patient continues to have cough with yellow-green sputum production, hoarse voice and wheezing. Sputum culture ordered. She states she has decreased edema from yesterday. She continues to have dyspnea with minimal exertion. Cardiology appointment medicine on her case. She is requesting vitamin C be resumed which she was on at home. CAT scan of the chest high resolution, immune deficiency panel ordered. Patient has been afebrile, heart rate 100, blood pressure 131/85, pulse ox 91% on 40 of liters nasal cannula. Repeat CBC is unremarkable. BUN 21, creatinine 0.64. Blood sugars are elevated secondary to steroids and NovoLog scale added. CT of the chest markedly suboptimal demonstrating some coarse scarring but no definite interstitial lung disease. 5/3: Patient is afebrile, heart rate 90, blood pressure 118/67, pulse ox 95% on 3 L. Capillary blood glucose running between 140 163. Sputum cultures in progress. Patient has been evaluated by Dr. Chisholm with continuation of same medications and medical conditions for outpatient sleep study. Patient has been seen by Dr. Concepcion and Aldactone has been added. Patient has been continued on IV Lasix 40 mg every 12 hours and Solu-Medrol is currently at 60 mg IV every 6 hours. Patient states that she was able to ambulate to the bathroom 3 times. She does have significant shortness of breath with that activity. She has increased incentive spirometry up to 750 ML's. She also continues to have sputum production. Patient will be started on Singulair and Mucinex. She is complaining of some generalized weakness and may need neurology consult as an outpatient. Vitamin B12 level to be checked. 11/05: Patient's breathing status is slowly improving. She is using incentive spirometry at 1000 ML's now. She is currently on Lasix 40 mg IV every 12 hours will be transitioned to oral by cardiology. She is currently on Solu-Medrol 60 mg every 6 hours which will be continued at current dose. She hasn't decreased lower extremity edema. Patient is asking his about lymphedema and discussed lymphedema pump for home. Patient will bring this up with Dr. Ledbetter at her next visit. Patient continues to have wheezing and Pulmicort will be increased 1 mg twice daily. Patient is afebrile, heart rate 83, blood pressure 142/89, pulse ox 92% on 3 L nasal cannula. 11/06: Found today lying in bed flat with head at the foot of the bed and feet up 45 at the head of the bed. Patient's breathing status is improving. She co ntinues to have wheezing and scattered rhonchi. Flutter valve added. Patient has been afebrile, heart rate 84, blood pressure 162/82, pulse ox 96% on 3 L nasal cannula. Vitamin B12 level 446. T suppressor cells, total T cells are low as well as percentage of CD3 cells and percentage of CD4 helper, absolute CD4 helper. CD4/CD8 ratio 1.8. CD8 suppressor percentage 19, CD16/CD 56 percentage 49, CD 19 percentage 8, total CD 19+ B cells 80. Sputum culture finalized with normal growth. Patient has been transitioned to oral Lasix 40 mg daily. She is still on IV site Medrol at 60 mg every 6 hours. 11/07: Patient is afebrile, heart rate 76, blood pressure 144/66, pulse ox 92% on 2 L nasal cannula. Patient states that she was off oxygen for periods of time yesterday. She was up and showered in the bathroom today and ambulated in her room 4 times. Shortness of breath is improving but continues to have wheezing. She is using flutter valve. She continues to have sputum production. Continues to have hoarse voice. She is currently on Solu-Medrol 60 mg every 6 hours and will be decreased frequency to every 8 hours. Anticipate discharge home on Wednesday. Objective - Vital Signs Vital signs: Vital Signs Temp 97.9 F 11/08/19 05:06 Pulse 76 11/08/19 05:06 Resp 18 11/08/19 05:06 BP 144/66 11/08/19 05:06 Pulse Ox 92 L 11/08/19 05:06 Intake & Output 11/07/19 11/08/19 11/08/19 18:59 06:59 18:59 Intake Total 240 Balance 240 Intake: Oral 240 Other: Voiding Method Toilet Toilet # Voids 3 2 - Exam Review of Systems CONSTITUTIONAL: Morbid obesity, in no respiratory distress with wheezes and cou ghing. EYES: No icterus sclerae, no conjunctivitis. EARS, NOSE, MOUTH, THROAT, and FACE: No sore throat, lymphadenopathy, carotid bruits or deformity. RESPIRATORY: Denies shortness of breath reports cough reports wheezes. Reports sputum production. Reports shortness of breath with activity improving. CARDIOVASCULAR: Denies PND denies orthopnea palpitations no angina. GASTROINTESTINAL: No Abd pain, Nausea or vomiting, no Diarrhea or constipation, No GI Bleed, no distention or masses. GENITOURINARY: Negative for Hematuria or UTI, no kidney stones. Decrease in urine output. INTEGUMENT/BREAST: Negative for any muscular injury with mild osteoarthritis.. Significant arthralgia and myalgia. Significant edema and anasarca in the lower extremity. HEMATOLOGIC/LYMPHATIC: Negative for bleed or purpura. Mild bruise from coagulopathy. MUSCULOSKELTAL: Reports general Myalgia or arthralgia. NEURLOGICAL: No LOC, Sz or syncope, blurred vision dizziness or abnormality. BEHAVIORAL/PSYCH: Negative. ENDOCRINE: Negative. Physical examination General Appearance: Alert, cooperative, morbidly obese and no respiratory distress. Patient is talking in full sentences without dyspnea. Neck HEENT: Supple, no lymphadenopathy, no thyroid enlargement, no carotid bruits. Lungs: Decreased expansion bilaterally with scattered rhonchi and expiratory wheeze throughout. Chest Wall: Decrease expansion with deep inspiration no tenderness and no deformity was found on exam, no costochondral pain or discomfort. Heart: Irregular rate and rhythm, S1, S2 positive is 3 positive JVD with systolic murmur. Back: Symmetric, no curvature, ROM normal, no CVA tenderness. Abdomen: Soft, non-tender, bowel sounds active all four quadrants, no masses, no organomegaly. Extremities: Significant anasarca and 1+ pedal edema bilaterally. Pulses: 2+ and symmetric. Skin: Skin color, texture, tugor normal, no rashes or lesions. Neurologic: Alert oriented x3 cranial nerves II through XII intact, no motor deficit, no abnormal balance or gait. - Labs CBC & Chem 7: 11/06/19 05:57 11/07/19 06:12 Labs: Abnormal Lab Results - Last 24 Hours (Table) 11/07/19 11/07/19 11/07/19 Range/Units 11:20 17:27 20:33 POC Glucose (mg/dL) 138 H 137 H 142 H (75-99) mg/dL 11/08/19 Range/Units 07:07 POC Glucose (mg/dL) 135 H (75-99) mg/dL Assessment and Plan Plan: 1. Acute on chronic hypoxic respiratory failure secondary to combination of COPD exacerbation and acute on chronic diastolic heart failure. Consult with cardiology and pulmonary medicine appreciated. Continue albuterol nebulizer and inhaler, Pulmicort increased to 1 mg twice daily, ceftriaxone and azithromycin, continue Solu-Medrol 60 mg IV decreased frequency to every 8 hours. No change in steroids. Singulair and Mucinex added. Sputum culture normal edison. ALLERGY testing in process. 2. COPD exacerbation. Continue Solu-Medrol 60 mg IV every 8 along with Ventolin MDI, Pulmicort twice daily. Flutter valve ordered. 3. Acute on chronic diastolic heart failure. Consult with cardiology appreciated. Continue Lasix transitioned to 40 mg oral daily, continue Toprol- XL 25 mg twice daily, echocardiogram. Monitor I&O and daily weights, electrolytes and renal function. Aldactone 25 mg daily. 4. Possible gram-negative pneumonitis, Covid 19 was ruled out. Continue pat ient on Rocephin and azithromycin. 5. Hyperglycemia secondary to steroids. NovoLog scale. Check hemoglobin A1c. 6. Anasarca and severe edema: Patient will be on furosemide 40 mg IV twice a day. 7. 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 8. A. fib with RVRPatient remain on Eliquis continue metoprolol 25 g twice a day and titrate to a higher dose if needed to keep pulse below 90 bpm. 9. Hypertension: Remain on metoprolol 50 mg daily. 10. GERD: Patient remain on pantoprazole 40 mg twice a day. 11. history of DVT. Continue eliquis. 12. History of left-sided breast cancer post mastectomy has been in remission. 13. Chronic hypoxic respiratory failure on home O2. 14. DVT prophylaxis. Eliquis. 15. GI prophylaxis: Patient will be on pantoprazole. 16. COVID-19 infection not present. 17. Possible obstructive sleep apnea. Patient may benefit from outpatient sleep study. 18. Generalized weakness. Vitamin B12 level. Patient may require follow-up with neurology as an outpatient. 19. Chronic lymphedema. Patient to discuss lymphedema pump for home with Dr. Ledbetter at next office visit. CODE STATUS: Full code. Discharge plan: home on Wednesday Impression and plan of care have been directed as dictated by the signing physician. Mindi James nurse practitioner acting as scribe for signing physician.
[2019-11-08 11:11] LABS: Glucose,Whole Blood 134 mg/dL (75-99)
--- NOTE | 2019-11-08 14:58 | P.PN ---
Subjective Progress Note Date: 11/08/19 Principal diagnosis: Acute COPD exacerbation Purulent tracheobronchitis Developing left lower lobe pneumonia History of chronic persistent severe asthma with acute exacerbation Morbid obesity and likely obstructive sleep apnea 11/08/2019, patient seen eval examined during the rounds labs reviewed medications reviewed care plan discussed, is still short of breath and wheezing, patient remains on supplemental oxygen lower extremity have been swelling and, she is keeping her legs up now was seems to be helping, no cough or sputum is present, her oxygen saturation is low 90s on supplemental oxygen 3 L, she remains afebrile no hemoptysis stable hemodynamics 11/07/2019, patient seen eval examined during the rounds labs reviewed medications reviewed, patient remains on 3 L oxygen, IV steroids can be switched to oral agree with discharge planning in next 24 hours to 48 hours depending upon clinical condition 11/06/2019, patient seen eval examined during the rounds labs reviewed medications reviewed, continue do well still size mild shortness of breath the severity has improved oxygen is being tapered down now denies any cough or sputum production no more episodes of dizziness have been noted 11/05/2019, patient seen eval examined during the rounds labs reviewed medications reviewed care plan discussed, still have shortness of breath but severity has improved cuff congestion is improved she has intermittent episodes of dizziness likely related to her baseline COPD and multifactorial process she attributes it to back pain and degenerative joint disease, appears to multifactorial as nonspecific condition appears to be related, patient Neurology evaluation Patient is a 64-year-old female who came into the hospital with progressive increased shortness of breath which in fact has been going on for a long period time started and got worse about 2 months ago, she is a nonsmoker has history of asthma as well which is considered to be persistent and severe, patient is on nocturnal home oxygen as well as nebulizer treatment, she has active medical problems associated with anasarca and congestive heart failure chronic atrial fibrillation and recurrent history of edema she has gained over 15 pounds in the last few weeks, was seen in the office of primary care due to hypoxia sats were in mid 80s, patient has not been feeling well had quite bit of congestion over both lung cohen with significant wheezes on her exam. chest x-ray showed mild COPD with slight consultation and mild symptom of congestive heart failure and fluid overload. Patient was started on IV diuretics Covid 19 was negative patient is seen by cardiovascular services Fausto patient is on supplemental oxygen, has been placed on IV steroids breathing treatment and broad-spectrum antibiotics Objective - Vital Signs Vital signs: Vital Signs Temp 97.7 F 11/08/19 11:06 Pulse 88 11/08/19 11:26 Resp 18 11/08/19 11:06 BP 137/69 11/08/19 11:06 Pulse Ox 91 L 11/08/19 11:06 Intake & Output 11/07/19 11/08/19 11/08/19 18:59 06:59 18:59 Intake Total 240 250 Balance 240 250 Intake: Oral 240 250 Other: Voiding Method Toilet Toilet Toilet # Voids 3 2 2 - Exam - Constitutional General appearance: average body habitus, cooperative, disheveled - EENT Eyes: PERRLA Ears: bilateral: normal - Neck Neck: normal ROM Carotids: bilateral: upstroke normal - Respiratory Respiratory: bilateral: diminished, wheezing - Cardiovascular Rhythm: regular Heart sounds: normal: S1, S2, bilateral pedal trace edema - Gastrointestinal General gastrointestinal: decreased bowel sounds, soft - Neurologic Neurologic: CNII-XII intact - Musculoskeletal Musculoskeletal: gait normal, generalized weakness, strength equal bilaterally - Psychiatric Psychiatric: A&O x's 3, appropriate affect, intact judgment & insight - Labs CBC & Chem 7: 11/06/19 05:57 11/07/19 06:12 Labs: Abnormal Lab Results - Last 24 Hours (Table) 11/07/19 11/07/19 11/08/19 Range/Units 17:27 20:33 07:07 POC Glucose (mg/dL) 137 H 142 H 135 H (75-99) mg/dL 11/08/19 Range/Units 11:09 POC Glucose (mg/dL) 134 H (75-99) mg/dL Assessment and Plan Assessment: Acute COPD exacerbation Purulent tracheobronchitis Developing left lower lobe pneumonia History of chronic persistent severe asthma with acute exacerbation Morbid obesity and likely obstructive sleep apnea Nonspecific dizziness no clear Correlation we'll continue to observe Plan: Agree with broad-spectrum antibiotics breathing treatment and steroids, optimize therapy for heart failure as well as A. fib, patient will likely need a sleep study on outpatient basis Time with Patient: Greater than 30
[2019-11-08 16:55] LABS: Glucose,Whole Blood 126 mg/dL (75-99)
[2019-11-08] MEDS: BUDESONIDE 1 MG/2 ML NEBU INHALATION SCH (19:15)
[2019-11-08] MEDS: MONTELUKAST 10 MG TAB PO SCH (20:33)
[2019-11-08] MEDS: LACTULOSE 20 GM/30 ML CUP PO SCH (20:33)
[2019-11-08] MEDS: MELATONIN 3 MG TABLET PO SCH (20:33)
[2019-11-08] MEDS: AZITHROMYCIN 500 MG TAB PO SCH (20:33)
[2019-11-08 20:39] LABS: Glucose,Whole Blood 111 mg/dL (75-99)
[2019-11-09] MEDS: methylPREDNISolone SOD SUCCI 125 MG/2 ML VIAL IV SCH ×2 (04:53→07:35)
[2019-11-09 07:01] LABS: Glucose,Whole Blood 119 mg/dL (75-99)
[2019-11-09 07:03] LABS: HCT 39.8 % (34.0-46.0); HGB 13.2 gm/dL (11.4-16.0); MCH 34.3 pg (25.0-35.0); MCHC 33.2 g/dL (31.0-37.0); MCV 103.2 fL (80.0-100.0); Macrocytosis Slight; Mean Platelet Volume 7.7; Platelet Count 241 k/uL (150-450); RBC 3.86 m/uL (3.80-5.40); RDW 12.6 % (11.5-15.5); WBC 7.8 k/uL (3.8-10.6)
[2019-11-09] MEDS: ALBUTEROL NEBULIZED 2.5 MG/3 ML INHALATION PRN ×5 (07:17→23:49)
[2019-11-09] MEDS: BUDESONIDE 1 MG/2 ML NEBU INHALATION SCH ×2 (07:17→19:56)
[2019-11-09 07:20] LABS: African American GFR (CKD) >90 (>60 ml/min/1.73 sqM); Anion Gap 5 mmol/L; Blood Urea Nitrogen 35 mg/dL (7-17); Calcium 8.1 mg/dL (8.4-10.2); Carbon Dioxide 28 mmol/L (22-30); Chloride 105 mmol/L (98-107); Glucose 127 mg/dL (74-99); Non-African American GFR(CKD) 88 (>60 ml/min/1.73 sqM); Potassium 4.1 mmol/L (3.5-5.1); Sodium 138 mmol/L (137-145)
[2019-11-09] MEDS: TIOTROPIUM 18 MCG/PUFF INHALER INHALATION SCH (07:24)
[2019-11-09] MEDS: METOPROLOL SUCCINATE (ER) 25 MG TAB.ER.24H PO SCH ×2 (07:32→20:28)
[2019-11-09] MEDS: PANTOPRAZOLE 40 MG TABLET PO SCH (07:32)
[2019-11-09] MEDS: INSULIN ASPART (NovoLOG) 100 UNIT/ML VIAL SQ SCH ×4 (07:32→22:23)
[2019-11-09] MEDS: FUROSEMIDE 40 MG TAB PO SCH (07:33)
[2019-11-09] MEDS: guaiFENesin 600 MG TABLET.ER PO SCH ×2 (07:33→20:28)
[2019-11-09] MEDS: LACTOBACILLUS ACIDOPH & BULGAR 1 EACH PACKET PO SCH (07:33)
[2019-11-09] MEDS: SPIRONOLACTONE 25 MG TAB PO SCH (07:33)
[2019-11-09] MEDS: ASPIRIN 81 MG PO SCH (07:33)
[2019-11-09] MEDS: MULTIVITAMINS, THERA 1 EACH TAB PO SCH (07:33)
[2019-11-09] MEDS: ASCORBIC ACID 500 MG TAB PO SCH (07:33)
[2019-11-09] MEDS: APIXABAN 5 MG TAB PO SCH ×2 (07:34→20:28)
[2019-11-09 11:17] LABS: Glucose,Whole Blood 154 mg/dL (75-99)
--- NOTE | 2019-11-09 12:29 | P.PN ---
Subjective Progress Note Date: 11/09/19 Principal diagnosis: Acute COPD exacerbation Purulent tracheobronchitis Developing left lower lobe pneumonia History of chronic persistent severe asthma with acute exacerbation Morbid obesity and likely obstructive sleep apnea 11/09/2019, patient seen eval examined during the rounds limps the labs reviewed medications reviewed, has been doing slightly better shortness of breath is improved cough and congestion is improved as well, she is complaining of extensive swelling she has chronic lymphedema in the lower extremity since childhood but she felt that it's more than before 11/08/2019, patient seen eval examined during the rounds labs reviewed medications reviewed care plan discussed, is still short of breath and wheezing, patient remains on supplemental oxygen lower extremity have been swelling and, she is keeping her legs up now was seems to be helping, no cough or sputum is present, her oxygen saturation is low 90s on supplemental oxygen 3 L, she rem ains afebrile no hemoptysis stable hemodynamics 11/07/2019, patient seen eval examined during the rounds labs reviewed medications reviewed, patient remains on 3 L oxygen, IV steroids can be switched to oral agree with discharge planning in next 24 hours to 48 hours depending upon clinical condition 11/06/2019, patient seen eval examined during the rounds labs reviewed medications reviewed, continue do well still size mild shortness of breath the severity has improved oxygen is being tapered down now denies any cough or sputum production no more episodes of dizziness have been noted 11/05/2019, patient seen eval examined during the rounds labs reviewed medications reviewed care plan discussed, still have shortness of breath but severity has improved cuff congestion is improved she has intermittent episodes of dizziness likely related to her baseline COPD and multifactorial process she attributes it to back pain and degenerative joint disease, appears to multifactorial as nonspecific condition appears to be related, patient Neurology evaluation Patient is a 64-year-old female who came into the hospital with progressive increased shortness of breath which in fact has been going on for a long period time started and got worse about 2 months ago, she is a nonsmoker has history of asthma as well which is considered to be persistent and severe, patient is on nocturnal home oxygen as well as nebulizer treatment, she has active medical problems associated with anasarca and congestive heart failure chronic atrial fibrillation and recurrent history of edema she has gained over 15 pounds in the last few weeks, was seen in the office of primary care due to hypoxia sats were in mid 80s, patient has not been feeling well had quite bit of congestion over both lung cohen with significant wheezes on her exam. chest x-ray showed mild COPD with slight consultation and mild symptom of congestive heart failure and fluid overload. Patient was started on IV diuretics Covid 19 was negative patient is seen by cardiovascular services Fausto patient is on supplemental oxygen, has been placed on IV steroids breathing treatment and broad-spectrum antibiotics Objective - Vital Signs Vital signs: Vital Signs Temp 97.0 F L 11/09/19 11:55 Pulse 80 11/09/19 11:55 Resp 16 11/09/19 11:55 BP 138/88 11/09/19 11:55 Pulse Ox 95 11/09/19 11:55 Intake & Output 11/08/19 11/09/19 11/09/19 18:59 06:59 18:59 Intake Total 250 50 Balance 250 50 Weight 115.5 kg Intake: Intake, IV Titration 50 Amount cefTRIAXone 1 gm In 50 Sodium Chloride 0.9% 50 ml @ 100 mls/hr IVPB Q24H [facility] Rx#:[id number] Oral 250 Other: Voiding Method Toilet Toilet # Voids 2 1 - Exam - Constitutional General appearance: average body habitus, cooperative, disheveled - EENT Eyes: PERRLA Ears: bilateral: normal - Neck Neck: normal ROM Carotids: bilateral: upstroke normal - Respiratory Respiratory: bilateral: diminished, wheezing - Cardiovascular Rhythm: regular Heart sounds: normal: S1, S2, bilateral pedal trace edema on chronic lymphedema - Gastrointestinal General gastrointestinal: decreased bowel sounds, soft - Neurologic Neurologic: CNII-XII intact - Musculoskeletal Musculoskeletal: gait normal, generalized weakness, strength equal bilaterally chronic significant leg edema - Psychiatric Psychiatric: A&O x's 3, appropriate affect, intact judgment & insight - Labs CBC & Chem 7: 11/09/19 06:17 11/09/19 06:17 Labs: Abnormal Lab Results - Last 24 Hours (Table) 11/08/19 11/08/19 11/09/19 Range/Units 16:53 20:36 06:17 MCV 103.2 H (80.0-100.0) fL BUN (7-17) mg/dL Glucose (74-99) mg/dL POC Glucose (mg/dL) 126 H 111 H (75-99) mg/dL Calcium (8.4-10.2) mg/dL 11/09/19 11/09/19 11/09/19 Range/Units 06:17 06:59 11:14 MCV (80.0-100.0) fL BUN 35 H (7-17) mg/dL Glucose 127 H (74-99) mg/dL POC Glucose (mg/dL) 119 H 154 H (75-99) mg/dL Calcium 8.1 L (8.4-10.2) mg/dL Assessment and Plan Assessment: Chronic lymphedema of lower extremity Acute COPD exacerbation Purulent tracheobronchitis Developing left lower lobe pneumonia History of chronic persistent severe asthma with acute exacerbation Morbid obesity and likely obstructive sleep apnea Nonspecific dizziness no clear Correlation we'll continue to observe Plan: Agree with broad-spectrum antibiotics breathing treatment and steroids, optimize therapy for heart failure as well as A. fib, patient will likely need a sleep study on outpatient basis, patient may benefit from chronic lymphedema clinic as she has for a long period of time Time with Patient: Greater than 30
--- NOTE | 2019-11-09 15:31 | P.PN ---
Subjective Progress Note Date: 11/09/19 64-year-old female one of my office patient with multiple medical problem known to have history of anasarca, COPD, CHF, A. fib with RVR, with recurrent history of edema who has not felt good for the last few weeks with worsening dyspnea and shortness of breath with worsening fluid retention she has gain over 15 pounds of water retention in the lower extremity in the last few weeks. Was seen in the office today with above complaint was very dyspneic was marginal hypoxic running in the mid 80. Patient was having significant tachycardia with pulse rate running over 120 bpm and tachypnea with respiratory rate running over 30 time per minutes patient has not been feeling well had quite bit of congestion over both lung cohen with significant wheezes on her exam. [facility] where was seen and evaluated initially found to have pulse ox in the high 80 with 3 L of O2 corrected to the mid 90 pulse rate remain quite bit elevated the chest x- ray showed mild COPD with slight consultation and mild symptom of congestive heart failure and fluid overload. Patient was started on IV diuretics Covid 19 was negative patient will be admitted to the hospital will be seen cardiology and pulmonary was started on antibiotics for gram-negative pneumonia and patient will be on mild dose of steroid for COPD exacerbation along with MDI Ventolin and Pulmicort. I stopped by and seen patient in the emergency department shortly before her admission after been subtle on oxygen and one dose of diuretic she started to feel slightly but better 5/2: Patient continues to have cough with yellow-green sputum production, hoarse voice and wheezing. Sputum culture ordered. She states she has decreased edema from yesterday. She continues to have dyspnea with minimal exertion. Cardiology appointment medicine on her case. She is requesting vitamin C be resumed which she was on at home. CAT scan of the chest high resolution, immune deficiency panel ordered. Patient has been afebrile, heart rate 100, blood pressure 131/85, pulse ox 91% on 40 of liters nasal cannula. Repeat CBC is unremarkable. BUN 21, creatinine 0.64. Blood sugars are elevated secondary to steroids and NovoLog scale added. CT of the chest markedly suboptimal demonstrating some coarse scarring but no definite interstitial lung disease. 5/3: Patient is afebrile, heart rate 90, blood pressure 118/67, pulse ox 95% on 3 L. Capillary blood glucose running between 140 163. Sputum cultures in progress. Patient has been evaluated by Dr. Chisholm with continuation of same medications and medical conditions for outpatient sleep study. Patient has been seen by Dr. Concepcion and Aldactone has been added. Patient has been continued on IV Lasix 40 mg every 12 hours and Solu-Medrol is currently at 60 mg IV every 6 hours. Patient states that she was able to ambulate to the bathroom 3 times. She does have significant shortness of breath with that activity. She has increased incentive spirometry up to 750 ML's. She also continues to have sputum production. Patient will be started on Singulair and Mucinex. She is complaining of some generalized weakness and may need neurology consult as an outpatient. Vitamin B12 level to be checked. 11/05: Patient's breathing status is slowly improving. She is using incentive spirometry at 1000 ML's now. She is currently on Lasix 40 mg IV every 12 hours will be transitioned to oral by cardiology. She is currently on Solu-Medrol 60 mg every 6 hours which will be continued at current dose. She hasn't decreased lower extremity edema. Patient is asking his about lymphedema and discussed lymphedema pump for home. Patient will bring this up with Dr. Ledbetter at her next visit. Patient continues to have wheezing and Pulmicort will be increased 1 mg twice daily. Patient is afebrile, heart rate 83, blood pressure 142/89, pulse ox 92% on 3 L nasal cannula. 11/06: Found today lying in bed flat with head at the foot of the bed and feet up 45 at the head of the bed. Patient's breathing status is improving. She co ntinues to have wheezing and scattered rhonchi. Flutter valve added. Patient has been afebrile, heart rate 84, blood pressure 162/82, pulse ox 96% on 3 L nasal cannula. Vitamin B12 level 446. T suppressor cells, total T cells are low as well as percentage of CD3 cells and percentage of CD4 helper, absolute CD4 helper. CD4/CD8 ratio 1.8. CD8 suppressor percentage 19, CD16/CD 56 percentage 49, CD 19 percentage 8, total CD 19+ B cells 80. Sputum culture finalized with normal growth. Patient has been transitioned to oral Lasix 40 mg daily. She is still on IV site Medrol at 60 mg every 6 hours. 11/07: Patient is afebrile, heart rate 76, blood pressure 144/66, pulse ox 92% on 2 L nasal cannula. Patient states that she was off oxygen for periods of time yesterday. She was up and showered in the bathroom today and ambulated in her room 4 times. Shortness of breath is improving but continues to have wheezing. She is using flutter valve. She continues to have sputum production. Continues to have hoarse voice. She is currently on Solu-Medrol 60 mg every 6 hours and will be decreased frequency to every 8 hours. Anticipate discharge home on Wednesday. 11/08: The patient has been afebrile, heart rate 80, blood pressure 110/65, pulse ox 97% on room air. CBC is within normal limits. Electrolytes normal, BUN 35 and creatinine 2.73. Blood sugars running between 111 and 127. She is reaching 750 ML's on his incentive spirometry. She is eating 75-100% of meals. Patient states that she is lying upside down until 4:30 in the morning to help lower extremity edema/lymphedema. She is currently on site Medrol 60 mg IV every 8 hours and will be decreased to 40 mg every 8 hours. Anticipate discharge home on Wednesday. Objective - Vital Signs Vital signs: Vital Signs Temp 97.6 F 11/09/19 05:00 Pulse 84 11/09/19 07:35 Resp 16 11/09/19 05:00 BP 110/65 11/09/19 05:00 Pulse Ox 97 11/09/19 05:00 Intake & Output 11/08/19 11/09/19 11/09/19 18:59 06:59 18:59 Intake Total 250 50 Balance 250 50 Weight 115.5 kg Intake: Intake, IV Titration 50 Amount cefTRIAXone 1 gm In 50 Sodium Chloride 0.9% 50 ml @ 100 mls/hr IVPB Q24H [facility] Rx#:[id number] Oral 250 Other: Voiding Method Toilet Toilet # Voids 2 1 - Exam Review of Systems CONSTITUTIONAL: Morbid obesity, in no respiratory distress with wheezes and coughing. EYES: No icterus sclerae, no conjunctivitis. EARS, NOSE, MOUTH, THROAT, and FACE: No sore throat, lymphadenopathy, carotid bruits or deformity. RESPIRATORY: Denies shortness of breath reports cough reports wheezes. Reports sputum production. Reports shortness of breath with activity improving. CARDIOVASCULAR: Denies PND denies orthopnea palpitations no angina. GASTROINTESTINAL: No Abd pain, Nausea or vomiting, no Diarrhea or constipation, No GI Bleed, no distention or masses. GENITOURINARY: Negative for Hematuria or UTI, no kidney stones. Decrease in urine output. INTEGUMENT/BREAST: Negative for any muscular injury with mild osteoarthritis.. Significant arthralgia and myalgia. Reports edema and anasarca in the lower extremity. HEMATOLOGIC/LYMPHATIC: Negative for bleed or purpura. Mild bruise from coagulopathy. MUSCULOSKELTAL: Reports general Myalgia or arthralgia. NEURLOGICAL: No LOC, Sz or syncope, blurred vision dizziness or abnormality. BEHAVIORAL/PSYCH: Negative. ENDOCRINE: Negative. Abnormal blood sugars. Physical examination General Appearance: This is a 64-year-old morbidly obese female. She is resting in bed and appears to be comfortable and in no acute distress Patient is talking in full sentences without dyspnea. Neck HEENT: Supple, no lymphadenopathy, no thyroid enlargement, no carotid bruits. Lungs: Decreased expansion bilaterally with few expiratory wheeze. Chest Wall: Decrease expansion with deep inspiration no tenderness and no deformity was found on exam, no costochondral pain or discomfort. Heart: Irregular rate and rhythm, S1, S2 positive is 3 positive JVD with systolic murmur. Back: Symmetric, no curvature, ROM normal, no CVA tenderness. Abdomen: Soft, non-tender, bowel sounds active all four quadrants, no masses, no organomegaly. Extremities: Significant anasarca and 1+ pedal edema bilaterally. Pulses: 2+ and symmetric. Skin: Skin color, texture, tugor normal, no rashes or lesions. Neurologic: Alert oriented x3 cranial nerves II through XII intact, no motor deficit, no abnormal balance or gait. - Labs CBC & Chem 7: 11/09/19 06:17 11/09/19 06:17 Labs: Abnormal Lab Results - Last 24 Hours (Table) 11/08/19 11/08/19 11/08/19 Range/Units 11:09 16:53 20:36 MCV (80.0-100.0) fL BUN (7-17) mg/dL Glucose (74-99) mg/dL POC Glucose (mg/dL) 134 H 126 H 111 H (75-99) mg/dL Calcium (8.4-10.2) mg/dL 11/09/19 11/09/19 11/09/19 Range/Units 06:17 06:17 06:59 MCV 103.2 H (80.0-100.0) fL BUN 35 H (7-17) mg/dL Glucose 127 H (74-99) mg/dL POC Glucose (mg/dL) 119 H (75-99) mg/dL Calcium 8.1 L (8.4-10.2) mg/dL Assessment and Plan Plan: 1. Acute on chronic hypoxic respiratory failure secondary to combination of COPD exacerbation and acute on chronic diastolic heart failure. Consult with cardiology and pulmonary medicine appreciated. Continue albuterol nebulizer and inhaler, Pulmicort increased to 1 mg twice daily, ceftriaxone and azithromycin, continue Solu-Medrol decreased to 40 mg IV every 8 hours. Singulair and Mucinex added. Sputum culture normal edison. ALLERGY testing in process. 2. COPD exacerbation. Continue Solu-Medrol will be decreased to 40 mg every 8 hours along with Ventolin MDI, Pulmicort twice daily. Flutter valve ordered. 3. Acute on chronic diastolic heart failure. Consult with cardiology appreciated. Continue Lasix transitioned to 40 mg oral daily, continue Toprol- XL 25 mg twice daily, echocardiogram. Monitor I&O and daily weights, electrolytes and renal function. Aldactone 25 mg daily. 4. Possible gram-negative pneumonitis, Covid 19 was ruled out. Continue patient on Rocephin and azithromycin. 5. Hyperglycemia secondary to steroids. NovoLog scale. Check hemoglobin A1c. 6. Anasarca and severe edema: Patient will be on furosemide 40 mg IV twice a day. 7. 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 8. A. fib with RVR Patient remain on Eliquis continue metoprolol 25 g twice a day and titrate to a higher dose if needed to keep pulse below 90 bpm. 9. Hypertension: Remain on metoprolol 50 mg daily. 10. GERD: Patient remain on pantoprazole 40 mg twice a day. 11. history of DVT. Continue eliquis. 12. History of left-sided breast cancer post mastectomy has been in remission. 13. Chronic hypoxic respiratory failure on home O2. 14. DVT prophylaxis. Eliquis. 15. GI prophylaxis: Patient will be on pantoprazole. 16. COVID-19 infection not present. 17. Possible obstructive sleep apnea. Patient may benefit from outpatient sleep study. 18. Generalized weakness. Vitamin B12 level. Patient may require follow-up with neurology as an outpatient. 19. Chronic lymphedema. Patient to discuss lymphedema pump for home with Dr. Ledbetter at next office visit. CODE STATUS: Full code. Discharge plan: home on Wednesday Impression and plan of care have been directed as dictated by the signing physician. Mindi James nurse practitioner acting as scribe for signing physician.
[2019-11-09] MEDS ORDERED: methylPREDNISolone SOD SUCCI 40 MG/ML 1 ML VIAL IV SCH (16:00)
[2019-11-09 17:11] LABS: Glucose,Whole Blood 114 mg/dL (75-99)
[2019-11-09] MEDS: MELATONIN 3 MG TABLET PO SCH (20:28)
[2019-11-09] MEDS: LACTULOSE 20 GM/30 ML CUP PO SCH (20:28)
[2019-11-09] MEDS: MONTELUKAST 10 MG TAB PO SCH (20:28)
[2019-11-09 21:25] LABS: Glucose,Whole Blood 161 mg/dL (75-99)
[2019-11-10] MEDS: ALBUTEROL NEBULIZED 2.5 MG/3 ML INHALATION PRN ×4 (04:14→15:12)
[2019-11-10 05:03] VITALS: BP 119/70; RESP 18; TEMP 97.6
[2019-11-10 06:55] LABS: Glucose,Whole Blood 103 mg/dL (75-99)
[2019-11-10] MEDS: INSULIN ASPART (NovoLOG) 100 UNIT/ML VIAL SQ SCH ×3 (07:15→16:41)
[2019-11-10] MEDS: BUDESONIDE 1 MG/2 ML NEBU INHALATION SCH (07:29)
[2019-11-10] MEDS: TIOTROPIUM 18 MCG/PUFF INHALER INHALATION SCH (07:29)
[2019-11-10] MEDS: ASCORBIC ACID 500 MG TAB PO SCH (08:54)
[2019-11-10] MEDS: PANTOPRAZOLE 40 MG TABLET PO SCH (08:55)
[2019-11-10] MEDS: guaiFENesin 600 MG TABLET.ER PO SCH (08:55)
[2019-11-10] MEDS: ASPIRIN 81 MG PO SCH (08:55)
[2019-11-10] MEDS: LACTOBACILLUS ACIDOPH & BULGAR 1 EACH PACKET PO SCH (08:55)
[2019-11-10] MEDS: SPIRONOLACTONE 25 MG TAB PO SCH (08:55)
[2019-11-10] MEDS: METOPROLOL SUCCINATE (ER) 25 MG TAB.ER.24H PO SCH (08:55)
[2019-11-10] MEDS: MULTIVITAMINS, THERA 1 EACH TAB PO SCH (08:55)
[2019-11-10] MEDS: FUROSEMIDE 40 MG TAB PO SCH (08:55)
[2019-11-10] MEDS: APIXABAN 5 MG TAB PO SCH (08:55)
[2019-11-10] MEDS ORDERED: predniSONE 20 MG TAB PO SCH (09:00)
[2019-11-10 11:28] LABS: Glucose,Whole Blood 104 mg/dL (75-99)
--- NOTE | 2019-11-10 13:33 | P.DS ---
Providers Date of admission: 11/04/19 12:24 Expected date of discharge: 11/10/19 Attending physician: Wilda Hernandez Consults: 11/03/19 21:20 Consult Physician Routine Consulting Provider: Jared Del Castillo Consult Reason/Comments: chf AND a FIB Do you want consulting provider notified?: Yes 11/04/19 09:14 Consult Physician Routine Consulting Provider: Kvng Chisholm Consult Reason/Comments: copd Do you want consulting provider notified?: Yes Primary care physician: [facility] Course: 64-year-old female one of my office patient with multiple medical problem known to have history of anasarca, COPD, CHF, A. fib with RVR, with recurrent history of edema who has not felt good for the last few weeks with worsening dyspnea and shortness of breath with worsening fluid retention she has gain over 15 pounds of water retention in the lower extremity in the last few weeks. Was seen in the office today with above complaint was very dyspneic was marginal hypoxic running in the mid 80. Patient was having significant tachycardia with pulse rate running over 120 bpm and tachypnea with respiratory rate running over 30 time per minutes patient has not been feeling well had quite bit of congestion over both lung cohen with significant wheezes on her exam. Patient ended up coming to [facility] department for the above problem where was seen and evaluated initially found to have pulse ox in the high 80 with 3 L of O2 corrected to the mid 90 pulse rate remain quite bit elevated the chest x- ray showed mild COPD with slight consultation and mild symptom of congestive heart failure and fluid overload. Patient was started on IV diuretics Covid 19 was negative patient will be admitted to the hospital will be seen cardiology and pulmonary was started on antibiotics for gram-negative pneumonia and patient will be on mild dose of steroid for COPD exacerbation along with MDI Ventolin and Pulmicort. I stopped by and seen patient in the emergency department shortly before her admission after been subtle on oxygen and one dose of diuretic she started to feel slightly but better 5/2: Patient continues to have cough with yellow-green sputum production, hoarse voice and wheezing. Sputum culture ordered. She states she has decreased edema from yesterday. She continues to have dyspnea with minimal exertion. Cardiology appointment medicine on her case. She is requesting vitamin C be resumed which she was on at home. CAT scan of the chest high resolution, immune deficiency panel ordered. Patient has been afebrile, heart rate 100, blood pressure 131/85, pulse ox 91% on 40 of liters nasal cannula. Repeat CBC is unremarkable. BUN 21, creatinine 0.64. Blood sugars are elevated secondary to steroids and NovoLog scale added. CT of the chest markedly suboptimal demonstrating some coarse scarring but no definite interstitial lung disease. 11/04: Patient is afebrile, heart rate 90, blood pressure 118/67, pulse ox 95% on 3 L. Capillary blood glucose running between 140 163. Sputum cultures in progress. Patient has been evaluated by Dr. Chisholm with continuation of same medications and medical conditions for outpatient sleep study. Patient has been seen by Dr. Concepcion and Aldactone has been added. Patient has been continued on IV Lasix 40 mg every 12 hours and Solu-Medrol is currently at 60 mg IV every 6 hours. Patient states that she was able to ambulate to the bathroom 3 times. She does have significant shortness of breath with that activity. She has increased incentive spirometry up to 750 ML's. She also continues to have sputum production. Patient will be started on Singulair and Mucinex. She is complaining of some generalized weakness and may need neurology consult as an outpatient. Vitamin B12 level to be checked. 11/05: Patient's breathing status is slowly improving. She is using incentive spirometry at 1000 ML's now. She is currently on Lasix 40 mg IV every 12 hours will be transitioned to oral by cardiology. She is currently on Solu-Medrol 60 mg every 6 hours which will be continued at current dose. She hasn't decreased lower extremity edema. Patient is asking his about lymphedema and discussed lymphedema pump for home. Patient will bring this up with Dr. Ledbetter at her next visit. Patient continues to have wheezing and Pulmicort will be increased 1 mg twice daily. Patient is afebrile, heart rate 83, blood pressure 142/89, pulse ox 92% on 3 L nasal cannula. 55: Found today lying in bed flat with head at the foot of the bed and feet up 45 at the head of the bed. Patient's breathing status is improving. She continues to have wheezing and scattered rhonchi. Flutter valve added. Patient has been afebrile, heart rate 84, blood pressure 162/82, pulse ox 96% on 3 L nasal cannula. Vitamin B12 level 446. T suppressor cells, total T cells are low as well as percentage of CD3 cells and percentage of CD4 helper, absolute CD4 helper. CD4/CD8 ratio 1.8. CD8 suppressor percentage 19, CD16/CD 56 percentage 49, CD 19 percentage 8, total CD 19+ B cells 80. Sputum culture finalized with normal growth. Patient has been transitioned to oral Lasix 40 mg daily. She is still on IV site Medrol at 60 mg every 6 hours. 11/07: Patient is afebrile, heart rate 76, blood pressure 144/66, pulse ox 92% on 2 L nasal cannula. Patient states that she was off oxygen for periods of time yesterday. She was up and showered in the bathroom today and ambulated in her room 4 times. Shortness of breath is improving but continues to have wheezing. She is using flutter valve. She continues to have sputum production. Continues to have hoarse voice. She is currently on Solu-Medrol 60 mg every 6 hours and will be decreased frequency to every 8 hours. Anticipate discharge home on Wednesday. 11/08: The patient has been afebrile, heart rate 80, blood pressure 110/65, pulse ox 97% on room air. CBC is within normal limits. Electrolytes normal, BUN 35 and creatinine 2.73. Blood sugars running between 111 and 127. She is reaching 750 ML's on his incentive spirometry. She is eating 75-100% of meals. Patient states that she is lying upside down until 4:30 in the morning to help lower extremity edema/lymphedema. She is currently on site Medrol 60 mg IV every 8 hours and will be decreased to 40 mg every 8 hours. Anticipate discharge home on Wednesday. 11/09: Prednisone transitioned to oral 60 mg of this morning. She is also on oral Lasix. Patient was started on Aldactone during this hospitalization by cardiology. Patient has been afebrile, heart rate 80, blood pressure 119/70, pulse ox 93% on room air. IgG normal at 907, IgA normal at 191, IgM normal at 128. Breathing status appears to be at baseline. Hospital bed will be ordered for the patient due to COPD and needing the head of the bed up 30 to maintain adequate pulse ox and respiratory status. manager enterprise content management has been updated. Patient will be discharged home today in stable condition. Discharge diagnoses: 1. Acute on chronic hypoxic respiratory failure secondary to combination of COPD exacerbation and acute on chronic diastolic heart failure. 2. COPD exacerbation. 3. Acute on chronic diastolic heart failure. 4. Possible gram-negative pneumonitis, Covid 19 was ruled out. 5. Hyperglycemia secondary to steroids. A1c 5.5. 6. Anasarca and severe edema. 7. 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 8. A. fib with RVR, paroxysmal atrial fibrillation. 9. Hypertension 10. GERD 11. History of DVT. 12. History of left-sided breast cancer post mastectomy has been in remission. 13. Chronic hypoxic respiratory failure on home O2. 14. COVID-19 infection not present. 15. Possible obstructive sleep apnea. Patient may benefit from outpatient sleep study. 16. Generalized weakness. 17. Chronic lymphedema. Patient to discuss lymphedema pump for home with Dr. Ledbetter at next office visit. Discharge plan: home Impression and plan of care have been directed as dictated by the signing physician. Mindi James nurse practitioner acting as scribe for signing physician. Patient Condition at Discharge: Good Plan - Discharge Summary Discharge Rx Participant: Yes New Discharge Prescriptions: New Spironolactone [Aldactone] 25 mg PO DAILY #30 tab predniSONE [Deltasone] 20 mg PO DAILY #32 tab guaiFENesin [Mucinex] 1,200 mg PO Q12HR #20 tablet.er Montelukast [Singulair] 10 mg PO HS #30 tab Albuterol Inhaler [Ventolin Hfa Inhaler] 2 puff INHALATION RT-Q6H PRN #1 inhaler PRN Reason: Shortness Of Breath Or Wheezing Continue Apixaban [Eliquis] 5 mg PO BID Multivitamins, Thera [Multivitamin (formulary)] 1 tab PO DAILY Lactulose 10 gm PO HS Furosemide [Lasix] 40 mg PO DAILY Cedar-3 Fatty Acids/Fish Oil [Fish Oil 1,000 mg Softgel] 1 cap PO DAILY L.acidoph,Paracasei, B.lactis [Probiotic] 1 cap PO DAILY Aspirin EC [Ecotrin Low Dose] 81 mg PO DAILY Metoprolol Succinate (ER) [Toprol XL] 25 mg PO BID Budesonide [Pulmicort] 0.5 mg INHALATION RT-BID Sennosides [Senna] 17.2 mg PO BID PRN PRN Reason: Constipation Changed Albuterol Nebulized [Ventolin Nebulized] 2.5 mg INHALATION Q6HR PRN #120 neb PRN Reason: Shortness Of Breath Discontinued Potassium Chloride [Klor-Con 20] 20 meq PO DAILY Discharge Medication List Apixaban [Eliquis] 5 mg PO BID 04/22/18 [History] Multivitamins, Thera [Multivitamin (formulary)] 1 tab PO DAILY 07/27/18 [History] Aspirin EC [Ecotrin Low Dose] 81 mg PO DAILY 11/03/19 [History] Budesonide [Pulmicort] 0.5 mg INHALATION RT-BID 11/03/19 [History] Furosemide [Lasix] 40 mg PO DAILY 11/03/19 [History] L.acidoph,Paracasei, B.lactis [Probiotic] 1 cap PO DAILY 11/03/19 [History] Lactulose 10 gm PO HS 11/03/19 [History] Metoprolol Succinate (ER) [Toprol XL] 25 mg PO BID 11/03/19 [History] Cedar-3 Fatty Acids/Fish Oil [Fish Oil 1,000 mg Softgel] 1 cap PO DAILY 11/03/19 [History] Sennosides [Senna] 17.2 mg PO BID PRN 11/03/19 [History] Albuterol Inhaler [Ventolin Hfa Inhaler] 2 puff INHALATION RT-Q6H PRN #1 inhaler 11/10/19 [Rx] Albuterol Nebulized [Ventolin Nebulized] 2.5 mg INHALATION Q6HR PRN #120 neb 11/10/19 [Rx] Montelukast [Singulair] 10 mg PO HS #30 tab 11/10/19 [Rx] Spironolactone [Aldactone] 25 mg PO DAILY #30 tab 11/10/19 [Rx] guaiFENesin [Mucinex] 1,200 mg PO Q12HR #20 tablet.er 11/10/19 [Rx] predniSONE [Deltasone] 20 mg PO DAILY #32 tab 11/10/19 [Rx] Follow up Appointment(s)/Referral(s): Josh Ledbetter MD [Primary Care Provider] - 11/13/19 1:00 pm Cameron Rodrigues MD [STAFF PHYSICIAN] - 11/13/19 11:00 am (This will be a [facility].) Patient Instructions/Handouts: COPD (Chronic Obstructive Pulmonary Disease) (DC) Activity/Diet/Wound Care/Special Instructions: Follow up with primary chinese teacher in one week. Per Dr. Chisholm, patient will need a sleep study as outpatient Discharge Disposition: HOME SELF-CARE
--- NOTE | 2019-11-10 14:37 | P.PN ---
Subjective Progress Note Date: 11/10/19 Principal diagnosis: Acute COPD exacerbation Purulent tracheobronchitis Developing left lower lobe pneumonia History of chronic persistent severe asthma with acute exacerbation Morbid obesity and likely obstructive sleep apnea 11/10/2019, shortness of breath is stable cough congestion is present, patient is concerned about lower extremity swelling is chronic, discussed with the patient look into the lymphedema clinic, and discussed with primary service, patient is being planned for discharge later on today 11/09/2019, patient seen eval examined during the rounds limps the labs reviewed medications reviewed, has been doing slightly better shortness of breath is improved cough and congestion is improved as well, she is complaining of extensive swelling she has chronic lymphedema in the lower extremity since childhood but she felt that it's more than before 11/08/2019, patient seen eval examined during the rounds labs reviewed medications reviewed care plan discussed, is still short of breath and wheezing, patient remains on supplemental oxygen lower extremity have been swelling and, she is keeping her legs up now was seems to be helping, no cough or sputum is present, her oxygen saturation is low 90s on supplemental oxygen 3 L, she remains afebrile no hemoptysis stable hemodynamics 11/07/2019, patient seen eval examined during the rounds labs reviewed medications reviewed, patient remains on 3 L oxygen, IV steroids can be switched to oral agree with discharge planning in next 24 hours to 48 hours depending upon clinical condition 11/06/2019, patient seen eval examined during the rounds labs reviewed medications reviewed, continue do well still size mild shortness of breath the severity has improved oxygen is being tapered down now denies any cough or sputum production no more episodes of dizziness have been noted 11/05/2019, patient seen eval examined during the rounds labs reviewed medications reviewed care plan discussed, still have shortness of breath but severity has improved cuff congestion is improved she has intermittent episodes of dizziness likely related to her baseline COPD and multifactorial process she attributes it to back pain and degenerative joint disease, appears to multifactorial as nonspecific condition appears to be related, patient Neurology evaluation Patient is a 64-year-old female who came into the hospital with progressive increased shortness of breath which in fact has been going on for a long period time started and got worse about 2 months ago, she is a nonsmoker has history of asthma as well which is considered to be persistent and severe, patient is on nocturnal home oxygen as well as nebulizer treatment, she has active medical problems associated with anasarca and congestive heart failure chronic atrial fibrillation and recurrent history of edema she has gained over 15 pounds in the last few weeks, was seen in the office of primary care due to hypoxia sats were in mid 80s, patient has not been feeling well had quite bit of congestion over both lung cohen with significant wheezes on her exam. chest x-ray showed mild COPD with slight consultation and mild symptom of congestive heart failure and fluid overload. Patient was started on IV diuretics Covid 19 was negative patie nt is seen by cardiovascular services Fausto patient is on supplemental oxygen, has been placed on IV steroids breathing treatment and broad-spectrum antibiotics Objective - Vital Signs Vital signs: Vital Signs Temp 97.6 F 11/10/19 05:00 Pulse 80 11/10/19 11:25 Resp 18 11/10/19 05:00 BP 119/70 11/10/19 05:00 Pulse Ox 93 L 11/10/19 05:00 Intake & Output 11/09/19 11/10/19 11/10/19 18:59 06:59 18:59 Intake Total 720 480 Balance 720 480 Weight 118 kg Intake: Oral 720 480 Other: Voiding Method Toilet Toilet # Voids 3 2 2 - Exam - Constitutional General appearance: average body habitus, cooperative, disheveled - EENT Eyes: PERRLA Ears: bilateral: normal - Neck Neck: normal ROM Carotids: bilateral: upstroke normal - Respiratory Respiratory: bilateral: diminished, wheezing - Cardiovascular Rhythm: regular Heart sounds: normal: S1, S2, bilateral pedal trace edema on chronic lymphedema - Gastrointestinal General gastrointestinal: decreased bowel sounds, soft - Neurologic Neurologic: CNII-XII intact - Musculoskeletal Musculoskeletal: gait normal, generalized weakness, strength equal bilaterally chronic significant leg edema - Psychiatric Psychiatric: A&O x's 3, appropriate affect, intact judgment & insight - Labs CBC & Chem 7: 11/09/19 06:17 11/09/19 06:17 Labs: Abnormal Lab Results - Last 24 Hours (Table) 11/09/19 11/09/19 11/10/19 Range/Units 17:09 21:24 06:53 POC Glucose (mg/dL) 114 H 161 H 103 H (75-99) mg/dL 11/10/19 Range/Units 11:11 POC Glucose (mg/dL) 104 H (75-99) mg/dL Assessment and Plan Assessment: Chronic lymphedema of lower extremity Acute COPD exacerbation Purulent tracheobronchitis Developing left lower lobe pneumonia History of chronic persistent severe asthma with acute exacerbation Morbid obesity and likely obstructive sleep apnea Nonspecific dizziness no clear Correlation we'll continue to observe Plan: Agree with broad-spectrum antibiotics breathing treatment and steroids, optimize therapy for heart failure as well as A. fib, patient will likely need a sleep study on outpatient basis, patient may benefit from chronic lymphedema clinic as she has for a long period of time agree with discharge planning Time with Patient: Greater than 30
[2019-11-10 15:17] VITALS: PULSE 84
== END 2019-11-10 17:30 | disposition home or self-care (01) | DRG 177 ==
LOC: EC 15:42 → 5NMEDONC 18:26 → OBSVTOIN 11-04 12:24
PROVIDERS: ADMIT Family Medicine; ATTEND Family Medicine
DX: J15.6 Pneumonia due to other Gram-negative bacteria (principal); I50.33 Acute on chronic diastolic (congestive) heart failure; J96.21 Acute and chronic respiratory failure with hypoxia; J45.51 Severe persistent asthma with (acute) exacerbation; J44.1 Chronic obstructive pulmonary disease with (acute) exacerbation; Z68.42 Body mass index [BMI] 45.0-49.9, adult; L03.119 Cellulitis of unspecified part of limb; J44.0 Chronic obstructive pulmonary disease with (acute) lower respiratory infection; I27.81 Cor pulmonale (chronic); I11.0 Hypertensive heart disease with heart failure; E66.01 Morbid (severe) obesity due to excess calories; I48.0 Paroxysmal atrial fibrillation; Z20.828 Contact with and (suspected) exposure to other viral communicable diseases; G47.33 Obstructive sleep apnea (adult) (pediatric); K21.9 Gastro-esophageal reflux disease without esophagitis; R73.9 Hyperglycemia, unspecified; T38.0X5A Adverse effect of glucocorticoids and synthetic analogues, initial encounter; I89.0 Lymphedema, not elsewhere classified; R42 Dizziness and giddiness; M54.9 Dorsalgia, unspecified; H04.129 Dry eye syndrome of unspecified lacrimal gland; J30.9 Allergic rhinitis, unspecified; M15.9 Polyosteoarthritis, unspecified; Z99.81 Dependence on supplemental oxygen; Z79.01 Long term (current) use of anticoagulants; Z79.82 Long term (current) use of aspirin; Z79.51 Long term (current) use of inhaled steroids; Z79.899 Other long term (current) drug therapy; Z86.718 Personal history of other venous thrombosis and embolism; Z86.19 Personal history of other infectious and parasitic diseases; Z85.3 Personal history of malignant neoplasm of breast; Z90.12 Acquired absence of left breast and nipple; Z98.890 Other specified postprocedural states; Z85.42 Personal history of malignant neoplasm of other parts of uterus; Z87.798 Personal history of other (corrected) congenital malformations; Z90.710 Acquired absence of both cervix and uterus; Z88.6 Allergy status to analgesic agent; Z88.1 Allergy status to other antibiotic agents; Z90.722 Acquired absence of ovaries, bilateral; Z80.9 Family history of malignant neoplasm, unspecified; Z82.49 Family history of ischemic heart disease and other diseases of the circulatory system
CPT/HCPCS: 36415; 71046; 71250; 80048; 80053; 82607; 82784; 83036; 83605; 83735; 83880; 84484; 85025; 85027; 85610; 85730; 86355; 86357; 86359; 86360; 87070; 87205; 87635; 93005; 93306; 94640; 94760; 96374; 99285

== ENCOUNTER → 2019-11-17 | Outpatient (CLI) | payer MEDICARE ==
[~2019-11-17] MED LIST: REGADENOSON 0.4 MG/5 ML SYRINGE IV ONE
--- NOTE | 2019-11-17 13:20 | EST ---
EXERCISE STRESS DATE OF SERVICE: 11/17/2019 AGE: 64 SEX: F HT: 5'3" WT: 246 lbs PROTOCOL: Lexiscan Stress HEART RATE REST: 76 BLOOD PRESSURE REST: 128/90 MAXIMUM HEART RATE ACHIEVED: 107 MAXIMUM BLOOD PRESSURE: 142/87 85% MPHR: 133 100% MPHR: 157 INDICATIONS: Chest pain RESULTS: Baseline EKG revealed normal sinus rhythm with prominent T-waves. Patient was administered Lexiscan as per protocol. Heart rate went up from 76 to 100 beats per minute and blood pressure changed from 128/90 to 142/87, and came back to baseline. Patient did not have any significant symptoms. EKG was unremarkable. By EKG criteria, this is an unremarkable Lexiscan stress test. The nuclear scan results which are more pertinent will be reported by the radiologist. MMODL / IJN: [id number] /
--- NOTE | 2019-11-17 13:33 | NM ---
EXAMINATION TYPE: NM stress lexiscan cardiolite DATE OF EXAM: 11/17/2019 COMPARISON: NONE HISTORY: Precordial chest pain and abnormal EKG TECHNIQUE: After the intravenous administration of 10.2 mCi Tc 99m Sestamibi - Cardiolite resting SP ECT images acquired 60 minutes post injection. The patient received 0.4mg Lexiscan, 24.3 mCi Tc 99m Sestamibi - Stress images obtained [address] injection FINDINGS: Review of stress and rest SPECT images demonstrates decreased perfusion on rest images involving the inferior wall which improves following stress imaging likely a result of attenuation artifact. No vis ible stress-induced ischemia. Gated analysis shows normal wall motion with an estimated left ventricu lar ejection fraction of 63 %. IMPRESSION: No scintigraphic evidence for reversible ischemia.
== END | disposition home or self-care (01) ==
LOC: RADNMMAIN 09:07
PROVIDERS: ATTEND Internal Medicine Geriatric Medicine
DX: R07.9 Chest pain, unspecified (principal)
CPT/HCPCS: 93017; 78452; A9500; J2785

== ENCOUNTER → 2020-04-11 | Outpatient (CLI) | payer MEDICARE ==
--- NOTE | 2020-04-12 09:57 | XR ---
"EXAMINATION TYPE: XR knee complete LT DATE OF EXAM: 04/11/2020 CLINICAL HISTORY: Left knee pain and patellar dislocation 5 days ago TECHNIQUE: Three views of the left knee are obtained. COMPARISON: None. FINDINGS: Age-indeterminate depression deformity of the lateral tibial plateau. There is patella alt a. Mild tricompartmental degenerative spurring. Overlapping soft tissue and lateral projections limit s evaluation for joint effusion. IMPRESSION: 1. Age-indeterminate depression fracture deformity of the lateral tibial plateau. Consider CT examina tion of the knee and orthopedic consultation. 2. Patella yakov. A Yellow level critical message alert has been initiated for MEGHAN Garg via the [employer] | Critical Results System on 04/12/2020 9:54 AM. This message alert has been sent to MEGHAN Garg via the preferences provided by the clinician for the receipt of Radiology Critical Fin dings. Message ID [id number]."
== END | disposition home or self-care (01) ==
LOC: RAD 17:32
PROVIDERS: ATTEND Nurse Practitioner Family
DX: M25.562 Pain in left knee (principal)

== ENCOUNTER 2020-07-08 19:00 | Emergency (ER) | payer MEDICARE ==
[2020-07-08 19:23] VITALS: RESP 18
[2020-07-08] MEDS ORDERED: HYDROmorphone 0.5 MG/0.5 ML SYRINGE IVP STA (19:46)
--- NOTE | 2020-07-08 19:51 | ED ---
Fall HPI - General Chief Complaint: Fall Stated Complaint: Fall-Shoulder Injury Time Seen by Provider: 07/08/20 19:20 Source: EMS Mode of arrival: EMS - History of Present Illness Initial Comments: 64-year-old female presenting to the emergency department with a chief complaint of fall. Patient states the incident occurred about one hour prior to arrival while she was walking to the bathroom. Patient states she tripped over her oxygen cord tubing and fell on the right side of her body. Denies any head injury loss of consciousness. She reports the pain is located only on her right shoulder. Patient reports while the EMS was hoping the patient, she felt an "pop" and believes her shoulder was dislocated. She reports a throbbing sensation that is exacerbated with any movement at this time. Denies any significant pain with rest. Denies taking medication to alleviate the symptoms. Denies numbness or tingling. - Related Data Home Medications Medication Instructions Recorded Confirmed Apixaban [Eliquis] 5 mg PO BID 04/22/18 11/03/19 Multivitamins, Thera [Multivitamin 1 tab PO DAILY 07/27/18 11/03/19 (formulary)] Aspirin EC [Ecotrin Low Dose] 81 mg PO DAILY 11/03/19 11/03/19 Budesonide [Pulmicort] 0.5 mg INHALATION RT-BID 11/03/19 11/03/19 Furosemide [Lasix] 40 mg PO DAILY 11/03/19 11/03/19 L.acidoph,Paracasei, B.lactis 1 cap PO DAILY 11/03/19 11/03/19 [Probiotic] Lactulose 10 gm PO HS 11/03/19 11/03/19 Metoprolol Succinate (ER) [Toprol 25 mg PO BID 11/03/19 11/03/19 XL] Emmet-3 Fatty Acids/Fish Oil [Fish 1 cap PO DAILY 11/03/19 11/03/19 Oil 1,000 mg Softgel] Sennosides [Senna] 17.2 mg PO BID PRN 11/03/19 11/03/19 Previous Rx's Medication Instructions Recorded Albuterol Inhaler [Ventolin Hfa 2 puff INHALATION RT-Q6H PRN #1 11/10/19 Inhaler] inhaler Albuterol Nebulized [Ventolin 2.5 mg INHALATION Q6HR PRN #120 neb 11/10/19 Nebulized] Montelukast [Singulair] 10 mg PO HS #30 tab 11/10/19 Spironolactone [Aldactone] 25 mg PO DAILY #30 tab 11/10/19 guaiFENesin [Mucinex] 1,200 mg PO Q12HR #20 tablet.er 11/10/19 predniSONE [Deltasone] 20 mg PO DAILY #32 tab 11/10/19 Allergies Allergy/AdvReac Type Severity Reaction Status Date / Time ibuprofen [From Motrin] Allergy Dyspnea Verified 07/08/20 22:39 levofloxacin [From Levaquin] Allergy Unknown Verified 07/08/20 22:39 acetaminophen [From Tylenol] AdvReac Increased Verified 07/08/20 22:39 Liver Enzymes Review of Systems ROS Statement: Those systems with pertinent positive or pertinent negative responses have been documented in the HPI. ROS Other: All systems not noted in ROS Statement are negative. 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 History of Any Multi-Drug Resistant Organisms: None Reported Past Surgical History: Breast Surgery, Heart Catheterization, Hysterectomy Additional Past Surgical History / Comment(s): L hip surgery x3, bowel obstruction with laparotomy, hysterecomy/ovaries/tumor removed per pt, bronchoscopies x2, Past Anesthesia/Blood Transfusion Reactions: No Reported Reaction Additional Past Anesthesia/Blood Transfusion Reaction / Comment(s): Pt has received blood without reaction. Past Psychological History: No Psychological Hx Reported Smoking Status: Former smoker Past Alcohol Use History: Occasional Past Drug Use History: None Reported - Past Family History Mother Family Medical History: Cancer Additional Family Medical History / Comment(s): Mother at the age of 75yrs from metastatic cancer. Father Family Medical History: Myocardial Infarction ([place]) Additional Family Medical History / Comment(s): Father of a [place] at the age of 54yrs. General Exam Limitations: no limitations General appearance: alert, in no apparent distress, obese Head exam: Present: atraumatic, normocephalic, normal inspection Eye exam: Present: normal appearance, PERRL, EOMI Pupils: Present: normal accommodation ENT exam: Present: normal exam, normal oropharynx, mucous membranes moist Neck exam: Present: normal inspection, full ROM Respiratory exam: Present: normal lung sounds bilaterally. Absent: respiratory distress, wheezes, rales Cardiovascular Exam: Present: regular rate, normal rhythm, normal heart sounds Extremities exam: Present: normal inspection (No bony deformity noted in the right shoulder.), full ROM (Limited active range of motion in the right shoulder. Full passive range of motion in the right shoulder.), tenderness (Tenderness along the right deltoid), normal capillary refill, other (+2 ulnar radial pulses bilaterally.). Absent: pedal edema, joint swelling, calf tenderness Back exam: Present: normal inspection, full ROM. Absent: tenderness Neurological exam: Present: alert, oriented X3 Psychiatric exam: Present: normal affect, normal mood Skin exam: Present: warm, dry, intact, normal color Course Vital Signs 07/08/20 07/08/20 19:18 21:09 Temperature 97.8 F Pulse Rate 69 57 L Respiratory 18 18 Rate Blood Pressure 107/70 113/98 O2 Sat by Pulse 92 L 92 L Oximetry Procedures - Orthopedic Joint Reduction Joint #1 Consent Obtained: verbal consent Side: right Joint Reduction Location: shoulder Analgesia: none Shoulder Technique Used (if applicable): traction/counter-traction Technique Used: traction/counter-traction Post-Reduction Neuro Exam: intact Post-Reduction Vascular Exam: intact Post Reduction X-Ray Obtained: Yes Post Reduction X-Ray Results: reduced Splint Applied: Yes (Sling) Patient Tolerated Procedure: well, no complications Medical Decision Making - Medical Decision Making 64-year-old female presenting to the emergency department with a chief complaint of fall. On physical examination, patient does have slight anatomical abnormality in the right shoulder. Patient was offered CT imaging of the head which she declined. Chest x-ray unremarkable. Right shoulder x-ray reveals anterior shoulder dislocation. I was able to perform a reduction using narcotics for analgesia. Patient was initially offered conscious sedation but she is afraid due to her severe COPD. There was initial successful reduction, however she was able to dislocate her shoulder again after the first repeat x- ray. I was able to perform a second reduction which was successful. A sling was applied. Repeat x-ray shows appropriate anatomical reduction. Patient will follow-up with medicaid eligibility specialist. She is otherwise neurovascularly intact. Case discussed with physician. Disposition Clinical Impression: Fall, Anterior shoulder dislocation Disposition: HOME SELF-CARE Condition: Stable Instructions (If sedation given, give patient instructions): Shoulder Dislocation (ED) Additional Instructions: Follow-up with medicaid eligibility specialist. Return to emergency department if symptoms worsen. Is patient prescribed a controlled substance at d/c from ED?: No Referrals: Josh Ledbetter MD [Primary Care Provider] - 1-2 days Evin Da Silva DO [Doctor of Osteopathic Medicine] - 1-2 days Time of Disposition: 22:33
--- NOTE | 2020-07-08 20:50 | XR ---
EXAMINATION TYPE: XR shoulder complete RT DATE OF EXAM: 07/08/2020 COMPARISON: 06/25/2016 HISTORY: Shoulder pain fall. TECHNIQUE: 3 views FINDINGS: There is anterior dislocation of the glenohumeral joint. I see no fracture. AC joint is int act. IMPRESSION: Anterior dislocation of the shoulder joint. No fracture seen.
--- NOTE | 2020-07-08 20:52 | XR ---
EXAMINATION TYPE: XR chest 2V DATE OF EXAM: 07/08/2020 COMPARISON: 11/03/2019 HISTORY: Fall. Chest pain TECHNIQUE: 2 views FINDINGS: There is coarse interstitial infiltrate in the lungs. There is no obvious heart failure. Th ere is no evidence of pleural effusion. Costophrenic angles are clear. There are no hilar masses. Med iastinum is normal. IMPRESSION: Coarse lung markings are increased compared to old exam. No heart failure or pulmonary co nsolidation. Shoulder joint dislocation noted on the right side.
[2020-07-08] MEDS ORDERED: PROPOFOL 10 MG/ML 20 ML VIAL IV ONE (20:53)
[2020-07-08] MEDS ORDERED: HYDROmorphone 1 MG/ML 1 ML SYRINGE IVP STA (21:15)
--- NOTE | 2020-07-08 21:59 | XR ---
EXAMINATION TYPE: XR shoulder complete RT DATE OF EXAM: 07/08/2020 COMPARISON: Today HISTORY: Post reduction TECHNIQUE: 2 views FINDINGS: There is anatomic reduction of the glenohumeral joint. I see no fracture line. IMPRESSION: Anatomic reduction.
--- NOTE | 2020-07-08 22:16 | XR ---
EXAMINATION TYPE: XR shoulder limited RT DATE OF EXAM: 07/08/2020 COMPARISON: Today HISTORY: Post reduction TECHNIQUE: Single view FINDINGS: I see no fracture nor dislocation. AC joint is intact. Scapula appears intact. IMPRESSION: No fracture. No change compared to exam one hour ago.
[2020-07-08 23:10] VITALS: BP 115/79; PULSE 62; TEMP 98
== END 2020-07-08 23:00 | disposition home or self-care (01) ==
LOC: EC 19:00
DX: S43.004A Unspecified dislocation of right shoulder joint, initial encounter (principal); I48.91 Unspecified atrial fibrillation; Z79.01 Long term (current) use of anticoagulants; Z79.82 Long term (current) use of aspirin; Z79.51 Long term (current) use of inhaled steroids; Z79.52 Long term (current) use of systemic steroids; Z79.899 Other long term (current) drug therapy; Z88.6 Allergy status to analgesic agent; Z88.1 Allergy status to other antibiotic agents; Z85.3 Personal history of malignant neoplasm of breast; Z86.718 Personal history of other venous thrombosis and embolism; Z90.722 Acquired absence of ovaries, bilateral; Z87.891 Personal history of nicotine dependence; Z85.42 Personal history of malignant neoplasm of other parts of uterus; W01.0XXA Fall on same level from slipping, tripping and stumbling without subsequent striking against object, initial encounter
CPT/HCPCS: 73020; 73030; 71046; 99283; 23650; 96374; 96376; J1170 ×2

== ENCOUNTER → 2020-10-29 | Outpatient (CLI) | payer MEDICARE ==
--- NOTE | 2020-10-30 08:43 | MM ---
Reason for exam: screening (asymptomatic). Last mammogram was performed 2 years and 3 months ago. History: Patient is postmenopausal, has history of endometrial cancer at age 58, has history of breast cancer at age 47, and is nulliparous. Mastectomy of the left breast, 1999. Physical Findings: A clinical breast exam by your physician is recommended on an annual basis and results should be correlated with mammographic findings. MG 3D Scr Ken Unilateral W/Cad CC and MLO view(s) were taken of the right breast. Prior study comparison: July 22, 2018, right breast MG 3d diag mammo w/cad RT. March 25, 2016, right breast MG 3d diag mammo w/cad RT. The breast tissue is heterogeneously dense. This may lower the sensitivity of mammography. There is no discrete abnormality. No significant changes when compared with prior studies. ASSESSMENT: Negative, BI-RAD 1 RECOMMENDATION: Routine screening mammogram of the right breast in 1 year.
== END | disposition home or self-care (01) ==
LOC: RADMAMWWP 14:48
PROVIDERS: ATTEND Obstetrics & Gynecology Gynecologic Oncology
DX: Z12.31 Encounter for screening mammogram for malignant neoplasm of breast (principal); Z85.3 Personal history of malignant neoplasm of breast; Z78.0 Asymptomatic menopausal state
CPT/HCPCS: 77067

== ENCOUNTER 2021-04-28 21:17 | Observation (INO) | payer MEDICARE ==
[2021-04-28] MEDS ORDERED: SENNOSIDES 8.6 MG TAB PO STA ×2 (21:59→22:01)
--- NOTE | 2021-04-28 21:59 | ED ---
Chest Pain HPI - General Chief Complaint: Chest Pain Stated Complaint: Chest Pains Time Seen by Provider: 04/28/21 21:20 Source: patient Mode of arrival: EMS Limitations: no limitations - History of Present Illness Initial Comments: Patient is 65-year-old woman who presents to be evaluated for left upper chest pain that radiates to the neck and shoulder. It had started a little over 24 hours ago now. The patient has tried taking a number of 81 mg aspirin at home. She took a total of 6 of those over the past day. She states that it would help a little but the pain did not completely resolve. No other worsening or relieving factors. No associated symptoms. MD Complaint: chest pain Onset/Timin -: days(s) Onset: during rest Pain Location: left chest Pain Radiation: LUE, neck Severity scale (1-10): 8 Quality: aching Consistency: constant Improves With: nothing Worsens With: nothing Treatments Prior to Arrival: aspirin - Related Data Home Medications Medication Instructions Recorded Confirmed Apixaban [Eliquis] 5 mg PO BID 04/22/18 07/08/20 Budesonide [Pulmicort] 0.5 mg INHALATION RT-BID 11/03/19 07/08/20 Furosemide [Lasix] 40 mg PO DAILY PRN 11/03/19 07/08/20 Lactulose 10 gm PO HS 11/03/19 07/08/20 Metoprolol Succinate (ER) [Toprol 25 mg PO BID 11/03/19 07/08/20 XL] Sennosides [Senna] 17.2 mg PO BID PRN 11/03/19 07/08/20 Albuterol Nebulized [Ventolin 2.5 mg INHALATION RT-Q6H PRN 07/08/20 07/08/20 Nebulized] Fluticasone/Vilanterol [Breo 1 puff INHALATION RT-DAILY 07/08/20 07/08/20 Ellipta 100-25 Mcg Inhaler] Potassium Chloride [Klor-Con 20] 20 meq PO DAILY PRN 07/08/20 07/08/20 Spironolactone [Aldactone] 25 mg PO DAILY PRN 07/08/20 07/08/20 Previous Rx's Medication Instructions Recorded Albuterol Inhaler [Ventolin Hfa 2 puff INHALATION RT-Q6H PRN #1 11/10/19 Inhaler] inhaler Allergies Allergy/AdvReac Type Severity Reaction Status Date / Time ibuprofen [From Motrin] Allergy Dyspnea Verified 07/08/20 22:39 levofloxacin [From Levaquin] Allergy Unknown Verified 07/08/20 22:39 acetaminophen [From Tylenol] AdvReac Increased Verified 07/08/20 22:39 Liver Enzymes Review of Systems ROS Statement: Those systems with pertinent positive or pertinent negative responses have been documented in the HPI. ROS Other: All systems not noted in ROS Statement are negative. Constitutional: Denies: fever, chills Respiratory: Denies: cough, dyspnea Cardiovascular: Reports: as per HPI, chest pain, edema (Patient complains of chronic venous stasis bilaterally). Denies: palpitations, orthopnea, syncope Gastrointestinal: Denies: abdominal pain, vomiting, diarrhea Genitourinary: Denies: dysuria, hematuria Musculoskeletal: Denies: back pain Skin: Denies: rash Neurological: Denies: headache, weakness, numbness EKG Findings - EKG Results: EKG: interpreted by MISTY, sinus rhythm (With sinus arrhythmia, rate 74 bpm), normal axis, normal QRS, normal ST/T, no acute changes Past Medical History Past Medical History: Atrial Fibrillation, Cancer, Deep Vein Thrombosis (DVT), Eye Disorder, Liver Disease, Vascular Disorder Additional Past Medical History / Comment(s): Recent L knee fracture- bilateral lymphedema, hepatitis A and C but later told hepatitis C was gone, L breast cancer with surgery, uterine cancer with surgery-pt states cancer had spread outside uterus and has had 3 different abdominal surgeries for this, 6 months ago-bowel obstruction/"twist" with surgery, DVTs L leg, tracheobronchitis, past respiratory failure, 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 History of Any Multi-Drug Resistant Organisms: None Reported Past Surgical History: Breast Surgery, Heart Catheterization, Hysterectomy Additional Past Surgical History / Comment(s): L hip surgery x3, bowel obstruction with laparotomy, hysterecomy/ovaries/tumor removed per pt, bronchoscopies x2, Past Anesthesia/Blood Transfusion Reactions: No Reported Reaction Additional Past Anesthesia/Blood Transfusion Reaction / Comment(s): Pt has received blood without reaction. Past Psychological History: No Psychological Hx Reported Smoking Status: Former smoker Past Alcohol Use History: Occasional Past Drug Use History: None Reported - Past Family History Mother Family Medical History: Cancer Additional Family Medical History / Comment(s): Mother at the age of 75yrs from metastatic cancer. Father Family Medical History: Myocardial Infarction ([place]) Additional Family Medical History / Comment(s): Father of a [place] at the age of 54yrs. General Exam Limitations: no limitations General appearance: alert, in no apparent distress Head exam: Present: atraumatic, normocephalic Eye exam: Present: normal appearance. Absent: scleral icterus, conjunctival injection Respiratory exam: Present: normal lung sounds bilaterally. Absent: respiratory distress, wheezes, rales, rhonchi, stridor Cardiovascular Exam: Present: regular rate, normal rhythm, normal heart sounds. Absent: systolic murmur, diastolic murmur, rubs, gallop GI/Abdominal exam: Present: soft, hernia (Patient has multiple incisional/ventral hernias. Nontender. Not incarcerated). Absent: distended, tenderness, guarding, rebound, rigid, mass Extremities exam: Present: normal inspection, normal capillary refill, other (Patient has home compression boots) Back exam: Present: normal inspection. Absent: CVA tenderness (R), CVA tender ness (L) Neurological exam: Present: alert Skin exam: Present: warm, dry, intact, normal color. Absent: rash Course Vital Signs 04/28/21 21:19 Temperature 98.7 F Pulse Rate 84 Respiratory 20 Rate Blood Pressure 151/125 O2 Sat by Pulse 96 Oximetry Disposition Referrals: Josh Ledbetter MD [Primary Care Provider] - 1-2 days
[2021-04-28] MEDS ORDERED: NITROGLYCERIN SL TABS 0.4 MG TAB SUBLINGUAL STA (22:00)
--- NOTE | 2021-04-28 22:37 | XR ---
EXAMINATION TYPE: XR chest 1V portable DATE OF EXAM: 04/28/2021 COMPARISON: 07/08/2020 HISTORY: Chest pain TECHNIQUE: Single view FINDINGS: Heart size is normal. There is some deformity of the mediastinal silhouette probably due to high aortic arch. There are chest leads. Costophrenic angles are clear. IMPRESSION: No active cardiopulmonary disease. No change.
[2021-04-28 23:10] LABS: Basophils # (A) 0.1 k/uL (0-0.2); Basophils % (A) 1 %; Eosinophils # (A) 0.8 k/uL (0-0.7); Eosinophils % (A) 9 %; HGB 14.3 gm/dL (11.4-16.0); Lymphocytes # (A) 2.3 k/uL (1.0-4.8); Lymphocytes % (A) 24 %; MCH 34.2 pg (25.0-35.0); MCHC 33.3 g/dL (31.0-37.0); MCV 102.7 fL (80.0-100.0); Macrocytosis Slight; Mean Platelet Volume 7.8; Monocytes # (A) 0.5 k/uL (0-1.0); Monocytes % (A) 6 %; Neutrophils # (A) 5.7 k/uL (1.3-7.7); Neutrophils % (A) 60 %; Platelet Count 229 k/uL (150-450); RBC 4.19 m/uL (3.80-5.40); RDW 12.3 % (11.5-15.5); WBC 9.6 k/uL (3.8-10.6)
[2021-04-28 23:24] LABS: ALT 13 U/L (4-34); AST 22 U/L (14-36); African American GFR (CKD) >90 (>60 ml/min/1.73 sqM); Albumin 3.5 g/dL (3.5-5.0); Alkaline Phosphatase 95 U/L (38-126); Anion Gap 4 mmol/L; Blood Urea Nitrogen 17 mg/dL (7-17); Calcium 9.4 mg/dL (8.4-10.2); Carbon Dioxide 30 mmol/L (22-30); Chloride 105 mmol/L (98-107); Glucose 103 mg/dL (74-99); Magnesium 2.1 mg/dL (1.6-2.3); Non-African American GFR(CKD) >90 (>60 ml/min/1.73 sqM); Potassium 4.1 mmol/L (3.5-5.1); Sodium 139 mmol/L (137-145); Total Bilirubin 0.8 mg/dL (0.2-1.3); Total Protein 6.3 g/dL (6.3-8.2)
[2021-04-28 23:42] LABS: Partial Thromboplastin Time 25.6 sec (22.0-30.0)
--- NOTE | 2021-04-29 00:50 | CT ---
EXAMINATION TYPE: CT chest angio for PE DATE OF EXAM: 04/29/2021 COMPARISON: 04/22/2018 HISTORY: chest pain/SOB. rule out PE. prior on PACS. CT DLP: 477.4 mGycm Automated exposure control for dose reduction was used. CONTRAST: Performed with IV Contrast, patient injected with 80ml mL of Isovue 370. The lungs are clear of infiltrate. There is subsegmental atelectasis right posterior lung base. Heart size is normal. There is no pericardial effusion. There is no pleural effusion. There is normal cont rast opacification of the pulmonary arteries. There are no filling defects. There is no mediastinal a denopathy. There are no hilar masses. Thoracic aorta is intact. There is no aneurysm or dissection. T here is mild anterior wedging of T8 and T6 vertebra up to 25%. IMPRESSION: No evidence of pulmonary embolism. No suspicious pulmonary mass. There are new mild compression fract ures of T8 and T6 compared to old exam.
[2021-04-29] MEDS ORDERED: ALBUTEROL NEBULIZED 2.5 MG/3 ML INHALATION STA (01:26)
[2021-04-29] MEDS ORDERED: NON FORMULARY DRUG (Fluticasone/Vilanterol [Breo Ellipta 100-25 Mcg Inhaler] 1 EACH Blst.W INHALATION SCH (08:00)
[2021-04-29] MEDS: BUDESONIDE 0.5 MG/2 ML NEBU INHALATION SCH ×2 (08:04→20:08)
[2021-04-29] MEDS: SYMBICORT 80-4.5 MCG INHALER INHALATION SCH ×2 (08:04→20:14)
[2021-04-29] MEDS: ALBUTEROL NEBULIZED 2.5 MG/3 ML INHALATION SCH ×4 (08:04→20:08)
[2021-04-29] MEDS: CHOLECALCIFEROL 25 MCG (1000 IU) TABLET PO SCH (08:43)
[2021-04-29] MEDS: ASCORBIC ACID 500 MG TAB PO SCH (08:43)
[2021-04-29] MEDS: APIXABAN 5 MG TAB PO SCH ×2 (08:43→19:48)
[2021-04-29] MEDS: ZINC SULFATE 220 MG CAP PO SCH (08:43)
[2021-04-29] MEDS ORDERED: METOPROLOL TARTRATE 25 MG TAB PO SCH (09:00)
[2021-04-29] MEDS ORDERED: NON FORMULARY DRUG (Omega-3 Fatty Acids/Fish Oil [Fish Oil 1,000 Mg Softgel] 1 EACH Capsul PO SCH (09:00)
[2021-04-29] MEDS ORDERED: methylPREDNISolone SOD SUCCI 125 MG/2 ML VIAL IV SCH (12:00)
--- NOTE | 2021-04-29 13:30 | P.CNOR ---
History of Present Illness - [facility] Consult date: 04/29/21 Requesting physician: Ashley Gloria Consult reason: fracture (T6 and T8 compression fractures) History of present illness: Patient is a pleasant 65-year-old female who is seen and examined in the emergency department for further evaluation after consultation was placed to evaluate compression fracture deformities. Patient states she has been experiencing left-sided chest pain with pain radiating to the underside of the left arm 04/27/2021. She presented to the emergency department for further evaluation. She is currently undergoing cardiac workup. CT imaging of her ch est showed evidence of compression fracture deformities at T6 and T8. We are consulted in this regard. With further discussion with the patient, she states she was noted to have previously been diagnosed with compression fracture deformities a couple years ago. She states she had treatment in [place] but was not prescribed bracing at that time. Patient denies any recent injuries. She is not currently complaining of any significant thoracic back pain. She does have pain in her cervical spine with some pain towards her left chest and towards the left shoulder. She states the pain does not currently radiate down into the left hand. She states she does have a significant medical history which includes being diagnosed with cancer on 4 separate occasions. She states she was born with a dislocated hip which was undiagnosed and has had some difficulty with ambulation since that time. CT imaging was performed to rule out pulmonary embolism. There was no evidence of pulmonary embolism. Patient does present with full leg length pneumatic pants for the bilateral lower extremities which she brought from home. She states she has a long-standing history of using compression stockings and has been using these pneumatic pants for extended period of time. She does have a history of significant surgical intervention at her abdomen as well. She is not currently complaining of any up per extremity weakness bilaterally. She denies any right upper extremity radiculopathy. Patient's past medical history includes atrial fibrillation, cancer including breast cancer and uterine cancer, DVT, liver disease, and vascular disorder. 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 History of Any Multi-Drug Resistant Organisms: None Reported Past Surgical History: Breast Surgery, Heart Catheterization, Hysterectomy Additional Past Surgical History / Comment(s): L hip surgery x3, bowel obstruction with laparotomy, hysterecomy/ovaries/tumor removed per pt, bronchoscopies x2, Past Anesthesia/Blood Transfusion Reactions: No Reported Reaction Additional Past Anesthesia/Blood Transfusion Reaction / Comm: Pt has received blood without reaction. Past Psychological History: No Psychological Hx Reported Smoking Status: Former smoker Past Alcohol Use History: Occasional Past Drug Use History: None Reported - Past Family History Mother Family Medical History: Cancer Additional Family Medical History / Comment(s): Mother at the age of 75yrs from metastatic cancer. Father Family Medical History: Myocardial Infarction ([place]) Additional Family Medical History / Comment(s): Father of a [place] at the age of 54yrs. Medications and Allergies Home Medications Medication Instructions Recorded Confirmed Type Apixaban [Eliquis] 5 mg PO BID 04/22/18 04/28/21 History Budesonide [Pulmicort] 0.5 mg INHALATION RT-BID 11/03/19 04/28/21 History Sennosides [Senna] 8.6 mg PO DAILY PRN 11/03/19 04/28/21 History Albuterol Inhaler [Ventolin Hfa 2 puff INHALATION RT-Q6H PRN #1 11/10/19 04/28/21 Rx Inhaler] inhaler Albuterol Nebulized [Ventolin 2.5 mg INHALATION RT-Q6H PRN 07/08/20 04/28/21 History Nebulized] Fluticasone/Vilanterol [Breo 1 puff INHALATION RT-DAILY 07/08/20 04/28/21 History Ellipta 100-25 Mcg Inhaler] Ascorbic Acid [Vitamin C] 1,000 mg PO DAILY 04/28/21 04/28/21 History Cholecalciferol [Vitamin D3 (25 25 mcg PO DAILY 04/28/21 04/28/21 History Mcg = 1000 Iu)] L.acidoph,Paracasei, B.lactis 2 cap PO BID 04/28/21 04/28/21 History [Probiotic] [place]-3 Fatty Acids/Fish Oil [Fish 1 cap PO DAILY 04/28/21 04/28/21 History Oil 1,000 mg Softgel] Tobramycin/Dexamethasone [Tobradex 1 drop BOTH EYES BID 04/28/21 04/28/21 History Ophth Susp] Vitamin C/Biotin [Hair, Skin and 1 tab PO DAILY 04/28/21 04/28/21 History Nails Chew] Zinc 50 mg PO DAILY 04/28/21 04/28/21 History Metoprolol Succinate (ER) [Toprol 25 mg PO BID 04/29/21 04/29/21 History Xl] Allergies Allergy/AdvReac Type Severity Reaction Status Date / Time ibuprofen [From Motrin] Allergy Dyspnea Verified 04/28/21 22:49 levofloxacin [From Levaquin] Allergy Unknown Verified 04/28/21 22:49 acetaminophen [From Tylenol] AdvReac Increased Verified 04/28/21 22:49 Liver Enzymes Physical Examination Physical exam: Patient is awake, alert, and oriented 3 Vital signs stable Good chest excursion with deep inspiration and expiration Abdomen soft nontender Examination of the cervical spine spine reveals skin is intact with no abrasions, lacerations, or bruises; no erythema, purulence or signs of infection No significant pain with palpation over the thoracic spine Full range of motion of the cervical spine with adequate flexion, extension, and bilateral rotation Employee Benefits Administrator strength, thumb strength, interosseous strength, biceps strength, triceps strength, and shoulder strength positive sustained bilaterally Upper extremity strength 5/5 bilaterally Hoffmans sign negative upper extremity bilaterally Full length pneumatic leg cuffs intact bilaterally Patient is able to wiggle toes independently bilateral lower extremities without difficulty Neurovascular intact bilateral lower extremities Patient data form dorsiflexion and plantar flexion bilaterally without difficulty Results Pertinent studies: CT of chest taken on 12/27/2020: Evidence of chronic compression fracture deformities at T6 and T8 which were present on previous thoracic and lumbar MRI imaging taken on 12/26/2018 and do not appear to have any significant change - Labs Labs: Abnormal Lab Results - Last 24 Hours (Table) 04/28/21 04/28/21 04/28/21 Range/Units 22:34 22:34 22:34 MCV 102.7 H (80.0-100.0) fL Eosinophils # 0.8 H (0-0.7) k/uL D-Dimer 1.81 H (<0.60) mg/L FEU Glucose 103 H (74-99) mg/dL H & H 04/28/21 Range/Units 22:34 Hgb 14.3 (11.4-16.0) gm/dL Hct 43.0 (34.0-46.0) % Coagulation 04/28/21 Range/Units 22:34 INR 1.0 (<1.2) Result Diagrams: 04/28/21 22:34 04/28/21 22:34 Assessment and Plan Assessment: Assessment: Left-sided chest pain Left shoulder and arm pit paun Cervicalgia History of thoracic compression fractures at T6 and T8 which appear chronic Atrial fibrillation History of cancer including breast cancer and uterine cancer History of DVT Liver disease Vascular disorder Plan: Plan: 1. After physical examination the patient, discussed with the patient on her history, and reviewing of imaging of recent chest CT as well as MRI imaging of her thoracic and lumbar spine taken on 12/26/2018, it appears her compression fr acture deformities at T6 and T8 are chronic in nature. She is not currently experiencing any significant thoracic pain. The compression fracture deformities at T6 and T8 are visible on both previous MRI imaging and current CT imaging and do not appear changed. She is experiencing some left-sided chest pain with pain radiating towards her left shoulder and into the armpit area. She is currently undergoing further cardiac workup. We did discuss she should continue with cardiac clearance. We did discuss she is currently cleared for discharge from an orthopedic standpoint. We discussed if she is cleared from a cardiac standpoint, we may plan to obtain further imaging and evaluation regards to her cervical spine. She does admit to some ongoing cervical pain admits to the pain that radiates towards her left upper extremity. Thoracic and lumbar MRI imaging from 12/26/2018 does not completely visualize the cervical spine but one lateral view does show some changes at her cervical spine which appear to be most significant at C6-7. If she does not have any significant findings in reg ards to cardiac evaluation, we may plan to further evaluate her cervical spine as a cause for her symptoms. We plan to do this in outpatient setting. Patient feels this is a good plan of care.Patient may follow-up with Randal Griffith PA-C or Dr. Joshua Gutierrez at [facility] in 2-3 weeks following discharge. 2. Patient will continue for further evaluation and cardiac workup Time with Patient: Greater than 30 (Including obtaining history, physical e xamination, reviewing of imaging, and dictation.)
--- NOTE | 2021-04-29 13:56 | P.CRDCN ---
History of Present Illness Consult date: 04/29/21 History of present illness: HISTORY OF PRESENT ILLNESS: This is a 65-year-old female with a past medical history significant for DVT on anticoagulation with Eliquis, hypertension, COPD, and lymphedema. Patient does not follow with general clerk. We have been asked to see the patient in consultation for chest pain. Patient examined at the bedside in the emergency room. Patient presented to the hospital with a chief complaint of chest pain t hat began on April 27. Patient states the pain was in the left upper part of her chest and she described it as a pressure. She denied any radiation of the pain. She denies feeling short of breath. She denies dizziness or lightheadedness. She denies any nausea or vomiting. She states the pain was intermittent but this morning the pain returned and was increased in severity so she can follow hospital for further evaluation. The patient was given sublingual nitroglycerin in the emergency room which relieved her chest pain for a short period of time and then it returned. At the time of my examination, the patient denies any chest pain or pressure. Patient states the pain was not worse with deep inspiration. She does report that her chest feels sore with chest wall palpation. EKG reveals sinus mechanism with no signs of acute ischemia Chest xray negative for active cardiopulmonary disease CTA: Negative for pulmonary embolism Laboratory data: WBC 9.6. Hemoglobin 14.3. Platelet count 229. D-dimer 1.1. Sodium 139. Potassium 4.1. BUN 17. Creatinine 0.55. Troponin negative 2. ProBNP 289. Current home cardiac medications include metoprolol succinate 25 mg twice a day, Eliquis 5 mg twice a day Most recent echocardiogram obtained in November 2019 revealed ejection fraction 55- 60%, mild mitral regurgitation, mild tricuspid regurgitation, mild pulmonary hypertension Patient underwent Lexiscan stress test in November 2019 which was negative for ischemia REVIEW OF SYSTEMS: At the time of my exam: CONSTITUTIONAL: Denies fever or chills. HEENT: Denies blurred vision, vision changes, or eye pain. Denies hemoptysis CARDIOVASCULAR: Denies chest pain. Denies orthopnea. Denies PND. Denies palpitations RESPIRATORY: Denies shortness of breath. GASTROINTESTINAL: Denies abdominal pain. Denies nausea or vomiting. HEMATOLOGIC: Denies bleeding disorders. GENITOURINARY: Denies any blood in urine. SKIN: Denies pruitis. Denies rash. PHYSICAL EXAM: VITAL SIGNS: Reviewed. GENERAL: Well-developed in no acute distress. HEENT: Head is normocephalic. Pupils are equal, round. Sclerae anicteric. Mucous membranes of the mouth are moist. Neck supple. No JVD or thyromegaly LUNGS: Respirations even and unlabored. Lungs diminished to auscultation bilaterally. HEART: Regular rate and rhythm. S1 and S2 heard. ABDOMEN: Soft. Nondistended. Nontender. EXTREMITIES: Normal range of motion. No clubbing or cyanosis. Peripheral pulses intact. Patient with lymphedema to bilateral lower extremities with compression boots noted. NEUROLOGIC: Awake and alert. Oriented x 3. ASSESSMENT: Chest pain COPD History of DVT, on anticoagulation with Eliquis Hypertension Lymphedema PLAN: An acute coronary event has been ruled out Resume home cardiac medications Obtain 2-D echo to assess cardiac structure and function Patient to undergo dobutamine stress echo tomorrow Further recommendations pending patient's course Nurse practitioner note has been reviewed by physician. Signing provider agrees with the documented findings, assessment, and plan of care. 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 History of Any Multi-Drug Resistant Organisms: None Reported Past Surgical History: Breast Surgery, Heart Catheterization, Hysterectomy Additional Past Surgical History / Comment(s): L hip surgery x3, bowel obstruction with laparotomy, hysterecomy/ovaries/tumor removed per pt, bronchoscopies x2, Past Anesthesia/Blood Transfusion Reactions: No Reported Reaction Additional Past Anesthesia/Blood Transfusion Reaction / Comment(s): Pt has received blood without reaction. Past Psychological History: No Psychological Hx Reported Smoking Status: Former smoker Past Alcohol Use History: Occasional Past Drug Use History: None Reported - Past Family History Mother Family Medical History: Cancer Additional Family Medical History / Comment(s): Mother at the age of 75yrs from metastatic cancer. Father Family Medical History: Myocardial Infarction ([place]) Additional Family Medical History / Comment(s): Father of a [place] at the age of 54yrs. Medications and Allergies Home Medications Medication Instructions Recorded Confirmed Type Apixaban [Eliquis] 5 mg PO BID 04/22/18 04/28/21 History Budesonide [Pulmicort] 0.5 mg INHALATION RT-BID 11/03/19 04/28/21 History Sennosides [Senna] 8.6 mg PO DAILY PRN 11/03/19 04/28/21 History Albuterol Inhaler [Ventolin Hfa 2 puff INHALATION RT-Q6H PRN #1 11/10/19 04/28/21 Rx Inhaler] inhaler Albuterol Nebulized [Ventolin 2.5 mg INHALATION RT-Q6H PRN 07/08/20 04/28/21 History Nebulized] Fluticasone/Vilanterol [Breo 1 puff INHALATION RT-DAILY 07/08/20 04/28/21 History Ellipta 100-25 Mcg Inhaler] Ascorbic Acid [Vitamin C] 1,000 mg PO DAILY 04/28/21 04/28/21 History Cholecalciferol [Vitamin D3 (25 25 mcg PO DAILY 04/28/21 04/28/21 History Mcg = 1000 Iu)] L.acidoph,Paracasei, B.lactis 2 cap PO BID 04/28/21 04/28/21 History [Probiotic] [place]-3 Fatty Acids/Fish Oil [Fish 1 cap PO DAILY 04/28/21 04/28/21 History Oil 1,000 mg Softgel] Tobramycin/Dexamethasone [Tobradex 1 drop BOTH EYES BID 04/28/21 04/28/21 History Ophth Susp] Vitamin C/Biotin [Hair, Skin and 1 tab PO DAILY 04/28/21 04/28/21 History Nails Chew] Zinc 50 mg PO DAILY 04/28/21 04/28/21 History Metoprolol Succinate (ER) [Toprol 25 mg PO BID 04/29/21 04/29/21 History Xl] Allergies Allergy/AdvReac Type Severity Reaction Status Date / Time ibuprofen [From Motrin] Allergy Dyspnea Verified 04/28/21 22:49 levofloxacin [From Levaquin] Allergy Unknown Verified 04/28/21 22:49 acetaminophen [From Tylenol] AdvReac Increased Verified 04/28/21 22:49 Liver Enzymes Physical Exam Vitals: Vital Signs Temp Pulse Resp BP Pulse Ox 04/29/21 11:59 98.1 F 78 16 94 L 04/29/21 11:52 63 04/29/21 11:42 80 04/29/21 08:40 98.8 F 75 24 115/82 95 04/29/21 06:00 66 20 128/84 96 04/29/21 04:35 92 28 H 94 L 04/29/21 00:00 67 33 H 128/89 95 04/28/21 23:00 95 23 128/89 93 L 04/28/21 22:00 65 26 H 151/125 95 04/28/21 21:36 44 H 151/125 95 04/28/21 21:19 98.7 F 84 20 151/125 96 Intake and Output 04/28/21 04/29/21 04/29/21 22:59 06:59 14:59 Other: Weight 113.398 kg Results 04/28/21 22:34 04/28/21 22:34 Cardiac Enzymes 04/28/21 04/28/21 04/29/21 Range/Units 22:34 22:34 02:01 AST 22 (14-36) U/L Troponin I <0.012 <0.012 (0.000-0.034) ng/mL Coagulation 04/28/21 Range/Units 22:34 PT 11.0 (9.0-12.0) sec APTT 25.6 (22.0-30.0) sec CBC 04/28/21 Range/Units 22:34 WBC 9.6 (3.8-10.6) k/uL RBC 4.19 (3.80-5.40) m/uL Hgb 14.3 (11.4-16.0) gm/dL Hct 43.0 (34.0-46.0) % Plt Count 229 (150-450) k/uL Comprehensive Metabolic Panel 04/28/21 Range/Units 22:34 Sodium 139 (137-145) mmol/L Potassium 4.1 (3.5-5.1) mmol/L Chloride 105 (98-107) mmol/L Carbon Dioxide 30 (22-30) mmol/L BUN 17 (7-17) mg/dL Creatinine 0.55 (0.52-1.04) mg/dL Glucose 103 H (74-99) mg/dL Calcium 9.4 (8.4-10.2) mg/dL AST 22 (14-36) U/L ALT 13 (4-34) U/L Alkaline Phosphatase 95 (38-126) U/L Total Protein 6.3 (6.3-8.2) g/dL Albumin 3.5 (3.5-5.0) g/dL Current Medications Generic Name Dose Route Start Last Admin Trade Name Freq PRN Reason Stop Dose Admin Albuterol Sulfate 2.5 mg 04/29/21 08:00 04/29/21 11:42 Albuterol Nebulized 2.5 Mg/3 Ml INHALATION 2.5 mg RT-QID ASHLEIGH Administration Apixaban 5 mg 04/29/21 09:00 04/29/21 08:43 Apixaban 5 Mg Tab PO 5 mg BID ASHLEIGH Administration Protocol Ascorbic Acid 1,000 mg 04/29/21 09:00 04/29/21 08:43 Ascorbic Acid 500 Mg Tab PO 1,000 mg DAILY ASHLEIGH Administration Budesonide 0.5 mg 04/29/21 08:00 04/29/21 08:04 Budesonide 0.5 Mg/2 Ml Nebu INHALATION Not Given RT-BID ASHLEIGH Budesonide/Formoterol Fumarate 2 puff 04/29/21 08:00 04/29/21 08:04 Symbicort 80-4.5 Mcg Inhaler INHALATION Not Given RT-BID ASHLEIGH Cholecalciferol 25 mcg 04/29/21 09:00 04/29/21 08:43 Cholecalciferol 25 Mcg (1000 Iu) Tablet PO 25 mcg DAILY ASHLEIGH Administration Dobutamine HCl/Dextrose 500 mg 250 mls @ 34.019 mls/hr 04/29/21 13:20 / IV Solution IV 04/29/21 17:21 .Q7H21M PRN Per Protocol Protocol 10 MCG/KG/MIN Methylprednisolone Sodium Succinate 60 mg 04/29/21 12:00 04/29/21 11:47 Methylprednisolone Sod Succi 125 Mg/2 Ml Vial IV 60 mg Q6HR ASHLEIGH Administration Metoprolol Succinate 25 mg 04/29/21 21:00 Metoprolol Succinate (Er) 25 Mg Tab.Er.24h PO BID ASHLEIGH Senna 8.6 mg 04/29/21 09:00 Sennosides 8.6 Mg Tab PO DAILY PRN Constipation Zinc Sulfate 220 mg 04/29/21 09:00 04/29/21 08:43 Zinc Sulfate 220 Mg Cap PO 220 mg DAILY ASHLEIGH Administration Intake and Output 04/28/21 04/29/21 04/29/21 22:59 06:59 14:59 Other: Weight 113.398 kg 04/28/21 22:34 04/28/21 22:34
--- NOTE | 2021-04-29 14:29 | P.HPIM ---
History of Present Illness H&P Date: 04/29/21 Chief Complaint: Chest pain left shoulder pain 65 years old female patient of Dr. Navarrete with past medical history of DVT on antibiotic regulation of Eliquis, history of hypertension, COPD, lymphedema, history of asthma, history of uterine cancer status post hysterect armen following which patient had bowel obstruction which led to the incisional hernia. Patient comes in with significant chest pain that started yesterday. Patient has chest pain in the left armpit associated with left shoulder pain. The pain lasted an hour before she got nitroglycerin. She after half an hour after receiving the nitroglycerin the pain reoccurred in the left chest and has been intermittent in nature. Patient denies any shortness of breath or dizziness or nausea and vomiting. Patient wears compression pants for her lymphedema. She eats because significant discomfort in her neck but denies any pain in her back , evaluated in the ER suggestive of 98.8 pulse 75 respiratory rate 20. Blood pressure 1:15/82 oxygen saturation 94% on 2 L. Labs reviewed patient of the visit of 9.6 hemoglobin 11.3 platelet 229 sodium 139 potassium 4.1 BUN 17 creatinine 0.5 troponin 2 negative: COVID not detected CT angiogram was obtained on 04/29 concerning for mild compression fracture involving T8 and T6 compared to the old exam. EKG was assessed to sinus rhythm with marked sinus arrhythmia is otherwise normal rhythm with some PACs Cardiology is consulted. ROS Constitutional: Denies chills, Denies fever, Denies lethargy, Denies malaise, Denies poor appetite, Denies weakness, Denies weight loss Eyes: denies decreased vision, denies diplopia, denies discharge, denies pain Ears: deny: decreased hearing Ears, nose, mouth and throat: Denies dental pain, Denies headache, Denies nasal discharge, Denies nose pain Cardiovascular: Positive for chest pain, Denies decreased exercise tolerance, Denies edema, Denies high blood pressure, Denies irregular heart beat, Denies palpitations, Denies paroxysmal nocturnal dyspnea, Denies rapid heart beat, Denies shortness of breath Respiratory: Denies congestion, Denies cough, Denies cough with sputum, Denies dyspnea, Denies home oxygen, Denies wheezing Gastrointestinal: Denies abdominal pain, Denies change in bowel habits, Denies coffee ground emesis, Denies early satiety, Denies excessive gas, Denies heartburn, Denies hematemesis, Denies hematochezia, Denies loss of appetite, Denies nausea, Denies vomiting Genitourinary: Denies dysuria, Denies flank pain, Denies kidney stones, Denies menorrhagia, Denies urgency, Denies urinary frequency Musculoskeletal: Denies gait dysfunction, Denies limitation of motion, Denies morning stiffness, Denies muscle cramps Integumentary: Denies rash, Denies wounds, Denies brittle nails, Denies change in hair/nails, Denies darkening of skin Neurological: Denies balance difficulties, Denies change in speech, Denies double vision, Denies gait dysfunction, Denies loss of vision, Denies motor disturbance, Denies numbness, Denies paralysis, Denies paresthesias, Denies seizures Psychiatric: Denies anxiety, Denies depression Endocrine: Denies excessive sweating, Denies excessive thirst, Denies high blood sugars, Denies palpitations Hematologic/Lymphatic: Denies easy bruising, Denies lymphadenopathy Social history Patient denies any smoking history but does history of passive smoking denies alcohol use. Lives in a senior apartment Family history Mother of metastatic lung cancer at age of 75 Other had coronary artery disease disease at age of 54 Patient has no brother or no sister no children. She is Physical exam - Constitutional General appearance: cooperative, no acute distress, obese - EENT Eyes: anicteric sclerae, PERRLA, normal appearance ENT: hearing grossly normal - Neck Neck: no lymphadenopathy, normal ROM, no other, no rigidity, no stridor, no thyromegaly - Respiratory Respiratory: bilateral: CTA, negative: diminished, dullness, rales, rhonchi - Cardiovascular Rhythm: regular Heart sounds: normal: S1, S2 Abnormal Heart Sounds: no systolic murmur, no diastolic murmur, no rub, no S3 Gallop, no S4 Gallop, no click, no other - Gastrointestinal General gastrointestinal: normal bowel sounds, soft large incisional hernia noted - Integumentary Integumentary: no rash - Neurologic Neurologic: No motor or sensory deficit - Musculoskeletal Musculoskeletal: strength equal bilaterally - Psychiatric Psychiatric: A&O x's 3, appropriate affect Assessment and plan #1 acute chest pain rule out ACS. Cardiology consulted. EKG negative for ST or T-wave changes troponin 2 negative. Possible stress test tomorrow #2 acute asthma/COPD exacerbation Solu-Medrol 40 IV every 8 hours. DuoNeb as needed for shortness of breath. Pulmicort 0.5 twice daily. #3 hypertension continue metoprolol 25 by mouth twice a day #4 acute compression fracture involving T6 and T8. Orthopedic spine consulted. Reviewed the imaging and felt patient's compression fractures were chronic. Patient's cervical spine will be evaluated as outpatient #5 history of DVT continue Eliquis 5 mg twice a day #6 history of bowel obstruction status post exploratory laparotomy, resolved #7 incisional hernia nonobstructing continue to monitor #8 lymphedema on full length and pneumatic bands for bilateral lower extremity. #9 acute neck pain likely degenerative disc disease with possible herniation. P atient will need repeat CAT scans as outpatient follow-up with Dr. Elizabeth for evaluation #10 GI prophylaxis with Pepcid 20 mg by mouth daily #11DVT prophylaxis witheliquis disposition patient may need to be in the hospital for 1-2 inpatient nights before stabilization. 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 History of Any Multi-Drug Resistant Organisms: None Reported Past Surgical History: Breast Surgery, Heart Catheterization, Hysterectomy Additional Past Surgical History / Comment(s): L hip surgery x3, bowel obstruction with laparotomy, hysterecomy/ovaries/tumor removed per pt, bronchos copies x2, Past Anesthesia/Blood Transfusion Reactions: No Reported Reaction Additional Past Anesthesia/Blood Transfusion Reaction / Comment(s): Pt has received blood without reaction. Past Psychological History: No Psychological Hx Reported Smoking Status: Former smoker Past Alcohol Use History: Occasional Past Drug Use History: None Reported - Past Family History Mother Family Medical History: Cancer Additional Family Medical History / Comment(s): Mother at the age of 75yrs from metastatic cancer. Father Family Medical History: Myocardial Infarction (IN) Additional Family Medical History / Comment(s): Father of a IN at the age of 54yrs. Medications and Allergies Home Medications Medication Instructions Recorded Confirmed Type Apixaban [Eliquis] 5 mg PO BID 04/22/18 04/28/21 History Budesonide [Pulmicort] 0.5 mg INHALATION RT-BID 11/03/19 04/28/21 History Sennosides [Senna] 8.6 mg PO DAILY PRN 11/03/19 04/28/21 History Albuterol Inhaler [Ventolin Hfa 2 puff INHALATION RT-Q6H PRN #1 11/10/19 04/28/21 Rx Inhaler] inhaler Albuterol Nebulized [Ventolin 2.5 mg INHALATION RT-Q6H PRN 07/08/20 04/28/21 History Nebulized] Fluticasone/Vilanterol [Breo 1 puff INHALATION RT-DAILY 07/08/20 04/28/21 History Ellipta 100-25 Mcg Inhaler] Ascorbic Acid [Vitamin C] 1,000 mg PO DAILY 04/28/21 04/28/21 History Cholecalciferol [Vitamin D3 (25 25 mcg PO DAILY 04/28/21 04/28/21 History Mcg = 1000 Iu)] L.acidoph,Paracasei, B.lactis 2 cap PO BID 04/28/21 04/28/21 History [Probiotic] [place]-3 Fatty Acids/Fish Oil [Fish 1 cap PO DAILY 04/28/21 04/28/21 History Oil 1,000 mg Softgel] Tobramycin/Dexamethasone [Tobradex 1 drop BOTH EYES BID 04/28/21 04/28/21 History Ophth Susp] Vitamin C/Biotin [Hair, Skin and 1 tab PO DAILY 04/28/21 04/28/21 History Nails Chew] Zinc 50 mg PO DAILY 04/28/21 04/28/21 History Metoprolol Succinate (ER) [Toprol 25 mg PO BID 04/29/21 04/29/21 History Xl] Allergies Allergy/AdvReac Type Severity Reaction Status Date / Time ibuprofen [From Motrin] Allergy Dyspnea Verified 04/28/21 22:49 levofloxacin [From Levaquin] Allergy Unknown Verified 04/28/21 22:49 acetaminophen [From Tylenol] AdvReac Increased Verified 04/28/21 22:49 Liver Enzymes Physical Exam Vitals: Vital Signs Temp Pulse Resp BP Pulse Ox 04/29/21 11:59 98.1 F 78 16 94 L 04/29/21 11:52 63 04/29/21 11:42 80 04/29/21 08:40 98.8 F 75 24 115/82 95 04/29/21 06:00 66 20 128/84 96 04/29/21 04:35 92 28 H 94 L 04/29/21 00:00 67 33 H 128/89 95 04/28/21 23:00 95 23 128/89 93 L 04/28/21 22:00 65 26 H 151/125 95 04/28/21 21:36 44 H 151/125 95 04/28/21 21:19 98.7 F 84 20 151/125 96 Intake and Output 04/28/21 04/29/21 04/29/21 22:59 06:59 14:59 Other: Weight 113.398 kg Results CBC & Chem 7: 04/28/21 22:34 04/28/21 22:34 Labs: Abnormal Lab Results - Last 24 Hours (Table) 04/28/21 04/28/21 04/28/21 Range/Units 22:34 22:34 22:34 MCV 102.7 H (80.0-100.0) fL Eosinophils # 0.8 H (0-0.7) k/uL D-Dimer 1.81 H (<0.60) mg/L FEU Glucose 103 H (74-99) mg/dL
[2021-04-29] MEDS ORDERED: IPRATROPIUM-ALBUTEROL 3 ML NEB INHALATION PRN (14:36)
[2021-04-29] MEDS ORDERED: ONDANSETRON 4 MG/2 ML VIAL IVP PRN (14:36)
[2021-04-29] MEDS: methylPREDNISolone SOD SUCCI 40 MG/ML 1 ML VIAL IV SCH (16:13)
[2021-04-29] MEDS: SENNOSIDES 8.6 MG TAB PO PRN ×2 (16:16→21:48)
[2021-04-29] MEDS: METOPROLOL SUCCINATE (ER) 25 MG TAB.ER.24H PO SCH (19:48)
[2021-04-29] MEDS: guaiFENesin 600 MG TABLET.ER PO SCH (19:48)
[2021-04-30] MEDS: methylPREDNISolone SOD SUCCI 40 MG/ML 1 ML VIAL IV SCH ×3 (00:47→06:59)
[2021-04-30] MEDS ORDERED: DOBUTamine DRIP for NUC MED 500 MG in DEXTROSE/WATER 1 250ML.BAG IV PRN (06:00)
[2021-04-30] MEDS: SENNOSIDES 8.6 MG TAB PO PRN ×2 (07:03)
[2021-04-30] MEDS: METOPROLOL SUCCINATE (ER) 25 MG TAB.ER.24H PO SCH ×3 (07:14→20:29)
[2021-04-30] MEDS: BUDESONIDE 0.5 MG/2 ML NEBU INHALATION SCH ×2 (07:37→20:53)
[2021-04-30] MEDS: ALBUTEROL NEBULIZED 2.5 MG/3 ML INHALATION SCH ×4 (07:37→20:54)
[2021-04-30] MEDS: SYMBICORT 80-4.5 MCG INHALER INHALATION SCH ×2 (07:38→20:54)
[2021-04-30] MEDS: CHOLECALCIFEROL 25 MCG (1000 IU) TABLET PO SCH (12:51)
[2021-04-30] MEDS: ZINC SULFATE 220 MG CAP PO SCH (12:51)
[2021-04-30] MEDS: FAMOTIDINE 20 MG TAB PO SCH (12:51)
[2021-04-30] MEDS: APIXABAN 5 MG TAB PO SCH ×2 (12:51→20:29)
[2021-04-30] MEDS: guaiFENesin 600 MG TABLET.ER PO SCH ×3 (12:51→22:07)
[2021-04-30] MEDS: ASCORBIC ACID 500 MG TAB PO SCH (12:56)
--- NOTE | 2021-04-30 15:47 | P.PN ---
Subjective Progress Note Date: 04/30/21 65 years old female patient of Dr. Navarrete with past medical history of DVT on antibiotic regulation of Eliquis, history of hypertension, COPD, lymphedema, history of asthma, history of uterine cancer status post hysterectomy following which patient had bowel obstruction which led to the incisional hernia. Patient comes in with significant chest pain that started yesterday. Patient has chest pain in the left armpit associated with left shoulder pain. The pain lasted an hour before she got nitroglycerin. She after half an hour after receiving the nitroglycerin the pain reoccurred in the left chest and has been intermittent in nature. Patient denies any shortness of breath or dizziness or nausea and vomiting. Patient wears compression pants for her lymphedema. She eats because significant discomfort in her neck but denies any pain in her back , evaluated in the ER suggestive of 98.8 pulse 75 respiratory rate 20. Blood pressure 1:15/82 oxygen saturation 94% on 2 L. Labs reviewed patient of the visit of 9.6 hemoglobin 11.3 platelet 229 sodium 139 potassium 4.1 BUN 17 creatinine 0.5 troponin 2 negative: COVID not detected CT angiogram was obtained on 04/29 concerning for mild compression fracture involving T8 and T6 compared to the old exam. EKG was assessed to sinus rhythm with marked sinus arrhythmia is otherwise normal rhythm with some PACs Cardiology is consulted. 04/30 patient examined at site. Breathing is better since initiated on breathing treatment and Solu-Medrol. Patient underwent stress test today that was negative. Vitals were reviewed patient is afebrile pulse 78 respiratory rate 16 blood pressure 141/91. Oxygen saturation 98% on 2 L. Labs revealed patient's obesity 9.6 hemoglobin 14.3 platelet 229 d-dimer mildly elevated at 1.8. BUN 17 creatinine 0.55 troponin 2 negative. CTA chest was negative for pulmonary embolism. Patient takes Senokot 2 tabs in the morning and 2 tabs in the evening. Patient is adamant about the dose of Senokot and would like the same dose that it helps her with bowel movements. Patient would also like ear drops to help with dry eyes. ROS Constitutional: Denies chills, Denies fever, Denies lethargy, Denies malaise, Denies poor appetite, Denies weakness, Denies weight loss Eyes: denies decreased vision, denies diplopia, denies discharge, denies pain Ears: deny: decreased hearing dry eyes Ears, nose, mouth and throat: Denies dental pain, Denies headache, Denies nasal discharge, Denies nose pain Cardiovascular: Chest pain improved, Denies decreased exercise tolerance, Denies edema, Denies high blood pressure, Denies irregular heart beat, Denies palpitations, Denies paroxysmal nocturnal dyspnea, Denies rapid heart beat, Denies shortness of breath Respiratory: Denies congestion, Denies cough, Denies cough with sputum, Denies dyspnea, Denies home oxygen, Denies wheezing Gastrointestinal: Denies abdominal pain, Denies change in bowel habits, Denies coffee ground emesis, Denies early satiety, Denies excessive gas, Denies heartburn, Denies hematemesis, Denies hematochezia, Denies loss of appetite, Denies nausea, Denies vomiting Genitourinary: Denies dysuria, Denies flank pain, Denies kidney stones, Denies menorrhagia, Denies urgency, Denies urinary frequency Musculoskeletal: Denies gait dysfunction, Denies limitation of motion, Denies morning stiffness, Denies muscle cramps Integumentary: Denies rash, Denies wounds, Denies brittle nails, Denies change in hair/nails, Denies darkening of skin Neurological: Denies balance difficulties, Denies change in speech, Denies double vision, Denies gait dysfunction, Denies loss of vision, Denies motor disturbance, Denies numbness, Denies paralysis, Denies paresthesias, Denies seizures Psychiatric: Denies anxiety, Denies depression Endocrine: Denies excessive sweating, Denies excessive thirst, Denies high blood sugars, Denies palpitations Hematologic/Lymphatic: Denies easy bruising, Denies lymphadenopathy Physical exam - Constitutional General appearance: cooperative, no acute distress, obese - EENT Eyes: anicteric sclerae, PERRLA, normal appearance ENT: hearing grossly normal - Neck Neck: no lymphadenopathy, normal ROM, no other, no rigidity, no stridor, no thyromegaly - Respiratory Respiratory: bilateral: Decreased air entry with no dullness, rales, rhonchi - Cardiovascular Rhythm: regular Heart sounds: normal: S1, S2 Abnormal Heart Sounds: no systolic murmur, no diastolic murmur, no rub, no S3 Gallop, no S4 Gallop, no click, no other - Gastrointestinal General gastrointestinal: normal bowel sounds, soft large incisional hernia noted - Integumentary Integumentary: no rash - Neurologic Neurologic: No motor or sensory deficit - Musculoskeletal Musculoskeletal: strength equal bilaterally - Psychiatric Psychiatric: A&O x's 3, appropriate affect Assessment and plan #1 acute chest pain ACS ruled out stress test negative. EKG negative for ST or T-wave changes troponin 2 negative. #2 acute asthma/COPD exacerbation Solu-Medrol switched to prednisone. DuoNeb as needed for shortness of breath. Pulmicort 0.5 twice daily. #3 hypertension continue metoprolol 25 by mouth twice a day #4 acute compression fracture involving T6 and T8. Orthopedic spine consulted. Reviewed the imaging and felt patient's compression fractures were chronic. Patient's cervical spine will be evaluated as outpatient #5 history of DVT continue Eliquis 5 mg twice a day #6 history of bowel obstruction status post exploratory laparotomy, resolved #7 incisional hernia nonobstructing continue to monitor #8 lymphedema on full length and pneumatic bands for bilateral lower extremity. #9 acute neck pain likely degenerative disc disease with possible herniation. Patient will need repeat CAT scans as outpatient follow-up with Dr. Elizabeth for evaluation #10 GI prophylaxis with Pepcid 20 mg by mouth daily #11DVT prophylaxis witheliquis Objective - Vital Signs Vital signs: Vital Signs Temp 97.6 F 04/30/21 07:00 Pulse 82 04/30/21 07:55 Resp 16 04/30/21 08:00 BP 141/91 04/30/21 07:00 Pulse Ox 98 04/30/21 07:00 Intake & Output 04/29/21 04/30/21 04/30/21 18:59 06:59 18:59 Intake Total 480 240 Balance 480 240 Weight 113.398 kg 113.4 kg Intake: Oral 480 240 Other: # Voids 1 1 1 - Labs CBC & Chem 7: 04/28/21 22:34 04/28/21 22:34
[2021-04-30] MEDS: predniSONE 20 MG TAB PO SCH (16:07)
--- NOTE | 2021-04-30 16:23 | ECHOS ---
STRESS ECHOCARDIOGRAM INDICATIONS: Chest pain. BASELINE HEART RATE: 108 BASELINE BLOOD PRESSURE: 150/100 MAXIMUM HEART RATE: 135 MAXIMUM BLOOD PRESSURE: 205/94 85% MPHR: 133 100% MPHR: 153 METS: NA MAXIMUM STAGE REACHED: 3 TOTAL EXERCISE TIME: 6:24 CLINICAL INFORMATION: Baseline EKG shows sinus rhythm, normal axis, normal intervals. Patient was given intravenous dobutamine over a period of 6-1/2 minutes as per protocol. She did not have chest pain or diagnostic ST-segment depression. Baseline echo shows normal left ventricular size, wall motion and systolic function. Post dobutamine, there is normal hyperdynamic response of all segments of myocardium noted. A contrast agent was used to enhance endocardial definition. CONCLUSIONS: 1. Negative stress test by EKG criteria. 2. Negative dobutamine stress echo. MMODL / IJN: [id number] /
[2021-04-30] MEDS: ARTIFICIAL TEARS-HYPROMELLOSE DROPS 15 ML BTL BOTH EYES SCH (17:53)
[2021-04-30] MEDS: SENNOSIDES 8.6 MG TAB PO SCH (20:29)
[2021-04-30] MEDS ORDERED: MORPHINE SULFATE 2 MG/ML SYRINGE IVP PRN (21:31)
[2021-04-30] MEDS ORDERED: LIDOCAINE 5% PATCH TOPICAL STA (21:33)
[2021-05-01] MEDS: ALBUTEROL NEBULIZED 2.5 MG/3 ML INHALATION SCH ×3 (07:55→16:17)
[2021-05-01] MEDS: BUDESONIDE 0.5 MG/2 ML NEBU INHALATION SCH (07:55)
[2021-05-01] MEDS: predniSONE 20 MG TAB PO SCH (08:29)
[2021-05-01] MEDS: APIXABAN 5 MG TAB PO SCH (08:29)
[2021-05-01] MEDS: CHOLECALCIFEROL 25 MCG (1000 IU) TABLET PO SCH (08:29)
[2021-05-01] MEDS: METOPROLOL SUCCINATE (ER) 25 MG TAB.ER.24H PO SCH (08:29)
[2021-05-01] MEDS: FAMOTIDINE 20 MG TAB PO SCH (08:30)
[2021-05-01] MEDS: ASCORBIC ACID 500 MG TAB PO SCH (08:30)
[2021-05-01] MEDS: ARTIFICIAL TEARS-HYPROMELLOSE DROPS 15 ML BTL BOTH EYES SCH (08:30)
[2021-05-01] MEDS: ZINC SULFATE 220 MG CAP PO SCH (08:30)
[2021-05-01] MEDS: guaiFENesin 600 MG TABLET.ER PO SCH ×2 (08:30→08:35)
[2021-05-01] MEDS: SENNOSIDES 8.6 MG TAB PO SCH (08:30)
--- NOTE | 2021-05-01 10:41 | P.DS ---
Providers Date of admission: 04/29/21 01:27 Expected date of discharge: 05/01/21 Attending physician: Josh Ledbetter Consults: 04/29/21 11:10 Consult Physician Routine Consulting Provider: Darryl Gutierrez Consult Reason/Comments: new compression fracture t 8 and t9 Do you want consulting provider notified?: Yes Primary care physician: [facility] Course: 65 years old female patient of Dr. Navarrete with past medical history of DVT on antibiotic regulation of Eliquis, history of hypertension, COPD, lymphedema, history of asthma, history of uterine cancer status post hysterectomy following which patient had bowel obstruction which led to the incisional hernia. Patient comes in with significant chest pain that started yesterday. Patient has chest pain in the left armpit associated with left shoulder pain. The pain lasted an hour before she got nitroglycerin. She after half an hour after receiving the nitroglycerin the pain reoccurred in the left chest and has been intermittent in nature. Patient denies any shortness of breath or dizziness or nausea and vomiting. Patient wears compression pants for her lymphedema. She eats because significant discomfort in her neck but denies any pain in her back , evaluated in the ER suggestive of 98.8 pulse 75 respiratory rate 20. Blood pressure 1:15/82 oxygen saturation 94% on 2 L. Labs reviewed patient of the visit of 9.6 hemoglobin 11.3 platelet 229 sodium 139 potassium 4.1 BUN 17 creatinine 0.5 troponin 2 negative: COVID not detected CT angiogram was obtained on 04/29 concerning for mild compression fracture involving T8 and T6 compared to the old exam. EKG was assessed to sinus rhythm with marked sinus arrhythmia is otherwise normal rhythm with some PACs Cardiology is consulted. 04/30 patient examined at site. Breathing is better since initiated on breathing treatment and Solu-Medrol. Patient underwent stress test today that was negative. Vitals were reviewed patient is afebrile pulse 78 respiratory rate 16 blood pressure 141/91. Oxygen saturation 98% on 2 L. Labs revealed patient's obesity 9.6 hemoglobin 14.3 platelet 229 d-dimer mildly elevated at 1.8. BUN 17 creatinine 0.55 troponin 2 negative. CTA chest was negative for pulmonary embolism. Patient takes Senokot 2 tabs in the morning and 2 tabs in the evening. Patient is adamant about the dose of Senokot and would like the same dose that it helps her with bowel movements. Patient would also like eardrops to help with dry eyes. 05/01: Patient has been seen by orthopedics and plan is for cervical workup as an outpatient. Due to patient's concerns, we did end up ordering a CAT scan of the cervical spine which revealed reversal of normal cervical curvature with multilevel degenerative changes greatest at C4-C5 through C6-C7 levels. She states that she had 3 episodes of chest pain last night but none today. Cardiology has signed off after negative stress test. Patient will be discharged home today in stable condition. DISCHARGE DIAGNOSES #1 acute chest pain ACS ruled out stress test negative. #2 acute asthma/COPD exacerbation #3 hypertension #4 chronic compression fracture involving T6 and T8 #5 history of DVT #6 history of bowel obstruction status post exploratory laparotomy, resolved #7 incisional hernia nonobstructing continue to monitor #8 lymphedema on full length and pneumatic bands for bilateral lower extremity. #9 acute neck pain likely degenerative disc disease with possible herniation. DISCHARGE PLAN Home Impression and plan of care have been directed as dictated by the signing physician. Mindi James nurse practitioner acting as scribe for signing physician. Patient Condition at Discharge: Good Plan - Discharge Summary Discharge Rx Participant: No New Discharge Prescriptions: New Artificial Tears-Hypromellose [Artificial Tear Drops] 1 drops BOTH EYES BID ml guaiFENesin [Mucinex] 600 mg PO Q12HR tablet predniSONE 0 mg PO DIRECTED #30 tab Continue Apixaban [Eliquis] 5 mg PO BID Budesonide [Pulmicort] 0.5 mg INHALATION RT-BID Sennosides [Senna] 8.6 mg PO DAILY PRN PRN Reason: Constipation Albuterol Inhaler [Ventolin Hfa Inhaler] 2 puff INHALATION RT-Q6H PRN #1 inhaler PRN Reason: Shortness Of Breath Or Wheezing Albuterol Nebulized [Ventolin Nebulized] 2.5 mg INHALATION RT-Q6H PRN PRN Reason: Shortness Of Breath Fluticasone/Vilanterol [Breo Ellipta 100-25 Mcg Inhaler] 1 puff INHALATION RT-DAILY Vitamin C/Biotin [Hair, Skin and Nails Chew] 1 tab PO DAILY Cholecalciferol [Vitamin D3 (25 Mcg = 1000 Iu)] 25 mcg PO DAILY L.acidoph,Paracasei, B.lactis [Probiotic] 2 cap PO BID Zinc 50 mg PO DAILY Ascorbic Acid [Vitamin C] 1,000 mg PO DAILY Tobramycin/Dexamethasone [Tobradex Ophth Susp] 1 drop BOTH EYES BID [place]-3 Fatty Acids/Fish Oil [Fish Oil 1,000 mg Softgel] 1 cap PO DAILY Metoprolol Succinate (ER) [Toprol XL] 25 mg PO BID Discharge Medication List Apixaban [Eliquis] 5 mg PO BID 04/22/18 [History] Budesonide [Pulmicort] 0.5 mg INHALATION RT-BID 11/03/19 [History] Sennosides [Senna] 8.6 mg PO DAILY PRN 11/03/19 [History] Albuterol Inhaler [Ventolin Hfa Inhaler] 2 puff INHALATION RT-Q6H PRN #1 inhaler 11/10/19 [Rx] Albuterol Nebulized [Ventolin Nebulized] 2.5 mg INHALATION RT-Q6H PRN 07/08/20 [History] Fluticasone/Vilanterol [Breo Ellipta 100-25 Mcg Inhaler] 1 puff INHALATION RT- DAILY 07/08/20 [History] Ascorbic Acid [Vitamin C] 1,000 mg PO DAILY 04/28/21 [History] Cholecalciferol [Vitamin D3 (25 Mcg = 1000 Iu)] 25 mcg PO DAILY 04/28/21 [History] L.acidoph,Paracasei, B.lactis [Probiotic] 2 cap PO BID 04/28/21 [History] [place]-3 Fatty Acids/Fish Oil [Fish Oil 1,000 mg Softgel] 1 cap PO DAILY 04/28/21 [History] Tobramycin/Dexamethasone [Tobradex Ophth Susp] 1 drop BOTH EYES BID 04/28/21 [History] Vitamin C/Biotin [Hair, Skin and Nails Chew] 1 tab PO DAILY 04/28/21 [History] Zinc 50 mg PO DAILY 04/28/21 [History] Metoprolol Succinate (ER) [Toprol XL] 25 mg PO BID 04/29/21 [History] Artificial Tears-Hypromellose [Artificial Tear Drops] 1 drops BOTH EYES BID ml 05/01/21 [Rx] guaiFENesin [Mucinex] 600 mg PO Q12HR tablet 05/01/21 [Rx] predniSONE 0 mg PO DIRECTED #30 tab 05/01/21 [Rx] Follow up Appointment(s)/Referral(s): Josh Ledbetter MD [Primary Care Provider] - 05/07/21 1:00 pm Randal Griffith PAC [PHYSICIAN ONLINE MEDIA BUYER] - 2 Weeks (Patient may follow-up with Randal Griffith PA-C or Dr. Joshua Gutierrez at [facility] in 2-3 weeks following discharge. ) Sharif Mcdowell MD [STAFF PHYSICIAN] - 1 Week (Office will call with appointment date and time) Patient Instructions/Handouts: Chest Pain (DC), COPD (Chronic Obstructive Pulmonary Disease) (DC) Discharge Disposition: HOME SELF-CARE
--- NOTE | 2021-05-01 10:56 | ECHOF ---
Referral Reason:chest pain MEASUREMENTS -------- HEIGHT: 160.0 cm WEIGHT: 113.4 kg BP: RVIDd: 3.0 cm (< 3.3) IVSd: 0.7 cm (0.6 - 1.1) LVIDd: 4.6 cm (3.9 - 5.3) LVPWd: 0.9 cm (0.6 - 1.1) IVSs: 1.3 cm LVIDs: 2.7 cm LVPWs: 1.7 cm Ao Diam: 3.5 cm (2.0 - 3.7) AV Cusp: 1.9 cm (1.5 - 2.6) LA Diam: 1.7 cm (2.7 - 3.8) MV EXCURSION: 21.866 mm (> 18.000) MV EF SLOPE: 77 mm/s (70 - 150) EPSS: 0.9 cm MV E Sourav: 0.86 m/s MV DecT: 231 ms MV A Sourav: 0.75 m/s MV E/A Ratio: 1.15 RAP: 5.00 mmHg RVSP: 12.99 mmHg FINDINGS -------- This was a technically adequate study. The left ventricular size is normal. Left ventricular wall thickness is normal. Overall left vent ricular systolic function is normal with, an EF between 55 - 60 %. The right ventricle is normal in size. The left atrial size is normal. The right atrial size is normal. The aortic valve is trileaflet and appears structurally normal. The mitral valve is normal. There is trace mitral regurgitation. The tricuspid valve appears structurally normal. Trace tricuspid regurgitation present. Right grace tricular systolic pressure is normal at < 35 mmHg. There is no pulmonic regurgitation present. The aortic root size is normal. Normal inferior vena cava with normal inspiratory collapse consistent with estimated right atrial pre ssure of 5 mmHg. There is a small, generalized pericardial effusion present. CONCLUSIONS -------- 1. The left ventricular size is normal. 2. Left ventricular wall thickness is normal. 3. Overall left ventricular systolic function is normal with, an EF between 55 - 60 %. 4. There is trace mitral regurgitation. 5. Trace tricuspid regurgitation present. 6. There is a small, generalized pericardial effusion present. FLOOR LAYER HELPER: Jessa Morocoh RDCS
--- NOTE | 2021-05-01 12:06 | CT ---
EXAMINATION TYPE: CT cervical spine wo con DATE OF EXAM: 05/01/2021 COMPARISON: NONE HISTORY: DDD. History of DVT. CT DLP: 633 mGycm. Automated Exposure Control for Dose Reduction was Utilized. TECHNIQUE: CT scan of the cervical spine is obtained without contrast, axial images are obtained, sa gittal and coronal reformatted images are also reviewed. FINDINGS: Cervical spine is visualized in its entirety from C1 through upper thoracic levels, demonst rates bursal of normal cervical curvature centered at C4-C5 level . Prevertebral soft tissue appears within normal limits. The C1-C2 articulation is within normal limits on the coronal images. Vertebr al body heights are maintained. Mild to moderate disc space narrowing and moderate anterior spurring C4-C5 level. Moderate disc space narrowing and spurring C5-C6 level. Mild to moderate spurring and di sc space narrowing C6-C7 level. Review of axial images shows C2-C3 level to appear within normal limits. Axial images at C3-C4 level show uncovertebral facet spurring causing mild bilateral neural foraminal narrowing. Axial images at C4-C5 level show posterior small rim calcified broad-based disc protrusion effacing t he anterior thecal sac and causing mild to moderate right greater than left bilateral neural foramina l narrowing . Axial images at C5-C6 level showed broad based posterior disc protrusion mildly effacing the anterior thecal sac and causing mild to moderate bilateral neural foraminal narrowing. Axial images at C6-C7 level show left paracentral disc protrusion effacing the anterior thecal sac an d causing [id number] left along with mild right-sided neural foraminal narrowing. Axial images at C7-T1 level are within normal limits. There is asymmetric 1.6 x 1.3 cm low dense rounded lesion in the right neck above the thyroid gland j ust below level of the inferior hyoid bone axial image 63 that warrants follow-up. Possible exophytic thyroid nodule. Other etiologies not excluded. Ultrasound follow-up advised. Lung apices show no pne umothorax. IMPRESSION: Reversal of normal cervical curvature with multilevel degenerative changes greatest C4-C5 through C6-C7 levels as detailed above.
[2021-05-01 14:21] VITALS: BP 130/85; RESP 17; TEMP 97.9
[2021-05-01 16:36] VITALS: PULSE 90
== END 2021-05-01 18:30 | disposition home or self-care (01) ==
LOC: EC 21:17 → 6NMEDSUR 04-29 01:27
PROVIDERS: ADMIT Internal Medicine Geriatric Medicine; ATTEND Internal Medicine Geriatric Medicine
DX: R07.89 Other chest pain (principal); J45.901 Unspecified asthma with (acute) exacerbation; J44.1 Chronic obstructive pulmonary disease with (acute) exacerbation; I48.20 Chronic atrial fibrillation, unspecified; R79.89 Other specified abnormal findings of blood chemistry; I10 Essential (primary) hypertension; K43.2 Incisional hernia without obstruction or gangrene; Q65.89 Other specified congenital deformities of hip; M15.9 Polyosteoarthritis, unspecified; I89.0 Lymphedema, not elsewhere classified; I08.1 Rheumatic disorders of both mitral and tricuspid valves; I27.20 Pulmonary hypertension, unspecified; I49.1 Atrial premature depolarization; S22.059A Unspecified fracture of T5-T6 vertebra, initial encounter for closed fracture; S22.069A Unspecified fracture of T7-T8 vertebra, initial encounter for closed fracture; H57.9 Unspecified disorder of eye and adnexa; H04.129 Dry eye syndrome of unspecified lacrimal gland; J30.9 Allergic rhinitis, unspecified; M54.2 Cervicalgia; M50.221 Other cervical disc displacement at C4-C5 level; E66.9 Obesity, unspecified; Z68.41 Body mass index [BMI] 40.0-44.9, adult; Z20.822 Contact with and (suspected) exposure to COVID-19; Z79.01 Long term (current) use of anticoagulants; Z79.51 Long term (current) use of inhaled steroids; Z79.899 Other long term (current) drug therapy; Z88.1 Allergy status to other antibiotic agents; Z88.6 Allergy status to analgesic agent; Z87.891 Personal history of nicotine dependence; Z85.42 Personal history of malignant neoplasm of other parts of uterus; Z90.710 Acquired absence of both cervix and uterus; Z86.718 Personal history of other venous thrombosis and embolism; Z85.3 Personal history of malignant neoplasm of breast; Z87.19 Personal history of other diseases of the digestive system; Z87.81 Personal history of (healed) traumatic fracture; Z87.09 Personal history of other diseases of the respiratory system; Z98.890 Other specified postprocedural states; Z86.19 Personal history of other infectious and parasitic diseases; Z90.722 Acquired absence of ovaries, bilateral; Z82.49 Family history of ischemic heart disease and other diseases of the circulatory system; Z80.1 Family history of malignant neoplasm of trachea, bronchus and lung
CPT/HCPCS: 96376 ×2; 96374; 99285; 36415; 94640 ×6; 93005; 93306; 85379; 83880; 80053; 83735; 84484 ×2; 85025; 85610; 85730; 87635; 71045; 72125; 71275; G0378 ×3; C8930; J1250; J2920 ×2; J2930; J7512; Q9950; Q9967; 93351

== ENCOUNTER → 2022-08-06 | Outpatient (CLI) | payer MEDICARE ==
--- NOTE | 2022-08-06 15:26 | BD ---
EXAMINATION TYPE: Axial Bone Density DATE OF EXAM: 08/06/2022 COMPARISON: NONE CLINICAL HISTORY: 66 years year old Female. ICD-10 CODE: M81.0 OSTEOPOROSIS Height: 63 Weight: 218 FRAX RISK QUESTIONS: Alcohol (3 or more units per day): NO Family History (Parent hip fracture): NO Glucocorticoids (More than 3mos): NONE AT THIS TIME History of Fracture in Adulthood: SPINE, PATELLA Secondary Osteoporosis: 1. Type 1 Diabetes: NO 2. Hyperthyroidism: NO 3. Menopause before 45: NO 4. Malnutrition: NO 5. 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 Spine Fracture: YES When: 2019 History of Wrist Fracture: NO Surgery to Spine/Hip(right/left)/Wrist (right/left): NO Family History of Osteoporosis: NO Active: NO Diet low in dairy products/other sources of calcium: YES Postmenopausal woman: YES Take estrogen and/or progesterone medications: NO Lost more than 2 inches in height since high school: NO Frequent falls: NO Poor Health: NO Hyperparathyroidism: NO Adrenal Insufficiency: NO MEDICATIONS: Prednisone or other steroids: NO Thyroid Medications: NO Osteoporosis Medications: NO Additional Medications: BP MEDS, INHALER FOR ASTHMA, TUMERIC, VIT D, CALCIUM Additional History: BREAST CA. EXAM MEASUREMENTS: Bone mineral density about the R hip (g/cm2): 0.704 T Score values are as follows: -----R Neck: -2.4 -----R Total: -2.3 Bone mineral density has: DECREASED 0.3 % since study of: 03/08/2019 Bone mineral density about the L Wrist (g/cm2): 0.631 T Score values are as follows: -----Dist. R+U: -1.3 -----Prox. R+U: -0.8 -----Radius total: -0.7 BASELINE FOREARM STUDY FRAX%s: The graph provided illustrates a 18.8% chance for a major osteoporotic fx and a 3.6% chance f or the hips probability for fx in 10 years time. IMPRESSION: Osteopenia (T Score between -2.5 and -1). There is slightly increased risk of fracture and the patient may be considered for treatment. Re-Screen 2-5 years. NOTE: T-SCORE=SD OF THE YOUNG ADULT MEAN.
--- NOTE | 2022-08-07 06:33 | MM ---
Reason for Exam: Screening (asymptomatic). Last mammogram was performed 1 year(s) and 10 month(s) ago. Patient History: Menarche at age 11. Patient has no children. Postmenopausal. Breast cancer, left, age 47. 2000, Mastectomy on the Left side. Prior Study Comparison: 03/25/2016 Right Diagnostic Mammogram, [facility]. 07/22/2018 Right Diagnostic Mammogram, [facility]. 10/29/2020 Bilateral Screening Mammogram, [facility]. Tissue Density: Right: There are scattered fibroglandular densities. Findings: Analyzed By CAD. Benign-appearing right axillary lymph nodes are redemonstrated. Some benign-appearing vascular calcification towards the right axilla is again seen. There is no suspicious new group of microcalcifications or new suspicious mass in the right breast. Overall Assessment: Benign, BI-RAD 2 Management: Screening Mammogram of the right breast in 1 year. A clinical breast exam by your physician is recommended on an annual basis and results should be correlated with mammographic findings. Electronically signed and approved by: Carrington Greene M.D.
== END | disposition home or self-care (01) ==
LOC: RADMAMWWP 13:32
PROVIDERS: ATTEND Internal Medicine Geriatric Medicine
DX: Z12.31 Encounter for screening mammogram for malignant neoplasm of breast (principal); M85.89 Other specified disorders of bone density and structure, multiple sites; Z78.0 Asymptomatic menopausal state
CPT/HCPCS: 77067; 77080

== ENCOUNTER 2023-04-24 20:21 | Observation (INO) | payer MEDICARE ==
--- NOTE | 2023-04-24 20:46 | ED ---
Fall HPI - General Chief Complaint: Fall Stated Complaint: ETOH Time Seen by Provider: 04/24/23 20:24 Source: patient, EMS Mode of arrival: EMS - History of Present Illness Initial Comments: 67-year-old female brought in by EMS from a local bar where she been drinking during the day and apparently could not ambulate or transfer to her walker without falling. This happened on multiple occasions patient herself denies any head neck or back injury she has any history of physical disability since she was born. She does admit to drinking alcohol tonight she states is because her left her. She denies any suicidal thoughts or ideation other current complaints or modifying factors MD Complaint: fall - Related Data Home Medications Medication Instructions Recorded Confirmed Apixaban [Eliquis] 5 mg PO BID 04/22/18 04/28/21 Budesonide [Pulmicort] 0.5 mg INHALATION RT-BID 11/03/19 04/28/21 Sennosides [Senna] 8.6 mg PO DAILY PRN 11/03/19 04/28/21 Albuterol Nebulized [Ventolin 2.5 mg INHALATION RT-Q6H PRN 07/08/20 04/28/21 Nebulized] Fluticasone/Vilanterol [Breo 1 puff INHALATION RT-DAILY 07/08/20 04/28/21 Ellipta 100-25 Mcg Inhaler] Ascorbic Acid [Vitamin C] 1,000 mg PO DAILY 04/28/21 04/28/21 Cholecalciferol [Vitamin D3 (25 25 mcg PO DAILY 04/28/21 04/28/21 Mcg = 1000 Iu)] L.acidoph,Paracasei, B.lactis 2 cap PO BID 04/28/21 04/28/21 [Probiotic] Cordova-3 Fatty Acids/Fish Oil [Fish 1 cap PO DAILY 04/28/21 04/28/21 Oil 1,000 mg Softgel] Tobramycin/Dexamethasone [Tobradex 1 drop BOTH EYES BID 04/28/21 04/28/21 Ophth Susp] Vitamin C/Biotin [Hair, Skin and 1 tab PO DAILY 04/28/21 04/28/21 Nails Chew] Zinc 50 mg PO DAILY 04/28/21 04/28/21 Metoprolol Succinate (ER) [Toprol 25 mg PO BID 10/26/21 10/26/21 XL] Previous Rx's Medication Instructions Recorded Albuterol Inhaler [Ventolin Hfa 2 puff INHALATION RT-Q6H PRN #1 11/10/19 Inhaler] inhaler Artificial Tears-Hypromellose 1 drops BOTH EYES BID ml 05/01/21 [Artificial Tear Drops] guaiFENesin [Mucinex] 600 mg PO Q12HR tablet 05/01/21 predniSONE 0 mg PO DIRECTED #30 tab 05/01/21 Allergies Allergy/AdvReac Type Severity Reaction Status Date / Time ibuprofen [From Motrin] Allergy Dyspnea Verified 04/28/21 22:49 levofloxacin [From Levaquin] Allergy Unknown Verified 04/28/21 22:49 prednisone Allergy Unknown Verified 04/24/23 20:28 acetaminophen [From Tylenol] AdvReac Increased Verified 04/28/21 22:49 Liver Enzymes Review of Systems ROS Statement: Those systems with pertinent positive or pertinent negative responses have been documented in the HPI. ROS Other: All systems not noted in ROS Statement are negative. 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 History of Any Multi-Drug Resistant Organisms: None Reported Past Surgical History: Breast Surgery, Heart Catheterization, Hysterectomy Additional Past Surgical History / Comment(s): L hip surgery x3, bowel obstruction with laparotomy, hysterecomy/ovaries/tumor removed per pt, bronchoscopies x2, Past Anesthesia/Blood Transfusion Reactions: No Reported Reaction Additional Past Anesthesia/Blood Transfusion Reaction / Comment(s): Pt has received blood without reaction. Past Psychological History: No Psychological Hx Reported Smoking Status: Former smoker Past Alcohol Use History: Occasional Past Drug Use History: None Reported - Past Family History Mother Family Medical History: Cancer Additional Family Medical History / Comment(s): Mother at the age of 75yrs from metastatic cancer. Father Family Medical History: Myocardial Infarction (IN) Additional Family Medical History / Comment(s): Father of a IN at the age of 54yrs. General Exam - General Exam Comments Initial Comments: This is a well-developed well-nourished awake alert oriented 4 female who does appear somewhat intoxicated Limitations: no limitations General appearance: alert, anxious Head exam: Present: atraumatic, normocephalic, normal inspection Eye exam: Present: normal appearance, PERRL, EOMI. Absent: scleral icterus, conjunctival injection, periorbital swelling ENT exam: Present: normal exam, mucous membranes moist Neck exam: Present: normal inspection, full ROM, other (No surgery or bruits). Absent: tenderness, meningismus, lymphadenopathy Respiratory exam: Present: normal lung sounds bilaterally. Absent: respiratory distress, wheezes, rales, rhonchi, stridor Cardiovascular Exam: Present: regular rate, normal rhythm, normal heart sounds. Absent: systolic murmur, diastolic murmur, rubs, gallop, clicks GI/Abdominal exam: Present: soft, normal bowel sounds. Absent: distended, tenderness, guarding, rebound, rigid Extremities exam: Present: full ROM, normal capillary refill, other (Normal for her). Absent: tenderness, pedal edema, joint swelling, calf tenderness Back exam: Present: normal inspection Neurological exam: Present: alert, oriented X3, CN II-XII intact Psychiatric exam: Present: normal affect, normal mood Skin exam: Present: warm, dry, intact, normal color. Absent: rash Course Vital Signs 04/24/23 20:24 Temperature 98.7 F Pulse Rate 86 Respiratory 16 Rate Blood Pressure 107/78 O2 Sat by Pulse 94 L Oximetry Medical Decision Making - Medical Decision Making I did discuss with patient that was 264 she will be admitted for observation diagnoses of alcohol intoxication. Was pt. sent in by a medical professional or institution (, PA, ALMOND HULLER, urgent care, hospital, or halfway...) When po ssible be specific @ -No Did you speak to anyone other than the patient for history (EMS, parent, family, police, friend...)? What history was obtained from this source @ -No Did you review nursing and triage notes (agree or disagree)? Why? @ -I reviewed and agree with nursing and triage notes Were old charts reviewed (outside hosp., previous admission, EMS record, old EKG, old radiological studies, urgent care reports/EKG's, halfway records)? Report findings @ -No old charts were reviewed Differential Diagnosis (chest pain, altered mental status, abdominal pain women, abdominal pain men, vaginal bleeding, weakness, fever, dyspnea, syncope, headache, dizziness, GI bleed, back pain, seizure, CVA, palpatations, mental health, musculoskeletal)? @ -Alcohol intoxication EKG interpreted by me (3pts min.). @ -Not done X-rays interpreted by me (1pt min.). @ -None done CT interpreted by me (1pt min.). @ -None done U/S interpreted by me (1pt. min.). @ -None done What testing was considered but not performed or refused? (CT, X-rays, U/S, labs)? Why? @ -None What meds were considered but not given or refused? Why? @ -None Did you discuss the management of the patient with other professionals (professionals i.e. Dr., PA, ALMOND HULLER, lab, RT, psych nurse, rn social services, beamer hand, teacher, human resources officer, insurance case manager)? Give summary @ -Shilpi for Dr. Mauro torres Was smoking cessation discussed for >3mins.? @ -No Was critical care preformed (if so, how long)? @ -No Were there social determinants of health that impacted care today? How? (Homelessness, low income, unemployed, alcoholism, drug addiction, transportation, low edu. Level, literacy, decrease access to med. care, senior care, rehab)? @ -Patient lives by herself and has physical disabilities Was there de-escalation of care discussed even if they declined (Discuss DNR or withdrawal of care, Hospice)? DNR status @ -No What co-morbidities impacted this encounter? (DM, HTN, Smoking, COPD, CAD, Cancer, CVA, ARF, Chemo, Hep., AIDS, mental health diagnosis, sleep apnea, morbid obesity)? @ -Physical disabilities Was patient admitted / discharged? Hospital course, mention meds given and r oute, prescriptions, significant lab abnormalities, going to OR and other pertinent info. @ -[hospital course patient was admitted for observation and monitoring Undiagnosed new problem with uncertain prognosis? @ -Alcohol intoxication Drug Therapy requiring intensive monitoring for toxicity (Heparin, Nitro, Insulin, Cardizem)? @ -No Were any procedures done? @ -No Diagnosis/symptom? @ -default Acute, or Chronic, or Acute on Chronic? @ -Acute Uncomplicated (without systemic symptoms) or Complicated (systemic symptoms)? @ -default Side effects of treatment? @ -No Exacerbation, Progression, or Severe Exacerbation? @ -No Poses a threat to life or bodily function? How? (Chest pain, [place], [place], pneumonia, PE, COPD, DKA, ARF, appy, cholecystitis, CVA, Diverticulitis, Homicidal, Suicidal, threat to staff... and all critical care pts) @ -No - Lab Data Result diagrams: 04/24/23 21:09 04/24/23 21:09 Lab Results 04/24/23 04/24/23 Range/Units 21:09 21:09 WBC 7.2 (3.8-10.6) k/uL RBC 3.81 (3.80-5.40) m/uL Hgb 13.1 (11.4-16.0) gm/dL Hct 39.3 (34.0-46.0) % MCV 103.1 H (80.0-100.0) fL MCH 34.5 (25.0-35.0) pg MCHC 33.5 (31.0-37.0) g/dL RDW 12.9 (11.5-15.5) % Plt Count 223 (150-450) k/uL MPV 8.1 Neutrophils % 52 % Lymphocytes % 35 % Monocytes % 7 % Eosinophils % 3 % Basophils % 0 % Neutrophils # 3.7 (1.3-7.7) k/uL Lymphocytes # 2.5 (1.0-4.8) k/uL Monocytes # 0.5 (0-1.0) k/uL Eosinophils # 0.2 (0-0.7) k/uL Basophils # 0.0 (0-0.2) k/uL Macrocytosis Slight Sodium 140 (137-145) mmol/L Potassium 3.9 (3.5-5.1) mmol/L Chloride 106 (98-107) mmol/L Carbon Dioxide 23 (22-30) mmol/L Anion Gap 11 mmol/L BUN 24 H (7-17) mg/dL Creatinine 0.76 (0.52-1.04) mg/dL Est GFR (CKD-EPI)AfAm >90 (>60 ml/min/1.73 sqM) Est GFR (CKD-EPI)NonAf 83 (>60 ml/min/1.73 sqM) Glucose 87 (74-99) mg/dL Calcium 8.9 (8.4-10.2) mg/dL Total Bilirubin 0.7 (0.2-1.3) mg/dL AST 30 (14-36) U/L ALT 20 (4-34) U/L Alkaline Phosphatase 54 (38-126) U/L Creatine Kinase 24 L (30-135) U/L Total Protein 6.1 L (6.3-8.2) g/dL Albumin 3.5 (3.5-5.0) g/dL Serum Alcohol 264 H* mg/dL Disposition Clinical Impression: Alcohol intoxication Disposition: ADMITTED IP TO THIS [facility] Condition: Stable Referrals: Josh Ledbetter MD [Primary Care Provider] - 1-2 days Decision Date: 04/24/23 Decision Time: 22:08
[2023-04-24 21:37] LABS: ALT 20 U/L (4-34); AST 30 U/L (14-36); African American GFR (CKD) >90 (>60 ml/min/1.73 sqM); Albumin 3.5 g/dL (3.5-5.0); Alkaline Phosphatase 54 U/L (38-126); Anion Gap 11 mmol/L; Blood Urea Nitrogen 24 mg/dL (7-17); Calcium 8.9 mg/dL (8.4-10.2); Carbon Dioxide 23 mmol/L (22-30); Chloride 106 mmol/L (98-107); Creatine Kinase 24 U/L (30-135); Glucose 87 mg/dL (74-99); Non-African American GFR(CKD) 83 (>60 ml/min/1.73 sqM); Potassium 3.9 mmol/L (3.5-5.1); Sodium 140 mmol/L (137-145); Total Bilirubin 0.7 mg/dL (0.2-1.3); Total Protein 6.1 g/dL (6.3-8.2)
[2023-04-24 21:39] LABS: Basophils % (A) 0 %; Eosinophils # (A) 0.2 k/uL (0-0.7); Eosinophils % (A) 3 %; HCT 39.3 % (34.0-46.0); HGB 13.1 gm/dL (11.4-16.0); Lymphocytes # (A) 2.5 k/uL (1.0-4.8); Lymphocytes % (A) 35 %; MCH 34.5 pg (25.0-35.0); MCHC 33.5 g/dL (31.0-37.0); MCV 103.1 fL (80.0-100.0); Macrocytosis Slight; Mean Platelet Volume 8.1; Monocytes # (A) 0.5 k/uL (0-1.0); Monocytes % (A) 7 %; Neutrophils # (A) 3.7 k/uL (1.3-7.7); Neutrophils % (A) 52 %; Platelet Count 223 k/uL (150-450); RBC 3.81 m/uL (3.80-5.40); RDW 12.9 % (11.5-15.5); WBC 7.2 k/uL (3.8-10.6)
[2023-04-24 21:47] LABS: Alcohol 264 mg/dL
[2023-04-24] MEDS ORDERED: NALOXONE 0.4 MG/ML 1 ML VIAL IV PRN (22:09)
[2023-04-24] MEDS ORDERED: ALBUTEROL NEBULIZED 2.5 MG/3 ML INHALATION PRN (22:10)
[2023-04-24] MEDS ORDERED: SENNOSIDES 8.6 MG TAB PO PRN (22:10)
[2023-04-25] MEDS ORDERED: SYMBICORT 80-4.5 MCG INHALER INHALATION SCH (08:00)
[2023-04-25] MEDS: METOPROLOL SUCCINATE (ER) 25 MG TAB.ER.24H PO SCH ×2 (08:59→19:38)
[2023-04-25] MEDS: CHOLECALCIFEROL 25 MCG (1000 IU) TABLET PO SCH (09:00)
[2023-04-25] MEDS: APIXABAN 5 MG TAB PO SCH ×2 (09:00→19:38)
[2023-04-25] MEDS: BUDESONIDE 0.5 MG/2 ML NEBU INHALATION SCH ×2 (09:03→19:50)
[2023-04-25] MEDS ORDERED: chlordiazePOXIDE 25 MG CAP PO PRN (09:40)
[2023-04-25] MEDS ORDERED: LORazepam 1 MG TAB PO PRN (09:40)
[2023-04-25] MEDS ORDERED: LORazepam 2 MG/ML INJ IV PRN (09:40)
[2023-04-25] MEDS: ARTIFICIAL TEARS-HYPROMELLOSE DROPS 15 ML BTL BOTH EYES SCH ×2 (09:44→19:45)
[2023-04-25] MEDS ORDERED: MELATONIN 3 MG TABLET PO PRN (09:45)
[2023-04-25] MEDS ORDERED: SODIUM CHLORIDE 0.9% 1,000 ML IV SCH (09:45)
[2023-04-25] MEDS ORDERED: ONDANSETRON 4 MG/2 ML VIAL IVP PRN (09:45)
[2023-04-25] MEDS: FOLIC ACID 1 MG TAB PO SCH (11:22)
--- NOTE | 2023-04-25 12:36 | P.HPIM ---
History of Present Illness H&P Date: 04/25/23 Chief Complaint: Alcohol intoxication weakness * 67-year-old lady with past medical history significant for DVT, COPD, hypertension, lymphedema, history of breast cancer presented to the emergency department after alcohol intoxication unable to ambulate. * Workup initiated in ER included comprehensive metabolic panel as well as hepatology which showed normal WBC hemoglobin and platelet count. Serum chemistry showed sodium 140 chloride 106 BUN 24 creatinine 0.76 serum alcohol level >200 * Patient was admitted to medical floor for management of alcohol intoxication with concern for withdrawal * Reevaluation in ED patient is alert and oriented 4 denies of any acute issues . Patient appears distress REVIEW OF SYSTEMS: CONSTITUTIONAL: No fever, no malaise, no fatigue. HEENT: No recent visual problems or hearing problems. Denied any sore throat. CARDIOVASCULAR: No chest pain, orthopnea, PND, no palpitations, no syncope. PULMONARY: No shortness of breath, no cough, no hemoptysis. GASTROINTESTINAL: No diarrhea, no nausea, no vomiting, no abdominal pain. NEUROLOGICAL: No headaches, no weakness, no numbness. HEMATOLOGICAL: Denies any bleeding or petechiae. GENITOURINARY: Denies any burning micturition, frequency, or urgency. MUSCULOSKELETAL/RHEUMATOLOGICAL: Denies any joint pain, swelling, or any muscle pain. ENDOCRINE: Denies any polyuria or polydipsia. PHYSICAL EXAMINATION: GENERAL: The patient is alert and oriented x3, not in any acute distress. Well developed, well nourished. HEENT: Pupils are round and equally reacting to light. EOMI. No scleral icterus. No conjunctival pallor. Normocephalic, atraumatic. No pharyngeal erythema. No thyromegaly. CARDIOVASCULAR: S1 and S2 present. No murmurs, rubs, or gallops. PULMONARY: Chest is clear to auscultation, no wheezing or crackles. ABDOMEN: Soft, nontender, nondistended, normoactive bowel sounds. No palpable organomegaly. MUSCULOSKELETAL: No joint swelling or deformity. EXTREMITIES: No cyanosis, clubbing, or pedal edema. NEUROLOGICAL: Gross neurological examination did not reveal any focal deficits. SKIN: No rashes. 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 History of Any Multi-Drug Resistant Organisms: None Reported Past Surgical History: Breast Surgery, Heart Catheterization, Hysterectomy Additional Past Surgical History / Comment(s): L hip surgery x3, bowel obstruction with laparotomy, hysterecomy/ovaries/tumor removed per pt, bronchoscopies x2, Past Anesthesia/Blood Transfusion Reactions: No Reported Reaction Additional Past Anesthesia/Blood Transfusion Reaction / Comment(s): Pt has rece ived blood without reaction. Past Psychological History: No Psychological Hx Reported Smoking Status: Former smoker Past Alcohol Use History: Occasional Past Drug Use History: None Reported - Past Family History Mother Family Medical History: Cancer Additional Family Medical History / Comment(s): Mother at the age of 75yrs from metastatic cancer. Father Family Medical History: Myocardial Infarction (CO) Additional Family Medical History / Comment(s): Father of a CO at the age of 54yrs. Medications and Allergies Home Medications Medication Instructions Recorded Confirmed Type Apixaban [Eliquis] 5 mg PO BID 04/22/18 04/25/23 History Budesonide [Pulmicort] 0.5 mg INHALATION RT-BID 11/03/19 04/25/23 History Fluticasone/Vilanterol [Breo 1 puff INHALATION RT-DAILY 07/08/20 04/25/23 History Ellipta 100-25 Mcg Inhaler] Ascorbic Acid [Vitamin C] 1,000 mg PO DAILY 04/28/21 04/25/23 History Cholecalciferol [Vitamin D3 (25 25 mcg PO DAILY 04/28/21 04/25/23 History Mcg = 1000 Iu)] L.acidoph,Paracasei, B.lactis 2 cap PO BID 04/28/21 04/25/23 History [Probiotic] [place]-3 Fatty Acids/Fish Oil [Fish 1 cap PO DAILY 04/28/21 04/25/23 History Oil 1,000 mg Softgel] Vitamin C/Biotin [Hair, Skin and 1 tab PO DAILY 04/28/21 04/25/23 History Nails Chew] Zinc 50 mg PO DAILY 04/28/21 04/25/23 History Metoprolol Succinate (ER) [Toprol 25 mg PO BID 04/29/21 04/25/23 History XL] Allergies Allergy/AdvReac Type Severity Reaction Status Date / Time ibuprofen [From Motrin] Allergy Dyspnea Verified 04/25/23 11:07 levofloxacin [From Levaquin] Allergy Unknown Verified 04/25/23 11:07 prednisone Allergy Unknown Verified 04/25/23 11:07 acetaminophen [From Tylenol] AdvReac Increased Verified 04/25/23 11:07 Liver Enzymes Physical Exam Vitals: Vital Signs Temp Pulse Resp BP Pulse Ox 04/25/23 09:08 67 04/25/23 09:03 73 04/25/23 08:00 987.4 F H 69 16 124/77 91 L 04/25/23 06:12 58 L 16 99/65 94 L 04/25/23 04:16 56 L 16 98/58 93 L 04/25/23 03:00 16 04/25/23 01:05 82 16 101/63 94 L 04/24/23 20:24 98.7 F 86 16 107/78 94 L Intake and Output 04/24/23 04/25/23 04/25/23 22:59 06:59 14:59 Other: Weight 90.718 kg Results CBC & Chem 7: 04/24/23 21:09 04/24/23 21:09 Labs: Abnormal Lab Results - Last 24 Hours (Table) 04/24/23 04/24/23 Range/Units 21:09 21:09 MCV 103.1 H (80.0-100.0) fL BUN 24 H (7-17) mg/dL Creatine Kinase 24 L (30-135) U/L Total Protein 6.1 L (6.3-8.2) g/dL Serum Alcohol 264 H* mg/dL Assessment and Plan Assessment: Assessment and plan Alcohol intoxication with failure to thrive History of DVT History of COPD History of lymphedema * In regards to alcohol withdrawal, continue patient on withdrawal protocol, continue to Librium, Ativan as needed, Zofran as needed for nausea follow-up on liver profile * In regards to history of DVT continue patient on Eliquis * In regards to history of COPD bronchodilator protocol initiated * Patient will need physical therapy occupational therapy evaluation * CODE STATUS is full code
[2023-04-26 02:29] VITALS: RESP 16
[2023-04-26 07:49] VITALS: BP 147/76; TEMP 98.2
[2023-04-26] MEDS: BUDESONIDE 0.5 MG/2 ML NEBU INHALATION SCH (08:47)
[2023-04-26 08:50] LABS: HCT 36.2 % (37.2-46.3); HGB 11.8 d/dL (12.0-15.0); MCH 33.7 pg (27.0-32.0); MCHC 32.6 d/dL (32.0-37.0); MCV 103.4 FL (80.0-97.0); Mean Platelet Volume 10.8 FL (9.5-12.2); NRBC Per 100 WBC 0 X 10*3/uL (0.00-0.01); Platelet Count 208 X 10*3/uL (140-440); RDW 13.2 % (11.5-14.5); WBC 6.06 X 10*3/uL (4.50-10.00)
[2023-04-26] MEDS ORDERED: THIAMINE 100 MG TAB PO SCH (09:00)
[2023-04-26 09:02] LABS: ALT 17 U/L (8-44); AST 19 U/L (13-35); Albumin 3.4 d/dL (3.8-4.9); Albumin/Globulin Ratio 1.89 Ratio (1.60-3.17); Alkaline Phosphatase 53 U/L (41-126); BUN/Creat Ratio 24.67 Ratio (12.00-20.00); Blood Urea Nitrogen 14.8 mg/dL (9.0-27.0); Carbon Dioxide 26.2 mmol/L (21.6-31.8); Chloride 109 mmol/L (96-109); Globulin 1.8 d/dL (1.6-3.3); Glucose 96 mg/dL (70-110); Magnesium 1.8 mg/dL (1.5-2.4); Phosphorus 3.5 mg/dL (2.4-5.1); Potassium 3.9 mmol/L (3.5-5.5); Sodium 144 mmol/L (135-145); Total Bilirubin 1.1 mg/dL (0.3-1.2); Total Protein 5.2 d/dL (6.2-8.2)
[2023-04-26 09:07] VITALS: PULSE 71
[2023-04-26] MEDS: CHOLECALCIFEROL 25 MCG (1000 IU) TABLET PO SCH (09:42)
[2023-04-26] MEDS: FOLIC ACID 1 MG TAB PO SCH (09:42)
[2023-04-26] MEDS: APIXABAN 5 MG TAB PO SCH (09:42)
[2023-04-26] MEDS: METOPROLOL SUCCINATE (ER) 25 MG TAB.ER.24H PO SCH (09:42)
[2023-04-26] MEDS: ARTIFICIAL TEARS-HYPROMELLOSE DROPS 15 ML BTL BOTH EYES SCH (09:43)
--- NOTE | 2023-04-26 13:39 | P.DS ---
Providers Date of admission: 04/24/23 22:09 Expected date of discharge: 04/26/23 Attending physician: Rudolph Wade Primary care physician: [facility] Course: 67-year-old lady with past medical history significant for DVT, COPD, hyp ertension, lymphedema, history of breast cancer presented to the emergency department after alcohol intoxication unable to ambulate. * Workup initiated in ER included comprehensive metabolic panel as well as hepatology which showed normal WBC hemoglobin and platelet count. Serum chemistry showed sodium 140 chloride 106 BUN 24 creatinine 0.76 serum alcohol level >200 * Patient was admitted to medical floor for management of alcohol intoxication with concern for withdrawal * Reevaluation in ED patient is alert and oriented 4 denies of any acute issues. Patient appears distress * 04/26/23: Patient seen and evaluated bedside patient remains alert and oriented 4 denies of any acute issues. Patient is able to ambulate without difficulty seen by physical therapy. Patient to be discharged home p rescription for thiamine and Ultram as needed provided for back pain. Patient to follow-up with primary care physician post discharge information provided PHYSICAL EXAMINATION: GENERAL: The patient is alert and oriented x3, not in any acute distress. Well developed, well nourished. HEENT: Pupils are round and equally reacting to light. EOMI. No scleral icterus. No conjunctival pallor. Normocephalic, atraumatic. No pharyngeal erythema. No thyromegaly. CARDIOVASCULAR: S1 and S2 present. No murmurs, rubs, or gallops. PULMONARY: Chest is clear to auscultation, no wheezing or crackles. ABDOMEN: Soft, nontender, nondistended, normoactive bowel sounds. No palpable organomegaly. MUSCULOSKELETAL: No joint swelling or deformity. EXTREMITIES: No cyanosis, clubbing, or pedal edema. NEUROLOGICAL: Gross neurological examination did not reveal any focal deficits. SKIN: No rashes. Assessment: Assessment and plan Alcohol intoxication with failure to thrive RESOLVED History of DVT History of COPD History of lymphedema * In regards to alcohol withdrawal, , patient was monitored for withdrawal remained alert and oriented 4 no acute issues to be discharged home prescription for thiamine provided * In regards to history of DVT continue patient on Eliquis * In regards to history of COPD , continue home regimen * She was seen the physical therapy and discharged home * Patient follow-up with PCP Patient Condition at Discharge: Stable Plan - Discharge Summary Discharge Rx Participant: No New Discharge Prescriptions: New traMADol HCl [Ultram] 50 mg PO Q6HR PRN 3 Days #12 tab PRN Reason: Pain Thiamine [Vitamin B-1] 100 mg PO DAILY 30 Days #30 tab Continue Apixaban [Eliquis] 5 mg PO BID Budesonide [Pulmicort] 0.5 mg INHALATION RT-BID Fluticasone/Vilanterol [Breo Ellipta 100-25 Mcg Inhaler] 1 puff INHALATION RT-DAILY Vitamin C/Biotin [Hair, Skin and Nails Chew] 1 tab PO DAILY Cholecalciferol [Vitamin D3 (25 Mcg = 1000 Iu)] 25 mcg PO DAILY L.acidoph,Paracasei, B.lactis [Probiotic] 2 cap PO BID Zinc 50 mg PO DAILY Ascorbic Acid [Vitamin C] 1,000 mg PO DAILY [place]-3 Fatty Acids/Fish Oil [Fish Oil 1,000 mg Softgel] 1 cap PO DAILY Metoprolol Succinate (ER) [Toprol XL] 25 mg PO BID Discharge Medication List Apixaban [Eliquis] 5 mg PO BID 04/22/18 [History] Budesonide [Pulmicort] 0.5 mg INHALATION RT-BID 11/03/19 [History] Fluticasone/Vilanterol [Breo Ellipta 100-25 Mcg Inhaler] 1 puff INHALATION RT- DAILY 07/08/20 [History] Ascorbic Acid [Vitamin C] 1,000 mg PO DAILY 04/28/21 [History] Cholecalciferol [Vitamin D3 (25 Mcg = 1000 Iu)] 25 mcg PO DAILY 04/28/21 [History] L.acidoph,Paracasei, B.lactis [Probiotic] 2 cap PO BID 04/28/21 [History] [place]-3 Fatty Acids/Fish Oil [Fish Oil 1,000 mg Softgel] 1 cap PO DAILY 04/28/21 [History] Vitamin C/Biotin [Hair, Skin and Nails Chew] 1 tab PO DAILY 04/28/21 [History] Zinc 50 mg PO DAILY 04/28/21 [History] Metoprolol Succinate (ER) [Toprol XL] 25 mg PO BID 04/29/21 [History] Thiamine [Vitamin B-1] 100 mg PO DAILY 30 Days #30 tab 04/26/23 [Rx] traMADol HCl [Ultram] 50 mg PO Q6HR PRN 3 Days #12 tab 04/26/23 [Rx] Follow up Appointment(s)/Referral(s): Josh Ledbetter MD [Primary Care Provider] - 1-2 days Discharge/Stand Alone Forms: [facility], Outpatient Counseling, In Substance Abuse Facilities
== END 2023-04-26 15:00 | disposition home or self-care (01) ==
LOC: EC 20:21 → 4SSUR 22:09
PROVIDERS: ADMIT Hospitalist; ATTEND Hospitalist
DX: F10.229 Alcohol dependence with intoxication, unspecified (principal); R62.7 Adult failure to thrive; I48.91 Unspecified atrial fibrillation; J44.9 Chronic obstructive pulmonary disease, unspecified; I10 Essential (primary) hypertension; Z85.3 Personal history of malignant neoplasm of breast; Z85.42 Personal history of malignant neoplasm of other parts of uterus; Z86.19 Personal history of other infectious and parasitic diseases; Z86.718 Personal history of other venous thrombosis and embolism; Z87.891 Personal history of nicotine dependence; Z79.01 Long term (current) use of anticoagulants; Z88.1 Allergy status to other antibiotic agents; Z88.6 Allergy status to analgesic agent; Y90.8 Blood alcohol level of 240 mg/100 ml or more
CPT/HCPCS: 99284; 36415; 94640 ×3; 97161; 80053 ×2; 82550; 83735; 84100; 85025; 85027; G0378 ×3; G0480 ×2; 80320

== ENCOUNTER → 2024-08-28 | Outpatient (CLI) | payer MEDICARE, OTHER ==
--- NOTE | 2024-09-05 12:27 | MM ---
Reason for Exam: Screening (asymptomatic). Last mammogram was performed 2 year(s) and 0 month(s) ago. Patient History: Menarche at age 11. Patient has no children. Postmenopausal. Breast cancer, left, age 47. 2000, Mastectomy on the Left side. Prior Study Comparison: 07/22/2018 Right Diagnostic Mammogram, [facility]. 10/29/2020 Bilateral Screening Mammogram, [facility]. 08/06/2022 Right MG 3D scr ori unilateral w/cad., [facility]. Tissue Density: Right: There are scattered areas of fibroglandular density. Findings: Analyzed By CAD. Right breast: There is no suspicious group of microcalcifications or new suspicious mass. Left breast: There is no suspicious group of microcalcifications or new suspicious mass. Overall Assessment: Negative, BI-RAD 1 Management: Screening Mammogram of both breasts in [address] [facility] will attempt to contact patient to return for supplemental views and ultrasound if indicated. Patient should continue monthly self-breast exams. A clinical breast exam by your physician is recommended on an annual basis. This exam should not preclude additional follow-up of suspicious palpable abnormalities. Note on Juany scores and lifetime risk: 1. A Juany score greater than 3% is considered moderate risk. If this is the case, consider specialist referral to assess eligibility for a risk reducing agent. 2. If overall lifetime risk for the development of breast cancer is 20% or higher, the patient may qualify for future screening with alternating mammogram and breast MRI. [facility], , 08/28/2024 3:20 PM. Electronically signed and approved by: Luis Lester DO
== END | disposition home or self-care (01) ==
LOC: RADMAMWWP 14:39
PROVIDERS: ATTEND Family Medicine
DX: Z12.31 Encounter for screening mammogram for malignant neoplasm of breast (principal); R92.321 Mammographic fibroglandular density, right breast; Z78.0 Asymptomatic menopausal state; Z85.3 Personal history of malignant neoplasm of breast; Z90.12 Acquired absence of left breast and nipple
CPT/HCPCS: 77067